=== PATIENT | female | born 1935 | race African-American/Black ===

== ENCOUNTER → 2016-08-24 | Outpatient (CLI) | payer MEDICARE, MEDICAID ==
[2016-08-24 18:29] LABS: HEMATOCRIT 36.1 % (36.0-47.0); HEMOGLOBIN 11.3 g/dL (12.0-15.5); HGB HCT DIFFERENCE -2.2; MEAN CORPUSCULAR HEMOGLOBIN 28.5 pg (27.0-33.4); MEAN CORPUSCULAR HGB CONC 31.2 g/dL (32.0-36.0); MEAN CORPUSCULAR VOLUME 92 fl (80-97); RED BLOOD COUNT 3.94 10^6/uL (3.72-5.28); RED CELL DISTRIBUTION WIDTH 15.7 % (11.5-14.0)
[2016-08-24 18:52] LABS: ANION GAP 18 (5-19); BLOOD UREA NITROGEN 50 mg/dL (7-20); CALCIUM 9.1 mg/dL (8.4-10.2); CARBON DIOXIDE 17 mmol/L (22-30); CHLORIDE 107 mmol/L (98-107); CREATININE RESULT 2.46 mg/dL (0.52-1.25); GLUCOSE 94 mg/dL (75-110); PHOSPHORUS 3.8 mg/dL (2.5-4.5); POTASSIUM 4.7 mmol/L (3.6-5.0)
[2016-08-24 19:11] LABS: MAGNESIUM 1.1 mg/dL (1.6-2.3)
== END ==
LOC: OD 16:30
PROVIDERS: ATTEND Internal Medicine Nephrology
DX: I12.9 Hypertensive chronic kidney disease with stage 1 through stage 4 chronic kidney disease, or unspecified chronic kidney disease (principal); N18.3 Chronic kidney disease, stage 3 (moderate); I50.9 Heart failure, unspecified
CPT/HCPCS: 36415; 80048; 83735; 83970; 84100; 85027

== ENCOUNTER → 2016-10-02 | Outpatient (CLI) | payer MEDICARE, MEDICAID ==
[2016-10-02 18:44] LABS: HEMATOCRIT 33.7 % (36.0-47.0); HEMOGLOBIN 10.9 g/dL (12.0-15.5); MEAN CORPUSCULAR HEMOGLOBIN 29.3 pg (27.0-33.4); MEAN CORPUSCULAR HGB CONC 32.2 g/dL (32.0-36.0); MEAN CORPUSCULAR VOLUME 91 fl (80-97); RED BLOOD COUNT 3.71 10^6/uL (3.72-5.28); RED CELL DISTRIBUTION WIDTH 15.3 % (11.5-14.0)
[2016-10-02 19:01] LABS: ANION GAP 15 (5-19); BLOOD UREA NITROGEN 49 mg/dL (7-20); CALCIUM 9.3 mg/dL (8.4-10.2); CARBON DIOXIDE 16 mmol/L (22-30); CHLORIDE 105 mmol/L (98-107); CREATININE RESULT 2.78 mg/dL (0.52-1.25); GLUCOSE 86 mg/dL (75-110); MAGNESIUM 1.5 mg/dL (1.6-2.3); PHOSPHORUS 3.6 mg/dL (2.5-4.5); POTASSIUM 5.1 mmol/L (3.6-5.0); SODIUM 135.7 mmol/L (137-145)
[2016-10-04 15:48] LABS: VITAMIN D 1,25 DIHYDROXY 44.8 pg/mL (19.9-79.3)
== END ==
LOC: OD 17:25
PROVIDERS: ATTEND Internal Medicine Nephrology
DX: I12.9 Hypertensive chronic kidney disease with stage 1 through stage 4 chronic kidney disease, or unspecified chronic kidney disease (principal); N18.4 Chronic kidney disease, stage 4 (severe); E83.41 Hypermagnesemia; R80.9 Proteinuria, unspecified
CPT/HCPCS: 36415; 80048; 82306; 82652; 83735; 83970; 84100; 85027

== ENCOUNTER → 2016-11-08 | Outpatient (CLI) | payer MEDICARE, MEDICAID ==
[2016-11-08 16:16] LABS: ANION GAP 12 (5-19); BLOOD UREA NITROGEN 44 mg/dL (7-20); CALCIUM 9.2 mg/dL (8.4-10.2); CARBON DIOXIDE 21 mmol/L (22-30); CHLORIDE 107 mmol/L (98-107); CREATININE RESULT 2.33 mg/dL (0.52-1.25); GLUCOSE 114 mg/dL (75-110); MAGNESIUM 1.3 mg/dL (1.6-2.3); PHOSPHORUS 3.4 mg/dL (2.5-4.5); POTASSIUM 4.5 mmol/L (3.6-5.0); SODIUM 139.5 mmol/L (137-145); URIC ACID 8.5 mg/dL (2.5-7.5)
[2016-11-10 13:03] LABS: VITAMIN D 25-HYDROXY 30.1 ng/mL (30.0-100.0)
== END ==
LOC: OD 15:03
PROVIDERS: ATTEND Internal Medicine Nephrology
DX: I12.9 Hypertensive chronic kidney disease with stage 1 through stage 4 chronic kidney disease, or unspecified chronic kidney disease (principal); N18.3 Chronic kidney disease, stage 3 (moderate); E87.5 Hyperkalemia; E83.42 Hypomagnesemia; M10.00 Idiopathic gout, unspecified site
CPT/HCPCS: 36415; 80048; 82306; 83735; 83970; 84100; 84550

== ENCOUNTER → 2016-12-14 | Outpatient (CLI) | payer MEDICARE, MEDICAID ==
[2016-12-14 09:46] LABS: HEMATOCRIT 33.5 % (36.0-47.0); HEMOGLOBIN 10.9 g/dL (12.0-15.5); HGB HCT DIFFERENCE -0.8; MEAN CORPUSCULAR HEMOGLOBIN 29.5 pg (27.0-33.4); MEAN CORPUSCULAR HGB CONC 32.6 g/dL (32.0-36.0); MEAN CORPUSCULAR VOLUME 91 fl (80-97); RED CELL DISTRIBUTION WIDTH 14.8 % (11.5-14.0); WHITE BLOOD COUNT 6.1 10^3/uL (4.0-10.5)
[2016-12-14 10:05] LABS: ANION GAP 12 (5-19); BLOOD UREA NITROGEN 42 mg/dL (7-20); CALCIUM 9.5 mg/dL (8.4-10.2); CARBON DIOXIDE 22 mmol/L (22-30); CHLORIDE 108 mmol/L (98-107); CREATININE RESULT 2.77 mg/dL (0.52-1.25); GLUCOSE 95 mg/dL (75-110); MAGNESIUM 1.6 mg/dL (1.6-2.3); PHOSPHORUS 3.6 mg/dL (2.5-4.5); POTASSIUM 4.5 mmol/L (3.6-5.0); SODIUM 142.1 mmol/L (137-145)
[2016-12-14 16:13] LABS: ALANINE AMINOTRANSFERASE 20 U/L (9-52); ALBUMIN 3.7 g/dL (3.5-5.0); ALKALINE PHOSPHATASE 91 U/L (38-126); ASPARTATE AMINO TRANSFERASE 16 U/L (14-36); BILIRUBIN,DIRECT 0.3 mg/dL (0.0-0.4); BILIRUBIN,TOTAL 0.5 mg/dL (0.2-1.3); CHOLESTEROL 140.86 mg/dL (0-200); Direct HDL 54 mg/dL (>40); TOTAL PROTEIN 7.4 g/dL (6.3-8.2); TRIGLYCERIDES 99 mg/dL (<150)
[2016-12-14 16:29] LABS: DIRECT LDL 39 mg/dL (<100)
== END ==
LOC: OD 08:31
PROVIDERS: ATTEND Specialist
DX: I12.9 Hypertensive chronic kidney disease with stage 1 through stage 4 chronic kidney disease, or unspecified chronic kidney disease (principal); E87.6 Hypokalemia; N18.4 Chronic kidney disease, stage 4 (severe); E78.5 Hyperlipidemia, unspecified; D64.89 Other specified anemias; G56.00 Carpal tunnel syndrome, unspecified upper limb; I34.0 Nonrheumatic mitral (valve) insufficiency; I42.9 Cardiomyopathy, unspecified; I66.8 Occlusion and stenosis of other cerebral arteries; R06.09 Other forms of dyspnea; Z98.61 Coronary angioplasty status; C15.9 Malignant neoplasm of esophagus, unspecified; I25.10 Atherosclerotic heart disease of native coronary artery without angina pectoris; Z79.899 Other long term (current) drug therapy
CPT/HCPCS: 36415; 80048; 80061; 80076; 83735; 83970; 84100; 85027

== ENCOUNTER → 2017-02-17 | Outpatient (CLI) | payer MEDICARE, MEDICAID ==
--- NOTE | 2017-02-18 09:07 | RADIOLOGY REPORT (SQ) ---
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 TECHNIQUE: Blood glucose level was verified. Above dose of FDG was injected intravenously. 2-D seg mented attenuation correction images were obtained from the base of the skull to the midthighs. Nonc ontrast CT images were obtained for attenuation correction and fusion with emission images. CT image s were performed without oral or intravenous contrast and are not sensitive for parenchymal lesions. A series of overlapping emission PET images were obtained. Images reviewed and manipulated at [facility] work station by the radiologist. Images stored on PACS. LIMITATIONS: None. FINDINGS: HEAD AND NECK: No areas of abnormal metabolic activity in the soft tissues of the head and neck. CHEST: No areas of abnormal metabolic activity in the chest. ABDOMEN AND PELVIS: No areas of abnormal metabolic activity in the abdomen or pelvis. Expected physi ologic activity is present in the genitourinary system and bowel. PROXIMAL LOWER EXTREMITIES: No areas of abnormal metabolic activity in the soft tissues of the lower extremities. BONES: No abnormal metabolic activity in the visualized skeleton. ADDITIONAL CT FINDINGS: Calcified gallstones, 1.5 cm staghorn calculus left lower pole kidney, bilate ral renal cortical cysts, colon diverticuli, fatty less than 1 cm right adrenal nodule, coronary manny ry calcifications OTHER: Liver background activity SUV 2.9, blood pool activity background SUV 2.2. IMPRESSION: No increased metabolic activity worrisome for metastatic disease given history of esopha geal malignancy TECHNICAL DOCUMENTATION: JOB ID: [id number] [employer]- All Rights Reserved
== END ==
LOC: RAD 15:30
PROVIDERS: ATTEND Specialist
DX: C15.9 Malignant neoplasm of esophagus, unspecified (principal)
CPT/HCPCS: 78815; A9552

== ENCOUNTER → 2017-04-05 | Outpatient (CLI) | payer MEDICARE, MEDICAID ==
[2017-04-05 11:12] LABS: HEMOGLOBIN 11.7 g/dL (12.0-15.5); HGB HCT DIFFERENCE -0.9; MEAN CORPUSCULAR HGB CONC 32.6 g/dL (32.0-36.0); MEAN CORPUSCULAR VOLUME 92 fl (80-97); RED CELL DISTRIBUTION WIDTH 16.8 % (11.5-14.0); WHITE BLOOD COUNT 4.5 10^3/uL (4.0-10.5)
[2017-04-05 11:44] LABS: ANION GAP 14 (5-19); BLOOD UREA NITROGEN 47 mg/dL (7-20); CALCIUM 9.5 mg/dL (8.4-10.2); CARBON DIOXIDE 19 mmol/L (22-30); CHLORIDE 106 mmol/L (98-107); GLUCOSE 89 mg/dL (75-110); MAGNESIUM 1.9 mg/dL (1.6-2.3); POTASSIUM 4.8 mmol/L (3.6-5.0); SODIUM 139.3 mmol/L (137-145)
== END ==
LOC: OD 09:54
PROVIDERS: ATTEND Internal Medicine Nephrology
DX: I13.10 Hypertensive heart and chronic kidney disease without heart failure, with stage 1 through stage 4 chronic kidney disease, or unspecified chronic kidney disease (principal); N18.3 Chronic kidney disease, stage 3 (moderate); E83.42 Hypomagnesemia
CPT/HCPCS: 36415; 80048; 83735; 85027

== ENCOUNTER → 2017-07-11 | Outpatient (CLI) | payer MEDICARE, MEDICAID ==
[2017-07-11 14:07] LABS: HEMATOCRIT 36.2 % (36.0-47.0); HEMOGLOBIN 11.9 g/dL (12.0-15.5); HGB HCT DIFFERENCE -0.5; MEAN CORPUSCULAR HGB CONC 32.8 g/dL (32.0-36.0); MEAN CORPUSCULAR VOLUME 91 fl (80-97); RED BLOOD COUNT 3.96 10^6/uL (3.72-5.28); RED CELL DISTRIBUTION WIDTH 16.7 % (11.5-14.0)
[2017-07-11 14:39] LABS: ANION GAP 13 (5-19); BLOOD UREA NITROGEN 40 mg/dL (7-20); CALCIUM 9.2 mg/dL (8.4-10.2); CARBON DIOXIDE 19 mmol/L (22-30); CHLORIDE 109 mmol/L (98-107); CREATININE RESULT 2.91 mg/dL (0.52-1.25); GLUCOSE 84 mg/dL (75-110); POTASSIUM 5.5 mmol/L (3.6-5.0); SODIUM 140.7 mmol/L (137-145)
[2017-07-11 19:17] LABS: APPEARANCE,URINE CLEAR; BILIRUBIN,URINE NEGATIVE (NEGATIVE); GLUCOSE, URINE NEGATIVE (NEGATIVE); KETONES,URINE NEGATIVE (NEGATIVE); LEUKOCYTE ESTERASE,URINE SMALL (NEGATIVE); NITRITE,URINE NEGATIVE (NEGATIVE); PROTEIN,URINE >=500 mg/dL (NEGATIVE); URINE SPECIFIC GRAVITY 1.009; UROBILINOGEN,URINE NEGATIVE mg/dL (<2.0)
== END ==
LOC: OD 12:52
PROVIDERS: ATTEND Physician Assistant Medical
DX: I12.9 Hypertensive chronic kidney disease with stage 1 through stage 4 chronic kidney disease, or unspecified chronic kidney disease (principal); N18.4 Chronic kidney disease, stage 4 (severe); E83.42 Hypomagnesemia
CPT/HCPCS: 36415; 80048; 81001; 85027

== ENCOUNTER → 2017-07-15 | Outpatient (CLI) | payer MEDICARE, MEDICAID | LOC: OD 12:02 | PROVIDERS: ATTEND Physician Assistant Medical | DX: E87.5 Hyperkalemia (principal) | CPT/HCPCS: 36415; 84132 ==

== ENCOUNTER 2017-09-03 08:27 | Outpatient (CLI) | payer MEDICARE, MEDICAID ==
[~2017-09-03 08:27] MED LIST: FERUMOXYTOL (NON-ESRD) 510 MG/NS 100 ML IV PRN; NORMAL SALINE 250 ML IV PRN
[2017-09-03 09:36] VITALS: BP 164/72
== END 2017-09-03 10:09 | disposition home or self-care (01) ==
LOC: II 08:27 → 5TH 08:47 → II 10:09
PROVIDERS: ATTEND Internal Medicine
PROC: 3E033GC Introduction of Other Therapeutic Substance into Peripheral Vein, Percutaneous Approach (ICD-10-PCS; principal; 2017-09-03)
DX: D50.0 Iron deficiency anemia secondary to blood loss (chronic) (principal); N18.3 Chronic kidney disease, stage 3 (moderate)
CPT/HCPCS: 96365; Q0138

== ENCOUNTER 2017-09-10 08:51 | Outpatient (CLI) | payer MEDICARE, MEDICAID ==
[~2017-09-10 08:51] MED LIST changes: -FERUMOXYTOL (NON-ESRD) 510 MG/NS 100 ML IV PRN; +FERUMOXYTOL 510 MG in NORMAL SALINE 100 ML IV PRN
[2017-09-10 10:03] VITALS: BP 149/54
== END 2017-09-10 10:11 | disposition home or self-care (01) ==
LOC: II 08:51
PROVIDERS: ATTEND Internal Medicine
PROC: 3E033GC Introduction of Other Therapeutic Substance into Peripheral Vein, Percutaneous Approach (ICD-10-PCS; principal; 2017-09-10)
DX: D50.0 Iron deficiency anemia secondary to blood loss (chronic) (principal); N18.3 Chronic kidney disease, stage 3 (moderate)
CPT/HCPCS: 96365; Q0138

== ENCOUNTER → 2017-09-19 | Outpatient (CLI) | payer MEDICARE, MEDICAID ==
[2017-09-19 10:00] LABS: HEMATOCRIT 34.5 % (36.0-47.0); HEMOGLOBIN 11.3 g/dL (12.0-15.5); MEAN CORPUSCULAR HEMOGLOBIN 29.9 pg (27.0-33.4); MEAN CORPUSCULAR HGB CONC 32.8 g/dL (32.0-36.0); MEAN CORPUSCULAR VOLUME 91 fl (80-97); PLATELET COUNT 125 10^3/uL (150-450); RED BLOOD COUNT 3.78 10^6/uL (3.72-5.28); RED CELL DISTRIBUTION WIDTH 16.1 % (11.5-14.0); WHITE BLOOD COUNT 4.9 10^3/uL (4.0-10.5)
[2017-09-19 10:30] LABS: ANION GAP 12 (5-19); BLOOD UREA NITROGEN 51 mg/dL (7-20); CALCIUM 9.5 mg/dL (8.4-10.2); CARBON DIOXIDE 20 mmol/L (22-30); CHLORIDE 106 mmol/L (98-107); GLUCOSE 91 mg/dL (75-110); PHOSPHORUS 4.1 mg/dL (2.5-4.5); POTASSIUM 4.8 mmol/L (3.6-5.0); SODIUM 138.2 mmol/L (137-145); URIC ACID 8.3 mg/dL (2.5-7.5)
[2017-09-21 17:12] LABS: APPEARANCE,URINE CLEAR; BILIRUBIN,URINE NEGATIVE (NEGATIVE); COLOR,URINE STRAW; GLUCOSE, URINE NEGATIVE (NEGATIVE); KETONES,URINE NEGATIVE (NEGATIVE); LEUKOCYTE ESTERASE,URINE TRACE (NEGATIVE); NITRITE,URINE NEGATIVE (NEGATIVE); PROTEIN,URINE 100 mg/dL (NEGATIVE); URINE SPECIFIC GRAVITY 1.005; UROBILINOGEN,URINE NEGATIVE mg/dL (<2.0)
== END ==
LOC: OD 09:18
PROVIDERS: ATTEND Physician Assistant Medical
DX: I12.9 Hypertensive chronic kidney disease with stage 1 through stage 4 chronic kidney disease, or unspecified chronic kidney disease (principal); N18.4 Chronic kidney disease, stage 4 (severe); E87.5 Hyperkalemia; M10.00 Idiopathic gout, unspecified site
CPT/HCPCS: 36415; 80048; 81001; 83970; 84100; 84550; 85027

== ENCOUNTER → 2017-12-25 | Outpatient (CLI) | payer MEDICARE, MEDICAID ==
--- NOTE | 2017-12-25 10:28 | WOMENS IMAGING REPORT ---
EXAM DESCRIPTION: BONE DENSITY HIP/SPINE COMPLETED DATE/TIME: 12/25/2017 8:53 am REASON FOR STUDY: AGE-RELATED OSTEOPROSIS; M81.0 Z12.31 ENCNTR SCREEN MAMMOGRAM FOR MALIGNANT NEOPL ASM OF GRACE M81.0 AGE-RELATED OSTEOPOROSIS W/O CURRENT PATHOLOGICAL FRAC COMPARISON: 09/07/2010 TECHNIQUE: Dual-Energy X-ray Absorptiometry (DEXA) of the AP Spine and Hip. LIMITATIONS: None. FINDINGS: LUMBAR SPINE: The bone mineral density (BMD) measured from L1-L4 in the AP projection correlates with a T-score of -4.0, previously -3.8, which is osteoporosis as defined by the World Health Organization. HIP: The bone mineral density (BMD) measured in the left hip correlates with a T-score of -3.1, previously -2.9, which is osteoporosis as defined by the World Health Organization. IMPRESSION: 1. LUMBAR SPINE: OSTEOPOROSIS. 2. HIP: OSTEOPOROSIS. COMMENT: The World Health Organization defines low BMD as follows: T-score: Normal: Greater than -1.0 Osteopenia: Between -1.0 and -2.5 Osteoporosis: Less than -2.5 without fractures Established osteoporosis: Less than -2.5 with fractures In general, you may wish to consider: Diagnosis Treatment Follow-up DEXA Normal BMD Prevention 2-3 years Osteopenia Prevention/Therapy 1-2 years Osteoporosis Therapy Yearly TECHNICAL DOCUMENTATION: JOB ID: [id number] [employer]- All Rights Reserved Reading location - IP/workstation name: [email or web address]
--- NOTE | 2017-12-26 16:49 | WOMENS IMAGING REPORT ---
EXAM DESCRIPTION: 3D SCREENING MAMMO BILAT COMPLETED DATE/TIME: 12/25/2017 8:53 am REASON FOR STUDY: ROUTINE SCREENING;Z12.31 Z12.31 ENCNTR SCREEN MAMMOGRAM FOR MALIGNANT NEOPLASM OF GRACE M81.0 AGE-RELATED OSTEOPOROSIS W/O CURRENT PATHOLOGICAL FRAC COMPARISON: 2010. TECHNIQUE: Standard craniocaudal and mediolateral oblique views of each breast recorded using digita l acquisition and breast tomosynthesis. LIMITATIONS: None. FINDINGS: No masses, calcifications or architectural distortion. No areas of suspicion. Read with the assistance of CAD. .[facility] - R2 Cenova Version 1.3 .[facility] - R2 Cenova Version 1.3 .[facility] - R2 Cenova Version 2.4 .[facility] - R2 Cenova Version 2.4 .[facility] - R2 Regulatory Assistant Version 9.2 IMPRESSION: NORMAL MAMMOGRAM. BIRADS 1. BREAST DENSITY: b. There are scattered areas of fibroglandular density. BIRAD: 1 NEGATIVE RECOMMENDATION: ROUTINE SCREENING COMMENT: The patient has been notified of the results by letter per MQSA requirements. Additional no tification policies are in place for contacting patient with suspicious or incomplete findings. Quality ID #[id number]: The [employer] [place] [employer] recommends an annual screening mammogram for women aged 40 years or over. This facility utilizes a reminder system to ensure that all patients receive reminder letters, and/or direct phone calls for appointments. This includes reminders for routine scr eening mammograms, diagnostic mammograms, or other Breast Imaging Interventions when appropriate. Th is patient will be placed in the appropriate reminder system. The [employer] [place] [employer] (ACR) has developed recommendations for screening MRI of the breast s in certain patient populations, to be used in conjunction with mammography. Breast MRI surveillanc e may be appropriate for women with more than 20% lifetime risk of developing breast cancer as deter mined by genetic testing, significant family history of the disease, or history of mantle radiation f or Hodgkins Disease. ACR Practice Guidelines 2008. DBT Technology DBT is a type of tomographic mammography. With conventional mammography, overlapping breast tissue ma y make lesions difficult to detect, even with good compression. DBT uses an x-ray tube that rotates a round the breast, taking images at different angles. These images are then combined to create thin sl ices of the breast that the radiologist can view as a 3D reconstruction. The GreenNote unit can perform full-field digital mammograms (2D imaging); or DBT (3D imaging); or both, in a combination mode that quickly performs both the mammogram and the tomosynthesis scan while the breast is still compressed. PQRS 6045F: Fluoroscopic imaging is not utilized for breast tomosynthesis. TECHNICAL DOCUMENTATION: FINDING NUMBER: (1) ASSESSMENT: (1) JOB ID: [id number] [employer]- All Rights Reserved Reading location - IP/workstation name: [email or web address]
== END ==
LOC: WI 08:05
PROVIDERS: ATTEND Physician Assistant
DX: Z12.31 Encounter for screening mammogram for malignant neoplasm of breast (principal); M81.0 Age-related osteoporosis without current pathological fracture
CPT/HCPCS: 77063; 77067; 77080

== ENCOUNTER → 2018-01-16 | Outpatient (CLI) | payer MEDICARE, MEDICAID ==
[2018-01-16 11:38] LABS: HEMATOCRIT 34.4 % (36.0-47.0); HEMOGLOBIN 11.4 g/dL (12.0-15.5); MEAN CORPUSCULAR HEMOGLOBIN 30.6 pg (27.0-33.4); MEAN CORPUSCULAR VOLUME 93 fl (80-97); PLATELET COUNT 136 10^3/uL (150-450); RED BLOOD COUNT 3.71 10^6/uL (3.72-5.28); RED CELL DISTRIBUTION WIDTH 14.1 % (11.5-14.0); WHITE BLOOD COUNT 5.1 10^3/uL (4.0-10.5)
[2018-01-16 11:43] LABS: ANION GAP 13 (5-19); BLOOD UREA NITROGEN 52 mg/dL (7-20); CALCIUM 9.6 mg/dL (8.4-10.2); CARBON DIOXIDE 21 mmol/L (22-30); CHLORIDE 109 mmol/L (98-107); GLUCOSE 88 mg/dL (75-110); IRON(TIBC) 67.1 ug/dL (37-170); PHOSPHORUS 4.2 mg/dL (2.5-4.5); POTASSIUM 5.1 mmol/L (3.6-5.0); SODIUM 142.9 mmol/L (137-145)
[2018-01-17 15:39] LABS: APPEARANCE,URINE SLIGHTLY-CLOUDY; BILIRUBIN,URINE NEGATIVE (NEGATIVE); COLOR,URINE YELLOW; GLUCOSE, URINE NEGATIVE (NEGATIVE); KETONES,URINE NEGATIVE (NEGATIVE); LEUKOCYTE ESTERASE,URINE SMALL (NEGATIVE); NITRITE,URINE NEGATIVE (NEGATIVE); PROTEIN,URINE >=500 mg/dL (NEGATIVE); URINE SPECIFIC GRAVITY 1.011; UROBILINOGEN,URINE NEGATIVE mg/dL (<2.0)
== END ==
LOC: OD 09:53
PROVIDERS: ATTEND Physician Assistant Medical
DX: I13.0 Hypertensive heart and chronic kidney disease with heart failure and stage 1 through stage 4 chronic kidney disease, or unspecified chronic kidney disease (principal); N18.4 Chronic kidney disease, stage 4 (severe); I50.9 Heart failure, unspecified; E87.5 Hyperkalemia
CPT/HCPCS: 36415; 80048; 81001; 82728; 83540; 83550; 83735; 83970; 84100; 85027

== ENCOUNTER → 2018-04-30 | Outpatient (CLI) | payer MEDICAID, MEDICARE ==
[2018-04-30 12:40] LABS: HEMATOCRIT 31.2 % (36.0-47.0); HEMOGLOBIN 10.3 g/dL (12.0-15.5); MEAN CORPUSCULAR HEMOGLOBIN 30.4 pg (27.0-33.4); MEAN CORPUSCULAR VOLUME 92 fl (80-97); PLATELET COUNT 129 10^3/uL (150-450); RED BLOOD COUNT 3.39 10^6/uL (3.72-5.28); RED CELL DISTRIBUTION WIDTH 14.7 % (11.5-14.0); WHITE BLOOD COUNT 5.8 10^3/uL (4.0-10.5)
[2018-04-30 13:00] LABS: IRON(TIBC) 44.4 ug/dL (37-170)
== END ==
LOC: OD 10:47
PROVIDERS: ATTEND Internal Medicine Nephrology
DX: N18.4 Chronic kidney disease, stage 4 (severe) (principal); D64.9 Anemia, unspecified
CPT/HCPCS: 36415; 82728; 83540; 83550; 85027

== ENCOUNTER → 2018-05-28 | Outpatient (CLI) | payer MEDICARE ==
[2018-05-28 12:12] LABS: HEMOGLOBIN 11.1 g/dL (12.0-15.5); MEAN CORPUSCULAR HEMOGLOBIN 29.9 pg (27.0-33.4); MEAN CORPUSCULAR HGB CONC 32.5 g/dL (32.0-36.0); MEAN CORPUSCULAR VOLUME 92 fl (80-97); PLATELET COUNT 149 10^3/uL (150-450); RED CELL DISTRIBUTION WIDTH 15.4 % (11.5-14.0); WHITE BLOOD COUNT 5.4 10^3/uL (4.0-10.5)
[2018-05-28 12:37] LABS: ANION GAP 16 (5-19); BLOOD UREA NITROGEN 39 mg/dL (7-20); CALCIUM 9.5 mg/dL (8.4-10.2); CARBON DIOXIDE 17 mmol/L (22-30); CHLORIDE 107 mmol/L (98-107); GLUCOSE 76 mg/dL (75-110); PHOSPHORUS 4.3 mg/dL (2.5-4.5); POTASSIUM 4.7 mmol/L (3.6-5.0); SODIUM 140.4 mmol/L (137-145)
[2018-05-29 17:29] LABS: APPEARANCE,URINE CLEAR; BILIRUBIN,URINE NEGATIVE (NEGATIVE); COLOR,URINE STRAW; GLUCOSE, URINE NEGATIVE (NEGATIVE); KETONES,URINE NEGATIVE (NEGATIVE); LEUKOCYTE ESTERASE,URINE TRACE (NEGATIVE); NITRITE,URINE NEGATIVE (NEGATIVE); PROTEIN,URINE 100 mg/dL (NEGATIVE); URINE SPECIFIC GRAVITY 1.011; UROBILINOGEN,URINE NEGATIVE mg/dL (<2.0)
[2018-05-29 18:07] LABS: URINE CREATININE 66.8 mg/dL (15-278)
[2018-05-29 18:09] LABS: UR PRO/CREAT RATIO RESULT 3.3 mg/mg (0.0-0.2); URINE PROTEIN 221.8 mg/dL (<12)
== END ==
LOC: OD 11:06
PROVIDERS: ATTEND Physician Assistant Medical
DX: I13.0 Hypertensive heart and chronic kidney disease with heart failure and stage 1 through stage 4 chronic kidney disease, or unspecified chronic kidney disease (principal); I50.9 Heart failure, unspecified; N18.4 Chronic kidney disease, stage 4 (severe); R60.9 Edema, unspecified
CPT/HCPCS: 36415; 80048; 81001; 82570; 83970; 84100; 84156; 85027

== ENCOUNTER → 2018-07-24 | Outpatient (CLI) | payer MEDICARE ==
[2018-07-24 15:57] LABS: ABSOLUTE EOSINOPHILS # (AUTO) 0.1 10^3/uL (0.0-0.6); ABSOLUTE LYMPHOCYTES (AUTO) 1.3 10^3/uL (0.5-4.7); ABSOLUTE MONOCYTES (AUTO) 0.4 10^3/uL (0.1-1.4); ABSOLUTE NEUT (AUTO) 3.5 10^3/uL (1.7-8.2); BASOPHILS % (AUTO) 0.4 % (0-2); HEMATOCRIT 31.2 % (36.0-47.0); LYMPHOCYTES % (AUTO) 24.1 % (13-45); MEAN CORPUSCULAR HGB CONC 32.1 g/dL (32.0-36.0); MEAN CORPUSCULAR VOLUME 91 fl (80-97); MONOCYTES % (AUTO) 6.8 % (3-13); PLATELET COUNT 149 10^3/uL (150-450); RED BLOOD COUNT 3.44 10^6/uL (3.72-5.28); RED CELL DISTRIBUTION WIDTH 15.2 % (11.5-14.0); SEGMENTED NEUTROPHILS % (AUTO) 66.7 % (42-78); TOTAL CELLS COUNTED % (AUTO) 100 %; WHITE BLOOD COUNT 5.3 10^3/uL (4.0-10.5)
--- NOTE | 2018-07-24 16:08 | RADIOLOGY REPORT (SQ) ---
EXAM DESCRIPTION: CHEST PA/LATERAL COMPLETED DATE/TIME: 07/24/2018 4:00 pm REASON FOR STUDY: COUGH R05 COUGH N18.9 CHRONIC KIDNEY DISEASE, UNSPECIFIED I50.32 CHRONIC DIASTO LIC (CONGESTIVE) HEART FAILURE COMPARISON: 11/14/2015. NUMBER OF VIEWS: Two views. TECHNIQUE: Frontal and lateral radiographic views of the chest acquired. LIMITATIONS: None. FINDINGS: LUNGS AND PLEURA: No opacities, masses or pneumothorax. No pleural effusion. MEDIASTINUM AND HILAR STRUCTURES: No masses or contour abnormality. HEART AND VASCULAR STRUCTURES: Marked cardiomegaly with vascular congestion. BONES: No acute findings. HARDWARE: None in the chest. OTHER: No other significant finding. IMPRESSION: MARKED CARDIOMEGALY WITH VASCULAR CONGESTION. TECHNICAL DOCUMENTATION: JOB ID: [id number] [employer]- All Rights Reserved Reading location - IP/workstation name: [email or web address]
[2018-07-24 16:16] LABS: ANION GAP 11 (5-19); BLOOD UREA NITROGEN 44 mg/dL (7-20); CALCIUM 9.9 mg/dL (8.4-10.2); CARBON DIOXIDE 26 mmol/L (22-30); CHLORIDE 105 mmol/L (98-107); GLUCOSE 99 mg/dL (75-110); POTASSIUM 4.3 mmol/L (3.6-5.0); SODIUM 141.5 mmol/L (137-145)
== END ==
LOC: OD 15:17
PROVIDERS: ATTEND Family Medicine
DX: R05 Cough (principal); N18.9 Chronic kidney disease, unspecified; I50.32 Chronic diastolic (congestive) heart failure
CPT/HCPCS: 36415; 71046; 80048; 83880; 85025

== ENCOUNTER → 2018-07-31 | Outpatient (CLI) | payer MEDICARE ==
[2018-07-31 12:25] LABS: IRON(TIBC) 34.6 ug/dL (37-170)
== END ==
LOC: OD 10:40
PROVIDERS: ATTEND Internal Medicine Nephrology
DX: N18.4 Chronic kidney disease, stage 4 (severe) (principal); D63.1 Anemia in chronic kidney disease
CPT/HCPCS: 36415; 82728; 83540; 83550

== ENCOUNTER → 2018-08-01 | Outpatient (CLI) | payer MEDICARE, MEDICAID ==
--- NOTE | 2018-08-01 10:43 | RADIOLOGY REPORT (SQ) ---
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 TECHNIQUE: CT scan of the abdomen and pelvis performed without intravenous or oral contrast. Images reviewed with lung, soft tissue, and bone windows. Reconstructed coronal and sagittal MPR images revi ewed. All images stored on PACS. All CT scanners at this facility use dose modulation, iterative reconstruction, and/or weight based d osing when appropriate to reduce radiation dose to as low as reasonably achievable (ALARA). [facility]: Dose Right [facility]: CareDose [facility]: Dose Right [facility]: Teradose 4D [facility]: Smart Ensequence RADIATION DOSE: CT Rad equipment meets quality standard of care and radiation dose reduction techniq ues were employed. CTDIvol: 11.9 mGy. DLP: 595 mGy-cm.mGy. LIMITATIONS: None. FINDINGS: LOWER CHEST: Cardiomegaly. Trace pleural effusions. NON-CONTRASTED LIVER, SPLEEN, ADRENALS: Evaluation limited by lack of IV contrast. No identified sign ificant masses. PANCREAS: No masses. No peripancreatic inflammatory changes. GALLBLADDER: Gallstones. No inflammatory changes to suggest cholecystitis. RIGHT KIDNEY AND URETER: No suspicious masses. Assessment limited by lack of IV contrast. No signif icant calcifications. No hydronephrosis or hydroureter. LEFT KIDNEY AND URETER: No suspicious masses. Assessment limited by lack of IV contrast. Unchanged renal calculi. No hydronephrosis or hydroureter. AORTA AND RETROPERITONEUM: No aneurysm. No retroperitoneal masses or adenopathy. BOWEL AND PERITONEAL CAVITY: Diffuse diverticulosis. No obvious diverticulitis. No ascites or free air. APPENDIX: Normal. PELVIS, BLADDER, AND ABDOMINAL WALL:No abnormal masses. No free fluid. Bladder normal. BONES: Nothing acute. OTHER: No other significant finding. IMPRESSION: 1. Diffuse diverticulosis without obvious diverticulitis. 2. Cholelithiasis. 3. Nonobstructing left renal calculi. COMMENT: Quality ID # [id number]: Final reports with documentation of one or more dose reduction techniques (e.g., Automated exposure control, adjustment of the mA and/or kV according to patient size, use of iterative reconstruction technique) TECHNICAL DOCUMENTATION: JOB ID: [id number] [employer]- All Rights Reserved Reading location - IP/workstation name: [email or web address]
== END ==
LOC: RAD 09:57
PROVIDERS: ATTEND Family Medicine
DX: R10.13 Epigastric pain (principal); C15.8 Malignant neoplasm of overlapping sites of esophagus; K57.90 Diverticulosis of intestine, part unspecified, without perforation or abscess without bleeding; K80.20 Calculus of gallbladder without cholecystitis without obstruction; N20.0 Calculus of kidney
CPT/HCPCS: 74176

== ENCOUNTER → 2018-08-07 | Outpatient (CLI) | payer MEDICARE, MEDICAID ==
--- NOTE | 2018-08-07 16:31 | RADIOLOGY REPORT (SQ) ---
EXAM DESCRIPTION: CHEST PA/LATERAL COMPLETED DATE/TIME: 08/07/2018 4:02 pm REASON FOR STUDY: CHRONIC DIASTOLIC CONGESTIVE HEART FAILURE COMPARISON: PET-CT 02/17/2017 Chest films 11/14/2015, 07/24/2018 CT abdomen pelvis 08/01/2018 EXAM PARAMETERS: NUMBER OF VIEWS: two views TECHNIQUE: Digital Frontal and Lateral radiographic views of the chest acquired. RADIATION DOSE: NA LIMITATIONS: none FINDINGS: LUNGS AND PLEURA: Trace left pleural fluid in the lateral costophrenic sulcus. No right p leural effusion No acute infiltrates. No pneumothorax. MEDIASTINUM AND HILAR STRUCTURES: Fullness of the right hilum unchanged from prior studies, likely du e to prominent central pulmonary vessels. This is similar compared to PET-CT 02/17/2017. HEART AND VASCULAR STRUCTURES: Stable moderate cardiomegaly BONES: No acute findings. HARDWARE: None in the chest. OTHER: No other significant finding. IMPRESSION: Trace left pleural effusion Stable moderate cardiomegaly TECHNICAL DOCUMENTATION: JOB ID: [id number] [employer]- All Rights Reserved Reading location - IP/workstation name: [email or web address]
== END ==
LOC: OD 15:48
PROVIDERS: ATTEND Family Medicine
DX: I50.32 Chronic diastolic (congestive) heart failure (principal); I51.7 Cardiomegaly
CPT/HCPCS: 71046

== ENCOUNTER → 2018-09-03 | Outpatient (CLI) | payer MEDICARE, MEDICAID ==
[2018-09-03 14:12] LABS: HEMATOCRIT 32.8 % (36.0-47.0); HEMOGLOBIN 10.7 g/dL (12.0-15.5); MEAN CORPUSCULAR HEMOGLOBIN 29.1 pg (27.0-33.4); MEAN CORPUSCULAR HGB CONC 32.7 g/dL (32.0-36.0); MEAN CORPUSCULAR VOLUME 89 fl (80-97); PLATELET COUNT 134 10^3/uL (150-450); RED BLOOD COUNT 3.69 10^6/uL (3.72-5.28); WHITE BLOOD COUNT 4.6 10^3/uL (4.0-10.5)
[2018-09-03 14:36] LABS: ANION GAP 13 (5-19); BLOOD UREA NITROGEN 45 mg/dL (7-20); CALCIUM 9.6 mg/dL (8.4-10.2); CARBON DIOXIDE 26 mmol/L (22-30); CHLORIDE 103 mmol/L (98-107); GLUCOSE 94 mg/dL (75-110); PHOSPHORUS 4.4 mg/dL (2.5-4.5); SODIUM 141.7 mmol/L (137-145)
[2018-09-04 16:59] LABS: APPEARANCE,URINE CLEAR; BILIRUBIN,URINE NEGATIVE (NEGATIVE); COLOR,URINE STRAW; GLUCOSE, URINE NEGATIVE (NEGATIVE); KETONES,URINE NEGATIVE (NEGATIVE); LEUKOCYTE ESTERASE,URINE NEGATIVE (NEGATIVE); NITRITE,URINE NEGATIVE (NEGATIVE); PROTEIN,URINE 100 mg/dL (NEGATIVE); URINE SPECIFIC GRAVITY 1.011; UROBILINOGEN,URINE NEGATIVE mg/dL (<2.0)
[2018-09-04 17:16] LABS: URINE CREATININE 68.3 mg/dL (15-278)
[2018-09-04 17:28] LABS: UR PRO/CREAT RATIO RESULT 3.4 mg/mg (0.0-0.2); URINE PROTEIN 235.1 mg/dL (<12)
== END ==
LOC: OD 13:26
PROVIDERS: ATTEND Physician Assistant Medical
DX: I13.0 Hypertensive heart and chronic kidney disease with heart failure and stage 1 through stage 4 chronic kidney disease, or unspecified chronic kidney disease (principal); N18.4 Chronic kidney disease, stage 4 (severe); I50.9 Heart failure, unspecified
CPT/HCPCS: 36415; 80048; 81001; 82570; 83970; 84100; 84156; 85027

== ENCOUNTER 2018-09-07 13:39 | Emergency (ER) | payer MEDICARE, MEDICAID ==
--- NOTE | 2018-09-07 14:14 | ER Document Report ---
ED Medical Screen (RME) - General Chief Complaint: Abdominal Pain Stated Complaint: STOMACH PAIN Time Seen by Provider: 09/07/18 14:13 Primary Care Provider: JD SAMSON PA-C [Primary Care Provider] - Follow up as needed TRAVEL OUTSIDE OF THE [place] IN LAST 30 DAYS: No - HPI Notes: 09/07/18 14:14 Abdominal pain 2 weeks - Related Data Allergies/Adverse Reactions: clopidogrel bisulfate [From Plavix] Allergy (Verified 09/07/18 13:42) Sulfa (Sulfonamide Antibiotics) Allergy (Verified 09/07/18 13:42) Past Medical History - Past Medical History Cardiac Medical History: Reports: Hx Congestive Heart Failure, Hx Coronary Artery Disease, Hx Hypertension Neurological Medical History: Denies: Hx Seizures GI Medical History: Reports: Hx Gastroesophageal Reflux Disease Musculoskeltal Medical History: Reports Hx Arthritis Psychiatric Medical History: Denies: Hx Depression Past Surgical History: Reports: Hx Cardiac Surgery - Stent x1. Denies: Hx Hysterectomy Review of Systems - Review of Systems Gastrointestinal: Abdominal pain Physical Exam - Vital signs Vitals: Temp Pulse Resp BP Pulse Ox 98.6 F 51 L 18 150/64 H 97 09/07/18 13:51 09/07/18 13:51 09/07/18 13:51 09/07/18 13:51 09/07/18 13:51 - Abdominal Notes: Soft no guarding or rebound Course - Vital Signs Vital signs: Temp Pulse Resp BP Pulse Ox 98.6 F 51 L 18 150/64 H 97 09/07/18 13:51 09/07/18 13:51 09/07/18 13:51 09/07/18 13:51 09/07/18 13:51 Doctor's Discharge - Discharge Referrals: JD SAMSON PA-C [Primary Care Provider] - Follow up as needed
[2018-09-07] MEDS ORDERED: METOCLOPRAMIDE HCL ORAL SOLN 10 MG/10 ML UDCUP PO ONE (14:42)
[2018-09-07] MEDS ORDERED: LIDOCAINE 2% VISCOUS SOLN 20 ML UDCUP PO ONE (14:42)
[2018-09-07] MEDS ORDERED: MAG HYDROX/AL HYDROX/SIMETH SUSP 30 ML UDCUP PO ONE (14:42)
--- NOTE | 2018-09-07 14:46 | ER Document Report ---
Addendum entered and electronically signed by PALOMA HERNANDEZ PA-C 09/07/18 17:14: Course - Re-evaluation Re-evalutation: 09/07/18 17:[address] Stevenson who is in agreement with dispo/plan. - Vital Signs Vital signs: Temp Pulse Resp BP Pulse Ox 98.6 F 51 L 18 150/64 H 97 09/07/18 13:51 09/07/18 13:51 09/07/18 13:51 09/07/18 13:51 09/07/18 13:51 - Laboratory Result Diagrams: 09/07/18 15:15 09/07/18 15:15 Laboratory results interpreted by me: 09/07/18 09/07/18 09/07/18 15:15 15:15 16:00 RBC 3.60 L Hgb 10.5 L Hct 32.1 L RDW 15.9 H Plt Count 130 L BUN 47 H Creatinine 4.20 H Est GFR ( Amer) 12 L Est GFR (Non-Af Amer) 10 L Calcium 10.3 H ALT < 6 L Total Protein 8.3 H Urine Protein 100 H Ur Leukocyte Esterase MODERATE H Original Note: ED General - General Chief Complaint: Abdominal Pain Stated Complaint: STOMACH PAIN Time Seen by Provider: 09/07/18 14:13 Primary Care Provider: KENNETH MONTERO MD [ACTIVE STAFF] - Follow up as needed EMILIE TEJEDA MD [Primary Care Provider] - 09/09/18 JD SAMSON PA-C [ALLIED HEALTH PROFESSIONAL] - Follow up as needed TRAVEL OUTSIDE OF THE [place] IN LAST 30 DAYS: No - HPI Notes: Patient is an 83-year-old female with a history of chronic kidney disease, congestive heart failure, hypertension who presents to the emergency department complaining of upper abdominal pain intermittently over the last several weeks. Patient states that food intake does worsen her pain at times. Daughter states that she has been eating a lot of spices and hot sauce even though she is not supposed to. The pain does not radiate. She is still able to eat and drink without any difficulties otherwise, but does have a decreased p.o. intake. She is urinating normally. Patient states that she is having normal bowel movements that are soft with the last one being this morning. Daughter states that she has been evaluated for this abdominal pain before and has been placed on Mylanta and believes that she had a CT scan performed at the end of July. No other concerns or complaints. No other surgical history to her abdomen. Pain is not worsened by ambulation and is w/o any cardiopulmonary symptoms associated. Denies any headache, fever, neck pain, URI, sore throat, chest pain, palpitations, syncope, cough, shortness of breath, wheeze, dyspnea, nausea/vomiting/diarrhea, urinary retention, dysuria, hematuria, or rash. - Related Data Allergies/Adverse Reactions: clopidogrel bisulfate [From Plavix] Allergy (Verified 09/07/18 13:42) Sulfa (Sulfonamide Antibiotics) Allergy (Verified 09/07/18 13:42) Past Medical History - Social History Smoking Status: Never Smoker Family History: Reviewed & Not Pertinent Patient has suicidal ideation: No Patient has homicidal ideation: No - Past Medical History Cardiac Medical History: Reports: Hx Congestive Heart Failure, Hx Coronary Artery Disease, Hx Hypertension Neurological Medical History: Denies: Hx Seizures Renal/ Medical History: Denies: Hx Peritoneal Dialysis GI Medical History: Reports: Hx Gastroesophageal Reflux Disease Musculoskeletal Medical History: Reports Hx Arthritis Psychiatric Medical History: Denies: Hx Depression Past Surgical History: Reports: Hx Cardiac Surgery - Stent x1. Denies: Hx Hysterectomy - Immunizations Hx Pneumococcal Vaccination: 08/05/11 Review of Systems - Review of Systems -: Yes All other systems reviewed and negative Physical Exam - Vital signs Vitals: Temp Pulse Resp BP Pulse Ox 98.6 F 51 L 18 150/64 H 97 09/07/18 13:51 09/07/18 13:51 09/07/18 13:51 09/07/18 13:51 09/07/18 13:51 - Notes Notes: PHYSICAL EXAMINATION: GENERAL: Well-appearing, well-nourished and in no acute distress. A&Ox4. answers questions appropriately. HEAD: Atraumatic, normocephalic. EYES: Pupils equal round and reactive to light, extraocular movements intact, sclera anicteric, conjunctiva are normal. ENT: Nares patent and without discharge. oropharynx clear without exudates. No tonsilar hypertrophy or erythema. Moist mucous membranes. NECK: Normal range of motion, supple without lymphadenopathy LUNGS: Breath sounds clear to auscultation bilaterally and equal. No wheezes rales or rhonchi. HEART: Regular rate and rhythm without murmurs, rubs, gallops. ABDOMEN: Soft, nondistended abdomen. No guarding, no rebound. No masses appreciated. Normal bowel sounds present. No CVA tenderness bilaterally. + tenderness epigastrum. Weller seems to be negative at this time. No lower abd pain. Rectal (accompanied by RN Anna): stool is dark colored, but not black or melenotic. Guiac at bedside neg. Musculoskeletal: FROM to passive/active. Strength 5+/5. Extremities: No cyanosis, clubbing, or edema b/l. Peripheral pulses 2+. Capillary refill less than 3 seconds. NEUROLOGICAL: Normal speech, normal gait. PSYCH: Normal mood, normal affect. SKIN: Warm, Dry, normal turgor, no rashes or lesions noted. Course - Re-evaluation Re-evalutation: 09/07/18 16:45 Patient is an afebrile, well-hydrated, 83-year-old female who presents the emergency department with epigastric abdominal pain which is suspect to be cristobal ritis versus biliary colic. Possible UTI. Vitals are acceptable without significant tachycardia, tachypnea, or hypoxia. PE is otherwise unremarkable. CBC, CMP, lipase, guaiac acceptable. See UA/UC pending. She is nontoxic- appearing and is tolerating p.o. without difficulty. Patient states that the GI cocktail immediately resolved her symptoms. She does have noted cholelithiasis on previous scan, but no other evidence of infection including fever/elevated LFTs/elevated lipase. Patient's tenderness is primarily to the mid epigastrium with a negative Weller. Patient is still producing urine despite a small increase in her creatinine to 4.20. Low suspicion/risk for acute appendicitis, bowel obstruction, acute cholecystitis, acute cholangitis, perforated diverticulitis, incarcerated hernia, pancreatitis, perforated ulcer, peritonitis, sepsis, or other systemic emergent condition at this time. Patient is aware that her condition can change from initial presentation and she needs t o monitor symptoms closely and seek medical attention if any acute changes. Rx for doxy. Pt is already on prilosec. Conservative measures otherwise for symptoms. Recheck with your PCM in 2-3 days. Consider consult with a greenhouse florist. Return to the ED with any worsening/concerning symptoms otherwise as reviewed in discharge. Patient/daughter in agreement. - Vital Signs Vital signs: Temp Pulse Resp BP Pulse Ox 98.6 F 51 L 18 150/64 H 97 09/07/18 13:51 09/07/18 13:51 09/07/18 13:51 09/07/18 13:51 09/07/18 13:51 - Laboratory Result Diagrams: 09/07/18 15:15 09/07/18 15:15 Laboratory results interpreted by me: 09/07/18 09/07/18 09/07/18 15:15 15:15 16:00 RBC 3.60 L Hgb 10.5 L Hct 32.1 L RDW 15.9 H Plt Count 130 L BUN 47 H Creatinine 4.20 H Est GFR ( Amer) 12 L Est GFR (Non-Af Amer) 10 L Calcium 10.3 H ALT < 6 L Total Protein 8.3 H Urine Protein 100 H Ur Leukocyte Esterase MODERATE H Discharge - Discharge Clinical Impression: Epigastric abdominal pain, Acute UTI (urinary tract infection) Condition: Stable Disposition: HOME, SELF-CARE Instructions: Abdominal Pain ([facility]), Urinary Tract Infection ([facility]), Cephalexin ([facility]) Additional Instructions: Maintain adequate fluid and food intake Avoid spices, caffeine, citrus tylenol if needed Monitor for any worsening symptoms Make sure you are staying hydrated enough to urinate and have normal BM's Recheck with your PCM in 2-3 days Consider consult with Gastroenterology for ongoing/worsening symptoms Return to the ED with any worsening symptoms and/or development of fever, headache, chest pain, palpitations, syncope, shortness of breath, trouble breathing, abdominal pain, n/v/d, blood in stool/urine, weakness, or other worsening symptoms that are concerning to you. Prescriptions: Doxycycline Hyclate 100 mg PO BID #14 capsule Forms: Elevated Blood Pressure Referrals: JD SAMSON PA-C [ALLIED HEALTH PROFESSIONAL] - Follow up as needed KENNETH MONETRO MD [ACTIVE STAFF] - Follow up as needed EMILIE TEJEDA MD [Primary Care Provider] - 09/09/18
[2018-09-07 15:28] LABS: ABSOLUTE BASOPHILS # (AUTO) 0.1 10^3/uL (0.0-0.2); ABSOLUTE EOSINOPHILS # (AUTO) 0.2 10^3/uL (0.0-0.6); ABSOLUTE LYMPHOCYTES (AUTO) 2.7 10^3/uL (0.5-4.7); ABSOLUTE MONOCYTES (AUTO) 0.5 10^3/uL (0.1-1.4); EOSINOPHILS % (AUTO) 3.1 % (0-6); HEMATOCRIT 32.1 % (36.0-47.0); HEMOGLOBIN 10.5 g/dL (12.0-15.5); LYMPHOCYTES % (AUTO) 42.6 % (13-45); MEAN CORPUSCULAR HEMOGLOBIN 29.2 pg (27.0-33.4); MEAN CORPUSCULAR HGB CONC 32.8 g/dL (32.0-36.0); MEAN CORPUSCULAR VOLUME 89 fl (80-97); MONOCYTES % (AUTO) 7.5 % (3-13); PLATELET COUNT 130 10^3/uL (150-450); RED CELL DISTRIBUTION WIDTH 15.9 % (11.5-14.0); SEGMENTED NEUTROPHILS % (AUTO) 45.8 % (42-78); TOTAL CELLS COUNTED % (AUTO) 100 %; WHITE BLOOD COUNT 6.5 10^3/uL (4.0-10.5)
[2018-09-07 15:40] LABS: ALANINE AMINOTRANSFERASE < 6 U/L (9-52); ALBUMIN 4.2 g/dL (3.5-5.0); ALKALINE PHOSPHATASE 53 U/L (38-126); ANION GAP 12 (5-19); ASPARTATE AMINO TRANSFERASE 16 U/L (14-36); BILIRUBIN,DIRECT 0.4 mg/dL (0.0-0.4); BILIRUBIN,TOTAL 0.8 mg/dL (0.2-1.3); BLOOD UREA NITROGEN 47 mg/dL (7-20); CALCIUM 10.3 mg/dL (8.4-10.2); CARBON DIOXIDE 27 mmol/L (22-30); CHLORIDE 104 mmol/L (98-107); GLUCOSE 101 mg/dL (75-110); LIPASE 139.4 U/L (23-300); POTASSIUM 4.8 mmol/L (3.6-5.0); SODIUM 142.8 mmol/L (137-145); TOTAL PROTEIN 8.3 g/dL (6.3-8.2)
[2018-09-07 16:33] LABS: APPEARANCE,URINE SLIGHTLY-CLOUDY; BILIRUBIN,URINE NEGATIVE (NEGATIVE); COLOR,URINE YELLOW; GLUCOSE, URINE NEGATIVE (NEGATIVE); KETONES,URINE NEGATIVE (NEGATIVE); LEUKOCYTE ESTERASE,URINE MODERATE (NEGATIVE); NITRITE,URINE NEGATIVE (NEGATIVE); PROTEIN,URINE 100 mg/dL (NEGATIVE); URINE SPECIFIC GRAVITY 1.009; UROBILINOGEN,URINE NEGATIVE mg/dL (<2.0)
[2018-09-07 17:41] VITALS: BP 137/60
== END 2018-09-07 17:47 | disposition home or self-care (01) ==
LOC: ER 13:39
DX: N39.0 Urinary tract infection, site not specified (principal); R10.13 Epigastric pain; I13.0 Hypertensive heart and chronic kidney disease with heart failure and stage 1 through stage 4 chronic kidney disease, or unspecified chronic kidney disease; N18.9 Chronic kidney disease, unspecified; I50.9 Heart failure, unspecified; I25.10 Atherosclerotic heart disease of native coronary artery without angina pectoris
CPT/HCPCS: 99284; 36415; 87086; 83690; 85025; 87088; 80053; 81001; 83605; J3490; A9270

== ENCOUNTER → 2018-10-02 | Outpatient (CLI) | payer MEDICARE, MEDICAID ==
--- NOTE | 2018-10-02 09:23 | WOMENS IMAGING REPORT ---
EXAM DESCRIPTION: U/S ABDOMEN LIMITED COMPLETED DATE/TIME: 10/02/2018 7:54 am REASON FOR STUDY: RUQ;R10.13/K80.20 R10.13 EPIGASTRIC PAIN K80.20 CALCULUS OF GALLBLADDER W/O CHOL ECYSTITIS W/O OBSTRUC COMPARISON: CT abdomen and pelvis 08/01/2018 TECHNIQUE: Dynamic and static grayscale images acquired of the abdomen and recorded on PACS. Additio nal selected color Doppler and spectral images recorded. LIMITATIONS: Midline bowel gas. FINDINGS: PANCREAS: Not well seen due to midline bowel gas LIVER: No masses. Echotexture normal. LIVER VASCULATURE: Normal directional flow of the main portal vein and hepatic veins. GALLBLADDER: Multiple gallstones. No gallbladder wall thickening or pericholecystic fluid. ULTRASOUND-DETECTED BEJARANO'S SIGN: Negative. INTRAHEPATIC DUCTS AND COMMON DUCT: CBD and intrahepatic ducts normal caliber. No filling defects. INFERIOR VENA CAVA: Not well seen AORTA: Not well seen due to midline bowel gas RIGHT KIDNEY: Right kidney 9 cm in length with multiple benign cortical cysts, 3 cm in the upper alexa e and 6 cm lower pole right kidney. PERITONEAL AND RIGHT PLEURAL SPACE: No ascites or effusions. OTHER: No other significant findings. IMPRESSION: Stones in the gallbladder without gallbladder wall thickening or pericholecystic fluid. TECHNICAL DOCUMENTATION: JOB ID: [id number] [employer]- All Rights Reserved Reading location - IP/workstation name: [email or web address]
== END ==
LOC: WI 07:08
PROVIDERS: ATTEND Internal Medicine Gastroenterology
DX: K80.20 Calculus of gallbladder without cholecystitis without obstruction (principal); R10.13 Epigastric pain
CPT/HCPCS: 76705

== ENCOUNTER → 2018-10-08 | Outpatient (CLI) | payer MEDICARE, MEDICAID ==
[2018-10-08 16:14] LABS: HEMATOCRIT 32.1 % (36.0-47.0); HEMOGLOBIN 10.6 g/dL (12.0-15.5); MEAN CORPUSCULAR HEMOGLOBIN 29.1 pg (27.0-33.4); MEAN CORPUSCULAR VOLUME 88 fl (80-97); PLATELET COUNT 148 10^3/uL (150-450); RED BLOOD COUNT 3.64 10^6/uL (3.72-5.28); RED CELL DISTRIBUTION WIDTH 16.6 % (11.5-14.0); WHITE BLOOD COUNT 4.6 10^3/uL (4.0-10.5)
[2018-10-08 16:35] LABS: ANION GAP 14 (5-19); BLOOD UREA NITROGEN 63 mg/dL (7-20); CALCIUM 10.9 mg/dL (8.4-10.2); CARBON DIOXIDE 25 mmol/L (22-30); CHLORIDE 99 mmol/L (98-107); GLUCOSE 96 mg/dL (75-110); POTASSIUM 4.6 mmol/L (3.6-5.0); SODIUM 138.3 mmol/L (137-145)
== END ==
LOC: OD 14:33
PROVIDERS: ATTEND Physician Assistant Medical
DX: I12.9 Hypertensive chronic kidney disease with stage 1 through stage 4 chronic kidney disease, or unspecified chronic kidney disease (principal); N18.4 Chronic kidney disease, stage 4 (severe); E11.22 Type 2 diabetes mellitus with diabetic chronic kidney disease
CPT/HCPCS: 36415; 80048; 83735; 85027

== ENCOUNTER → 2018-11-07 | Outpatient (CLI) | payer MEDICARE, MEDICAID ==
[2018-11-07 10:06] LABS: HEMATOCRIT 32.7 % (36.0-47.0); HEMOGLOBIN 10.9 g/dL (12.0-15.5); MEAN CORPUSCULAR HEMOGLOBIN 29.2 pg (27.0-33.4); MEAN CORPUSCULAR HGB CONC 33.4 g/dL (32.0-36.0); MEAN CORPUSCULAR VOLUME 87 fl (80-97); PLATELET COUNT 122 10^3/uL (150-450); RED BLOOD COUNT 3.74 10^6/uL (3.72-5.28); RED CELL DISTRIBUTION WIDTH 17.1 % (11.5-14.0); WHITE BLOOD COUNT 4.6 10^3/uL (4.0-10.5)
[2018-11-07 10:29] LABS: ANION GAP 11 (5-19); BLOOD UREA NITROGEN 72 mg/dL (7-20); CALCIUM 11.3 mg/dL (8.4-10.2); CARBON DIOXIDE 25 mmol/L (22-30); CHLORIDE 102 mmol/L (98-107); GLUCOSE 101 mg/dL (75-110); PHOSPHORUS 5.6 mg/dL (2.5-4.5); POTASSIUM 4.2 mmol/L (3.6-5.0); SODIUM 137.7 mmol/L (137-145)
[2018-11-08 12:50] LABS: AMORPHOUS SEDIMENT,URINE TRACE /HPF; APPEARANCE,URINE CLEAR; BILIRUBIN,URINE NEGATIVE (NEGATIVE); COLOR,URINE YELLOW; GLUCOSE, URINE NEGATIVE (NEGATIVE); KETONES,URINE NEGATIVE (NEGATIVE); LEUKOCYTE ESTERASE,URINE MODERATE (NEGATIVE); NITRITE,URINE NEGATIVE (NEGATIVE); PROTEIN,URINE 100 mg/dL (NEGATIVE); URINE SPECIFIC GRAVITY 1.008; UROBILINOGEN,URINE NEGATIVE mg/dL (<2.0)
== END ==
LOC: OD 09:28
PROVIDERS: ATTEND Physician Assistant Medical
DX: I50.9 Heart failure, unspecified (principal); E87.5 Hyperkalemia; R60.9 Edema, unspecified; I12.9 Hypertensive chronic kidney disease with stage 1 through stage 4 chronic kidney disease, or unspecified chronic kidney disease; N18.4 Chronic kidney disease, stage 4 (severe)
CPT/HCPCS: 36415; 80048; 81001; 83970; 84100; 85027

== ENCOUNTER → 2018-12-25 | Outpatient (CLI) | payer MEDICARE, MEDICAID ==
[2018-12-25 13:43] LABS: HEMATOCRIT 32.3 % (36.0-47.0); HEMOGLOBIN 10.6 g/dL (12.0-15.5); MEAN CORPUSCULAR HEMOGLOBIN 29.1 pg (27.0-33.4); MEAN CORPUSCULAR HGB CONC 32.7 g/dL (32.0-36.0); MEAN CORPUSCULAR VOLUME 89 fl (80-97); PLATELET COUNT 147 10^3/uL (150-450); RED BLOOD COUNT 3.63 10^6/uL (3.72-5.28); RED CELL DISTRIBUTION WIDTH 16.9 % (11.5-14.0); WHITE BLOOD COUNT 3.8 10^3/uL (4.0-10.5)
[2018-12-25 14:07] LABS: ANION GAP 11 (5-19); BLOOD UREA NITROGEN 45 mg/dL (7-20); CALCIUM 10.1 mg/dL (8.4-10.2); CARBON DIOXIDE 26 mmol/L (22-30); CHLORIDE 103 mmol/L (98-107); GLUCOSE 92 mg/dL (75-110); PHOSPHORUS 3.7 mg/dL (2.5-4.5); POTASSIUM 4.6 mmol/L (3.6-5.0); SODIUM 140.2 mmol/L (137-145)
[2018-12-26 11:12] LABS: APPEARANCE,URINE CLEAR; BILIRUBIN,URINE NEGATIVE (NEGATIVE); COLOR,URINE STRAW; GLUCOSE, URINE NEGATIVE (NEGATIVE); KETONES,URINE NEGATIVE (NEGATIVE); LEUKOCYTE ESTERASE,URINE TRACE (NEGATIVE); NITRITE,URINE NEGATIVE (NEGATIVE); PROTEIN,URINE 100 mg/dL (NEGATIVE); URINE SPECIFIC GRAVITY 1.009; UROBILINOGEN,URINE NEGATIVE mg/dL (<2.0)
== END ==
LOC: OD 13:15
PROVIDERS: ATTEND Physician Assistant Medical
DX: I12.9 Hypertensive chronic kidney disease with stage 1 through stage 4 chronic kidney disease, or unspecified chronic kidney disease (principal); N18.4 Chronic kidney disease, stage 4 (severe); D63.1 Anemia in chronic kidney disease; R60.9 Edema, unspecified; E87.2 Acidosis
CPT/HCPCS: 36415; 80048; 81001; 83970; 84100; 85027

== ENCOUNTER → 2019-03-05 | Outpatient (CLI) | payer MEDICARE, MEDICAID ==
[2019-03-05 12:08] LABS: IRON(TIBC) 48.3 ug/dL (37-170)
== END ==
LOC: OD 10:35
PROVIDERS: ATTEND Internal Medicine Nephrology
DX: N18.9 Chronic kidney disease, unspecified (principal); D63.1 Anemia in chronic kidney disease
CPT/HCPCS: 36415; 82728; 83540; 83550; 84466

== ENCOUNTER → 2019-04-30 | Outpatient (CLI) | payer MEDICARE, MEDICAID ==
[2019-04-30 15:45] LABS: IRON(TIBC) 25.4 ug/dL (37-170)
== END ==
LOC: OD 13:51
PROVIDERS: ATTEND Physician Assistant Medical
DX: N18.4 Chronic kidney disease, stage 4 (severe) (principal); D63.1 Anemia in chronic kidney disease
CPT/HCPCS: 36415; 82728; 83540; 83550

== ENCOUNTER → 2019-05-26 | Outpatient (CLI) | payer MEDICARE, MEDICAID ==
[2019-05-26 11:13] LABS: IRON(TIBC) 19.3 ug/dL (37-170)
== END ==
LOC: OD 09:59
PROVIDERS: ATTEND Internal Medicine Nephrology
DX: N18.5 Chronic kidney disease, stage 5 (principal); D63.1 Anemia in chronic kidney disease
CPT/HCPCS: 36415; 82728; 83540; 83550

== ENCOUNTER 2019-05-30 23:46 | Inpatient (IN) | payer MEDICARE, MEDICAID ==
[2019-05-31] MEDS ORDERED: NORMAL SALINE 250 ML IV ONE (00:30)
[2019-05-31] MEDS ORDERED: IPRATROPIUM/ALBUTEROL 0.5-2.5 MG/3 ML AMPUL NEB ONE (00:30)
--- NOTE | 2019-05-31 00:32 | ER Document Report ---
ED Respiratory Problem - General Chief Complaint: Doesn't Feel Right Stated Complaint: COUGHING Time Seen by Provider: 05/31/19 00:21 Notes: Patient is an 84-year-old female that comes emergency department for chief complaint of cough and shortness of breath for 1 week. She denies chest pain, fever/chills, nausea/vomiting. She denies smoking or COPD. Past medical history includes CAD with stents, chronic kidney disease, anemia, esophageal cancer (completed treatments for this along time ago). She comes with her daughter from home. TRAVEL OUTSIDE OF THE [place] IN LAST 30 DAYS: No - Related Data Allergies/Adverse Reactions: clopidogrel bisulfate [From Plavix] Allergy (Verified 09/07/18 13:42) Sulfa (Sulfonamide Antibiotics) Allergy (Verified 09/07/18 13:42) Past Medical History - General Information source: Patient, Relative - Social History Smoking Status: Never Smoker Frequency of alcohol use: None Drug Abuse: None Lives with: Family Family History: Reviewed & Not Pertinent Patient has suicidal ideation: No Patient has homicidal ideation: No - Past Medical History Cardiac Medical History: Reports: Hx Congestive Heart Failure, Hx Coronary Artery Disease, Hx Hypertension Neurological Medical History: Denies: Hx Seizures Renal/ Medical History: Denies: Hx Peritoneal Dialysis GI Medical History: Reports: Hx Gastroesophageal Reflux Disease Musculoskeletal Medical History: Reports Hx Arthritis Psychiatric Medical History: Denies: Hx Depression Past Surgical History: Reports: Hx Cardiac Surgery - Stent x1. Denies: Hx Hysterectomy - Immunizations Hx Pneumococcal Vaccination: 08/05/11 Review of Systems - Review of Systems Constitutional: See HPI EENT: No symptoms reported Cardiovascular: No symptoms reported Respiratory: See HPI Gastrointestinal: No symptoms reported Genitourinary: No symptoms reported Female Genitourinary: No symptoms reported Musculoskeletal: No symptoms reported Skin: No symptoms reported Hematologic/Lymphatic: No symptoms reported Neurological/Psychological: No symptoms reported Physical Exam - Vital signs Vitals: Temp Pulse Resp BP Pulse Ox 97.9 F 90 20 157/70 H 93 05/31/19 00:17 05/31/19 00:17 05/31/19 00:17 05/31/19 00:17 05/31/19 00:17 - Notes Notes: GENERAL: Alert, interacts well. HEAD: Normocephalic, atraumatic. EYES: Pupils equal, round, and reactive to light. Extraocular movements intact. ENT: Oral mucosa moist, tongue midline. Oropharynx unremarkable. Airway patent. Nares patent, no nasal septal hematoma, TM's intact. NECK: Full range of motion. Supple. Trachea midline. LUNGS: Persistent cough with a few scattered expiratory wheezes, no rales, no respiratory distress, speaks in full sentences HEART: Regular rate and rhythm. No murmur ABDOMEN: Soft, non-tender. Non-distended. EXTREMITIES: Moves all 4 extremities spontaneously. No edema, normal radial and dorsalis pedis pulses bilaterally. No cyanosis. BACK: no cervical, thoracic, lumbar midline tenderness. No saddle anesthesia, normal distal neurovascular exam. Moves all extremities in full range of motion. NEUROLOGICAL: Alert and oriented x3. Normal speech. Cranial nerves II through XII grossly intact. PSYCH: Normal affect, normal mood. SKIN: Warm, dry, normal turgor. No rashes or lesions noted. Course - Re-evaluation Re-evalutation: Patient with a persistent cough. She is mildly hypoxic on room air, she does intermittently wear oxygen at home however. She was placed on nasal cannula and her oxygen saturation is greatly improved. She is not in respiratory distress. She is not febrile, hypotensive, or tachycardic. No lower extremity swelling. CBC unremarkable, chemistry shows chronic renal failure, bicarbonate is low. Troponin is indeterminate. Urinalysis unremarkable. Chest x-ray shows notable right-sided pneumonia in the upper and lower lobes. This is consistent with patient's presentation of persistent cough, she does not have rails or lower extremity edema, I suspect this is pneumonia. Starting on antibiotics. I spoke with patient and daughter at bedside. We attempted to get patient up but she is extremely weak. She appears to be deconditioned from the pneumonia. Patient and daughter both expressed desire to be admitted. Because of the extensive pneumonia, notable weakness with inability to stand, and hypoxia I will discuss with hospitalist for admission. Dr. Fink is on-call for patient's provider Dr. Danielson, I did discuss with him, he accepts patient to telemetry full admission. - Vital Signs Vital signs: Temp Pulse Resp BP Pulse Ox 99.3 F 95 20 154/77 H 95 05/31/19 05:25 05/31/19 05:25 05/31/19 05:25 05/31/19 05:25 05/31/19 05:25 - Laboratory Result Diagrams: 05/31/19 01:47 05/31/19 01:47 Laboratory results interpreted by me: 05/31/19 05/31/19 05/31/19 01:47 01:47 01:47 RBC 3.37 L Hgb 10.0 L Hct 32.1 L MCHC 31.3 L RDW 16.9 H Chloride 111 H Carbon Dioxide 19 L BUN 45 H Creatinine 4.05 H Est GFR ( Amer) 13 L Est GFR (MDRD) Non-Af 10 L Glucose 121 H NT-Pro-B Natriuret Pep 59810 H Total Protein 8.8 H Discharge - Discharge Clinical Impression: Shortness of breath, Hypoxia, Weakness Pneumonia Qualifiers: Pneumonia type: due to unspecified organism Laterality: right Lung location: u nspecified part of lung Qualified Code(s): J18.9 - Pneumonia, unspecified o rganism Condition: Stable Disposition: ADMITTED INPATIENT Admitting Provider: Aleks Danielson Unit Admitted: Telemetry
[2019-05-31 01:57] LABS: ABSOLUTE EOSINOPHILS # (AUTO) 0.1 10^3/uL (0.0-0.6); ABSOLUTE LYMPHOCYTES (AUTO) 2.2 10^3/uL (0.5-4.7); ABSOLUTE MONOCYTES (AUTO) 0.3 10^3/uL (0.1-1.4); ABSOLUTE NEUT (AUTO) 3.6 10^3/uL (1.7-8.2); BASOPHILS % (AUTO) 0.4 % (0-2); EOSINOPHILS % (AUTO) 2.2 % (0-6); HEMATOCRIT 32.1 % (36.0-47.0); LYMPHOCYTES % (AUTO) 35.7 % (13-45); MEAN CORPUSCULAR HEMOGLOBIN 29.8 pg (27.0-33.4); MEAN CORPUSCULAR HGB CONC 31.3 g/dL (32.0-36.0); MEAN CORPUSCULAR VOLUME 95 fl (80-97); MONOCYTES % (AUTO) 4.6 % (3-13); PLATELET COUNT 173 10^3/uL (150-450); RED BLOOD COUNT 3.37 10^6/uL (3.72-5.28); RED CELL DISTRIBUTION WIDTH 16.9 % (11.5-14.0); SEGMENTED NEUTROPHILS % (AUTO) 57.1 % (42-78); TOTAL CELLS COUNTED % (AUTO) 100 %; WHITE BLOOD COUNT 6.2 10^3/uL (4.0-10.5)
--- NOTE | 2019-05-31 01:59 | RADIOLOGY REPORT (SQ) ---
EXAM DESCRIPTION: [facility]: XR CHEST 1 VIEW CLINICAL HISTORY: 84 years Female, shortness of breath COMPARISON: 08/07/2018 FINDINGS: There is a dense infiltrate in the right upper lobe as well as a focal alveolar interstitial infiltrate in the right lower lobe. No pneumothorax or significant pleural effusion. No left infiltrates. Mediastinum is similar to prior exam. There is mild aortic calcification. Superior mediastinum is slightly widened. Bony structures are unremarkable. IMPRESSION: 1. Infiltrates in the right upper lobe and right lower lobe, likely acute pneumonia.
[2019-05-31] MEDS ORDERED: CEFTRIAXONE 1 GM/D5W RTU 1 GM/50 ML RTUPB IV ONE (02:05)
[2019-05-31] MEDS ORDERED: DOXYCYCLINE HYCLATE 100 MG TABLET PO ONE (02:05)
[2019-05-31 02:19] LABS: ALBUMIN 4.2 g/dL (3.5-5.0); ALKALINE PHOSPHATASE 77 U/L (38-126); ANION GAP 13 (5-19); ASPARTATE AMINO TRANSFERASE 17 U/L (14-36); BILIRUBIN,DIRECT 0.2 mg/dL (0.0-0.4); BILIRUBIN,TOTAL 0.6 mg/dL (0.2-1.3); BLOOD UREA NITROGEN 45 mg/dL (7-20); CALCIUM 9.7 mg/dL (8.4-10.2); CARBON DIOXIDE 19 mmol/L (22-30); CHLORIDE 111 mmol/L (98-107); GLUCOSE 121 mg/dL (75-110); POTASSIUM 4.1 mmol/L (3.6-5.0); TOTAL PROTEIN 8.8 g/dL (6.3-8.2)
[2019-05-31] MEDS ORDERED: ALBUTEROL SULFATE 0.083% NEB 2.5 MG/3 ML AMPUL NEB PRN (05:08)
[2019-05-31 05:45] LABS: APPEARANCE,URINE CLEAR; BILIRUBIN,URINE NEGATIVE (NEGATIVE); COLOR,URINE YELLOW; GLUCOSE, URINE NEGATIVE (NEGATIVE); KETONES,URINE NEGATIVE (NEGATIVE); LEUKOCYTE ESTERASE,URINE TRACE (NEGATIVE); NITRITE,URINE NEGATIVE (NEGATIVE); PROTEIN,URINE 100 mg/dL (NEGATIVE); URINE SPECIFIC GRAVITY 1.012; UROBILINOGEN,URINE NEGATIVE mg/dL (<2.0)
[2019-05-31 05:48] LABS: CREATINE KINASE MB 1.5 ng/mL (<4.55)
[2019-05-31] MEDS ORDERED: LEVOFLOXACIN 750 MG/D5W RTU 750 MG/150 ML RTUPB IV ONE ×2 (06:00→12:00)
[2019-05-31 06:50] LABS: ARTERIAL BLOOD BASE EXCESS -4.1 mmol/L; ARTERIAL BLOOD H2CO3 0.92 mmol/L (1.05-1.35); ARTERIAL BLOOD HCO3 19.5 mmol/L (20-24); ARTERIAL BLOOD O2 SATURATION 92.6 % (94-98); ARTERIAL BLOOD PCO2 30.6 mmHg (35-45); ARTERIAL BLOOD PH 7.42 (7.35-7.45); ARTERIAL BLOOD TOTAL CO2 20.5 mmol/L (21-25)
[2019-05-31 06:55] LABS: ARTERIAL BLOOD FIO2 36%
[2019-05-31] MEDS: HEPARIN SOD (PORCINE) 5,000 UNIT/ML 1 ML VIAL SUBCUT SCH ×3 (06:56→22:44)
[2019-05-31] MEDS: RINGERS SOLUTION,LACTATED 1,000 ML IV PRN ×2 (06:56→22:46)
--- NOTE | 2019-05-31 11:37 | PDOC H&P ---
History of Present Illness Admission Date/PCP: 05/31/19 03:21 EMILIE TEJEDA MD History of Present Illness: BROWN RIVAS is a 84 year old female she has a history of coronary artery disease, chronic kidney disease stage IV, history of esophageal cancer, she came to the emergency room last night for evaluation of respiratory symptoms, cough, shortness of breath, the cough was productive of sputum. A chest x-ray was done, it showed dense infiltrate in the right upper lobe as well as focal alveolar interstitial infiltrate in the right lower lobe. The ABG on FiO2 36%, PO2 62, bicarbonate 19.5, PCO2 30.6 Past Medical History Cardiac Medical History: Reports: Coronary Artery Disease, Hypertension Renal/ Medical History: Reports: Other - Chronic kidney disease stage IV Malignancy Medical History: Reports: Other - Esophageal cancer GI Medical History: Reports: Gastroesophageal Reflux Disease Musculoskeltal Medical History: Reports: Arthritis Hematology: Reports: Anemia Social History Lives with: Family Smoking Status: Never Smoker Electronic Cigarette use?: No Frequency of Alcohol Use: None Hx Recreational Drug Use: No Drugs: None Hx Prescription Drug Abuse: No - Advance Directive Resuscitation Status: Full Code Family History Family History: Reviewed & Not Pertinent Parental Family History Reviewed: Yes Children Family History Reviewed: Yes Sibling(s) Family History Reviewed.: Yes Medication/Allergy Home Medications: Atorvastatin Calcium [Lipitor 40 mg Tablet] 40 mg PO QHS 06/07/14 Metoprolol Succinate 50 mg PO Q2DAYS 06/07/14 Amlodipine Besylate [Norvasc 5 mg Tablet] 5 mg PO Q12 05/31/19 Cyanocobalamin (Vitamin B-12) [Vitamin B-12 500 mcg Tablet] 1,500 mcg PO DAILY 05/31/19 Diclofenac Sodium [Voltaren] 4 gm TP QIDP PRN 05/31/19 Ferrous Sulfate [Feosol 325 mg Tablet] 325 mg PO BID 05/31/19 Magnesium Oxide 800 mg PO BID 05/31/19 Nitroglycerin [Nitrostat 0.4 mg (1/150 Gr) Tabs 25/Bottle] 1 tab SL Q5MP PRN 05/31/19 Omeprazole 20 mg PO DAILY 05/31/19 Sacubitril/Valsartan [Entresto 24 mg/26 mg Tablet] 1 tab PO Q12 05/31/19 Sodium Bicarbonate [Sodium Bicarbonate 650 mg Tablet] 650 mg PO TID 10/27/19 Allergies/Adverse Reactions: clopidogrel bisulfate [From Plavix] Allergy (Verified 09/07/18 13:42) Sulfa (Sulfonamide Antibiotics) Allergy (Verified 09/07/18 13:42) Review of Systems Constitutional: ABSENT: chills, fever(s), headache(s), weight gain, weight loss Eyes: ABSENT: visual disturbances Ears: ABSENT: hearing changes Cardiovascular: PRESENT: dyspnea on exertion Respiratory: PRESENT: cough, dyspnea, sputum Gastrointestinal: ABSENT: abdominal pain, constipation, diarrhea, hematemesis, hematochezia, nausea, vomiting Genitourinary: ABSENT: dysuria, hematuria Musculoskeletal: ABSENT: joint swelling Integumentary: ABSENT: rash, wounds Neurological: ABSENT: abnormal gait, abnormal speech, confusion, dizziness, focal weakness, syncope Psychiatric: ABSENT: anxiety, depression, homidical ideation, suicidal ideation Endocrine: ABSENT: cold intolerance, heat intolerance, menstrual abnormalities, polydipsia, polyuria Hematologic/Lymphatic: ABSENT: easy bleeding, easy bruising, lymphadenopathy Physical Exam Vital Signs: Temp Pulse Resp BP Pulse Ox 98.3 F 103 H 18 160/78 H 90 L 05/31/19 07:14 05/31/19 08:22 05/31/19 08:22 05/31/19 07:14 05/31/19 08:22 Intake & Output 05/30/19 05/31/19 06/01/19 06:59 06:59 06:59 Intake Total 300 150 Balance 300 150 Weight 79.379 kg General appearance: PRESENT: mild distress Head exam: PRESENT: atraumatic, normocephalic Eye exam: PRESENT: conjunctiva pink, EOMI, PERRLA Ear exam: PRESENT: normal external ear exam Mouth exam: PRESENT: moist, tongue midline Neck exam: PRESENT: full ROM Respiratory exam: PRESENT: rhonchi Cardiovascular exam: PRESENT: RRR, +S1, +S2 Pulses: PRESENT: normal dorsalis pedis pul, +2 pedal pulses bilateral Vascular exam: PRESENT: normal capillary refill GI/Abdominal exam: PRESENT: normal bowel sounds, soft Rectal exam: PRESENT: deferred Extremities exam: PRESENT: pedal edema Neurological exam: PRESENT: alert, awake, oriented to person, oriented to place, oriented to time, oriented to situation, CN II-XII grossly intact. ABSENT: motor sensory deficit Psychiatric exam: PRESENT: appropriate affect, normal mood Skin exam: PRESENT: dry, intact, warm Results Laboratory Results: 05/31/19 01:47 05/31/19 01:47 05/31/19 05/31/19 05/31/19 01:47 01:47 05:02 WBC 6.2 RBC 3.37 L Hgb 10.0 L Hct 32.1 L MCV 95 MCH 29.8 MCHC 31.3 L RDW 16.9 H Plt Count 173 Seg Neutrophils % 57.1 Carbonic Acid HCO3/H2CO3 Ratio ABG pH ABG pCO2 ABG pO2 ABG HCO3 ABG O2 Saturation ABG Base Excess FiO2 Sodium 142.5 Potassium 4.1 Chloride 111 H Carbon Dioxide 19 L Anion Gap 13 BUN 45 H Creatinine 4.05 H Est GFR ( Amer) 13 L Glucose 121 H Calcium 9.7 Total Bilirubin 0.6 AST 17 Alkaline Phosphatase 77 Total Protein 8.8 H Albumin 4.2 Urine Color YELLOW Urine Appearance CLEAR Urine pH 6.0 Ur Specific [place] 1.012 Urine Protein 100 H Urine Glucose (UA) NEGATIVE Urine Ketones NEGATIVE Urine Blood NEGATIVE Urine Nitrite NEGATIVE Ur Leukocyte Esterase TRACE H Urine WBC (Auto) 4 Urine RBC (Auto) 1 05/31/19 06:32 WBC RBC Hgb Hct MCV MCH MCHC RDW Plt Count Seg Neutrophils % Carbonic Acid 0.92 L HCO3/H2CO3 Ratio 21:1 ABG pH 7.42 ABG pCO2 30.6 L ABG pO2 62.0 L ABG HCO3 19.5 L ABG O2 Saturation 92.6 L ABG Base Excess -4.1 FiO2 36% Sodium Potassium Chloride Carbon Dioxide Anion Gap BUN Creatinine Est GFR ( Amer) Glucose Calcium Total Bilirubin AST Alkaline Phosphatase Total Protein Albumin Urine Color Urine Appearance Urine pH Ur Specific [place] Urine Protein Urine Glucose (UA) Urine Ketones Urine Blood Urine Nitrite Ur Leukocyte Esterase Urine WBC (Auto) Urine RBC (Auto) 05/31/19 05/31/19 05/31/19 01:47 01:47 01:47 Creatine Kinase 99 CK-MB (CK-2) 1.50 Troponin I 0.058 Cancelled NT-Pro-B Natriuret Pep [id number] H Impressions: Chest X-Ray 05/31/19 00:29 IMPRESSION: 1. Infiltrates in the right upper lobe and right lower lobe, likely acute pneumonia. Assessment & Plan - Diagnosis (1) Acute hypoxemic respiratory failure Is this a current diagnosis for this admission?: Yes Plan: She has acute hypoxemic respiratory failure, not presently requiring mechanical ventilation, not requiring noninvasive positive pressure ventilation, presently on oxygen via nasal cannula (2) Pneumonia involving right lung Qualifiers: Pneumonia type: due to unspecified organism Lung location: unspecified part of lung Qualified Code(s): J18.9 - Pneumonia, unspecified organism Is this a current diagnosis for this admission?: Yes Plan: She has pneumonia involving the right lung, community acquired pneumonia, she will be treated with antibiotic to cover potential pathogens, IV Levaquin, ceftriaxone (3) Chronic kidney disease, stage 4 (severe) Is this a current diagnosis for this admission?: Yes Plan: Patient daughter stated she has chronic kidney disease and she follows with nephrology outpatient, there is proteinuria, cannot completely rule out acute on chronic kidney disease, will hydrate with fluid, Ringer's lactate at low dose (4) Hyperproteinemia Is this a current diagnosis for this admission?: Yes Plan: Request serum protein electrophoresis and urine protein electrophoresis to rule out paraproteinemia's
[2019-05-31 11:55] LABS: URINE CREATININE 75.3 mg/dL (15-278)
[2019-05-31 12:01] LABS: UR PRO/CREAT RATIO RESULT 3.7 mg/mg (0.0-0.2)
[2019-05-31] MEDS: ACETAMINOPHEN 325 MG TABLET PO PRN (13:53)
--- NOTE | 2019-05-31 14:22 | RADIOLOGY REPORT (SQ) ---
EXAM DESCRIPTION: U/S RETROPERITON (RENAL/AORTA) COMPLETED DATE/TIME: 05/31/2019 1:53 pm REASON FOR STUDY: CKD COMPARISON: None. TECHNIQUE: Dynamic and static grayscale images acquired of the kidneys and bladder and recorded on P ACS. Additional selected color Doppler and spectral images recorded. LIMITATIONS: None. FINDINGS: RIGHT KIDNEY: Atrophic and echogenic. No solid or suspicious masses. Multiple simple cys ts. No hydronephrosis. No calcifications. LEFT KIDNEY: Atrophic and echogenic. No solid or suspicious masses. Multiple simple cysts. No hyd ronephrosis. No calcifications. BLADDER: No masses. Bladder jets are nonvisualized. OTHER FINDINGS: No other significant finding. IMPRESSION: Atrophic and echogenic kidneys in keeping with chronic renal disease. Multiple cysts. No hydronephrosis. Unremarkable appearance of urinary bladder. TECHNICAL DOCUMENTATION: JOB ID: [id number] [employer]- All Rights Reserved Reading location - IP/workstation name: [email or web address]
--- NOTE | 2019-05-31 14:43 | EKG REPORT ---
SEVERITY:- ABNORMAL ECG - SINUS RHYTHM VENTRICULAR BIGEMINY LEFT BUNDLE BRANCH BLOCK : Confirmed by: Cathy Frost MD 31-May-2019 14:42:35
[2019-05-31] MEDS: CEFTRIAXONE 1 GM/D5W RTU 1 GM/50 ML RTUPB IV SCH (22:46)
--- NOTE | 2019-05-31 22:55 | EKG REPORT ---
SEVERITY:- ABNORMAL ECG - SINUS TACHYCARDIA RUN OF VENTRICULAR PREMATURE COMPLEXES LVH WITH IVCD AND SECONDARY REPOL ABNRM : Confirmed by: Cathy Frost MD 31-May-2019 22:54:35
[2019-06-01] MEDS: HEPARIN SOD (PORCINE) 5,000 UNIT/ML 1 ML VIAL SUBCUT SCH ×3 (05:13→21:21)
[2019-06-01 06:31] LABS: ABSOLUTE EOSINOPHILS # (AUTO) 0.1 10^3/uL (0.0-0.6); ABSOLUTE LYMPHOCYTES (AUTO) 0.6 10^3/uL (0.5-4.7); ABSOLUTE MONOCYTES (AUTO) 0.3 10^3/uL (0.1-1.4); ABSOLUTE NEUT (AUTO) 3.7 10^3/uL (1.7-8.2); BASOPHILS % (AUTO) 0.7 % (0-2); EOSINOPHILS % (AUTO) 1.1 % (0-6); HEMATOCRIT 27.1 % (36.0-47.0); LYMPHOCYTES % (AUTO) 12.9 % (13-45); MEAN CORPUSCULAR HEMOGLOBIN 30.4 pg (27.0-33.4); MEAN CORPUSCULAR VOLUME 92 fl (80-97); MONOCYTES % (AUTO) 6.7 % (3-13); PLATELET COUNT 146 10^3/uL (150-450); RED BLOOD COUNT 2.95 10^6/uL (3.72-5.28); RED CELL DISTRIBUTION WIDTH 16.1 % (11.5-14.0); SEGMENTED NEUTROPHILS % (AUTO) 78.6 % (42-78); TOTAL CELLS COUNTED % (AUTO) 100 %; WHITE BLOOD COUNT 4.7 10^3/uL (4.0-10.5)
[2019-06-01 06:37] LABS: ALBUMIN 3.5 g/dL (3.5-5.0); ALKALINE PHOSPHATASE 60 U/L (38-126); ANION GAP 12 (5-19); ASPARTATE AMINO TRANSFERASE 17 U/L (14-36); BILIRUBIN,DIRECT 0.3 mg/dL (0.0-0.4); BILIRUBIN,TOTAL 0.6 mg/dL (0.2-1.3); BLOOD UREA NITROGEN 44 mg/dL (7-20); CALCIUM 9.6 mg/dL (8.4-10.2); CARBON DIOXIDE 19 mmol/L (22-30); CHLORIDE 112 mmol/L (98-107); GLUCOSE 91 mg/dL (75-110); POTASSIUM 4.7 mmol/L (3.6-5.0); TOTAL PROTEIN 7.8 g/dL (6.3-8.2)
[2019-06-01] MEDS ORDERED: ALBUTEROL SULFATE 0.083% NEB 2.5 MG/3 ML AMPUL NEB PRN (07:30)
--- NOTE | 2019-06-01 09:38 | RADIOLOGY REPORT (SQ) ---
EXAM DESCRIPTION: CHEST 2 VIEWS COMPLETED DATE/TIME: 06/01/2019 9:23 am REASON FOR STUDY: follow up COMPARISON: AP view of the chest from 05/31/2019. EXAM PARAMETERS: NUMBER OF VIEWS: two views TECHNIQUE: Digital Frontal and Lateral radiographic views of the chest acquired. RADIATION DOSE: NA LIMITATIONS: none FINDINGS: LUNGS AND PLEURA: The dense opacity in the left base that obscures the contour of the left hemidiaphragm and blunts the left costophrenic sulcus is unchanged. The contralateral costophrenic sulcus is also blunted. There are diffuse bilateral ground-glass opacities. There is no pneumothora x. MEDIASTINUM AND HILAR STRUCTURES: Unchanged right perihilar fullness. HEART AND VASCULAR STRUCTURES: Cardiac silhouette is enlarged but stable. The pulmonary vasculature is indistinct. BONES: No acute findings. HARDWARE: None. OTHER: No other finding. IMPRESSION: Unchanged radiographic appearance of the chest as detailed above. TECHNICAL DOCUMENTATION: JOB ID: [id number] [employer]- All Rights Reserved Reading location - IP/workstation name: [email or web address]
[2019-06-01] MEDS ORDERED: MAGNESIUM OXIDE 800 MG PO SCH (10:00)
[2019-06-01] MEDS ORDERED: [UNRECOGNIZED DRUG - OTHER] PO SCH (10:00)
[2019-06-01] MEDS ORDERED: CYANOCOBALAMIN PO SCH (10:00)
[2019-06-01] MEDS: SODIUM BICARBONATE 650 MG TABLET PO SCH ×3 (10:04→17:55)
[2019-06-01] MEDS: MAGNESIUM OXIDE 400 MG TABLET PO SCH ×2 (10:04→17:54)
[2019-06-01] MEDS: FUROSEMIDE 20 MG TABLET PO SCH ×2 (10:04→17:55)
[2019-06-01] MEDS: AMLODIPINE BESYLATE 5 MG TABLET PO SCH ×2 (10:04→21:37)
[2019-06-01] MEDS: FERROUS SULFATE 325 MG TABLET PO SCH ×2 (10:04→17:55)
[2019-06-01] MEDS: CYANOCOBALAMIN (VITAMIN B-12) 1,000 MCG TABLET PO SCH (10:05)
[2019-06-01] MEDS: METOPROLOL SUCCINATE 50 MG TAB.SR.24H PO SCH (10:05)
[2019-06-01] MEDS: PANTOPRAZOLE SODIUM 20 MG TABLET.DR PO SCH (10:05)
--- NOTE | 2019-06-01 10:13 | PDOC PROGRESS REPORT ---
Subjective Progress Note for:: 06/01/19 Subjective:: Patient is feeling much better as compared to the admissions Patient is came because of the increasing the shortness of the breath and diagnosed with a pneumonia History of the renal failure and history of the congestive heart failure currently see her Dr. Lazaro and Dr. Garcia as outpatients According to the daughters Dr. Garcia and Dr. Lazaro adjusting the patient's Lasix and and enrestro And according to the daughter since last 1 week patient's swelling is increased Patient is currently doing fair denied any fever no chills Reason For Visit: RIGHT PNUEMONIA,ACUTE KIDNEY INJURY Physical Exam Vital Signs: Temp Pulse Resp BP Pulse Ox 98.9 F 104 H 17 149/68 H 94 06/01/19 07:08 06/01/19 07:08 06/01/19 07:08 06/01/19 07:08 06/01/19 07:08 Intake & Output 05/31/19 06/01/19 06/02/19 06:59 06:59 06:59 Intake Total 300 1710 Output Total 200 Balance 300 1510 Weight 79.379 kg 79.7 kg General appearance: PRESENT: no acute distress, well-developed, well-nourished Head exam: PRESENT: atraumatic, normocephalic Eye exam: PRESENT: conjunctiva pink, EOMI, PERRLA. ABSENT: scleral icterus Ear exam: PRESENT: normal external ear exam Mouth exam: PRESENT: moist, tongue midline Neck exam: PRESENT: full ROM. ABSENT: carotid bruit, JVD, lymphadenopathy, thyromegaly Respiratory exam: PRESENT: decreased breath sounds Cardiovascular exam: PRESENT: RRR. ABSENT: diastolic murmur, rubs, systolic murmur Pulses: PRESENT: normal dorsalis pedis pul, +2 pedal pulses bilateral Vascular exam: PRESENT: normal capillary refill GI/Abdominal exam: PRESENT: normal bowel sounds, soft. ABSENT: distended, guarding, mass, organolmegaly, rebound, tenderness Rectal exam: PRESENT: deferred Neurological exam: PRESENT: alert, awake, oriented to person, oriented to place, oriented to time, oriented to situation, CN II-XII grossly intact. ABSENT: motor sensory deficit Psychiatric exam: PRESENT: appropriate affect, normal mood. ABSENT: homicidal ideation, suicidal ideation Skin exam: PRESENT: dry, intact, warm. ABSENT: cyanosis, rash Results Laboratory Results: 06/01/19 05:54 06/01/19 05:54 06/01/19 06/01/19 05:54 05:54 WBC 4.7 RBC 2.95 L Hgb 9.0 L Hct 27.1 L MCV 92 MCH 30.4 MCHC 33.0 RDW 16.1 H Plt Count 146 L Seg Neutrophils % 78.6 H Sodium 142.8 Potassium 4.7 Chloride 112 H Carbon Dioxide 19 L Anion Gap 12 BUN 44 H Creatinine 3.82 H Est GFR ( Amer) 14 L Glucose 91 Calcium 9.6 Total Bilirubin 0.6 AST 17 Alkaline Phosphatase 60 Total Protein 7.8 Albumin 3.5 05/31/19 05/31/19 05/31/19 01:47 01:47 01:47 Creatine Kinase 99 CK-MB (CK-2) 1.50 Troponin I 0.058 Cancelled NT-Pro-B Natriuret Pep [id number] H Impressions: Renal Ultrasound 05/31/19 00:00 IMPRESSION: Atrophic and echogenic kidneys in keeping with chronic renal di sease. Multiple cysts. No hydronephrosis. Unremarkable appearance of urinary bladder. Chest X-Ray 06/01/19 00:00 IMPRESSION: Unchanged radiographic appearance of the chest as detailed above. Assessment & Plan - Diagnosis (1) Pneumonia Qualifiers: Pneumonia type: due to unspecified organism Laterality: right Lung location: unspecified part of lung Qualified Code(s): J18.9 - Pneumonia, unspecified organism Is this a current diagnosis for this admission?: Yes Plan: Repeat the chest x-ray continues to antibiotic (2) Congestive heart failure Qualifiers: Heart failure type: combined systolic and diastolic Heart failure chronicity: chronic Qualified Code(s): I50.42 - Chronic combined systolic (congestive) and diastolic (congestive) heart failure Is this a current diagnosis for this admission?: Yes Plan: Will restart the Lasix 20 mg twice a day (3) Anemia Is this a current diagnosis for this admission?: Yes (4) Acute hypoxemic respiratory failure Is this a current diagnosis for this admission?: Yes Plan: We will repeat the chest x-ray get the ABG continues to current medications (5) Chronic kidney disease, stage 4 (severe) Is this a current diagnosis for this admission?: Yes Plan: Consult the Dr. Lazaro for further evaluations (6) Shortness of breath Is this a current diagnosis for this admission?: Yes Plan: The multifactorial including the congestive heart failure kidney failuresAnd underlying pneumonia - Time Time Spent with patient: 25-34 minutes Level of Care: IMCU Medications reviewed and adjusted accordingly: Yes Anticipated discharge: Home with Homehealth Within: Other - Plan Summary Plan Summary: Discussed with the daughter regarding the patient's current conditions
[2019-06-01] MEDS ORDERED: INFLUENZA QUAD (6MOS+) 2019-20 VAC 0.5 ML SYR IM ONE (10:59)
--- NOTE | 2019-06-01 13:12 | PDOC CONSULTATION ---
Consultation Consult Date: 06/01/19 Provider Consulted: Stacy SAGE Consult reason:: CKD stage IV/V. 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 She also has had been having some intermittent coughing spells especially when she lays down without any expectoration. No complaints of any chest pain, fever or chills. Evaluations in the ER revealed that the patient had evidences of possible right-sided consolidation along with signs of fluid overload. Patient has been put on antibiotics and presently feels better. Patient denies any worsening of her shortness of breath. She is able to talk freely without disrupting. Labs and medications were reviewed. Extensive discussions were done with the family especially her daughter at the bedside.She admits to eating the wrong kind of diet. Past Medical History Cardiac Medical History: Reports: CHF-Systolic, Coronary Artery Disease, Hypertension-primary Neurological Medical History: Denies: Seizures Renal/ Medical History: Reports: Chronic Kidney Disease Stage IV, Other - Chronic kidney disease stage IV Malignancy Medical History: Reports: Other - Esophageal cancer GI Medical History: Reports: Gastroesophageal Reflux Disease Musculoskeltal Medical History: Reports: Arthritis Psychiatric Medical History: Denies: Depression Past Surgical History Past Surgical History: Denies: Hysterectomy Social History Lives with: Family Smoking Status: Never Smoker Electronic Cigarette use?: No Frequency of Alcohol Use: None Hx Recreational Drug Use: No Drugs: None Hx Prescription Drug Abuse: No - Advance Directive Resuscitation Status: Full Code Family History Parental Family History Reviewed: Yes - Negative for ESRD Children Family History Reviewed: No Sibling(s) Family History Reviewed.: No Medication/Allergy Home Medications: Atorvastatin Calcium [Lipitor 40 mg Tablet] 40 mg PO QHS 06/07/14 Metoprolol Succinate 50 mg PO Q2DAYS 06/07/14 Amlodipine Besylate [Norvasc 5 mg Tablet] 5 mg PO Q12 05/31/19 Cyanocobalamin (Vitamin B-12) [Vitamin B-12 500 mcg Tablet] 1,500 mcg PO DAILY 05/31/19 Diclofenac Sodium [Voltaren] 4 gm TP QIDP PRN 05/31/19 Ferrous Sulfate [Feosol 325 mg Tablet] 325 mg PO BID 05/31/19 Magnesium Oxide 800 mg PO BID 05/31/19 Nitroglycerin [Nitrostat 0.4 mg (1/150 Gr) Tabs 25/Bottle] 1 tab SL Q5MP PRN 05/31/19 Omeprazole 20 mg PO DAILY 05/31/19 Sacubitril/Valsartan [Entresto 24 mg/26 mg Tablet] 1 tab PO Q12 05/31/19 Sodium Bicarbonate [Sodium Bicarbonate 650 mg Tablet] 650 mg PO TID 05/31/19 Allergies/Adverse Reactions: clopidogrel bisulfate [From Plavix] Allergy (Verified 09/07/18 13:42) Sulfa (Sulfonamide Antibiotics) Allergy (Verified 09/07/18 13:42) Review of Systems Constitutional: PRESENT: fatigue, weakness. ABSENT: anorexia, fever(s), headache(s), night sweats Nose, Mouth, and Throat: ABSENT: mouth pain, sore throat Cardiovascular: PRESENT: dyspnea on exertion. ABSENT: chest pain, edema, orthropnea Gastrointestinal: ABSENT: abdominal pain, bloating, diarrhea, dysphagia, heartburn, hematemesis, hematochezia, nausea Genitourinary: ABSENT: difficulty urinating, dysuria, hematuria Musculoskeletal: ABSENT: deformity, joint swelling Integumentary: ABSENT: lesions, pruritus, rash Neurological: ABSENT: abnormal gait, abnormal movements, abnormal speech, confusion, focal weakness, frequent falls Hematologic/Lymphatic: ABSENT: easy bleeding, easy bruising, lymphadenopathy Physical Exam Vital Signs: Temp Pulse Resp BP Pulse Ox 98.9 F 103 H 18 149/68 H 94 06/01/19 07:08 06/01/19 10:24 06/01/19 10:24 06/01/19 07:08 06/01/19 10:24 Intake & Output 05/31/19 06/01/19 06/02/19 06:59 06:59 06:59 Intake Total 300 1710 Output Total 200 Balance 300 1510 Weight 79.379 kg 79.7 kg General appearance: PRESENT: no acute distress Eye exam: PRESENT: EOMI, PERRLA Ear exam: PRESENT: normal external ear exam Mouth exam: PRESENT: moist Neck exam: ABSENT: lymphadenopathy, meningismus, tenderness, thyromegaly, tracheal deviation Respiratory exam: PRESENT: clear to auscultation emerlad, decreased breath sounds. ABSENT: crackles Cardiovascular exam: PRESENT: +S1, +S2 GI/Abdominal exam: PRESENT: normal bowel sounds, soft. ABSENT: organomegaly, tenderness Extremities exam: PRESENT: pedal edema Neurological exam: PRESENT: alert, awake, oriented to person Psychiatric exam: PRESENT: appropriate affect Skin exam: ABSENT: abrasion, dry, mottled, pallor, rash Results Laboratory Results: 06/01/19 05:54 06/01/19 05:54 06/01/19 06/01/19 05:54 05:54 WBC 4.7 RBC 2.95 L Hgb 9.0 L Hct 27.1 L MCV 92 MCH 30.4 MCHC 33.0 RDW 16.1 H Plt Count 146 L Seg Neutrophils % 78.6 H Sodium 142.8 Potassium 4.7 Chloride 112 H Carbon Dioxide 19 L Anion Gap 12 BUN 44 H Creatinine 3.82 H Est GFR ( Amer) 14 L Glucose 91 Calcium 9.6 Total Bilirubin 0.6 AST 17 Alkaline Phosphatase 60 Total Protein 7.8 Albumin 3.5 05/31/19 05/31/19 05/31/19 01:47 01:47 01:47 Creatine Kinase 99 CK-MB (CK-2) 1.50 Troponin I 0.058 Cancelled NT-Pro-B Natriuret Pep 86181 H Impressions: Renal Ultrasound 05/31/19 00:00 IMPRESSION: Atrophic and echogenic kidneys in keeping with chronic renal disease. Multiple cysts. No hydronephrosis. Unremarkable appearance of urinary bladder. Chest X-Ray 06/01/19 00:00 IMPRESSION: Unchanged radiographic appearance of the chest as detailed above. Assessment & Plan - Diagnosis (1) Chronic kidney disease, stage 4 (severe) Is this a current diagnosis for this admission?: Yes Plan: Patient is got stage IV/V CKD with base creatinine 3.5 and 4.5. She is currently nonoliguric. No acute indications for renal replacements. However again patient has very clearly expressed the fact that she does not want to go on any kind of renal replacements in the past and she reiterates the same in front of her daughter today as well. She understands the consequences including losing her life in that case.Continue on conservative management including introduction of diuretics.Discussed with patient's daughter as well as the patient about concerning DNR status and consulting with hospice. They are willing to think about it. I will also discuss with Dr. Tejeda who is her primary care. (2) Congestive heart failure Qualifiers: Heart failure type: combined systolic and diastolic Heart failure chronicity: chronic Qualified Code(s): I50.42 - Chronic combined systolic (congestive) and diastolic (congestive) heart failure Is this a current diagnosis for this admission?: Yes Plan: Agree with diuretics. Presently relatively compensated. (3) Pneumonia involving right lung Qualifiers: Pneumonia type: due to unspecified organism Lung location: unspecified part of lung Qualified Code(s): J18.9 - Pneumonia, unspecified organism Is this a current diagnosis for this admission?: Yes Plan: On antibiotics per (4) Anemia Is this a current diagnosis for this admission?: Yes Plan: We will check iron studies. She is already on erythropoietin at our office. Her next dose is due as her last one was on 05/13/2019.
[2019-06-01] MEDS ORDERED: [UNRECOGNIZED DRUG - REMARK] SUBCUT ONE ×3 (13:45)
[2019-06-01] MEDS ORDERED: EPOETIN ALFA-EPBX 10,000 UNIT/ML VIAL (NON-ESRD) SUBCUT ONE (14:00)
--- NOTE | 2019-06-01 15:30 | RADIOLOGY REPORT (SQ) ---
EXAM DESCRIPTION: NM LUNG VENT/PERF SCAN COMPLETED DATE/TIME: 06/01/2019 2:50 pm REASON FOR STUDY: shortness of breath COMPARISON: Earlier radiograph RADIONUCLIDE AND DOSE: 5.2 millicuries TC-99m MAA Intravenous 33 millicuries TC-99m DTPA Inhaled aerosol TECHNIQUE: Attempted unsuccessful views of the lungs acquired post ventilation of DTPA aerosol. Eig ht matching views of the lungs acquired following injection of MAA. LIMITATIONS: Patient could not cooperate with ventilation protocol. Patient unable to raise arms. FINDINGS: VENTILATION: Not able to be obtained due to patient noncooperation with ventilation protoc ol. PERFUSION: Perfusion images show no significant segmental defects given artifact from patient positio dayanara. OTHER: No other significant finding. IMPRESSION: Perfusion images show no significant segmental defects given artifact from patient posit ioning. COMMENT: Patient could not cooperate with ventilation protocol. TECHNICAL DOCUMENTATION: JOB ID: [id number] [place]-72 2010 [employer]- All Rights Reserved Reading location - IP/workstation name: [email or web address]
[2019-06-01] MEDS: ATORVASTATIN CALCIUM 40 MG TABLET PO SCH (21:37)
[2019-06-01] MEDS: CEFTRIAXONE 1 GM/D5W RTU 1 GM/50 ML RTUPB IV SCH (21:38)
[2019-06-02] MEDS: HEPARIN SOD (PORCINE) 5,000 UNIT/ML 1 ML VIAL SUBCUT SCH ×3 (05:45→21:37)
[2019-06-02 06:07] LABS: ABSOLUTE LYMPHOCYTES (AUTO) 0.8 10^3/uL (0.5-4.7); ABSOLUTE MONOCYTES (AUTO) 0.4 10^3/uL (0.1-1.4); ABSOLUTE NEUT (AUTO) 4.1 10^3/uL (1.7-8.2); ABSOLUTE RETICS # 0.074 10^6/uL (0.028-0.122); BASOPHILS % (AUTO) 0.2 % (0-2); HEMATOCRIT 28.9 % (36.0-47.0); HEMOGLOBIN 9.2 g/dL (12.0-15.5); MEAN CORPUSCULAR HEMOGLOBIN 29.6 pg (27.0-33.4); MEAN CORPUSCULAR VOLUME 93 fl (80-97); MONOCYTES % (AUTO) 7.6 % (3-13); PLATELET COUNT 141 10^3/uL (150-450); RED BLOOD COUNT 3.12 10^6/uL (3.72-5.28); RED CELL DISTRIBUTION WIDTH 16.2 % (11.5-14.0); RETICULOCYTE COUNT (AUTO) 2.37 % (0.66-2.85); SEGMENTED NEUTROPHILS % (AUTO) 77.2 % (42-78); TOTAL CELLS COUNTED % (AUTO) 100 %; WHITE BLOOD COUNT 5.3 10^3/uL (4.0-10.5)
[2019-06-02 06:38] LABS: ALBUMIN 3.9 g/dL (3.5-5.0); ALKALINE PHOSPHATASE 57 U/L (38-126); ANION GAP 13 (5-19); ASPARTATE AMINO TRANSFERASE 24 U/L (14-36); BILIRUBIN,DIRECT 0.3 mg/dL (0.0-0.4); BILIRUBIN,TOTAL 0.7 mg/dL (0.2-1.3); BLOOD UREA NITROGEN 49 mg/dL (7-20); CALCIUM 9.9 mg/dL (8.4-10.2); CARBON DIOXIDE 20 mmol/L (22-30); CHLORIDE 108 mmol/L (98-107); GLUCOSE 115 mg/dL (75-110); IRON(TIBC) 13.8 ug/dL (37-170); POTASSIUM 4.8 mmol/L (3.6-5.0); TOTAL PROTEIN 8.3 g/dL (6.3-8.2)
[2019-06-02 07:45] LABS: FOLATE 8.72 ng/mL (>2.76)
--- NOTE | 2019-06-02 08:58 | PDOC PROGRESS REPORT ---
Subjective Progress Note for:: 06/02/19 Subjective:: Patient is currently doing fair She is denied any chest pain to than any shortness of the breath Repeat chest x-ray stable Since seen by the nephrology patients do not want to go for any dialysis patient of multiple comorbidity and nephrology suggest the patient should be in the hospice care if is not getting better and discussed with the patient's and the daughter Discussed with the daughter to continues to current medical management will set up with the home health on discharge and if the patient's continues to be decline convert to the hospice at that point Overall patient's of multiple comorbidity with the heart failure's renal failure with advanced age Reason For Visit: RIGHT PNUEMONIA,ACUTE KIDNEY INJURY Physical Exam Vital Signs: Temp Pulse Resp BP Pulse Ox 98.5 F 90 17 145/66 H 96 06/02/19 03:59 06/02/19 08:40 06/02/19 08:40 06/02/19 03:59 06/02/19 08:40 Intake & Output 06/01/19 06/02/19 06/03/19 06:59 06:59 06:59 Intake Total 1710 1410 300 Output Total 200 300 200 Balance 1510 1110 100 Weight 79.7 kg 80.9 kg General appearance: PRESENT: no acute distress, well-developed, well-nourished Head exam: PRESENT: atraumatic, normocephalic Eye exam: PRESENT: conjunctiva pink, EOMI, PERRLA. ABSENT: scleral icterus Ear exam: PRESENT: normal external ear exam Mouth exam: PRESENT: moist, tongue midline Neck exam: PRESENT: full ROM. ABSENT: carotid bruit, JVD, lymphadenopathy, thyromegaly Respiratory exam: PRESENT: decreased breath sounds Cardiovascular exam: PRESENT: RRR. ABSENT: diastolic murmur, rubs, systolic murmur Pulses: PRESENT: normal dorsalis pedis pul, +2 pedal pulses bilateral Vascular exam: PRESENT: normal capillary refill GI/Abdominal exam: PRESENT: normal bowel sounds, soft. ABSENT: distended, guarding, mass, organolmegaly, rebound, tenderness Rectal exam: PRESENT: deferred Musculoskeletal exam: PRESENT: ambulatory Neurological exam: PRESENT: alert, awake, oriented to person, oriented to place, oriented to time, oriented to situation, CN II-XII grossly intact. ABSENT: motor sensory deficit Psychiatric exam: PRESENT: appropriate affect, normal mood. ABSENT: homicidal ideation, suicidal ideation Skin exam: PRESENT: dry, intact, warm. ABSENT: cyanosis, rash Results Laboratory Results: 06/02/19 05:38 06/02/19 05:38 06/02/19 06/02/19 05:38 05:38 WBC 5.3 RBC 3.12 L Hgb 9.2 L Hct 28.9 L MCV 93 MCH 29.6 MCHC 32.0 RDW 16.2 H Plt Count 141 L Seg Neutrophils % 77.2 Retic Count (auto) 2.37 Sodium 141.3 Potassium 4.8 Chloride 108 H Carbon Dioxide 20 L Anion Gap 13 BUN 49 H Creatinine 4.06 H Est GFR ( Amer) 13 L Glucose 115 H Calcium 9.9 Iron 13.8 L TIBC 178 L % Saturation 8 Ferritin 221.00 Total Bilirubin 0.7 AST 24 Alkaline Phosphatase 57 Total Protein 8.3 H Albumin 3.9 Vitamin B12 > 1000.0 H Folate 8.72 05/31/19 05:02 Clean Catch Midstream Urine Culture - Final Mixed Urogenital Whit 05/31/19 05/31/19 05/31/19 01:47 01:47 01:47 Creatine Kinase 99 CK-MB (CK-2) 1.50 Troponin I 0.058 Cancelled NT-Pro-B Natriuret Pep 20375 H Impressions: Renal Ultrasound 05/31/19 00:00 IMPRESSION: Atrophic and echogenic kidneys in keeping with chronic renal disease. Multiple cysts. No hydronephrosis. Unremarkable appearance of urinary bladder. Chest X-Ray 06/01/19 00:00 IMPRESSION: Unchanged radiographic appearance of the chest as detailed above. Lung Scan-VQ NM 06/01/19 00:00 IMPRESSION: Perfusion images show no significant segmental defects given artifact from patient positioning. Assessment & Plan - Diagnosis (1) Pneumonia Qualifiers: Pneumonia type: due to unspecified organism Laterality: right Lung location: unspecified part of lung Qualified Code(s): J18.9 - Pneumonia, unspecified organism Is this a current diagnosis for this admission?: Yes Plan: Continues to IV antibiotic (2) Congestive heart failure Qualifiers: Heart failure type: combined systolic and diastolic Heart failure chronicity: chronic Qualified Code(s): I50.42 - Chronic combined systolic (congestive) and diastolic (congestive) heart failure Is this a current diagnosis for this admission?: Yes Plan: Continues to Lasix 20 mg p.o. daily (3) Anemia Is this a current diagnosis for this admission?: Yes Plan: Currently stable (4) Acute hypoxemic respiratory failure Is this a current diagnosis for this admission?: Yes Plan: We will repeat the chest x-ray get the ABG continues to current medications (5) Chronic kidney disease, stage 4 (severe) Is this a current diagnosis for this admission?: Yes Plan: Patient is currently follow with the nephrology do not want to go for any dialysis if he needed (6) Shortness of breath Is this a current diagnosis for this admission?: Yes Plan: Since VQ scan is negative so far most likely due to the end-stage kidney disease with the heart failure's and pneumonia - Time Time Spent with patient: 25-34 minutes Level of Care: IMCU Medications reviewed and adjusted accordingly: Yes Anticipated discharge: Home with Homehealth Within: Other - Plan Summary Plan Summary: Very extensive discussed with the daughter who is only one child regarding the patient's current conditions with overall not a good prognosis And the daughter expressed DNR but wants to continues to treatment instead of going for the hospice at this point
[2019-06-02] MEDS ORDERED: FERRIC CARBOXYMALTOSE INJ 750 MG/15 ML VIAL IV ONE (09:00)
[2019-06-02] MEDS: SODIUM BICARBONATE 650 MG TABLET PO SCH ×3 (09:57→17:15)
[2019-06-02] MEDS: CYANOCOBALAMIN (VITAMIN B-12) 1,000 MCG TABLET PO SCH (09:57)
[2019-06-02] MEDS: AMLODIPINE BESYLATE 5 MG TABLET PO SCH ×2 (09:58→21:40)
[2019-06-02] MEDS: MAGNESIUM OXIDE 400 MG TABLET PO SCH ×2 (09:58→17:16)
[2019-06-02] MEDS: FERROUS SULFATE 325 MG TABLET PO SCH ×2 (09:58→17:16)
[2019-06-02] MEDS: FUROSEMIDE 20 MG TABLET PO SCH (09:58)
[2019-06-02] MEDS: PANTOPRAZOLE SODIUM 20 MG TABLET.DR PO SCH (09:58)
[2019-06-02] MEDS ORDERED: FERRIC CARBOXYMALTOSE 750 MG in NORMAL SALINE 100 ML IV ONE ×2 (10:30→12:00)
[2019-06-02] MEDS: LEVOFLOXACIN 500 MG/D5W RTU 500 MG/100 ML RTUPB IV SCH (11:11)
[2019-06-02] MEDS: ATORVASTATIN CALCIUM 40 MG TABLET PO SCH (21:40)
[2019-06-02] MEDS: CEFTRIAXONE 1 GM/D5W RTU 1 GM/50 ML RTUPB IV SCH (21:40)
[2019-06-02] MEDS: ACETAMINOPHEN 325 MG TABLET PO PRN (21:41)
[2019-06-03] MEDS: HEPARIN SOD (PORCINE) 5,000 UNIT/ML 1 ML VIAL SUBCUT SCH ×3 (06:09→21:50)
[2019-06-03 06:20] LABS: ABSOLUTE EOSINOPHILS # (AUTO) 0.1 10^3/uL (0.0-0.6); ABSOLUTE LYMPHOCYTES (AUTO) 0.7 10^3/uL (0.5-4.7); ABSOLUTE MONOCYTES (AUTO) 0.5 10^3/uL (0.1-1.4); ABSOLUTE NEUT (AUTO) 2.8 10^3/uL (1.7-8.2); BASOPHILS % (AUTO) 0.5 % (0-2); HEMATOCRIT 27.2 % (36.0-47.0); HEMOGLOBIN 8.7 g/dL (12.0-15.5); LYMPHOCYTES % (AUTO) 17.1 % (13-45); MEAN CORPUSCULAR HEMOGLOBIN 29.8 pg (27.0-33.4); MEAN CORPUSCULAR HGB CONC 32.2 g/dL (32.0-36.0); MEAN CORPUSCULAR VOLUME 93 fl (80-97); MONOCYTES % (AUTO) 11.8 % (3-13); PLATELET COUNT 130 10^3/uL (150-450); RED BLOOD COUNT 2.94 10^6/uL (3.72-5.28); RED CELL DISTRIBUTION WIDTH 16.5 % (11.5-14.0); SEGMENTED NEUTROPHILS % (AUTO) 67.6 % (42-78); TOTAL CELLS COUNTED % (AUTO) 100 %; WHITE BLOOD COUNT 4.1 10^3/uL (4.0-10.5)
[2019-06-03 06:46] LABS: ALBUMIN 3.6 g/dL (3.5-5.0); ALKALINE PHOSPHATASE 56 U/L (38-126); ANION GAP 13 (5-19); ASPARTATE AMINO TRANSFERASE 27 U/L (14-36); BILIRUBIN,DIRECT 0.2 mg/dL (0.0-0.4); BILIRUBIN,TOTAL 0.6 mg/dL (0.2-1.3); BLOOD UREA NITROGEN 56 mg/dL (7-20); CALCIUM 9.6 mg/dL (8.4-10.2); CARBON DIOXIDE 20 mmol/L (22-30); CHLORIDE 108 mmol/L (98-107); GLUCOSE 97 mg/dL (75-110); POTASSIUM 4.8 mmol/L (3.6-5.0); TOTAL PROTEIN 7.7 g/dL (6.3-8.2)
--- NOTE | 2019-06-03 09:50 | PDOC PROGRESS REPORT ---
Subjective Progress Note for:: 06/03/19 Subjective:: Patient was seen sitting up her chair. At the time her daughter was at bedside. The patient is currently on oxygen but claims that SOB has been slowly improving. She denies chest pain, n/v/d/c, or decreased appetite. Reason For Visit: RIGHT PNUEMONIA,ACUTE KIDNEY INJURY Physical Exam Vital Signs: Temp Pulse Resp BP Pulse Ox 97.9 F 86 18 139/63 H 96 06/03/19 04:17 06/03/19 07:00 06/03/19 04:17 06/03/19 04:17 06/03/19 04:17 Intake & Output 06/02/19 06/03/19 06/04/19 06:59 06:59 06:59 Intake Total 1410 1600 Output Total 300 575 Balance 1110 1025 Weight 80.9 kg General appearance: PRESENT: no acute distress, well-developed, well-nourished Mouth exam: PRESENT: moist, neck supple Neck exam: ABSENT: JVD, tracheal deviation Respiratory exam: PRESENT: rhonchi. ABSENT: accessory muscle use, clear to auscultation emerald, crackles, rales, wheezes Cardiovascular exam: PRESENT: +S1, +S2 GI/Abdominal exam: PRESENT: normal bowel sounds, soft. ABSENT: organomegaly, tenderness Extremities exam: PRESENT: pedal edema, +1 edema. ABSENT: tenderness, +2 edema Musculoskeletal exam: PRESENT: normal inspection. ABSENT: deformity, tenderness Neurological exam: PRESENT: alert, awake, oriented to person, oriented to place, oriented to time, oriented to situation Psychiatric exam: PRESENT: appropriate affect, normal mood Skin exam: PRESENT: dry, intact, warm Results Laboratory Results: 06/03/19 05:43 06/03/19 05:43 06/03/19 06/03/19 06/03/19 05:43 05:43 05:43 WBC 4.1 RBC 2.94 L Hgb 8.7 L Hct 27.2 L MCV 93 MCH 29.8 MCHC 32.2 RDW 16.5 H Plt Count 130 L Seg Neutrophils % 67.6 Sodium 140.6 Potassium 4.8 Chloride 108 H Carbon Dioxide 20 L Anion Gap 13 BUN 56 H Creatinine 4.26 H Est GFR ( Amer) 12 L Glucose 97 Calcium 9.6 Magnesium 1.9 Total Bilirubin 0.6 AST 27 Alkaline Phosphatase 56 Total Protein 7.7 Albumin 3.6 05/31/19 12:00 Sputum Gram Stain - Final 05/31/19 12:00 Sputum Sputum Culture - Final Group B Beta Streptococcus Normal Whit 05/31/19 05/31/19 05/31/19 01:47 01:47 01:47 Creatine Kinase 99 CK-MB (CK-2) 1.50 Troponin I 0.058 Cancelled NT-Pro-B Natriuret Pep 55117 H Impressions: Renal Ultrasound 05/31/19 00:00 IMPRESSION: Atrophic and echogenic kidneys in keeping with chronic renal disease. Multiple cysts. No hydronephrosis. Unremarkable appearance of urinary bladder. Chest X-Ray 06/01/19 00:00 IMPRESSION: Unchanged radiographic appearance of the chest as detailed above. Lung Scan-VQ NM 06/01/19 00:00 IMPRESSION: Perfusion images show no significant segmental defects given artifact from patient positioning. Assessment & Plan - Diagnosis (1) Chronic kidney disease, stage 4 (severe) Is this a current diagnosis for this admission?: Yes Plan: creatinine is stable and with in normal limits. At this time patient does not want to ever start dialysis. This was confirmed again today. (2) Anemia Is this a current diagnosis for this admission?: Yes Plan: recently received a shot of procrit and some IV injectofer yesterday. Will monitor the hemoglobin to see if there is an improvement after that. Currently receiving procrit as outpatient and was previously stable. (3) Congestive heart failure Qualifiers: Heart failure type: combined systolic and diastolic Heart failure chronicity: chronic Qualified Code(s): I50.42 - Chronic combined systolic (con gestive) and diastolic (congestive) heart failure Is this a current diagnosis for this admission?: Yes Plan: improving (4) Pneumonia involving right lung Qualifiers: Pneumonia type: due to unspecified organism Lung location: unspecified part of lung Qualified Code(s): J18.9 - Pneumonia, unspecified organism Is this a current diagnosis for this admission?: Yes Plan: on antibiotics per primary
[2019-06-03] MEDS: AMLODIPINE BESYLATE 5 MG TABLET PO SCH ×2 (09:59→22:08)
[2019-06-03] MEDS: SODIUM BICARBONATE 650 MG TABLET PO SCH ×3 (09:59→17:50)
[2019-06-03] MEDS: MAGNESIUM OXIDE 400 MG TABLET PO SCH ×2 (09:59→17:50)
[2019-06-03] MEDS: CYANOCOBALAMIN (VITAMIN B-12) 1,000 MCG TABLET PO SCH (09:59)
[2019-06-03] MEDS: FERROUS SULFATE 325 MG TABLET PO SCH ×2 (09:59→17:50)
[2019-06-03] MEDS: PANTOPRAZOLE SODIUM 20 MG TABLET.DR PO SCH (10:00)
[2019-06-03] MEDS: METOPROLOL SUCCINATE 50 MG TAB.SR.24H PO SCH (10:00)
[2019-06-03] MEDS: FUROSEMIDE 20 MG TABLET PO SCH (10:00)
--- NOTE | 2019-06-03 10:17 | PDOC PROGRESS REPORT ---
Subjective Progress Note for:: 06/03/19 Subjective:: Patient is currently doing fair She is denied any chest pain to than any shortness of the breath Repeat chest x-ray stable Since seen by the nephrology patients do not want to go for any dialysis patient of multiple comorbidity and nephrology suggest the patient should be in the hospice care if is not getting better and discussed with the patient's and the daughter Discussed with the daughter to continues to current medical management will set up with the home health on discharge and if the patient's continues to be decline convert to the hospice at that point Overall patient's of multiple comorbidity with the heart failure's renal failure with advanced age Reason For Visit: RIGHT PNUEMONIA,ACUTE KIDNEY INJURY Physical Exam Vital Signs: Temp Pulse Resp BP Pulse Ox 98.2 F 89 20 141/64 H 100 06/03/19 07:02 06/03/19 07:02 06/03/19 07:02 06/03/19 07:02 06/03/19 07:02 Intake & Output 06/02/19 06/03/19 06/04/19 06:59 06:59 06:59 Intake Total 1410 1600 Output Total 300 575 Balance 1110 1025 Weight 80.9 kg General appearance: PRESENT: no acute distress, well-developed, well-nourished Head exam: PRESENT: atraumatic, normocephalic Eye exam: PRESENT: conjunctiva pink, EOMI, PERRLA. ABSENT: scleral icterus Ear exam: PRESENT: normal external ear exam Mouth exam: PRESENT: moist, tongue midline Neck exam: PRESENT: full ROM. ABSENT: carotid bruit, JVD, lymphadenopathy, thyromegaly Respiratory exam: PRESENT: clear to auscultation emerald Cardiovascular exam: PRESENT: RRR. ABSENT: diastolic murmur, rubs, systolic murmur Pulses: PRESENT: normal dorsalis pedis pul, +2 pedal pulses bilateral Vascular exam: PRESENT: normal capillary refill GI/Abdominal exam: PRESENT: normal bowel sounds, soft. ABSENT: distended, guarding, mass, organolmegaly, rebound, tenderness Rectal exam: PRESENT: deferred Neurological exam: PRESENT: alert, awake, oriented to person, oriented to place, oriented to time, oriented to situation, CN II-XII grossly intact. ABSENT: motor sensory deficit Psychiatric exam: PRESENT: appropriate affect, normal mood. ABSENT: homicidal ideation, suicidal ideation Skin exam: PRESENT: dry, intact, warm. ABSENT: cyanosis, rash Results Laboratory Results: 06/03/19 05:43 06/03/19 05:43 06/03/19 06/03/19 06/03/19 05:43 05:43 05:43 WBC 4.1 RBC 2.94 L Hgb 8.7 L Hct 27.2 L MCV 93 MCH 29.8 MCHC 32.2 RDW 16.5 H Plt Count 130 L Seg Neutrophils % 67.6 Sodium 140.6 Potassium 4.8 Chloride 108 H Carbon Dioxide 20 L Anion Gap 13 BUN 56 H Creatinine 4.26 H Est GFR ( Amer) 12 L Glucose 97 Calcium 9.6 Magnesium 1.9 Total Bilirubin 0.6 AST 27 Alkaline Phosphatase 56 Total Protein 7.7 Albumin 3.6 05/31/19 12:00 Sputum Gram Stain - Final 05/31/19 12:00 Sputum Sputum Culture - Final Group B Beta Streptococcus Normal Whit 05/31/19 05/31/19 05/31/19 01:47 01:47 01:47 Creatine Kinase 99 CK-MB (CK-2) 1.50 Troponin I 0.058 Cancelled NT-Pro-B Natriuret Pep [id number] H Impressions: Renal Ultrasound 05/31/19 00:00 IMPRESSION: Atrophic and echogenic kidneys in keeping with chronic renal disease. Multiple cysts. No hydronephrosis. Unremarkable appearance of urinary bladder. Chest X-Ray 06/01/19 00:00 IMPRESSION: Unchanged radiographic appearance of the chest as detailed above. Lung Scan-VQ NM 06/01/19 00:00 IMPRESSION: Perfusion images show no significant segmental defects given artifact from patient positioning. Assessment & Plan - Diagnosis (1) Pneumonia Qualifiers: Pneumonia type: due to unspecified organism Laterality: right Lung location: unspecified part of lung Qualified Code(s): J18.9 - Pneumonia, unspecified organism Is this a current diagnosis for this admission?: Yes Plan: Continues to IV antibiotic (2) Congestive heart failure Qualifiers: Heart failure type: combined systolic and diastolic Heart failure chronicity: chronic Qualified Code(s): I50.42 - Chronic combined systolic (congestive) and diastolic (congestive) heart failure Is this a current diagnosis for this admission?: Yes Plan: Continues to Lasix 20 mg p.o. daily (3) Anemia Is this a current diagnosis for this admission?: Yes Plan: Currently stable (4) Acute hypoxemic respiratory failure Is this a current diagnosis for this admission?: Yes Plan: We will repeat the chest x-ray get the ABG continues to current medications (5) Chronic kidney disease, stage 4 (severe) Is this a current diagnosis for this admission?: Yes Plan: Patient is currently follow with the nephrology do not want to go for any dialysis if he needed (6) Shortness of breath Is this a current diagnosis for this admission?: Yes Plan: Since VQ scan is negative so far most likely due to the end-stage kidney disease with the heart failure's and pneumonia (7) Ventricular tachycardia Is this a current diagnosis for this admission?: Yes Plan: Patient's magnesium's electrolytes are all stableConsult the Dr. Garcia with the patient's cardiology for further evaluations - Time Time Spent with patient: 25-34 minutes Level of Care: IMCU Medications reviewed and adjusted accordingly: Yes Anticipated discharge: Other Within: Other - Plan Summary Plan Summary: Discussed with the patient and the daughter regarding the patient's current conditions with worsening the kidney functions heart issues multiple other etiologies not overall good prognosis for the long terms patient is currently a DNR
[2019-06-03 16:37] LABS: ALBUMIN UR 56.3 % (.); ALPHA-1-GLOBULIN URINE 6.1 % (.); ALPHA-2-GLOBULIN URINE 5.1 % (.); GAMMA GLOBULIN URINE 22.8 % (.); M-SPIKE % UR Not Observed % (Not Observ); PROTEIN TOTAL URINE 191.6 mg/dL (Not Estab.)
[2019-06-03] MEDS: CEFTRIAXONE 1 GM/D5W RTU 1 GM/50 ML RTUPB IV SCH (22:07)
[2019-06-03] MEDS: ACETAMINOPHEN 325 MG TABLET PO PRN (22:07)
[2019-06-03] MEDS: ATORVASTATIN CALCIUM 40 MG TABLET PO SCH (22:08)
[2019-06-04] MEDS: HEPARIN SOD (PORCINE) 5,000 UNIT/ML 1 ML VIAL SUBCUT SCH ×3 (05:39→21:07)
--- NOTE | 2019-06-04 09:06 | PDOC PROGRESS REPORT ---
Subjective Progress Note for:: 06/04/19 Subjective:: Patient is currently doing well Since denied any chest pain no short of breath Patients have echocardiogram ordered by director [facility] today Discussed with the daughter and the bedside regarding the patient's current conditions Reason For Visit: RIGHT PNUEMONIA,ACUTE KIDNEY INJURY Physical Exam Vital Signs: Temp Pulse Resp BP Pulse Ox 97.8 F 77 16 123/69 100 06/04/19 00:44 06/04/19 07:00 06/04/19 00:44 06/04/19 00:44 06/04/19 00:44 Intake & Output 06/03/19 06/04/19 06/05/19 06:59 06:59 06:59 Intake Total 1600 850 0 Output Total 575 200 Balance 1025 650 0 Weight 80.9 kg 80 kg General appearance: PRESENT: no acute distress, well-developed, well-nourished Head exam: PRESENT: atraumatic, normocephalic Eye exam: PRESENT: conjunctiva pink, EOMI, PERRLA. ABSENT: scleral icterus Ear exam: PRESENT: normal external ear exam Mouth exam: PRESENT: moist, tongue midline Neck exam: PRESENT: full ROM. ABSENT: carotid bruit, JVD, lymphadenopathy, thyromegaly Respiratory exam: PRESENT: clear to auscultation emerald Cardiovascular exam: PRESENT: RRR. ABSENT: diastolic murmur, rubs, systolic murmur Pulses: PRESENT: normal dorsalis pedis pul, +2 pedal pulses bilateral Vascular exam: PRESENT: normal capillary refill GI/Abdominal exam: PRESENT: normal bowel sounds, soft. ABSENT: distended, guarding, mass, organolmegaly, rebound, tenderness Rectal exam: PRESENT: deferred Musculoskeletal exam: PRESENT: ambulatory Neurological exam: PRESENT: alert, awake, oriented to person, oriented to place, oriented to time, oriented to situation, CN II-XII grossly intact. ABSENT: motor sensory deficit Psychiatric exam: PRESENT: appropriate affect, normal mood. ABSENT: homicidal ideation, suicidal ideation Skin exam: PRESENT: dry, intact, warm. ABSENT: cyanosis, rash Results Laboratory Results: 06/03/19 05:43 06/03/19 05:43 05/31/19 05/31/19 05/31/19 01:47 01:47 01:47 Creatine Kinase 99 CK-MB (CK-2) 1.50 Troponin I 0.058 Cancelled NT-Pro-B Natriuret Pep [id number] H Impressions: Renal Ultrasound 05/31/19 00:00 IMPRESSION: Atrophic and echogenic kidneys in keeping with chronic renal disease. Multiple cysts. No hydronephrosis. Unremarkable appearance of urinary bladder. Chest X-Ray 06/01/19 00:00 IMPRESSION: Unchanged radiographic appearance of the chest as detailed above. Lung Scan-VQ NM 06/01/19 00:00 IMPRESSION: Perfusion images show no significant segmental defects given artifact from patient positioning. Assessment & Plan - Diagnosis (1) Pneumonia Qualifiers: Pneumonia type: due to unspecified organism Laterality: right Lung location: unspecified part of lung Qualified Code(s): J18.9 - Pneumonia, unspecified organism Is this a current diagnosis for this admission?: Yes Plan: Continues to IV antibiotic (2) Congestive heart failure Qualifiers: Heart failure type: combined systolic and diastolic Heart failure chronicity: chronic Qualified Code(s): I50.42 - Chronic combined systolic (congestive) and diastolic (congestive) heart failure Is this a current diagnosis for this admission?: Yes Plan: Continues to Lasix 20 mg p.o. daily (3) Anemia Is this a current diagnosis for this admission?: Yes Plan: Currently stable (4) Acute hypoxemic respiratory failure Is this a current diagnosis for this admission?: Yes Plan: We will repeat the chest x-ray get the ABG continues to current medications (5) Chronic kidney disease, stage 4 (severe) Is this a current diagnosis for this admission?: Yes Plan: Patient is currently follow with the nephrology do not want to go for any d ialysis if he needed (6) Shortness of breath Is this a current diagnosis for this admission?: Yes Plan: Since VQ scan is negative so far most likely due to the end-stage kidney disease with the heart failure's and pneumonia (7) Ventricular tachycardia Is this a current diagnosis for this admission?: Yes Plan: Will follow with the director e[facility] - Time Time Spent with patient: 15-24 minutes Level of Care: IMCU Medications reviewed and adjusted accordingly: Yes Anticipated discharge: Home with Homehealth Within: Other - Plan Summary Plan Summary: Discussed with the daughter regarding the patient's current condition and the bedside The chest x-ray today
[2019-06-04] MEDS: FUROSEMIDE 20 MG TABLET PO SCH (09:10)
[2019-06-04] MEDS: MAGNESIUM OXIDE 400 MG TABLET PO SCH ×2 (09:10→18:04)
[2019-06-04] MEDS: SODIUM BICARBONATE 650 MG TABLET PO SCH ×3 (09:10→18:04)
[2019-06-04] MEDS: FERROUS SULFATE 325 MG TABLET PO SCH ×2 (09:10→18:04)
[2019-06-04] MEDS: CYANOCOBALAMIN (VITAMIN B-12) 1,000 MCG TABLET PO SCH (09:10)
[2019-06-04] MEDS: PANTOPRAZOLE SODIUM 20 MG TABLET.DR PO SCH (09:11)
[2019-06-04] MEDS: AMLODIPINE BESYLATE 5 MG TABLET PO SCH ×2 (09:11→21:10)
[2019-06-04 10:10] LABS: ANION GAP 12 (5-19); BLOOD UREA NITROGEN 61 mg/dL (7-20); CALCIUM 9.6 mg/dL (8.4-10.2); CARBON DIOXIDE 21 mmol/L (22-30); CHLORIDE 107 mmol/L (98-107); GLUCOSE 103 mg/dL (75-110); POTASSIUM 4.6 mmol/L (3.6-5.0)
--- NOTE | 2019-06-04 11:24 | RADIOLOGY REPORT (SQ) ---
EXAM DESCRIPTION: CHEST 2 VIEWS COMPLETED DATE/TIME: 06/04/2019 10:41 am REASON FOR STUDY: pnemonia COMPARISON: 06/01/2019 NUMBER OF VIEWS: Two view TECHNIQUE: Frontal and lateral radiographic images of the chest acquired. LIMITATIONS: None. FINDINGS: LUNGS AND PLEURA: Essentially resolved airspace disease in the left lower lobe. Right hil ar and upper lobe airspace disease not significantly changed. MEDIASTINUM AND HILAR STRUCTURES: Stable heart size and mediastinal structures. HEART AND VASCULAR STRUCTURES: Stable appearance. BONES: No acute findings. HARDWARE: None in the chest. OTHER: No other significant finding. IMPRESSION: Improving pneumonia. TECHNICAL DOCUMENTATION: JOB ID: [id number] [employer]- All Rights Reserved Reading location - IP/workstation name: [email or web address]
--- NOTE | 2019-06-04 13:50 | XCELERA REPORT ---
[address] [address] Transthoracic Echocardiogram Report Name: BROWN RIVAS Age: 84 yrs Gender: Female : 1935 Patient Status: Inpatient Patient Location: [address] [place] [address] Study Date: 06/04/2019 11:19 AM Height: 63 in Weight: 178 lb BSA: 1.8 m2 Procedure: A complete two-dimensional transthoracic echocardiogram was performed (2D, M-mode, spectral and color flow Doppler). The study was technically adequate with some images being suboptimal in quality. Reason For Study: Cardiac arrhythmia Ordering Physician: FLORIDA HAMMOND Performed By: Cassidy Cuevas Interpretation Summary LV EF is 40% Left ventricular systolic function is moderately reduced. There is mild concentric left ventricular hypertrophy. The left ventricle is mildly dilated. Doppler measurements suggest pseudonormalized left ventricular relaxation, which is associated with grade II/IV or mild to moderate diastolic dysfunction Wall motion cannot be accurately commented on, but no definite regional wall motion abnormalities noted. The right ventricle is grossly normal size. The right atrium is normal in size The left atrium is moderately dilated. There is no mitral valve stenosis. There is a moderate amount of mitral regurgitation There is no aortic valve stenosis There is a moderate amount of aortic regurgitation There is a mild amount of tricuspid regurgitation Best estimated right ventricular systolic pressure is elevated at 30-40mmHg. There is mild pulmonary hypertension by echo The aortic root is not well visualized but is probably normal size. The inferior vena cava appeared normal and decreased < 50% with respiration (RAP 10-15 mmHg) Minimal pericardial effusion. MMode/2D Measurements & Calculations RVDd: 3.7 cm LVIDd: 6.0 cm FS: 19.0 % Ao root diam: 3.6 cm IVSd: 0.95 cm LVIDs: 4.9 cm EDV(Teich): 182.4 ml Ao root area: 10.2 cm2 LVPWd: 0.98 cm ESV(Teich): 112.3 ml EF(Teich): 38.5 % Doppler Measurements & Calculations MV E max marie: MV dec slope: Ao V2 max: AI max marie: 145.7 cm/sec 822.0 cm/sec2 205.2 cm/sec 404.6 cm/sec MV A max marie: MV dec time: Ao max PG: AI max P.5 mmHg 40.1 cm/sec 0.18 sec 16.8 mmHg AI dec slope: MV E/A: 3.6 307.5 cm/sec2 AI P1/2t: 385.4 msec LV V1 max PG: PA V2 max: TR max marie: 3.7 mmHg 79.0 cm/sec 276.8 cm/sec LV V1 max: PA max P.5 mmHg TR max P.4 cm/sec 30.7 mmHg Left Ventricle The left ventricle is mildly dilated. There is mild concentric left ventricular hypertrophy. Left ventricular systolic function is moderately reduced. LV EF is 40%. Doppler measurements suggest pseudonormalized left ventricular relaxation, which is associated with grade II/IV or mild to moderate diastolic dysfunction. Wall motion cannot be accurately commented on, but no definite regional wall motion abnormalities noted. Right Ventricle The right ventricle is grossly normal size. Atria The right atrium is normal in size. The left atrium is moderately dilated. Mitral Valve The mitral valve leaflets are sclerotic and show some degree of functional abnormality. There is no mitral valve stenosis. There is a moderate amount of mitral regurgitation. Aortic Valve The aortic valve is sclerotic and shows some degree of functional abnormality. There is no aortic valve stenosis. There is a moderate amount of aortic regurgitation. Tricuspid Valve The tricuspid valve is not well visualized, but is grossly normal. There is no tricuspid stenosis. There is a mild amount of tricuspid regurgitation. Best estimated right ventricular systolic pressure is elevated at 30-40mmHg. There is mild pulmonary hypertension by echo. Pulmonic Valve The pulmonic valve is not well visualized. Great Vessels The aortic root is not well visualized but is probably normal size. The inferior vena cava appeared normal and decreased < 50% with respiration (RAP 10-15 mmHg). Effusions Minimal pericardial effusion. : FLORIDA HAMMOND Shyamal
--- NOTE | 2019-06-04 13:58 | PDOC PROGRESS REPORT ---
Subjective Progress Note for:: 06/04/19 Subjective:: BROWN RIVAS is a 84 year old female she has a history of coronary artery disease, chronic kidney disease stage IV, history of esophageal cancer, she was admitted through emergency room for evaluation of respiratory symptoms, cough, shortness of breath, the cough was productive of sputum. A chest x-ray was done, it showed dense infiltrate in the right upper lobe as well as focal alveolar interstitial infiltrate in the right lower lobe. The ABG on FiO2 36%, PO2 62, bicarbonate 19.5, PCO2 30.6. Telemetry monitoring, patient was noted to have increased ventricular ectopy. A cardiology consult was therefore requested. 2D echocardiogram performed today shows moderately depressed LVEF with moderate mitral regurgitation and moderate aortic incompetence. Patient though clinically feels better since she was admitted. No sustained tachyarrhythmia or bradycardia arrhythmias were noted. Reason For Visit: RIGHT PNUEMONIA,ACUTE KIDNEY INJURY Physical Exam Vital Signs: Temp Pulse Resp BP Pulse Ox 98.5 F 81 18 136/61 H 97 06/04/19 11:41 06/04/19 11:41 06/04/19 11:41 06/04/19 11:41 06/04/19 11:41 Intake & Output 06/03/19 06/04/19 06/05/19 06:59 06:59 06:59 Intake Total 1600 850 0 Output Total 575 200 Balance 1025 650 0 Weight 80.9 kg 80 kg Exam: GENERAL: well-nourished and in no acute distress. Alert and oriented x3 HEAD: Atraumatic, normocephalic. EYES: ARRON, sclera anicteric, conjunctiva are normal. ENT: Moist mucous membranes. No oral ulcerations or bleeding gums noted. No obvious ear, nose or throat abnormalities noted. NECK: supple without lymphadenopathy. Trachea is central. No cervical or axillary lymphadenopathy noted. Carotids are 2+, JVD WNL LUNGS: Breath sounds basilar fine crackles are noted. No wheezes rales or rhonchi noted. No significant dullness noted on percussion. CHEST: Palpation of the chest wall shows no significant chest wall tenderness. HEART: [place] [address] LIGHT, No PSH, 1/6 CHRISTIANO aortic area, 1/6 rodriguez systolic murmur mitral area, no rubs, no gallops. ABDOMEN: Soft, no significant tenderness appreciated, normoactive bowel sounds. No guarding, no rebound. No rigidity noted . No masses appreciated. EXTREMITIES: Pedal pulses are 1-2+, no calf tenderness noted. No clubbing or cyanosis. 1 Plus pedal edema noted NEUROLOGICAL: Focused neurological exam showed no significant neurologic deficit. Normal speech, no focal weakness appreciated. PSYCH: Normal mood, normal affect. Judgment and insight within normal limits. SKIN: No significant ecchymosis, skin is noted to be warm. MUSCULOSKELETAL EXAM: No significant acute joint swelling noted. Results Laboratory Results: 06/03/19 05:43 06/04/19 09:19 06/04/19 09:19 Sodium 140.4 Potassium 4.6 Chloride 107 Carbon Dioxide 21 L Anion Gap 12 BUN 61 H Creatinine 4.37 H Est GFR ( Amer) 12 L Glucose 103 Calcium 9.6 05/31/19 05/31/19 05/31/19 01:47 01:47 01:47 Creatine Kinase 99 CK-MB (CK-2) 1.50 Troponin I 0.058 Cancelled NT-Pro-B Natriuret Pep 17090 H EKG Comments: Shows sinus rhythm with frequent ventricular ectopies Impressions: Renal Ultrasound 05/31/19 00:00 IMPRESSION: Atrophic and echogenic kidneys in keeping with chronic renal disease. Multiple cysts. No hydronephrosis. Unremarkable appearance of urinary bladder. Lung Scan-VQ NM 06/01/19 00:00 IMPRESSION: Perfusion images show no significant segmental defects given artifact from patient positioning. Chest X-Ray 06/04/19 00:00 IMPRESSION: Improving pneumonia. Assessment & Plan - Diagnosis (1) Acute hypoxemic respiratory failure Is this a current diagnosis for this admission?: Yes (2) Chronic kidney disease, stage 4 (severe) Is this a current diagnosis for this admission?: Yes (3) Congestive heart failure Qualifiers: Heart failure type: combined systolic and diastolic Heart failure chronicity: chronic Qualified Code(s): I50.42 - Chronic combined systolic (congestive) and diastolic (congestive) heart failure Is this a current diagnosis for this admission?: Yes (4) Shortness of breath Is this a current diagnosis for this admission?: Yes (5) Weakness Is this a current diagnosis for this admission?: Yes - Notes Notes: Patient has frequent ventricular ectopy. Possibly related to cardiomyopathy, intermittent hypoxemia. Would recommend optimization of management of cardiomyopathy with beta-blockers, DYANA inhibitors/ARB/ARNI. agent. Today she has use of diuretics especially spironolactone is also recommended but patient seems to have significant chronic kidney disease therefore there may be some contraindications. As regards congestive heart failure, she seems well compensated. Will continue current therapy. 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 Will continue to follow patient. 2D echocardiogram performed earlier today was reviewed. It showed LVEF of 40% with moderate MR and moderate AI. - Time Time with patient: Greater than 35 minutes - More than 50% of the time spent coordinating care, discussing management plans with involved caregivers. Ma nagement plans discussed with involved personnels. Medical decision making was of moderate to high complexity, patient's has multiple comorbidities. Medications reviewed and adjusted accordingly: Yes
[2019-06-04] MEDS: LEVOFLOXACIN 500 MG/D5W RTU 500 MG/100 ML RTUPB IV SCH (14:19)
[2019-06-04 14:37] LABS: A/G RATIO. 0.9 (0.7-1.7); ALBUMIN 3 3.3 g/dL (2.9-4.4); ALPHA-1-GLOBULIN 0.2 g/dL (0.0-0.4); BETA GLOBULIN 0.7 g/dL (0.7-1.3); GAMMA GLOBULINS 2.1 g/dL (0.4-1.8); IMMUNOGLOBULIN A 350 mg/dL (64-422); IMMUNOGLOBULIN G 2443 mg/dL (700-1600); IMMUNOGLOBULIN M 31 mg/dL (26-217); MONOCLONAL-SPIKE Not Observed g/dL (Not Observ)
[2019-06-04] MEDS: ATORVASTATIN CALCIUM 40 MG TABLET PO SCH (21:10)
[2019-06-04] MEDS: CEFTRIAXONE 1 GM/D5W RTU 1 GM/50 ML RTUPB IV SCH (21:10)
[2019-06-05] MEDS: HEPARIN SOD (PORCINE) 5,000 UNIT/ML 1 ML VIAL SUBCUT SCH ×3 (05:00→21:57)
[2019-06-05 06:52] LABS: ABSOLUTE EOSINOPHILS # (AUTO) 0.2 10^3/uL (0.0-0.6); ABSOLUTE LYMPHOCYTES (AUTO) 0.7 10^3/uL (0.5-4.7); ABSOLUTE MONOCYTES (AUTO) 0.5 10^3/uL (0.1-1.4); ABSOLUTE NEUT (AUTO) 2.8 10^3/uL (1.7-8.2); BASOPHILS % (AUTO) 0.4 % (0-2); EOSINOPHILS % (AUTO) 4.3 % (0-6); HEMATOCRIT 26.4 % (36.0-47.0); HEMOGLOBIN 8.7 g/dL (12.0-15.5); LYMPHOCYTES % (AUTO) 17.5 % (13-45); MEAN CORPUSCULAR HEMOGLOBIN 30.2 pg (27.0-33.4); MEAN CORPUSCULAR HGB CONC 32.9 g/dL (32.0-36.0); MEAN CORPUSCULAR VOLUME 92 fl (80-97); MONOCYTES % (AUTO) 12.3 % (3-13); PLATELET COUNT 135 10^3/uL (150-450); RED BLOOD COUNT 2.87 10^6/uL (3.72-5.28); RED CELL DISTRIBUTION WIDTH 16.3 % (11.5-14.0); SEGMENTED NEUTROPHILS % (AUTO) 65.5 % (42-78); TOTAL CELLS COUNTED % (AUTO) 100 %; WHITE BLOOD COUNT 4.2 10^3/uL (4.0-10.5)
[2019-06-05 07:57] LABS: ANION GAP 12 (5-19); BLOOD UREA NITROGEN 62 mg/dL (7-20); CALCIUM 9.4 mg/dL (8.4-10.2); CARBON DIOXIDE 20 mmol/L (22-30); CHLORIDE 107 mmol/L (98-107); GLUCOSE 92 mg/dL (75-110); POTASSIUM 4.4 mmol/L (3.6-5.0)
--- NOTE | 2019-06-05 08:26 | PDOC PROGRESS REPORT ---
Subjective Progress Note for:: 06/05/19 Subjective:: Patient is currently doing much better's She is denied any chest pain to than any shortness of the breath Since I had a echocardiogram done with the EF is 40%'s seen by Dr. Garcia Patient's currently not in the Lasix or not an DYANA inhibitor due to the worsening the kidney functions Reason For Visit: RIGHT PNUEMONIA,ACUTE KIDNEY INJURY Physical Exam Vital Signs: Temp Pulse Resp BP Pulse Ox 98.6 F 91 20 146/75 H 97 06/05/19 03:16 06/05/19 07:00 06/05/19 03:16 06/05/19 03:16 06/05/19 03:16 Intake & Output 06/04/19 06/05/19 06/06/19 06:59 06:59 06:59 Intake Total 850 1110 Output Total 200 Balance 650 1110 Weight 79.9 kg General appearance: PRESENT: no acute distress, well-developed, well-nourished Head exam: PRESENT: atraumatic, normocephalic Eye exam: PRESENT: conjunctiva pink, EOMI, PERRLA. ABSENT: scleral icterus Ear exam: PRESENT: normal external ear exam Mouth exam: PRESENT: moist, tongue midline Neck exam: PRESENT: full ROM. ABSENT: carotid bruit, JVD, lymphadenopathy, thyromegaly Respiratory exam: PRESENT: clear to auscultation emerald Cardiovascular exam: PRESENT: RRR. ABSENT: diastolic murmur, rubs, systolic murmur Pulses: PRESENT: normal dorsalis pedis pul, +2 pedal pulses bilateral Vascular exam: PRESENT: normal capillary refill GI/Abdominal exam: PRESENT: normal bowel sounds, soft. ABSENT: distended, guarding, mass, organolmegaly, rebound, tenderness Rectal exam: PRESENT: deferred Musculoskeletal exam: PRESENT: ambulatory Neurological exam: PRESENT: alert, awake, oriented to person, oriented to place, oriented to time, oriented to situation, CN II-XII grossly intact. ABSENT: motor sensory deficit Psychiatric exam: PRESENT: appropriate affect, normal mood. ABSENT: homicidal ideation, suicidal ideation Skin exam: PRESENT: dry, intact, warm. ABSENT: cyanosis, rash Results Laboratory Results: 06/05/19 06:10 06/05/19 06:10 06/01/19 06/04/19 06/05/19 05:54 09:19 06:10 WBC 4.2 RBC 2.87 L Hgb 8.7 L Hct 26.4 L MCV 92 MCH 30.2 MCHC 32.9 RDW 16.3 H Plt Count 135 L Seg Neutrophils % 65.5 Sodium 140.4 Potassium 4.6 Chloride 107 Carbon Dioxide 21 L Anion Gap 12 BUN 61 H Creatinine 4.37 H Est GFR ( Amer) 12 L Glucose 103 Calcium 9.6 Total Protein 7.0 06/05/19 06:10 WBC RBC Hgb Hct MCV MCH MCHC RDW Plt Count Seg Neutrophils % Sodium 138.9 Potassium 4.4 Chloride 107 Carbon Dioxide 20 L Anion Gap 12 BUN 62 H Creatinine 4.22 H Est GFR ( Amer) 12 L Glucose 92 Calcium 9.4 Total Protein 05/31/19 07:55 Blood Blood Culture - Final NO GROWTH IN 5 DAYS 05/31/19 06:35 Blood Blood Culture - Final NO GROWTH IN 5 DAYS 05/31/19 05/31/19 05/31/19 01:47 01:47 01:47 Creatine Kinase 99 CK-MB (CK-2) 1.50 Troponin I 0.058 Cancelled NT-Pro-B Natriuret Pep [id number] H Impressions: Renal Ultrasound 05/31/19 00:00 IMPRESSION: Atrophic and echogenic kidneys in keeping with chronic renal disease. Multiple cysts. No hydronephrosis. Unremarkable appearance of urinary bladder. Lung Scan-VQ NM 06/01/19 00:00 IMPRESSION: Perfusion images show no significant segmental defects given artif act from patient positioning. Chest X-Ray 06/04/19 00:00 IMPRESSION: Improving pneumonia. Assessment & Plan - Diagnosis (1) Pneumonia Qualifiers: Pneumonia type: due to unspecified organism Laterality: right Lung location: unspecified part of lung Qualified Code(s): J18.9 - Pneumonia, unspecified organism Is this a current diagnosis for this admission?: Yes Plan: Currently all improving the chest x-ray is improving the clinically continues to antibiotic for the next couple of days and then switch to the p.o. (2) Congestive heart failure Qualifiers: Heart failure type: combined systolic and diastolic Heart failure chronicity: chronic Qualified Code(s): I50.42 - Chronic combined systolic (congestive) and diastolic (congestive) heart failure Is this a current diagnosis for this admission?: Yes Plan: consider start the DYANA inhibitors low-dose (3) Anemia Is this a current diagnosis for this admission?: Yes Plan: She is currently getting Procrit injections (4) Acute hypoxemic respiratory failure Is this a current diagnosis for this admission?: Yes Plan: We will repeat the chest x-ray get the ABG continues to current medications (5) Chronic kidney disease, stage 4 (severe) Is this a current diagnosis for this admission?: Yes Plan: Patient is currently follow with the nephrology do not want to go for any dialysis if he needed (6) Shortness of breath Is this a current diagnosis for this admission?: Yes (7) Ventricular tachycardia Is this a current diagnosis for this admission?: Yes Plan: Currently all stable - Time Time Spent with patient: 15-24 minutes Level of Care: IMCU Medications reviewed and adjusted accordingly: Yes Anticipated discharge: Home with Homehealth Within: Other - Plan Summary Plan Summary: Continues to current medications
[2019-06-05] MEDS: PANTOPRAZOLE SODIUM 20 MG TABLET.DR PO SCH (10:49)
[2019-06-05] MEDS: AMLODIPINE BESYLATE 5 MG TABLET PO SCH ×2 (10:49→22:08)
[2019-06-05] MEDS: CYANOCOBALAMIN (VITAMIN B-12) 1,000 MCG TABLET PO SCH (10:49)
[2019-06-05] MEDS: CARVEDILOL 3.125 MG TABLET PO SCH ×2 (10:49→22:08)
[2019-06-05] MEDS: FERROUS SULFATE 325 MG TABLET PO SCH ×2 (10:49→17:38)
[2019-06-05] MEDS: FUROSEMIDE 20 MG TABLET PO SCH (10:49)
[2019-06-05] MEDS: SODIUM BICARBONATE 650 MG TABLET PO SCH ×3 (10:49→17:38)
[2019-06-05] MEDS: METOPROLOL SUCCINATE 50 MG TAB.SR.24H PO SCH (10:49)
[2019-06-05] MEDS: MAGNESIUM OXIDE 400 MG TABLET PO SCH ×2 (10:49→17:38)
[2019-06-05] MEDS: ACETAMINOPHEN 325 MG TABLET PO PRN (22:07)
[2019-06-05] MEDS: ATORVASTATIN CALCIUM 40 MG TABLET PO SCH (22:08)
[2019-06-05] MEDS: CEFTRIAXONE 1 GM/D5W RTU 1 GM/50 ML RTUPB IV SCH (22:08)
[2019-06-06] MEDS: HEPARIN SOD (PORCINE) 5,000 UNIT/ML 1 ML VIAL SUBCUT SCH ×3 (05:15→21:46)
[2019-06-06 05:25] LABS: ANION GAP 11 (5-19); BLOOD UREA NITROGEN 65 mg/dL (7-20); CALCIUM 9.3 mg/dL (8.4-10.2); CARBON DIOXIDE 22 mmol/L (22-30); CHLORIDE 107 mmol/L (98-107); GLUCOSE 97 mg/dL (75-110); POTASSIUM 4.7 mmol/L (3.6-5.0)
[2019-06-06] MEDS: MAGNESIUM OXIDE 400 MG TABLET PO SCH ×2 (09:37→17:48)
[2019-06-06] MEDS: FUROSEMIDE 20 MG TABLET PO SCH (09:38)
[2019-06-06] MEDS: CARVEDILOL 3.125 MG TABLET PO SCH ×2 (09:38→21:46)
[2019-06-06] MEDS: SODIUM BICARBONATE 650 MG TABLET PO SCH ×3 (09:38→17:48)
[2019-06-06] MEDS: FERROUS SULFATE 325 MG TABLET PO SCH ×2 (09:38→17:48)
[2019-06-06] MEDS: AMLODIPINE BESYLATE 5 MG TABLET PO SCH ×2 (09:38→21:46)
[2019-06-06] MEDS: PANTOPRAZOLE SODIUM 20 MG TABLET.DR PO SCH (09:38)
[2019-06-06] MEDS: CYANOCOBALAMIN (VITAMIN B-12) 1,000 MCG TABLET PO SCH (09:38)
[2019-06-06] MEDS: ACETAMINOPHEN 325 MG TABLET PO PRN ×2 (13:36→22:42)
--- NOTE | 2019-06-06 18:26 | PDOC PROGRESS REPORT ---
Subjective Progress Note for:: 06/06/19 Subjective:: Patient reported left foot pain. She claimed history of gouty arthritis and felt that her pain is due to gout. She reported some improvement with Tylenol administration.No chest pain or difficulty with breathing. No nausea, vomiting or abdominal pain. No constipation. Reason For Visit: RIGHT PNUEMONIA,ACUTE KIDNEY INJURY Physical Exam Vital Signs: Temp Pulse Resp BP Pulse Ox 98.1 F 87 16 145/64 H 96 06/06/19 12:38 06/06/19 14:00 06/06/19 12:38 06/06/19 12:38 06/06/19 12:38 Intake & Output 06/05/19 06/06/19 06/07/19 06:59 06:59 05:59 Intake Total 1110 980 240 Output Total 7 Balance 1110 973 240 Weight 79.9 kg 77.5 kg 77.5 kg General appearance: PRESENT: mild distress - due to her left foot pain Head exam: PRESENT: atraumatic, normocephalic Eye exam: PRESENT: conjunctiva pink. ABSENT: scleral icterus Ear exam: PRESENT: normal external ear exam, other - demonstrable healing impairment Mouth exam: PRESENT: moist Respiratory exam: PRESENT: clear to auscultation emreald, decreased breath sounds - at lung bases Cardiovascular exam: PRESENT: RRR. ABSENT: diastolic murmur, rubs, systolic murmur Vascular exam: ABSENT: pallor GI/Abdominal exam: PRESENT: normal bowel sounds, soft. ABSENT: distended, guarding, mass, organolmegaly, rebound, tenderness Extremities exam: PRESENT: pedal edema - limited to left foot and lower section f left leg Musculoskeletal exam: PRESENT: deformity - related to multiple joints involvement with arthritis Neurological exam: PRESENT: alert, awake Psychiatric exam: PRESENT: appropriate affect, normal mood Skin exam: PRESENT: dry, warm Results Laboratory Results: 06/05/19 06:10 06/06/19 04:49 06/06/19 04:49 Sodium 139.5 Potassium 4.7 Chloride 107 Carbon Dioxide 22 Anion Gap 11 BUN 65 H Creatinine 3.97 H Est GFR ( Amer) 13 L Glucose 97 Calcium 9.3 05/31/19 05/31/19 05/31/19 01:47 01:47 01:47 Creatine Kinase 99 CK-MB (CK-2) 1.50 Troponin I 0.058 Cancelled NT-Pro-B Natriuret Pep 53631 H Impressions: Renal Ultrasound 05/31/19 00:00 IMPRESSION: Atrophic and echogenic kidneys in keeping with chronic renal disease. Multiple cysts. No hydronephrosis. Unremarkable appearance of urinary bladder. Lung Scan-VQ NM 06/01/19 00:00 IMPRESSION: Perfusion images show no significant segmental defects given artifact from patient positioning. Chest X-Ray 06/04/19 00:00 IMPRESSION: Improving pneumonia. Assessment & Plan - Diagnosis (1) Pneumonia Qualifiers: Pneumonia type: due to unspecified organism Laterality: right Lung location: unspecified part of lung Qualified Code(s): J18.9 - Pneumonia, unspecified organism Is this a current diagnosis for this admission?: Yes Plan: Continue IV Rocephin and oral Levofloxacin coverage. (2) Congestive heart failure Qualifiers: Heart failure type: combined systolic and diastolic Heart failure chronicity: chronic Qualified Code(s): I50.42 - Chronic combined systolic (congestive) and diastolic (congestive) heart failure Is this a current diagnosis for this admission?: Yes Plan: Continue current medication management. (3) Chronic kidney disease, stage 4 (severe) Is this a current diagnosis for this admission?: Yes Plan: Continue current medication management. (4) Anemia Qualifiers: Anemia type: unspecified type Qualified Code(s): D64.9 - Anemia, unspecified Is this a current diagnosis for this admission?: Yes Plan: Probable due to her CKD. Continue current medication management. Obtain CBC with diff. in am. (5) Left foot pain Is this a current diagnosis for this admission?: Yes Plan: Continue current medication management. Follow up on serum uric acid level. Her diuretic increase change of gout flare if she truly have history of gout since she reported last attack was several years ago. - Time Time Spent with patient: 25-34 minutes Level of Care: IMCU Medications reviewed and adjusted accordingly: Yes Anticipated discharge: Home with Homehealth Within: Other - Inpatient Certification Based on my medical assessment, after consideration of the patient's comorbidities, presenting symptoms, or acuity I expect that the services needed warrant INPATIENT care.: Yes I certify that my determination is in accordance with my understanding of Medicare's requirements for reasonable and necessary INPATIENT services [42 CFR 412.3e].: Yes Medical Necessity: Significant Comorbidiites Make Outpatient Treatment Too Risky, Need Close Monitoring Due to Risk of Patient Decompensation, Need For Continuous Telemetry Monitoring, Need for IV Antibiotics, Risk of Complication if Not Cared For in Hospital, Risk of Diagnosis Which Will Require Inpatient Eval/Care/Monitoring 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
[2019-06-06] MEDS ORDERED: COLCHICINE 0.6 MG TABLET PO ONE (19:30)
[2019-06-06] MEDS: CEFTRIAXONE 1 GM/D5W RTU 1 GM/50 ML RTUPB IV SCH (21:45)
[2019-06-06] MEDS: ATORVASTATIN CALCIUM 40 MG TABLET PO SCH (21:46)
[2019-06-06] MEDS ORDERED: LEVOFLOXACIN 500 MG TABLET PO SCH (22:00)
--- NOTE | 2019-06-06 23:00 | PDOC PROGRESS REPORT ---
Subjective Progress Note for:: 06/05/19 Subjective:: BROWN RIVAS is a 84 year old female she has a history of coronary artery disease, chronic kidney disease stage IV, history of esophageal cancer, she was admitted through emergency room for evaluation of respiratory symptoms, cough, shortness of breath, the cough was productive of sputum. A chest x-ray was done, it showed dense infiltrate in the right upper lobe as well as focal alveolar interstitial infiltrate in the right lower lobe. The ABG on FiO2 36%, PO2 62, bicarbonate 19.5, PCO2 30.6. Telemetry monitoring, patient was noted to have increased ventricular ectopy. A cardiology consult was therefore requested. 2D echocardiogram performed today shows moderately depressed LVEF with moderate mitral regurgitation and moderate aortic incompetence. Patient though clinically feels better since she was admitted. No sustained tachyarrhythmia or bradycardia arrhythmias were noted. 06/05/2019 Pts Telemetry strips were reviewed. There has been no sustained V runs but increased ventricle ectopy still noted but less so than before. Patient is denying any chest, neck discomfort. Patient looks quite comfortable. Had discussion with Dr Danielson regarding management plans earlier in the day. Reason For Visit: RIGHT PNUEMONIA,ACUTE KIDNEY INJURY Physical Exam Vital Signs: Temp Pulse Resp BP Pulse Ox 98.2 F 82 20 149/68 H 98 06/05/19 11:31 06/05/19 19:00 06/05/19 11:31 06/05/19 11:31 06/05/19 11:31 Intake & Output 06/04/19 06/05/19 06/06/19 06:59 06:59 06:59 Intake Total 850 1110 780 Output Total 200 Balance 650 1110 780 Weight 79.9 kg Exam: GEN: NAD, patient alert oriented x3. Appearance and grooming WNL HEENT : Eyes: ARRON, Ears: No significant abnormalities, Nose: No significant abnormalities. normocephalic atraumatic. Flat midface (-), Receding chin (-) ORAL : Mallampati class IV, narrow arched palate (-) Tonsils: Not enlarged. NECK: no thyromegaly, no masses, trachea is central, JVD is not elevated, carotids 2+ with bruit (-) RESP: lungs few bibasal rales, wheezes or rhonchi, nonlabored, accessory muscles of respiration use (-). CV: NL S1 and S2. No significant murmurs noted, no gallop, no extra sounds, no clicks, no rub noted. GI: abd NT to palpation, no masses, bowel sounds present, no guarding or rigidity noted. EXT: no clubbing, (-) cyanosis, edema (-), perpheral pulses diminished (no) MUSC/SKEL: no acute joint swelling noted. Muscle strength is generally intact. NEURO: no significant focal neurological deficits are note, sensation grossly intact, AO x 3 PSYCH: NL mood and affect. judgment and insight noted to be intact. SKIN: (-) rash, (-)Signs of pruritus, (-) other significant abnormality Results Laboratory Results: 06/05/19 06:10 06/05/19 06:10 06/01/19 06/05/19 06/05/19 05:54 06:10 06:10 WBC 4.2 RBC 2.87 L Hgb 8.7 L Hct 26.4 L MCV 92 MCH 30.2 MCHC 32.9 RDW 16.3 H Plt Count 135 L Seg Neutrophils % 65.5 Sodium 138.9 Potassium 4.4 Chloride 107 Carbon Dioxide 20 L Anion Gap 12 BUN 62 H Creatinine 4.22 H Est GFR ( Amer) 12 L Glucose 92 Calcium 9.4 Total Protein 7.0 05/31/19 07:55 Blood Blood Culture - Final NO GROWTH IN 5 DAYS 05/31/19 06:35 Blood Blood Culture - Final NO GROWTH IN 5 DAYS 05/31/19 05/31/19 05/31/19 01:47 01:47 01:47 Creatine Kinase 99 CK-MB (CK-2) 1.50 Troponin I 0.058 Cancelled NT-Pro-B Natriuret Pep 51360 H EKG Comments: Telementary strips reviewed shows sinus rhythm with increased ventricular ectopy but no sustained tachy arrhythmia already arrhythmia. Impressions: Renal Ultrasound 05/31/19 00:00 IMPRESSION: Atrophic and echogenic kidneys in keeping with chronic renal disease. Multiple cysts. No hydronephrosis. Unremarkable appearance of urinary bladder. Lung Scan-VQ NM 06/01/19 00:00 IMPRESSION: Perfusion images show no significant segmental defects given artifact from patient positioning. Chest X-Ray 06/04/19 00:00 IMPRESSION: Improving pneumonia. Assessment & Plan - Diagnosis (1) Acute hypoxemic respiratory failure Is this a current diagnosis for this admission?: Yes (2) Chronic kidney disease, stage 4 (severe) Is this a current diagnosis for this admission?: Yes (3) Congestive heart failure Qualifiers: Heart failure type: combined systolic and diastolic Heart failure c hronicity: chronic Qualified Code(s): I50.42 - Chronic combined systolic (congestive) and diastolic (congestive) heart failure Is this a current diagnosis for this admission?: Yes (4) Shortness of breath Is this a current diagnosis for this admission?: Yes (5) Weakness Is this a current diagnosis for this admission?: Yes - Notes Notes: Patient has frequent ventricular ectopy. Possibly related to cardiomyopathy, intermittent hypoxemia. Would recommend optimization of management of cardiomyopathy with beta-blockers, DYANA inhibitors/ARB/ARNI. agent. Today she has use of diuretics especially spironolactone is also recommended but patient seems to have significant chronic kidney disease therefore there may be some contraindications. As regards congestive heart failure, she seems well compensated. Will continue current therapy. Patient has multiple other comorbidities which are being well managed by [employer] and other subspecialty involved. Will continue to follow patient. 2D echocardiogram performed earlier today was reviewed. It showed LVEF of 40% with moderate MR and moderate AI. 06/05/2019 Case was discussed with Dr Danielson in the morning. Patient has declined to pursue dialysis therapy. This limits our option to some extent. Discussed use of spironolactone but probably not going to be very effective. Recommend hydrallazine nitrate combination as tolerated by blood-pressure. May also consider optimising a inhibitor/ARB/ANRI dosing but would need very close monitoring and nephrology clearance. Continue to follow patient. - Time Time with patient: Greater than 35 minutes Medications reviewed and adjusted accordingly: Yes
[2019-06-06] MEDS ORDERED: CARVEDILOL 6.25 MG TABLET PO SCH (23:15)
--- NOTE | 2019-06-06 23:16 | PDOC PROGRESS REPORT ---
Subjective Progress Note for:: 06/06/19 Subjective:: BROWN RIVAS is a 84 year old female she has a history of coronary artery disease, chronic kidney disease stage IV, history of esophageal cancer, she was admitted through emergency room for evaluation of respiratory symptoms, cough, shortness of breath, the cough was productive of sputum. A chest x-ray was done, it showed dense infiltrate in the right upper lobe as well as focal alveolar interstitial infiltrate in the right lower lobe. The ABG on FiO2 36%, PO2 62, bicarbonate 19.5, PCO2 30.6. Telemetry monitoring, patient was noted to have increased ventricular ectopy. A cardiology consult was therefore requested. 2D echocardiogram performed today shows moderately depressed LVEF with moderate mitral regurgitation and moderate aortic incompetence. Patient though clinically feels better since she was admitted. No sustained tachyarrhythmia or bradycardia arrhythmias were noted. 06/05/2019 Pts Telemetry strips were reviewed. There has been no sustained V runs but increased ventricle ectopy still noted but less so than before. Patient is denying any chest, neck discomfort. Patient looks quite comfortable. Had discussion with Dr Danielson regarding management plans earlier in the day. 06/06/2019 No recurrence of ventricular tachycardia since it happened on the day of admission. However there has been very few short run, three beat at most but j luis te frequent ventricle of ectopies. Patient has been asymptomatic. Today patient's main complaint is left heel pain from gout attack. Patient is denying any chest harmonic discomfort. Reason For Visit: RIGHT PNUEMONIA,ACUTE KIDNEY INJURY Physical Exam Vital Signs: Temp Pulse Resp BP Pulse Ox 98.2 F 99 24 H 144/66 H 98 06/06/19 19:50 06/06/19 19:50 06/06/19 19:50 06/06/19 19:50 06/06/19 19:50 Intake & Output 06/05/19 06/06/19 06/07/19 06:59 06:59 05:59 Intake Total 1110 980 480 Output Total 7 Balance 1110 973 480 Weight 79.9 kg 77.5 kg 77.5 kg Exam: GEN: NAD, patient alert oriented x3. Appearance and grooming WNL HEENT : Eyes: ARRON, Ears: No significant abnormalities, Nose: No significant abnormalities. normocephalic atraumatic. Flat midface (-), Receding chin (-) ORAL : Mallampati class IV, narrow arched palate (-) Tonsils: Not enlarged. NECK: no thyromegaly, no masses, trachea is central, JVD is not elevated, carotids 2+ with bruit (-) RESP: lungs bibasl rales, wheezes or rhonchi, nonlabored, accessory muscles of respiration use (-). CV: NL S1 and S2. No significant murmurs noted, no gallop, no extra sounds, no clicks, no rub noted. GI: abd NT to palpation, no masses, bowel sounds present, no guarding or rigidity noted. EXT: no clubbing, (-) cyanosis, edema (-), perpheral pulses diminished (no) MUSC/SKEL: no acute joint swelling noted. Muscle strength is generally intact. NEURO: no significant focal neurological deficits are note, sensation grossly intact, AO x 3 PSYCH: NL mood and affect. judgment and insight noted to be intact. SKIN: (-) rash, (-)Signs of pruritus, (-) other significant abnormality Results Laboratory Results: 06/05/19 06:10 06/06/19 04:49 06/06/19 06/06/19 04:49 04:49 Sodium 139.5 Potassium 4.7 Chloride 107 Carbon Dioxide 22 Anion Gap 11 BUN 65 H Creatinine 3.97 H Est GFR ( Amer) 13 L Glucose 97 Uric Acid 9.0 H Calcium 9.3 05/31/19 05/31/19 05/31/19 01:47 01:47 01:47 Creatine Kinase 99 CK-MB (CK-2) 1.50 Troponin I 0.058 Cancelled NT-Pro-B Natriuret Pep [id number] H EKG Comments: Telemetric strip shows frequent ventricle of ectopy with ventricular couplet is and may be few short three beats runs. Impressions: Renal Ultrasound 05/31/19 00:00 IMPRESSION: Atrophic and echogenic kidneys in keeping with chronic renal disease. Multiple cysts. No hydronephrosis. Unremarkable appearance of urinary bladder. Lung Scan-VQ NM 06/01/19 00:00 IMPRESSION: Perfusion images show no significant segmental defects given artifact from patient positioning. Chest X-Ray 06/04/19 00:00 IMPRESSION: Improving pneumonia. Assessment & Plan - Diagnosis (1) Acute hypoxemic respiratory failure Is this a current diagnosis for this admission?: Yes (2) Chronic kidney disease, stage 4 (severe) Is this a current diagnosis for this admission?: Yes (3) Congestive heart failure Qualifiers: Heart failure type: combined systolic and diastolic Heart failure chronicity: chronic Qualified Code(s): I50.42 - Chronic combined systolic (congestive) and diastolic (congestive) heart failure Is this a current diagnosis for this admission?: Yes (4) Shortness of breath Is this a current diagnosis for this admission?: Yes (5) Weakness Is this a current diagnosis for this admission?: Yes - Notes Notes: Patient has frequent ventricular ectopy. Possibly related to cardiomyopathy, intermittent hypoxemia. Would recommend optimization of management of cardiomyopathy with beta-blockers, DYANA inhibitors/ARB/ARNI. agent. Today she has use of diuretics especially spironolactone is also recommended but patient seems to have significant chronic kidney disease therefore there may be some contraindications. As regards congestive heart failure, she seems well compensated. Will continue current therapy. Patient has multiple other comorbidities which are being well managed by family day care provider and other subspecialty involved. Will continue to follow patient. 2D echocardiogram performed earlier today was reviewed. It showed LVEF of 40% with moderate MR and moderate AI. 06/05/2019 Case was discussed with Dr Danielson in the morning. Patient has declined to pursue dialysis therapy. This limits our option to some extent. Discussed use of spironolactone but probably not going to be very effective. Recommend hydrallazine nitrate combination as tolerated by blood-pressure. May also consider optimising a inhibitor/ARB/ANRI dosing but would need very close monitoring and nephrology clearance. Continue to follow patient. 06/06/2019 Patient medical regimen was reviewed. Patient already on metoprolol succinate. Carvedilol higher dose was started but I stopped it. Better option would be a starting Hydrallazine and nitrate combination. Will consider starting tomorrow at low dose.
[2019-06-07] MEDS: HEPARIN SOD (PORCINE) 5,000 UNIT/ML 1 ML VIAL SUBCUT SCH ×3 (05:01→23:18)
[2019-06-07 05:03] LABS: ANION GAP 11 (5-19); BLOOD UREA NITROGEN 65 mg/dL (7-20); CALCIUM 9.4 mg/dL (8.4-10.2); CARBON DIOXIDE 22 mmol/L (22-30); CHLORIDE 110 mmol/L (98-107); GLUCOSE 92 mg/dL (75-110); POTASSIUM 4.9 mmol/L (3.6-5.0)
[2019-06-07] MEDS: SODIUM BICARBONATE 650 MG TABLET PO SCH ×3 (10:23→17:57)
[2019-06-07] MEDS: ISOSORB DINIT/HYDRALAZINE HCL 20-37.5 MG TABLET PO SCH ×3 (10:23→17:57)
[2019-06-07] MEDS: FERROUS SULFATE 325 MG TABLET PO SCH ×2 (10:23→17:57)
[2019-06-07] MEDS: CYANOCOBALAMIN (VITAMIN B-12) 1,000 MCG TABLET PO SCH (10:23)
[2019-06-07] MEDS: MAGNESIUM OXIDE 400 MG TABLET PO SCH ×2 (10:23→17:57)
[2019-06-07] MEDS: CARVEDILOL 3.125 MG TABLET PO SCH ×2 (10:24→21:20)
[2019-06-07] MEDS: FUROSEMIDE 20 MG TABLET PO SCH (10:24)
[2019-06-07] MEDS: AMLODIPINE BESYLATE 5 MG TABLET PO SCH ×2 (10:24→21:20)
[2019-06-07] MEDS: METOPROLOL SUCCINATE 50 MG TAB.SR.24H PO SCH (10:25)
[2019-06-07] MEDS: PANTOPRAZOLE SODIUM 20 MG TABLET.DR PO SCH (10:25)
[2019-06-07] MEDS ORDERED: COLCHICINE 0.6 MG TABLET PO ONE (15:25)
--- NOTE | 2019-06-07 15:25 | PDOC PROGRESS REPORT ---
Subjective Progress Note for:: 06/07/19 Subjective:: Patient reported significant improvement in her left foot pain since administration of Colchicine. She was able to ambulate in her room but continue to experience some amount of pain. No chest pain or difficulty with breathing. No nausea, vomiting or abdominal pain. Reason For Visit: RIGHT PNUEMONIA,ACUTE KIDNEY INJURY Physical Exam Vital Signs: Temp Pulse Resp BP Pulse Ox 98.3 F 79 18 125/58 L 97 06/07/19 12:00 06/07/19 12:00 06/07/19 12:00 06/07/19 12:00 06/07/19 12:00 Intake & Output 06/06/19 06/07/19 06/08/19 07:59 06:59 06:59 Intake Total 280 Output Total Balance 280 Weight Physical Exam: General appearance: PRESENT: mild distress - due to her left foot pain Head exam: PRESENT: atraumatic, normocephalic Eye exam: PRESENT: conjunctiva pink. ABSENT: pallor, scleral icterus Ear exam: PRESENT: normal external ear exam, other - demonstrable healing impairment Mouth exam: PRESENT: moist Respiratory exam: PRESENT: clear to auscultation emerald, decreased breath sounds - at lung bases Cardiovascular exam: PRESENT: RRR. ABSENT: diastolic murmur, rubs, systolic murmur GI/Abdominal exam: PRESENT: normal bowel sounds, soft. ABSENT: distended, guarding, mass, organomegaly, rebound, tenderness Extremities exam: PRESENT: pedal edema - limited to left foot and lower section f left leg Musculoskeletal exam: PRESENT: deformity - related to multiple joints involvement with arthritis Neurological exam: PRESENT: alert, awake Psychiatric exam: PRESENT: appropriate affect, normal mood Skin exam: PRESENT: dry, warm Results Laboratory Results: 06/05/19 06:10 06/07/19 04:11 06/06/19 06/07/19 04:49 04:11 Sodium 142.6 Potassium 4.9 Chloride 110 H Carbon Dioxide 22 Anion Gap 11 BUN 65 H Creatinine 4.02 H Est GFR ( Amer) 13 L Glucose 92 Uric Acid 9.0 H Calcium 9.4 05/31/19 05/31/19 05/31/19 01:47 01:47 01:47 Creatine Kinase 99 CK-MB (CK-2) 1.50 Troponin I 0.058 Cancelled NT-Pro-B Natriuret Pep [id number] H Impressions: Renal Ultrasound 05/31/19 00:00 IMPRESSION: Atrophic and echogenic kidneys in keeping with chronic renal disease. Multiple cysts. No hydronephrosis. Unremarkable appearance of urinary bladder. Lung Scan-VQ NM 06/01/19 00:00 IMPRESSION: Perfusion images show no significant segmental defects given artifact from patient positioning. Chest X-Ray 06/04/19 00:00 IMPRESSION: Improving pneumonia. Assessment & Plan - Diagnosis (1) Pneumonia Qualifiers: Pneumonia type: due to unspecified organism Laterality: right Lung location: unspecified part of lung Qualified Code(s): J18.9 - Pneumonia, unspecified organism Is this a current diagnosis for this admission?: Yes (2) Congestive heart failure Qualifiers: Heart failure type: combined systolic and diastolic Heart failure chronicity: chronic Qualified Code(s): I50.42 - Chronic combined systolic (congestive) and diastolic (congestive) heart failure Is this a current diagnosis for this admission?: Yes (3) Chronic kidney disease, stage 4 (severe) Is this a current diagnosis for this admission?: Yes (4) Anemia Qualifiers: Anemia type: unspecified type Qualified Code(s): D64.9 - Anemia, unspecified Is this a current diagnosis for this admission?: Yes (5) Left foot pain Is this a current diagnosis for this admission?: Yes - Time Time Spent with patient: 25-34 minutes Level of Care: IMCU Medications reviewed and adjusted accordingly: Yes Anticipated discharge: Home with Homehealth Within: Other - Inpatient Certification Based on my medical assessment, after consideration of the patient's co morbidities, presenting symptoms, or acuity I expect that the services needed warrant INPATIENT care.: Yes I certify that my determination is in accordance with my understanding of Medicare's requirements for reasonable and necessary INPATIENT services [42 CFR 412.3e].: Yes Medical Necessity: Significant Comorbidiites Make Outpatient Treatment Too Risky, Need Close Monitoring Due to Risk of Patient Decompensation, Need For Continuous Telemetry Monitoring, Need for Nebulizer Therapy and Monitoring of Response, Need for IV Antibiotics, Risk of Complication if Not Cared For in Hospital, Risk of Diagnosis Which Will Require Inpatient Eval/Care/Monitoring Post Hospital Care: 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 She will receive Colchicine 0.6mg po x 1 dose today. Consider low dose Allopurinol considering her renal disease in about 2 weeks time to avoid worsening of acute gout flare.
--- NOTE | 2019-06-07 19:14 | PDOC PROGRESS REPORT ---
Subjective Progress Note for:: 06/07/19 Subjective:: BROWN RIVAS is a 84 year old female she has a history of coronary artery disease, chronic kidney disease stage IV, history of esophageal cancer, she was admitted through emergency room for evaluation of respiratory symptoms, cough, shortness of breath, the cough was productive of sputum. A chest x-ray was done, it showed dense infiltrate in the right upper lobe as well as focal alveolar interstitial infiltrate in the right lower lobe. The ABG on FiO2 36%, PO2 62, bicarbonate 19.5, PCO2 30.6. Telemetry monitoring, patient was noted to have increased ventricular ectopy. A cardiology consult was therefore requested. 2D echocardiogram performed today shows moderately depressed LVEF with moderate mitral regurgitation and moderate aortic incompetence. Patient though clinically feels better since she was admitted. No sustained tachyarrhythmia or bradycardia arrhythmias were noted. 06/05/2019 Pts Telemetry strips were reviewed. There has been no sustained V runs but increased ventricle ectopy still noted but less so than before. Patient is denying any chest, neck discomfort. Patient looks quite comfortable. Had discussion with Dr Danielson regarding management plans earlier in the day. 06/06/2019 No recurrence of ventricular tachycardia since it happened on the day of admission. However there has been very few short run, three beat at most but j luis te frequent ventricle of ectopies. Patient has been asymptomatic. Today patient's main complaint is left heel pain from gout attack. Patient is denying any chest harmonic discomfort. 06/07/2019. Patient seems to be tolerating Bidil at low dose. Gout seems to have improved. Patient otherwise stable without any significant complaints. Reason For Visit: RIGHT PNUEMONIA,ACUTE KIDNEY INJURY Physical Exam Vital Signs: Temp Pulse Resp BP Pulse Ox 98.3 F 78 18 128/61 H 100 06/07/19 14:59 06/07/19 14:59 06/07/19 14:59 06/07/19 14:59 06/07/19 14:59 Intake & Output 06/06/19 06/07/19 06/08/19 07:59 06:59 06:59 Intake Total 480 Output Total Balance 480 Weight Exam: GEN: NAD, patient alert oriented x3. Appearance and grooming WNL HEENT : Eyes: ARRON, Ears: No significant abnormalities, Nose: No significant ab normalities. normocephalic atraumatic. Flat midface (-), Receding chin (-) ORAL : Mallampati class IV, narrow arched palate (-) Tonsils: Not enlarged. NECK: no thyromegaly, no masses, trachea is central, JVD is not elevated, carotids 2+ with bruit (-) RESP: lungs clear, no rales, wheezes or rhonchi, nonlabored, accessory muscles of respiration use (-). CV: NL S1 and S2. No significant murmurs noted, no gallop, no extra sounds, no clicks, no rub noted. GI: abd NT to palpation, no masses, bowel sounds present, no guarding or rigidity noted. EXT: no clubbing, (-) cyanosis, edema (-), perpheral pulses diminished (no) MUSC/SKEL: no acute joint swelling noted. Muscle strength is generally intact. NEURO: no significant focal neurological deficits are note, sensation grossly intact, AO x 3 PSYCH: NL mood and affect. judgment and insight noted to be intact. SKIN: (-) rash, (-)Signs of pruritus, (-) other significant abnormality Results Laboratory Results: 06/05/19 06:10 06/07/19 04:11 06/07/19 04:11 Sodium 142.6 Potassium 4.9 Chloride 110 H Carbon Dioxide 22 Anion Gap 11 BUN 65 H Creatinine 4.02 H Est GFR ( Amer) 13 L Glucose 92 Calcium 9.4 05/31/19 05/31/19 05/31/19 01:47 01:47 01:47 Creatine Kinase 99 CK-MB (CK-2) 1.50 Troponin I 0.058 Cancelled NT-Pro-B Natriuret Pep 31846 H Impressions: Renal Ultrasound 05/31/19 00:00 IMPRESSION: Atrophic and echogenic kidneys in keeping with chronic renal dise ase. Multiple cysts. No hydronephrosis. Unremarkable appearance of urinary bladder. Lung Scan-VQ NM 06/01/19 00:00 IMPRESSION: Perfusion images show no significant segmental defects given artifact from patient positioning. Chest X-Ray 06/04/19 00:00 IMPRESSION: Improving pneumonia. Assessment & Plan - Diagnosis (1) Acute hypoxemic respiratory failure Is this a current diagnosis for this admission?: Yes (2) Chronic kidney disease, stage 4 (severe) Is this a current diagnosis for this admission?: Yes (3) Congestive heart failure Qualifiers: Heart failure type: combined systolic and diastolic Heart failure chronicity: chronic Qualified Code(s): I50.42 - Chronic combined systolic (congestive) and diastolic (congestive) heart failure Is this a current diagnosis for this admission?: Yes (4) Shortness of breath Is this a current diagnosis for this admission?: Yes (5) Weakness Is this a current diagnosis for this admission?: Yes - Notes Notes: Patient has frequent ventricular ectopy. Possibly related to cardiomyopathy, intermittent hypoxemia. Would recommend optimization of management of cardiomyopathy with beta-blockers, DYANA inhibitors/ARB/ARNI. agent. Today she has use of diuretics especially spironolactone is also recommended but patient seems to have significant chronic kidney disease therefore there may be some contraindications. As regards congestive heart failure, she seems well compensated. Will continue current therapy. 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 Will continue to follow patient. 2D echocardiogram performed earlier today was reviewed. It showed LVEF of 40% with moderate MR and moderate AI. 06/05/2019 Case was discussed with Dr Danielson in the morning. Patient has declined to pursue dialysis therapy. This limits our option to some extent. Discussed use of spironolactone but probably not going to be very effective. Recommend h ydrallazine nitrate combination as tolerated by blood-pressure. May also consider optimising a inhibitor/ARB/ANRI dosing but would need very close monitoring and nephrology clearance. Continue to follow patient. 06/06/2019 Patient medical regimen was reviewed. Patient already on metoprolol succinate. Carvedilol higher dose was started but I stopped it. Better option would be a starting Hydrallazine and nitrate combination. Will consider starting tomorrow at low dose. 06/07/2019 Patient is generally improving. No new problems noted. Patient tolerated vasodilator therapy with hydrallazine nitrate combination at low-dose. Recommend increasing it gradually over time. Renal functions are stable. As noted above patient does not want dialysis. Patient does have some infiltrate on chest x-ray but currently a febrile. Patient had gout attack yesterday but today seems to have improved. - Time Time with patient: Greater than 35 minutes Medications reviewed and adjusted accordingly: Yes
[2019-06-07] MEDS: ATORVASTATIN CALCIUM 40 MG TABLET PO SCH (21:20)
[2019-06-07] MEDS: ACETAMINOPHEN 325 MG TABLET PO PRN (23:34)
[2019-06-08] MEDS: HEPARIN SOD (PORCINE) 5,000 UNIT/ML 1 ML VIAL SUBCUT SCH (05:35)
--- NOTE | 2019-06-08 09:53 | PDOC DISCHARGE SUMMARY ---
Impression - Admit/DC Date/PCP Admission Date/Primary Care Provider: 05/31/19 03:21 EMILIE TEJEDA MD Discharge Date: 06/08/19 - Discharge Diagnosis (1) Pneumonia Is this a current diagnosis for this admission?: Yes (2) Congestive heart failure Is this a current diagnosis for this admission?: Yes (3) Anemia Is this a current diagnosis for this admission?: Yes (4) Acute hypoxemic respiratory failure Is this a current diagnosis for this admission?: Yes (5) Chronic kidney disease, stage 4 (severe) Is this a current diagnosis for this admission?: Yes (6) Shortness of breath Is this a current diagnosis for this admission?: Yes (7) Ventricular tachycardia Is this a current diagnosis for this admission?: Yes - Additional Information Resuscitation Status: Do Not Resuscitate Discharge Diet: Cardiac Discharge Activity: Activity As Tolerated Referrals: Stacy LAZARO MD [ACTIVE STAFF] - Follow up as needed Prescriptions: Isosorb Dinit/Hydralazine HCl [Bidil 20-37.5 mg Tablet] 0.5 tab PO TID #90 tablet Furosemide [Lasix 20 mg Tablet] 20 mg PO DAILY #30 tablet Levofloxacin [Levaquin 500 mg Tablet] 250 mg PO DAILY #5 tablet Home Medications: Atorvastatin Calcium [Lipitor 40 mg Tablet] 40 mg PO QHS 06/07/14 Metoprolol Succinate 50 mg PO DAILY 06/07/14 Amlodipine Besylate [Norvasc 5 mg Tablet] 5 mg PO Q12 05/31/19 Cyanocobalamin (Vitamin B-12) [Vitamin B-12 500 mcg Tablet] 1,500 mcg PO DAILY 05/31/19 Diclofenac Sodium [Voltaren] 4 gm TP QIDP PRN 05/31/19 Ferrous Sulfate [Feosol 325 mg Tablet] 325 mg PO BID 05/31/19 Magnesium Oxide 800 mg PO BID 05/31/19 Omeprazole 20 mg PO DAILY 05/31/19 Sodium Bicarbonate [Sodium Bicarbonate 650 mg Tablet] 650 mg PO TID 05/31/19 Furosemide [Lasix 20 mg Tablet] 20 mg PO DAILY #30 tablet 06/08/19 Isosorb Dinit/Hydralazine HCl [Bidil 20-37.5 mg Tablet] 0.5 tab PO TID #90 tablet 06/08/19 Levofloxacin [Levaquin 500 mg Tablet] 250 mg PO DAILY #5 tablet 06/08/19 History of Present Illiness History of Present Illness: BROWN RIVAS is a 84 year old female This is a 84-year-old female admitting in the hospital for the shortness of the breath and found to be pneumonia and patient was put on IV antibiotic and also found to the renal failure Hospital Course Hospital Course: This is a 84-year-old female's with a significant history of the chronic kidney disease stage IV history of the congestive heart failure history of the anemia from chronic kidney disease hypertension's hyperlipidemia and multiple other comorbidity presented to the emergency department with a complaint of shortness of the breath and patient was found to be pneumonia and patient's was put on IV antibiotics Patient also seen by the nephrology Dr. 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 Lazaro and Dr. Garcia not a very good prognosis due to the end-stage renal disease heart failure advanced age and multiple other comorbidity Patient is discharged home with the stable conditions with the readjustment of the medications Physical Exam Vital Signs: Temp Pulse Resp BP Pulse Ox 98.0 F 81 17 138/55 H 97 06/08/19 07:10 06/08/19 07:10 06/08/19 07:10 06/08/19 07:10 06/08/19 07:10 Intake & Output 06/07/19 06/08/19 06/09/19 06:59 06:59 06:59 Intake Total 880 Balance 880 Weight 76.9 kg General appearance: PRESENT: no acute distress, well-developed, well-nourished Head exam: PRESENT: atraumatic, normocephalic Eye exam: PRESENT: conjunctiva pink, EOMI, PERRLA. ABSENT: scleral icterus Ear exam: PRESENT: normal external ear exam Mouth exam: PRESENT: moist, tongue midline Neck exam: ABSENT: carotid bruit, JVD, lymphadenopathy, thyromegaly Respiratory exam: PRESENT: clear to auscultation emerald. ABSENT: rales, rhonchi, wheezes Cardiovascular exam: PRESENT: RRR. ABSENT: diastolic murmur, rubs, systolic murmur Pulses: PRESENT: normal dorsalis pedis pul Vascular exam: PRESENT: normal capillary refill GI/Abdominal exam: PRESENT: normal bowel sounds, soft. ABSENT: distended, guarding, mass, organolmegaly, rebound, tenderness Rectal exam: PRESENT: deferred Extremities exam: PRESENT: full ROM. ABSENT: calf tenderness, clubbing, pedal edema Neurological exam: PRESENT: alert, awake, oriented to person, oriented to place, oriented to time, oriented to situation, CN II-XII grossly intact. ABSENT: motor sensory deficit Psychiatric exam: PRESENT: appropriate affect, normal mood. ABSENT: homicidal ideation, suicidal ideation Skin exam: PRESENT: dry, intact, warm. ABSENT: cyanosis, rash Results Laboratory Results: WBC 4.2 10^3/uL (4.0-10.5) 06/05/19 06:10 RBC 2.87 10^6/uL (3.72-5.28) L 06/05/19 06:10 Hgb 8.7 g/dL (12.0-15.5) L 06/05/19 06:10 Hct 26.4 % (36.0-47.0) L 06/05/19 06:10 MCV 92 fl (80-97) 06/05/19 06:10 MCH 30.2 pg (27.0-33.4) 06/05/19 06:10 MCHC 32.9 g/dL (32.0-36.0) 06/05/19 06:10 RDW 16.3 % (11.5-14.0) H 06/05/19 06:10 Plt Count 135 10^3/uL (150-450) L 06/05/19 06:10 Lymph % (Auto) 17.5 % (13-45) 06/05/19 06:10 [place] % (Auto) 12.3 % (3-13) 06/05/19 06:10 Eos % (Auto) 4.3 % (0-6) 06/05/19 06:10 Baso % (Auto) 0.4 % (0-2) 06/05/19 06:10 Reticulocyte # 0.074 10^6/uL (0.028-0.122) 06/02/19 05:38 Absolute Neuts (auto) 2.8 10^3/uL (1.7-8.2) 06/05/19 06:10 Absolute Lymphs (auto) 0.7 10^3/uL (0.5-4.7) 06/05/19 06:10 Absolute Monos (auto) 0.5 10^3/uL (0.1-1.4) 06/05/19 06:10 Absolute Eos (auto) 0.2 10^3/uL (0.0-0.6) 06/05/19 06:10 Absolute Basos (auto) 0.0 10^3/uL (0.0-0.2) 06/05/19 06:10 Seg Neutrophils % 65.5 % (42-78) 06/05/19 06:10 Retic Count (auto) 2.37 % (0.66-2.85) 06/02/19 05:38 Carbonic Acid 0.92 mmol/L (1.05-1.35) L 05/31/19 06:32 HCO3/H2CO3 Ratio 21:1 05/31/19 06:32 ABG pH 7.42 (7.35-7.45) 05/31/19 06:32 ABG pCO2 30.6 mmHg (35-45) L 05/31/19 06:32 ABG pO2 62.0 mmHg (80-100) L 05/31/19 06:32 ABG HCO3 19.5 mmol/L (20-24) L 05/31/19 06:32 ABG Total CO2 20.5 mmol/L (21-25) L 05/31/19 06:32 ABG O2 Saturation 92.6 % (94-98) L 05/31/19 06:32 ABG Base Excess -4.1 mmol/L 05/31/19 06:32 FiO2 36% 05/31/19 06:32 Sodium 142.6 mmol/L (137-145) 06/07/19 04:11 Potassium 4.9 mmol/L (3.6-5.0) 06/07/19 04:11 Chloride 110 mmol/L (98-107) H 06/07/19 04:11 Carbon Dioxide 22 mmol/L (22-30) 06/07/19 04:11 Anion Gap 11 (5-19) 11/03/19 04:11 BUN 65 mg/dL (7-20) H 06/07/19 04:11 Creatinine 4.02 mg/dL (0.52-1.25) H 06/07/19 04:11 Est GFR ( Amer) 13 (>60) L 06/07/19 04:11 Est GFR (MDRD) Non-Af 11 (>60) L 06/07/19 04:11 Glucose 92 mg/dL (75-110) 06/07/19 04:11 Hemoglobin A1c % 5.3 % (4.7-6.0) 06/01/19 05:54 Uric Acid 9.0 mg/dL (2.5-7.5) H 06/06/19 04:49 Calcium 9.4 mg/dL (8.4-10.2) 06/07/19 04:11 Magnesium 1.9 mg/dL (1.6-2.3) 06/03/19 05:43 Iron 13.8 ug/dL (37-170) L 06/02/19 05:38 TIBC 178 ug/dL (250-450) L 06/02/19 05:38 % Saturation 8 % 06/02/19 05:38 Ferritin 221.00 ng/mL (11.1-264.0) 06/02/19 05:38 Total Bilirubin 0.6 mg/dL (0.2-1.3) 06/03/19 05:43 Direct Bilirubin 0.2 mg/dL (0.0-0.4) 06/03/19 05:43 Neonat Total Bilirubin Not Reportable 06/03/19 05:43 Neonat Direct Bilirubin Not Reportable 06/03/19 05:43 Neonat Indirect Bili Not Reportable 06/03/19 05:43 AST 27 U/L (14-36) 06/03/19 05:43 ALT 12 U/L (<35) 06/03/19 05:43 Alkaline Phosphatase 56 U/L (38-126) 06/03/19 05:43 Creatine Kinase 99 U/L (30-135) 05/31/19 01:47 CK-MB (CK-2) 1.50 ng/mL (<4.55) 05/31/19 01:47 Troponin I 0.058 ng/mL 05/31/19 01:47 Troponin I Cancelled 05/31/19 01:47 NT-Pro-B Natriuret Pep 08932 pg/mL (<450) H 05/31/19 01:47 Total Protein 7.7 g/dL (6.3-8.2) 06/03/19 05:43 Albumin 3.6 g/dL (3.5-5.0) 06/03/19 05:43 Globulin 3.7 g/dL (2.2-3.9) 06/01/19 05:54 Alb/Glob Ratio Alt Meth 0.9 (0.7-1.7) 06/01/19 05:54 Fmexq-2-Vzrrdvpel 0.2 g/dL (0.0-0.4) 06/01/19 05:54 Pfciw-1-Vhtqewgac 0.7 g/dL (0.4-1.0) 06/01/19 05:54 Beta Globulins 0.7 g/dL (0.7-1.3) 06/01/19 05:54 Gamma Globulins 2.1 g/dL (0.4-1.8) H 06/01/19 05:54 M-Nicola Not Observed g/dL (Not Observ) 06/01/19 05:54 Vitamin B12 > 1000.0 pg/mL (239-931) H 06/02/19 05:38 Folate 8.72 ng/mL (>2.76) 06/02/19 05:38 Immunoglobulin A 350 mg/dL (64-422) 06/01/19 05:54 Immunoglobulin G 2443 mg/dL (700-1600) H 06/01/19 05:54 Immunoglobulin M 31 mg/dL (26-217) 06/01/19 05:54 Serum Immunofixation Comment (.) 06/01/19 05:54 Immunofixation Note Comment (.) 06/01/19 05:54 Urine Color YELLOW 05/31/19 05:02 Urine Appearance CLEAR 05/31/19 05:02 Urine pH 6.0 (5.0-9.0) 05/31/19 05:02 Ur Specific [place] 1.012 05/31/19 05:02 Urine Protein 100 mg/dL (NEGATIVE) H 05/31/19 05:02 Urine Glucose (UA) NEGATIVE mg/dL (NEGATIVE) 05/31/19 05:02 Urine Ketones NEGATIVE mg/dL (NEGATIVE) 05/31/19 05:02 Urine Blood NEGATIVE (NEGATIVE) 05/31/19 05:02 Urine Nitrite NEGATIVE (NEGATIVE) 05/31/19 05:02 Urine Bilirubin NEGATIVE (NEGATIVE) 05/31/19 05:02 Urine Urobilinogen NEGATIVE mg/dL (<2.0) 05/31/19 05:02 Ur Leukocyte Esterase TRACE (NEGATIVE) H 05/31/19 05:02 Urine WBC (Auto) 4 /HPF 05/31/19 05:02 Urine RBC (Auto) 1 /HPF 05/31/19 05:02 Urine Bacteria (Auto) TRACE /HPF 05/31/19 05:02 Squamous Epi Cells Auto 1 /HPF 05/31/19 05:02 Urine Creatinine 75.3 mg/dL (15-278) 05/31/19 05:02 Protein/Creatinin Ratio 3.7 mg/mg (0.0-0.2) H 05/31/19 05:02 Urine Total Protein 191.6 mg/dL (Not Estab.) 05/31/19 05:02 Urine Total Protein 278.0 mg/dL (<12) H 05/31/19 05:02 Urine Albumin 56.3 % (.) 05/31/19 05:02 U Kivwr-2-Zxkyolth 6.1 % (.) 05/31/19 05:02 U Vvygz-0-Mzrpajoa 5.1 % (.) 05/31/19 05:02 U Beta Globulin 9.7 % (.) 05/31/19 05:02 U Gamma Globulin 22.8 % (.) 05/31/19 05:02 U Random M-Nicola (%) Not Observed % (Not Observ) 05/31/19 05:02 Urine PEP Note Comment (.) 05/31/19 05:02 Urine Ascorbic Acid NEGATIVE (NEGATIVE) 05/31/19 05:02 Albumin (SAMANTHA) 3.3 g/dL (2.9-4.4) 06/01/19 05:54 05/31/19 05/31/19 01:47 01:47 CK-MB (CK-2) 1.50 Troponin I 0.058 Cancelled NT-Pro-B Natriuret Pep [id number] H Impressions: Renal Ultrasound 05/31/19 00:00 IMPRESSION: Atrophic and echogenic kidneys in keeping with chronic renal disease. Multiple cysts. No hydronephrosis. Unremarkable appearance of urinary bladder. Chest X-Ray 05/31/19 00:29 IMPRESSION: 1. Infiltrates in the right upper lobe and right lower lobe, likely acute pneumonia. Chest X-Ray 06/01/19 00:00 IMPRESSION: Unchanged radiographic appearance of the chest as detailed above. Lung Scan-VQ NM 06/01/19 00:00 IMPRESSION: Perfusion images show no significant segmental defects given artifact from patient positioning. Chest X-Ray 06/04/19 00:00 IMPRESSION: Improving pneumonia. Plan Time Spent: Greater than 30 Minutes - Follow outpatients Dr. Lazaro recheck the Chem-[address] Garcia and follow in office in 1 week recheck the CBC and Chem-7 Stroke Is this a Stroke Patient?: No Acute Heart Failure - Is this a Heart Failure Patient?: Yes Documentation of LVEF assessment?: Yes LVEF < 40%?: Yes-if yes answer questions a through e a) Discharged on ACEI?: No, document contraindications Reason(s) not discharge on ACEI: Hyperkalemia b) Discharges on ARB?: No-document contraindications Reason(s) not discharged on ARB: Hyperkalemia c) Discharged on ARNI?: No-Document Contraindications Reason(s) not discharged on ARNI: Hyperkalemia d) Discharged on evidence-based Beta eleni(carvedilol, sustained release metoprolol succinate, or bisoprolol)?: Yes e) For LVEF <35%, discharged on Aldosterone antagonist?: No-document contr aincations Reason(s) not discharged on Aldosterone antagonist for LVEF < 35%: Renal dysfunction (creatinine >2.5 mg/dL in men or 2.0 mg/dL in women) 3. Anticoagulant therapy for permanect/persistent/paraoxysmal Afib or Aflutter: N/A Follow-up Appointment scheduled within 7 days?: Yes
[2019-06-08] MEDS: ISOSORB DINIT/HYDRALAZINE HCL 20-37.5 MG TABLET PO SCH (10:52)
[2019-06-08] MEDS: SODIUM BICARBONATE 650 MG TABLET PO SCH (10:53)
[2019-06-08] MEDS: CYANOCOBALAMIN (VITAMIN B-12) 1,000 MCG TABLET PO SCH (10:53)
[2019-06-08] MEDS: FERROUS SULFATE 325 MG TABLET PO SCH (10:53)
[2019-06-08] MEDS: PANTOPRAZOLE SODIUM 20 MG TABLET.DR PO SCH (10:53)
[2019-06-08] MEDS: MAGNESIUM OXIDE 400 MG TABLET PO SCH (10:53)
[2019-06-08] MEDS: AMLODIPINE BESYLATE 5 MG TABLET PO SCH (10:54)
[2019-06-08] MEDS: CARVEDILOL 3.125 MG TABLET PO SCH (10:54)
[2019-06-08] MEDS: FUROSEMIDE 20 MG TABLET PO SCH (10:54)
[2019-06-08 13:15] VITALS: BP 126/62
--- NOTE | 2019-06-09 11:45 | PDOC PROGRESS REPORT ---
Subjective Progress Note for:: 06/08/19 Subjective:: BROWN RIVAS is a 84 year old female she has a history of coronary artery disease, chronic kidney disease stage IV, history of esophageal cancer, she was admitted through emergency room for evaluation of respiratory symptoms, cough, shortness of breath, the cough was productive of sputum. A chest x-ray was done, it showed dense infiltrate in the right upper lobe as well as focal alveolar interstitial infiltrate in the right lower lobe. The ABG on FiO2 36%, PO2 62, bicarbonate 19.5, PCO2 30.6. Telemetry monitoring, patient was noted to have increased ventricular ectopy. A cardiology consult was therefore requested. 2D echocardiogram performed today shows moderately depressed LVEF with moderate mitral regurgitation and moderate aortic incompetence. Patient though clinically feels better since she was admitted. No sustained tachyarrhythmia or bradycardia arrhythmias were noted. 06/05/2019 Pts Telemetry strips were reviewed. There has been no sustained V runs but increased ventricle ectopy still noted but less so than before. Patient is denying any chest, neck discomfort. Patient looks quite comfortable. Had discussion with Dr Danielson regarding management plans earlier in the day. 06/06/2019 No recurrence of ventricular tachycardia since it happened on the day of admission. However there has been very few short run, three beat at most but j luis te frequent ventricle of ectopies. Patient has been asymptomatic. Today patient's main complaint is left heel pain from gout attack. Patient is denying any chest harmonic discomfort. 06/07/2019. Patient seems to be tolerating Bidil at low dose. Gout seems to have improved. Patient otherwise stable without any significant complaints. 06/08/2019 Patient was seen prior to discharge. Patient was seen on morning rounds. A late entry being made. Discharge medications was reviewed with Dr. Danielson. We discussed discontinuing carvedilol and increasing metoprolol succinate to 50 mg p.o. twice daily. Telemetry strip shows mild increased ventricular ectopy and very short V runs. Patient asymptomatic. Reason For Visit: RIGHT PNUEMONIA,ACUTE KIDNEY INJURY Physical Exam Vital Signs: Temp Pulse Resp BP Pulse Ox 97.9 F 83 17 126/62 H 96 06/08/19 13:35 06/08/19 13:35 06/08/19 13:35 06/08/19 12:09 06/08/19 13:35 Intake & Output 06/08/19 06/09/19 06/10/19 06:59 06:59 06:59 Intake Total 880 580 Balance 880 580 Weight 76.9 kg Exam: GENERAL: well-nourished and in no acute distress. Alert and oriented x3 HEAD: Atraumatic, normocephalic. EYES: ARRON, sclera anicteric, conjunctiva are normal. ENT: Moist mucous membranes. No oral ulcerations or bleeding gums noted. No obvious ear, nose or throat abnormalities noted. NECK: supple without lymphadenopathy. Trachea is central. No cervical or axillary lymphadenopathy noted. Carotids are 2+, JVD WNL LUNGS: Breath sounds clear bilaterally. No wheezes rales or rhonchi noted. No significant dullness noted on percussion. CHEST: Palpation of the chest wall shows no significant chest wall tenderness. HEART: [place] [employer], No PSH, 1/6 CHRISTIANO aortic area, 1/6 rodriguez systolic murmur mitral are a, no rubs, no gallops. ABDOMEN: Soft, no significant tenderness appreciated, normoactive bowel sounds. No guarding, no rebound. No rigidity noted . No masses appreciated. EXTREMITIES: Pedal pulses are 1-2+, no calf tenderness noted. No clubbing or cyanosis. negative pedal edema noted NEUROLOGICAL: Focused neurological exam showed no significant neurologic deficit. Normal speech, no focal weakness appreciated. PSYCH: Normal mood, normal affect. Judgment and insight within normal limits. SKIN: No significant ecchymosis, skin is noted to be warm. MUSCULOSKELETAL EXAM: No significant acute joint swelling noted. Results Laboratory Results: 06/05/19 06:10 06/07/19 04:11 05/31/19 05/31/19 05/31/19 01:47 01:47 01:47 Creatine Kinase 99 CK-MB (CK-2) 1.50 Troponin I 0.058 Cancelled NT-Pro-B Natriuret Pep [id number] H EKG Comments: Leonardo strips were reviewed. Impressions: Renal Ultrasound 05/31/19 00:00 IMPRESSION: Atrophic and echogenic kidneys in keeping with chronic renal disease. Multiple cysts. No hydronephrosis. Unremarkable appearance of urinary bladder. Lung Scan-VQ NM 06/01/19 00:00 IMPRESSION: Perfusion images show no significant segmental defects given artifact from patient positioning. Chest X-Ray 06/04/19 00:00 IMPRESSION: Improving pneumonia. Assessment & Plan - Diagnosis (1) Acute hypoxemic respiratory failure Is this a current diagnosis for this admission?: Yes (2) Chronic kidney disease, stage 4 (severe) Is this a current diagnosis for this admission?: Yes (3) Congestive heart failure Qualifiers: Heart failure type: combined systolic and diastolic Heart failure chronicity: chronic Qualified Code(s): I50.42 - Chronic combined systolic (congestive) and diastolic (congestive) heart failure Is this a current diagnosis for this admission?: Yes (4) Shortness of breath Is this a current diagnosis for this admission?: Yes (5) Weakness Is this a current diagnosis for this admission?: Yes - Notes Notes: Discharged by Dr. Danielson. Medications reviewed prior to discharge. Discussed with Dr. Danielson. Patient can follow-up with me. Patient has been advised to report sustained palpitations, syncope, near syncope. Will sign off.
== END 2019-06-08 15:10 | disposition home health service (06) | DRG 193 ==
LOC: ER 23:46 → EH 05-31 03:21 → 5 05-31 05:15 → 3S 05-31 07:31
PROVIDERS: ADMIT Internal Medicine; ATTEND Family Medicine
DX: J18.9 Pneumonia, unspecified organism (principal); J96.01 Acute respiratory failure with hypoxia; I47.2 Ventricular tachycardia; I13.0 Hypertensive heart and chronic kidney disease with heart failure and stage 1 through stage 4 chronic kidney disease, or unspecified chronic kidney disease; N18.4 Chronic kidney disease, stage 4 (severe); I50.42 Chronic combined systolic (congestive) and diastolic (congestive) heart failure; D63.1 Anemia in chronic kidney disease; Z23 Encounter for immunization; Z66 Do not resuscitate; E78.5 Hyperlipidemia, unspecified; K21.9 Gastro-esophageal reflux disease without esophagitis; M19.90 Unspecified osteoarthritis, unspecified site; I34.0 Nonrheumatic mitral (valve) insufficiency; I35.1 Nonrheumatic aortic (valve) insufficiency; R53.1 Weakness; M79.672 Pain in left foot; Z87.11 Personal history of peptic ulcer disease; Z85.01 Personal history of malignant neoplasm of esophagus; Z88.1 Allergy status to other antibiotic agents; Z88.2 Allergy status to sulfonamides; Z95.5 Presence of coronary angioplasty implant and graft
CPT/HCPCS: 36415; 36600; 71045; 71046; 76770; 78582; 80048; 80053; 81001; 82550; 82553; 82570; 82607; 82728; 82746; 82803; 83036; 83540; 83550; 83735; 83880; 84156; 84166; 84484; 84550; 85025; 85045; 86320; 87040; 87070; 87077; 87086; 87205; 90686; 93005; 93010; 93306; 94640; 96360; 99285; A9540; A9567; J0696; J1439; J1644; J1956; J3490; J7050; J7120; J7620; Q5106; Q9969

== ENCOUNTER → 2019-07-11 | Outpatient (CLI) | payer MEDICARE, MEDICAID ==
[2019-07-11 11:29] LABS: ABSOLUTE EOSINOPHILS # (AUTO) 0.2 10^3/uL (0.0-0.6); ABSOLUTE LYMPHOCYTES (AUTO) 0.8 10^3/uL (0.5-4.7); ABSOLUTE MONOCYTES (AUTO) 0.2 10^3/uL (0.1-1.4); EOSINOPHILS % (AUTO) 5.1 % (0-6); PLATELET COUNT 128 10^3/uL (150-450); RED BLOOD COUNT 3.88 10^6/uL (3.72-5.28); RED CELL DISTRIBUTION WIDTH 17.2 % (11.5-14.0); TOTAL CELLS COUNTED % (AUTO) 100 %
[2019-07-11 11:39] LABS: ABSOLUTE NEUT (AUTO) 1.8 10^3/uL (1.7-8.2); BASOPHILS % (AUTO) 0.7 % (0-2); HEMATOCRIT 35.6 % (36.0-47.0); HEMOGLOBIN 11.5 g/dL (12.0-15.5); LYMPHOCYTES % (AUTO) 27.9 % (13-45); MEAN CORPUSCULAR HEMOGLOBIN 29.6 pg (27.0-33.4); MEAN CORPUSCULAR HGB CONC 32.2 g/dL (32.0-36.0); MEAN CORPUSCULAR VOLUME 92 fl (80-97); SEGMENTED NEUTROPHILS % (AUTO) 59.3 % (42-78)
[2019-07-11 11:57] LABS: ANION GAP 13 (5-19); BLOOD UREA NITROGEN 32 mg/dL (7-20); CALCIUM 9.9 mg/dL (8.4-10.2); CARBON DIOXIDE 22 mmol/L (22-30); CHLORIDE 106 mmol/L (98-107); GLUCOSE 94 mg/dL (75-110); PHOSPHORUS 3.6 mg/dL (2.5-4.5); POTASSIUM 3.8 mmol/L (3.6-5.0)
[2019-07-11 15:03] LABS: APPEARANCE,URINE SLIGHTLY-CLOUDY; BILIRUBIN,URINE NEGATIVE (NEGATIVE); COLOR,URINE YELLOW; GLUCOSE, URINE NEGATIVE (NEGATIVE); KETONES,URINE NEGATIVE (NEGATIVE); PROTEIN,URINE 100 mg/dL (NEGATIVE); URINE SPECIFIC GRAVITY 1.011; UROBILINOGEN,URINE NEGATIVE mg/dL (<2.0)
== END ==
LOC: OD 11:03
PROVIDERS: ATTEND Physician Assistant Medical
DX: I13.2 Hypertensive heart and chronic kidney disease with heart failure and with stage 5 chronic kidney disease, or end stage renal disease (principal); I50.9 Heart failure, unspecified; N18.5 Chronic kidney disease, stage 5; D63.1 Anemia in chronic kidney disease; E87.5 Hyperkalemia; E87.2 Acidosis
CPT/HCPCS: 36415; 80048; 81001; 82306; 83970; 84100; 85025

== ENCOUNTER → 2019-08-03 | Outpatient (CLI) | payer MEDICARE, MEDICAID ==
--- NOTE | 2019-08-03 15:29 | RADIOLOGY REPORT (SQ) ---
EXAM DESCRIPTION: CHEST PA/LATERAL COMPLETED DATE/TIME: 08/03/2019 12:23 pm REASON FOR STUDY: COUGH COMPARISON: 06/04/2019 EXAM PARAMETERS: NUMBER OF VIEWS: two views TECHNIQUE: Digital Frontal and Lateral radiographic views of the chest acquired. RADIATION DOSE: NA LIMITATIONS: none FINDINGS: LUNGS AND PLEURA: Cannot exclude mild pulmonary edema. MEDIASTINUM AND HILAR STRUCTURES: Widening of the upper mediastinum. Right hilar prominence. HEART AND VASCULAR STRUCTURES: Cardiomegaly. BONES: No acute findings. HARDWARE: None in the chest. OTHER: No other significant finding. IMPRESSION: Cardiomegaly with mild pulmonary edema. Possible mediastinal/ hilar mass on the right. Recommend contrast CT. TECHNICAL DOCUMENTATION: JOB ID: [id number] [email or web address]- All Rights Reserved Reading location - IP/workstation name: [email or web address]
== END ==
LOC: OD 12:01
PROVIDERS: ATTEND Physician Assistant
DX: J81.1 Chronic pulmonary edema (principal); R05 Cough; I51.7 Cardiomegaly
CPT/HCPCS: 71046

== ENCOUNTER 2019-09-04 14:56 | Emergency (ER) | payer MEDICARE, MEDICAID ==
[2019-09-04] MEDS ORDERED: IPRATROPIUM/ALBUTEROL 0.5-2.5 MG/3 ML AMPUL NEB ONE (16:14)
--- NOTE | 2019-09-04 16:14 | ER Document Report ---
ED Medical Screen (RME) - General Chief Complaint: General Weakness Stated Complaint: WEAKNESS/COUGH Time Seen by Provider: 09/04/19 16:04 Primary Care Provider: MARGARET VILLALPANDO PA [Primary Care Provider] - Follow up as needed Notes: Patient is a 84-year-old female with a history of hypertension, end-stage renal disease, congestive heart failure who presents the emergency department with a chief complaint of cough and weakness. Patient reports she has had a productive cough for about 1 week. Patient reports a runny nose. Patient reports a lot of congestion. Patient reports she does have 3 episodes of diarrhea that is nonbloody or black every day. Patient denies fever. TRAVEL OUTSIDE OF THE [place] IN LAST 30 DAYS: No - Related Data Allergies/Adverse Reactions: clopidogrel bisulfate [From Plavix] Allergy (Verified 09/07/18 13:42) Sulfa (Sulfonamide Antibiotics) Allergy (Verified 09/07/18 13:42) Past Medical History - Past Medical History Cardiac Medical History: Reports: Hx Congestive Heart Failure, Hx Coronary Artery Disease, Hx Hypertension Neurological Medical History: Denies: Hx Seizures Renal/ Medical History: Denies: Hx Peritoneal Dialysis GI Medical History: Reports: Hx Gastroesophageal Reflux Disease Musculoskeltal Medical History: Reports Hx Arthritis Psychiatric Medical History: Denies: Hx Depression Past Surgical History: Reports: Hx Cardiac Surgery - Stent x1. Denies: Hx Hysterectomy Physical Exam - Vital signs Vitals: Temp Pulse Resp BP Pulse Ox 98.9 F 80 16 146/66 H 99 09/04/19 15:30 09/04/19 15:30 09/04/19 15:30 09/04/19 15:30 09/04/19 15:30 - Respiratory Breath sounds: Productive cough, Rhonchi, Wheezing Course - Re-evaluation Re-evalutation: 09/04/19 16:13 Scattered rhonchi and wheeze expiratory wheezing noted on examination. Will give a DuoNeb and initiate blood work as well as a chest x-ray. Will check for influenza. Oxygen saturation 99% on room air. I have greeted and performed a rapid initial assessment of this patient. A comprehensive ED assessment and evaluation of the patient, analysis of test results and completion of the medical decision making process will be conducted by additional ED providers. 09/04/19 16:14 - Vital Signs Vital signs: Temp Pulse Resp BP Pulse Ox 98.9 F 80 16 146/66 H 99 09/04/19 15:30 09/04/19 15:30 09/04/19 15:30 09/04/19 15:30 09/04/19 15:30 Doctor's Discharge - Discharge Referrals: MARGARET VILLALPANDO PA [Primary Care Provider] - Follow up as needed
--- NOTE | 2019-09-04 16:54 | RADIOLOGY REPORT (SQ) ---
EXAM DESCRIPTION: CHEST 2 VIEWS COMPLETED DATE/TIME: 09/04/2019 4:45 pm REASON FOR STUDY: productive cough COMPARISON: 08/03/2019 EXAM PARAMETERS: NUMBER OF VIEWS: two views TECHNIQUE: Digital Frontal and Lateral radiographic views of the chest acquired. RADIATION DOSE: NA LIMITATIONS: none FINDINGS: LUNGS AND PLEURA: No opacities, masses or pneumothorax. No pleural effusion. MEDIASTINUM AND HILAR STRUCTURES: Right hilar mass. HEART AND VASCULAR STRUCTURES: Heart enlarged with vascular congestion. BONES: No acute findings. HARDWARE: None in the chest. OTHER: No other significant finding. IMPRESSION: Vascular congestion. Right hilar mass. TECHNICAL DOCUMENTATION: JOB ID: [id number] [employer]- All Rights Reserved Reading location - IP/workstation name: [email or web address]
[2019-09-04 19:46] LABS: ABSOLUTE EOSINOPHILS # (AUTO) 0.1 10^3/uL (0.0-0.6); ABSOLUTE LYMPHOCYTES (AUTO) 1.2 10^3/uL (0.5-4.7); ABSOLUTE MONOCYTES (AUTO) 0.4 10^3/uL (0.1-1.4); ABSOLUTE NEUT (AUTO) 1.5 10^3/uL (1.7-8.2); BASOPHILS % (AUTO) 0.3 % (0-2); EOSINOPHILS % (AUTO) 3.3 % (0-6); HEMATOCRIT 32.4 % (36.0-47.0); HEMOGLOBIN 10.4 g/dL (12.0-15.5); LYMPHOCYTES % (AUTO) 37.5 % (13-45); MEAN CORPUSCULAR HEMOGLOBIN 28.3 pg (27.0-33.4); MEAN CORPUSCULAR HGB CONC 32.1 g/dL (32.0-36.0); MEAN CORPUSCULAR VOLUME 88 fl (80-97); MONOCYTES % (AUTO) 11.8 % (3-13); RED BLOOD COUNT 3.68 10^6/uL (3.72-5.28); RED CELL DISTRIBUTION WIDTH 18.5 % (11.5-14.0); SEGMENTED NEUTROPHILS % (AUTO) 47.1 % (42-78); TOTAL CELLS COUNTED % (AUTO) 100 %; WHITE BLOOD COUNT 3.2 10^3/uL (4.0-10.5)
[2019-09-04 19:50] LABS: APPEARANCE,URINE SLIGHTLY-CLOUDY; BILIRUBIN,URINE NEGATIVE (NEGATIVE); COLOR,URINE YELLOW; GLUCOSE, URINE NEGATIVE (NEGATIVE); KETONES,URINE NEGATIVE (NEGATIVE); LEUKOCYTE ESTERASE,URINE MODERATE (NEGATIVE); NITRITE,URINE NEGATIVE (NEGATIVE); PROTEIN,URINE >=500 mg/dL (NEGATIVE); URINE SPECIFIC GRAVITY 1.013; UROBILINOGEN,URINE NEGATIVE mg/dL (<2.0)
[2019-09-04 19:52] LABS: ALKALINE PHOSPHATASE 75 U/L (38-126); ANION GAP 12 (5-19); ASPARTATE AMINO TRANSFERASE 21 U/L (14-36); BILIRUBIN,DIRECT 0.4 mg/dL (0.0-0.4); BILIRUBIN,TOTAL 0.9 mg/dL (0.2-1.3); BLOOD UREA NITROGEN 53 mg/dL (7-20); CALCIUM 9.7 mg/dL (8.4-10.2); CARBON DIOXIDE 28 mmol/L (22-30); CHLORIDE 101 mmol/L (98-107); GLUCOSE 102 mg/dL (75-110); POTASSIUM 4.2 mmol/L (3.6-5.0); TOTAL PROTEIN 8.9 g/dL (6.3-8.2)
[2019-09-04 20:12] LABS: PLATELET COUNT 78 10^3/uL (150-450)
[2019-09-05] MEDS ORDERED: IPRATROPIUM/ALBUTEROL 0.5-2.5 MG/3 ML AMPUL NEB ONE (00:55)
[2019-09-05] MEDS ORDERED: METHYLPREDNISOLONE INJ 125 MG/2 ML SDV IV ONE (00:55)
[2019-09-05] MEDS ORDERED: CEFTRIAXONE INJ 1000 MG VIAL IV ONE (00:56)
[2019-09-05] MEDS ORDERED: FUROSEMIDE INJ/PF 20 MG/2 ML SDV IV ONE (00:57)
--- NOTE | 2019-09-05 01:04 | ER Document Report ---
ED General - General Chief Complaint: Cough Stated Complaint: WEAKNESS/COUGH Time Seen by Provider: 09/04/19 16:04 Primary Care Provider: MARGARET VILLALPANDO PA [PHYSICIAN NEWS COMMENTATOR] - Follow up as needed TRAVEL OUTSIDE OF THE [place] IN LAST 30 DAYS: No - HPI Notes: Raven Kimball is an 84-year-old female followed by Dr. Danielson with a chief complaint of cough productive of yellow sputum, wheezing and some exertional dyspnea. No chest pain. No fever, chills or vomiting. No hemoptysis. Patient has previously been treated for pneumonia. She is not currently on antibiotic medication. She does not use nebulizers and is not on steroids currently. Patient has been noted on chest x-ray over some period of time to have a persistent and enlarging right perihilar mass. She is scheduled to go in tomorrow for outpatient noncontrast CT of the chest. Patient has progressively worsening renal failure but has not yet started to dialyze. Patient has never been a cigarette smoker - Related Data Allergies/Adverse Reactions: clopidogrel bisulfate [From Plavix] Allergy (Verified 09/07/18 13:42) Sulfa (Sulfonamide Antibiotics) Allergy (Verified 09/07/18 13:42) Home Medications: mag. tramadol. entresto. atorvastatin. calcitriol. metolazone. sodium bicarb. carvedilol. omeprazole. furosemide Past Medical History - General Information source: Patient, Relative - Social History Smoking Status: Never Smoker Frequency of alcohol use: None Drug Abuse: None Lives with: Family Family History: Reviewed & Not Pertinent Patient has suicidal ideation: No Patient has homicidal ideation: No - Past Medical History Cardiac Medical History: Reports: Hx Congestive Heart Failure, Hx Coronary Artery Disease, Hx Hypertension Neurological Medical History: Denies: Hx Seizures Renal/ Medical History: Denies: Hx Peritoneal Dialysis GI Medical History: Reports: Hx Gastroesophageal Reflux Disease Musculoskeletal Medical History: Reports Hx Arthritis Psychiatric Medical History: Denies: Hx Depression Past Surgical History: Reports: Hx Cardiac Surgery - Stent x1. Denies: Hx Hysterectomy - Immunizations Hx Pneumococcal Vaccination: 08/05/11 Review of Systems - Review of Systems Notes: Constitutional: Negative for fever. HENT: Negative for sore throat. Eyes: Negative for visual changes. Cardiovascular: Negative for chest pain. Respiratory: As per HPI. Gastrointestinal: Negative for abdominal pain, vomiting or diarrhea. Genitourinary: Negative for dysuria. Musculoskeletal: Negative for back pain. Skin: Negative for rash. Neurological: Negative for headaches, weakness or numbness. 10 point ROS negative except as marked above and in HPI. Physical Exam - Vital signs Vitals: Temp Pulse Resp BP Pulse Ox 98.9 F 80 16 146/66 H 99 09/04/19 15:30 09/04/19 15:30 09/04/19 15:30 09/04/19 15:30 09/04/19 15:30 - Notes Notes: GENERAL: Elderly female who has some cough but is in no acute distress. SKIN: Good turgor no rashes. HEAD: Normocephalic atraumatic. EYES: PERRLA. EOMI. Conjunctivae and sclerae clear. EARS: CANALS AND TMS CLEAR. NOSE: CLEAR. MOUTH: Moist mucosa. Good dentition. No stridor or edema. No drooling. NECK: Supple. No masses or thyromegaly. No adenopathy. Carotids 2+ without bruits. No JVD. BACK: Symmetrical without tenderness. CHEST: Respirations unlabored. Scattered rhonchi and faint wheezes bilaterally. HEART: Regular rhythm. No murmur gallop or rub. ABDOMEN: Soft nontender without masses, organomegaly or rebound. Bowel sounds normally active. No bruits. GENITALIA: Deferred. EXTREMITIES: Trace bilateral pretibial edema. No calf tenderness. Cap refill less than 1.5 seconds. Dorsalis pedis and posterior tibial pulses 3+ and symmetrical. NEUROLOGICAL: GCS 15. Alert and oriented x3. Fluent speech. Cranial nerves II through XII intact. Sensorimotor and cerebellar normal. Normal tone. PSYCHIATRIC: Appropriate affect. Course - Re-evaluation Re-evalutation: 09/05/19 03:24 Ms. Kimball received a dose of IV Rocephin and Solu-Medrol here and also a nebulizer treatment with DuoNeb. She is essentially clear at this point and feels much better. She is scheduled for an outpatient noncontrast CT of the chest tomorrow to evaluate the previously identified right hilar mass. She also has outpatient follow-up already set up with Dr. Danielson. I talked with patient and her daughter and they are both comfortable with this plan. They understand to return her here immediately for any new or worsening symptoms. We have also demonstrated the use of albuterol metered-dose inhaler and dispensed a unit from the ED for her tonight. I will write her home prescriptions for doxycycline and prednisone. - Vital Signs Vital signs: Temp Pulse Resp BP Pulse Ox 98.9 F 80 16 146/66 H 99 09/04/19 15:30 09/04/19 15:30 09/04/19 15:30 09/04/19 15:30 09/04/19 15:30 - Laboratory Result Diagrams: 09/04/19 18:56 09/04/19 18:56 Laboratory results interpreted by me: 09/04/19 09/04/19 09/04/19 18:11 18:56 18:56 WBC 3.2 L RBC 3.68 L Hgb 10.4 L Hct 32.4 L RDW 18.5 H Plt Count 78 L Absolute Neuts (auto) 1.5 L BUN 53 H Creatinine 3.91 H Est GFR ( Amer) 13 L Est GFR (MDRD) Non-Af 11 L NT-Pro-B Natriuret Pep Total Protein 8.9 H Urine Protein >=500 H Ur Leukocyte Esterase MODERATE H 09/04/19 18:56 WBC RBC Hgb Hct RDW Plt Count Absolute Neuts (auto) BUN Creatinine Est GFR ( Amer) Est GFR (MDRD) Non-Af NT-Pro-B Natriuret Pep 93647 H Total Protein Urine Protein Ur Leukocyte Esterase Discharge - Discharge Clinical Impression: Acute bronchitis Qualifiers: Bronchitis organism: unspecified organism Qualified Code(s): J20.9 - Acute bronchitis, unspecified Condition: Stable Disposition: HOME, SELF-CARE Additional Instructions: Use metered-dose inhaler 2 puffs 4 times a day. Keep your appointment for outpatient chest CT tomorrow. Follow-up with Dr. Danielson as previously scheduled. Return here as needed for new or worsening symptoms: Increased difficulty breathing Pain that is worsening or unimproved Uncontrolled vomiting High fever or shaking chills Overall worsening Prescriptions: Prednisone [Deltasone 20 mg Tablet] 2 tab PO DAILY 5 Days #10 tablet Doxycycline Monohydrate 100 mg PO BID 10 Days #20 capsule Referrals: MARGARET VILLALPANDO PA [PHYSICIAN NEWS COMMENTATOR] - Follow up as needed
[2019-09-05] MEDS ORDERED: ALBUTEROL SULFATE HFA (90 MCG/PUFF) 8 GM MDI (1 MDI/ER DISP) IH SCH (03:30)
[2019-09-05 03:33] VITALS: BP 149/75
== END 2019-09-05 03:40 | disposition home or self-care (01) ==
LOC: ER 14:56
DX: J20.9 Acute bronchitis, unspecified (principal); R22.2 Localized swelling, mass and lump, trunk; I13.0 Hypertensive heart and chronic kidney disease with heart failure and stage 1 through stage 4 chronic kidney disease, or unspecified chronic kidney disease; N18.9 Chronic kidney disease, unspecified; I50.9 Heart failure, unspecified; R05 Cough; R06.2 Wheezing; K21.9 Gastro-esophageal reflux disease without esophagitis; Z79.899 Other long term (current) drug therapy; Z95.5 Presence of coronary angioplasty implant and graft; Z87.01 Personal history of pneumonia (recurrent); Z88.8 Allergy status to other drugs, medicaments and biological substances; Z88.2 Allergy status to sulfonamides
CPT/HCPCS: 94640 ×2; 99283; 96375; 96365; 36415; 85025; 80053; 81001; 83880; 71046; J1940; J2930; J0696; A9270 ×3; J3490; J7620

== ENCOUNTER → 2019-09-05 | Outpatient (CLI) | payer MEDICARE, MEDICAID ==
--- NOTE | 2019-09-06 14:37 | RADIOLOGY REPORT (SQ) ---
EXAM DESCRIPTION: CT CHEST WITHOUT COMPLETED DATE/TIME: 09/05/2019 11:58 am REASON FOR STUDY: ABNORMAL FINDINGS ON DIAGNOSTIC IMAGING OF OTHER SPECIFIED BODY STRUCTURES R93.89 ABNORMAL FINDINGS ON DX IMAGING OF OTH BODY STRUCTURE COMPARISON: Chest radiograph TECHNIQUE: CT scan performed of the chest without intravenous contrast. Images reviewed with lung, soft tissue and bone windows. Reconstructed coronal and sagittal MPR images reviewed. All images st ored on PACS. All CT scanners at this facility use dose modulation, iterative reconstruction, and/or weight based d osing when appropriate to reduce radiation dose to as low as reasonably achievable (ALARA). [facility]: Dose Right [facility]: CareDose [facility]: Dose Right [facility]: Teradose 4D [facility]: Smart [employer] RADIATION DOSE: CT Rad equipment meets quality standard of care and radiation dose reduction techniq ues were employed. CTDIvol: 6.7 mGy. DLP: 244 mGy-cm. mGy. LIMITATIONS: No technical limitations. FINDINGS: LUNGS AND PLEURA: Patchy parenchymal opacities at the lung bases. Moderate bilateral effu sions right greater than left. No pneumothorax. No pulmonary nodules. HILAR AND MEDIASTINAL STRUCTURES: No definitive hilar masses suggestive on chest radiograph. HEART AND VASCULAR STRUCTURES: No aneurysm. No pericardial effusion. UPPER ABDOMEN: Gallstones. Left nephrolithiasis nonobstructive. THYROID AND OTHER SOFT TISSUES: No masses. No adenopathy. BONES: No significant finding. HARDWARE: None in the chest. OTHER: No other significant findings. IMPRESSION: No definitive hilar masses as suggested on plain radiograph. Patchy opacities at the lung bases with bilateral effusions. Gallstones. Nonobstructive left nephrolithiasis. TECHNICAL DOCUMENTATION: JOB ID: [id number] Quality ID # [id number]: Final reports with documentation of one or more dose reduction techniques (e.g., Au tomated exposure control, adjustment of the mA and/or kV according to patient size, use of iterative reconstruction technique) 2010 [employer]- All Rights Reserved Reading location - IP/workstation name: [email or web address]
== END ==
LOC: RAD 11:20
PROVIDERS: ATTEND Physician Assistant
DX: R93.89 Abnormal findings on diagnostic imaging of other specified body structures (principal)
CPT/HCPCS: 71250

== ENCOUNTER → 2019-09-24 | Outpatient (CLI) | payer MEDICARE, MEDICAID ==
[2019-09-24 14:48] LABS: APPEARANCE,URINE CLEAR; BILIRUBIN,URINE NEGATIVE (NEGATIVE); COLOR,URINE YELLOW; GLUCOSE, URINE NEGATIVE (NEGATIVE); KETONES,URINE NEGATIVE (NEGATIVE); LEUKOCYTE ESTERASE,URINE SMALL (NEGATIVE); NITRITE,URINE NEGATIVE (NEGATIVE); PROTEIN,URINE >=500 mg/dL (NEGATIVE); URINE SPECIFIC GRAVITY 1.014; UROBILINOGEN,URINE NEGATIVE mg/dL (<2.0)
[2019-09-24 16:00] LABS: ALBUMIN 3.5 g/dL (3.5-5.0); ANION GAP 11 (5-19); BLOOD UREA NITROGEN 56 mg/dL (7-20); CALCIUM 9.2 mg/dL (8.4-10.2); CARBON DIOXIDE 26 mmol/L (22-30); CHLORIDE 101 mmol/L (98-107); GLUCOSE 96 mg/dL (75-110); PHOSPHORUS 3.7 mg/dL (2.5-4.5); POTASSIUM 3.7 mmol/L (3.6-5.0)
[2019-09-24 17:03] LABS: FOLATE 5.68 ng/mL (>2.76)
[2019-09-26 16:28] LABS: C DIFFICILE GDH NEGATIVE (NEGATIVE)
== END ==
LOC: OD 13:52
PROVIDERS: ATTEND Physician Assistant Medical
DX: I12.0 Hypertensive chronic kidney disease with stage 5 chronic kidney disease or end stage renal disease (principal); N18.5 Chronic kidney disease, stage 5; R30.9 Painful micturition, unspecified; R19.7 Diarrhea, unspecified; R60.9 Edema, unspecified; N25.0 Renal osteodystrophy; R80.9 Proteinuria, unspecified; E87.5 Hyperkalemia
CPT/HCPCS: 36415; 80069; 81001; 82272; 82607; 82746; 83735; 87086; 87088; 87186; 87324; 87449

== ENCOUNTER → 2019-10-16 | Outpatient (CLI) | payer MEDICARE, MEDICAID ==
[2019-10-16 12:01] LABS: URINE CREATININE 95.4 mg/dL (15-278)
[2019-10-16 12:13] LABS: CREATININE 3.45 mg/dL (0.52-1.25)
[2019-10-16 12:42] LABS: FOLATE 5.13 ng/mL (>2.76)
== END ==
LOC: OD 09:42
PROVIDERS: ATTEND Physician Assistant Medical
DX: I12.0 Hypertensive chronic kidney disease with stage 5 chronic kidney disease or end stage renal disease (principal); N18.5 Chronic kidney disease, stage 5; E87.5 Hyperkalemia; N25.0 Renal osteodystrophy; R60.9 Edema, unspecified; R80.9 Proteinuria, unspecified; G90.09 Other idiopathic peripheral autonomic neuropathy
CPT/HCPCS: 36415; 82575; 82607; 82746; 83735

== ENCOUNTER 2020-01-27 17:46 | Inpatient (IN) | payer MEDICARE, MEDICAID ==
--- NOTE | 2020-01-27 18:43 | ER Document Report ---
ED Medical Screen (RME) - General Chief Complaint: Nausea/Vomiting/Diarrhea Stated Complaint: ABNORMAL LABS/AMS Time Seen by Provider: 01/27/20 18:39 Primary Care Provider: JD SAMSON PA-C [Primary Care Provider] - Follow up as needed Information source: Patient TRAVEL OUTSIDE OF THE [place] IN LAST 30 DAYS: No - HPI Onset: Just prior to arrival Onset/Duration: Sudden Context: This is a 84-year-old female who was sent over from nephrology for abnormal lab results for evaluation here in the department. - Related Data Allergies/Adverse Reactions: clopidogrel bisulfate [From Plavix] Allergy (Verified 09/07/18 13:42) Sulfa (Sulfonamide Antibiotics) Allergy (Verified 09/07/18 13:42) Past Medical History - Social History Frequency of alcohol use: None Drug Abuse: None - Past Medical History Cardiac Medical History: Reports: Hx Congestive Heart Failure, Hx Coronary Artery Disease, Hx Hypertension Neurological Medical History: Denies: Hx Seizures Renal/ Medical History: Denies: Hx Peritoneal Dialysis GI Medical History: Reports: Hx Gastroesophageal Reflux Disease Musculoskeltal Medical History: Reports Hx Arthritis Psychiatric Medical History: Denies: Hx Depression Past Surgical History: Reports: Hx Cardiac Surgery - Stent x1. Denies: Hx Hysterectomy Physical Exam - Vital signs Vitals: Temp Pulse Resp BP Pulse Ox 98.5 F 77 14 137/61 H 97 01/27/20 17:51 01/27/20 17:51 01/27/20 17:51 01/27/20 17:51 01/27/20 17:51 Course - Vital Signs Vital signs: Temp Pulse Resp BP Pulse Ox 98.5 F 77 14 137/61 H 97 01/27/20 18:31 01/27/20 17:51 01/27/20 17:51 01/27/20 17:51 01/27/20 17:51 Doctor's Discharge - Discharge Referrals: JD SAMSON PA-C [Primary Care Provider] - Follow up as needed
--- NOTE | 2020-01-27 19:35 | RADIOLOGY REPORT (SQ) ---
EXAM DESCRIPTION: CT HEAD WITHOUT IMAGES COMPLETED DATE/TIME: 01/27/2020 6:12 pm REASON FOR STUDY: aloc COMPARISON: None. TECHNIQUE: Axial images acquired through the brain without intravenous contrast. Images reviewed wi th bone, brain and subdural windows. Additional sagittal and coronal reconstructions were generated. Images stored on PACS. All CT scanners at this facility use dose modulation, iterative reconstruction, and/or weight based d osing when appropriate to reduce radiation dose to as low as reasonably achievable (ALARA). [facility]: Dose Right [facility]: CareDose [facility]: Dose Right [facility]: Teradose 4D [facility]: Smart [employer] RADIATION DOSE: CT Rad equipment meets quality standard of care and radiation dose reduction techniq ues were employed. CTDIvol: 53.2 mGy. DLP: 964 mGy-cm. mGy. LIMITATIONS: None. FINDINGS: VENTRICLES: Normal size and contour. CEREBRUM: No masses. No hemorrhage. No midline shift. No evidence for acute infarction. Normal gra y-white matter differentiation. Moderate diffuse periventricular, deep, and subcortical white matter hypodense attenuation consistent with moderate chronic small vessel ischemic change. There is intra cranial atherosclerosis. CEREBELLUM: No masses. No hemorrhage. No alteration of density. No evidence for acute infarction. EXTRAAXIAL SPACES: No fluid collections. No masses. ORBITS AND GLOBE: No intra- or extraconal masses. Normal contour of globe without masses. CALVARIUM: No fracture. PARANASAL SINUSES: No fluid or mucosal thickening. SOFT TISSUES: No mass or hematoma. OTHER: No other significant finding. IMPRESSION: No acute intracranial hemorrhage, mass, or evidence of acute territorial infarct. Moder ate chronic small vessel ischemic change and intracranial atherosclerosis. EVIDENCE OF ACUTE STROKE: NO. COMMENT: Quality ID # [id number]: Final reports with documentation of one or more dose reduction techniques (e.g., Automated exposure control, adjustment of the mA and/or kV according to patient size, use of iterative reconstruction technique) TECHNICAL DOCUMENTATION: JOB ID: [id number] [employer] All Rights Reserved Reading location - IP/workstation name: [email or web address]
[2020-01-27 19:46] LABS: HEMATOCRIT 36.4 % (36.0-47.0); HEMOGLOBIN 12.2 g/dL (12.0-15.5); MEAN CORPUSCULAR HEMOGLOBIN 28.4 pg (27.0-33.4); MEAN CORPUSCULAR HGB CONC 33.4 g/dL (32.0-36.0); MEAN CORPUSCULAR VOLUME 85 fl (80-97); PLATELET COUNT 154 10^3/uL (150-450); RED BLOOD COUNT 4.29 10^6/uL (3.72-5.28); RED CELL DISTRIBUTION WIDTH 17.2 % (11.5-14.0); WHITE BLOOD COUNT 2.7 10^3/uL (4.0-10.5)
[2020-01-27 19:58] LABS: ALBUMIN 3.6 g/dL (3.5-5.0); ALKALINE PHOSPHATASE 70 U/L (38-126); ANION GAP 10 (5-19); ASPARTATE AMINO TRANSFERASE 20 U/L (14-36); BILIRUBIN,DIRECT 0.2 mg/dL (0.0-0.4); BLOOD UREA NITROGEN 102 mg/dL (7-20); CALCIUM 9.5 mg/dL (8.4-10.2); CARBON DIOXIDE 36 mmol/L (22-30); CHLORIDE 74 mmol/L (98-107); GLUCOSE 106 mg/dL (75-110); POTASSIUM 4.1 mmol/L (3.6-5.0); TOTAL PROTEIN 8.1 g/dL (6.3-8.2)
[2020-01-27 20:06] LABS: ABSOLUTE LYMPHOCYTES# (MANUAL) 0.8 10^3/uL (0.5-4.7); ABSOLUTE MONOCYTES # (MANUAL) 0.2 10^3/uL (0.1-1.4); ANISOCYTOSIS 1+; BASOPHILS % (MANUAL) 0 % (0-2); EOSINOPHILS % (MANUAL) 0 % (0-6); LYMPHOCYTES % (MANUAL) 29 % (13-45); MONOCYTES % (MANUAL) 7 % (3-13); SEGMENTED NEUTROPHILS % (MAN) 64 % (42-78); TOTAL CELLS COUNTED 100
[2020-01-27 20:07] LABS: PLATELET COMMENT ADEQUATE
--- NOTE | 2020-01-27 20:44 | ER Document Report ---
ED General - General Chief Complaint: Nausea/Vomiting/Diarrhea Stated Complaint: ABNORMAL LABS/AMS Time Seen by Provider: 01/27/20 18:39 Mode of Arrival: Ambulatory Information source: Patient, Relative TRAVEL OUTSIDE OF THE [place] IN LAST 30 DAYS: No - HPI Onset: Other - over the last several days Onset/Duration: Gradual Quality of pain: No pain Severity: Moderate Associated symptoms: Diarrhea, Nausea, Vomiting Exacerbated by: Denies Relieved by: Denies Similar symptoms previously: No Recently seen / treated by doctor: No Notes: 84 year old female with a history of HTN, CHF, CAD, CKD, GERD, Arthritis sent to the ER for evaluation of low sodium and weakness. The patient has been having nausea, vomiting, and diarrhea for about a week now. The patient's Slurry Man ordered outpatient labs and once they resulted the patient was told to come to the ER for a low sodium. The patient and her daughter who is with her deny rec ent fevers, chills, sweats, sick contacts. - Related Data Allergies/Adverse Reactions: clopidogrel bisulfate [From Plavix] Allergy (Verified 01/27/20 19:38) Sulfa (Sulfonamide Antibiotics) Allergy (Verified 01/27/20 19:38) Past Medical History - General Information source: Patient - Social History Smoking Status: Never Smoker Frequency of alcohol use: None Drug Abuse: None Family History: Reviewed & Not Pertinent Patient has homicidal ideation: No - Past Medical History Cardiac Medical History: Reports: Hx Congestive Heart Failure, Hx Coronary Artery Disease, Hx Hypertension Neurological Medical History: Denies: Hx Seizures Renal/ Medical History: Reports: Hx End Stage Renal Disease. Denies: Hx Peritoneal Dialysis GI Medical History: Reports: Hx Gastroesophageal Reflux Disease Musculoskeletal Medical History: Reports Hx Arthritis Psychiatric Medical History: Denies: Hx Depression Past Surgical History: Reports: Hx Cardiac Surgery - Stent x1. Denies: Hx Hysterectomy - Immunizations Hx Pneumococcal Vaccination: 08/05/11 Review of Systems - Review of Systems Constitutional: Weakness EENT: No symptoms reported Cardiovascular: No symptoms reported Respiratory: No symptoms reported Gastrointestinal: Diarrhea, Nausea, Vomiting Genitourinary: No symptoms reported Female Genitourinary: No symptoms reported Musculoskeletal: No symptoms reported Skin: No symptoms reported Hematologic/Lymphatic: No symptoms reported Neurological/Psychological: No symptoms reported -: Yes All other systems reviewed and negative Physical Exam - Vital signs Vitals: Temp Pulse Resp BP Pulse Ox 98.5 F 77 14 137/61 H 97 01/27/20 17:51 01/27/20 17:51 01/27/20 17:51 01/27/20 17:51 01/27/20 17:51 - Notes Notes: GENERAL: Well-appearing, well-nourished and in no acute distress. HEAD: Atraumatic, normocephalic. EYES: Pupils equal round and reactive to light, extraocular movements intact, sclera anicteric, conjunctiva are normal. ENT: External ears normal, nares patent, oropharynx clear without exudates. Moist mucous membranes. NECK: Normal range of motion, supple without lymphadenopathy or JVD. LUNGS: Breath sounds clear to auscultation bilaterally and equal. No wheezes rales or rhonchi. HEART: Regular rate and rhythm without murmurs, rubs or gallops. ABDOMEN: Soft, nontender, normoactive bowel sounds. No guarding, no rebound. No masses appreciated. EXTREMITIES: Normal range of motion, no pitting or edema. No clubbing or cyanosis. NEUROLOGICAL: Cranial nerves II through XII grossly intact. Normal speech, normal gait. PSYCH: Normal mood, normal affect. SKIN: Warm, Dry, normal turgor, no rashes or lesions noted. Course - Re-evaluation Re-evalutation: 01/28/20 05:37 The patient has acute on chronic renal failure and she also has hyponatremia. She is uremic and likely weak and somewhat confused from the uremia. Patient given 1L of NS in the ER and she was admitted for further treatment and care. - Vital Signs Vital signs: Temp Pulse Resp BP Pulse Ox 97.4 F 81 18 142/58 H 99 01/27/20 22:53 01/27/20 22:53 01/27/20 22:53 01/27/20 22:53 01/27/20 22:53 - Laboratory Result Diagrams: 01/28/20 05:12 01/27/20 19:24 Laboratory results interpreted by me: 01/27/20 01/27/20 01/27/20 15:24 19:24 19:24 WBC 2.7 L RDW 17.2 H Sodium 119.6 L* Chloride 74 L Carbon Dioxide 36 H BUN 102 H Creatinine 4.53 H Est GFR ( Amer) 11 L Est GFR (MDRD) Non-Af 9 L Magnesium 3.0 H Urine Protein 01/27/20 21:00 WBC RDW Sodium Chloride Carbon Dioxide BUN Creatinine Est GFR ( Amer) Est GFR (MDRD) Non-Af Magnesium Urine Protein 100 H - Diagnostic Test Radiology reviewed: Image reviewed, Reports reviewed Discharge - Discharge Clinical Impression: Acute on chronic renal failure, Nausea & vomiting, Diarrhea, Metabolic encephalopathy Condition: Stable Disposition: ADMITTED INPATIENT Admitting Provider: Yanet (Hospitalist) Unit Admitted: Medical Floor
[2020-01-27] MEDS ORDERED: NORMAL SALINE 1000 ML 1,000 ML IV ONE (21:00)
[2020-01-27 21:36] LABS: APPEARANCE,URINE CLEAR; BILIRUBIN,URINE NEGATIVE (NEGATIVE); COLOR,URINE YELLOW; GLUCOSE, URINE NEGATIVE (NEGATIVE); KETONES,URINE NEGATIVE (NEGATIVE); LEUKOCYTE ESTERASE,URINE NEGATIVE (NEGATIVE); NITRITE,URINE NEGATIVE (NEGATIVE); PROTEIN,URINE 100 mg/dL (NEGATIVE); URINE SPECIFIC GRAVITY 1.006; UROBILINOGEN,URINE NEGATIVE mg/dL (<2.0)
[2020-01-27] MEDS ORDERED: HYDRALAZINE HCL INJ/PF 20 MG/1 ML SDV IV PRN (22:03)
[2020-01-27] MEDS ORDERED: GUAIFENESIN SYRP 200 MG/10 ML UDC PO PRN (22:03)
[2020-01-27] MEDS ORDERED: MAG HYDROX/AL HYDROX/SIMETH SUSP 30 ML UDCUP PO PRN (22:03)
[2020-01-27] MEDS ORDERED: ACETAMINOPHEN 325 MG TABLET PO PRN (22:03)
[2020-01-27] MEDS ORDERED: LORAZEPAM INJ 2 MG/1 ML VIAL IV PRN (22:03)
[2020-01-27] MEDS ORDERED: MAGNESIUM HYDROXIDE SUSP 30 ML UDCUP PO PRN (22:03)
[2020-01-27] MEDS ORDERED: METOPROLOL TARTRATE PF/INJ 5 MG/5 ML SDV IV PRN (22:03)
[2020-01-27] MEDS ORDERED: MELATONIN 5 MG TABLET PO PRN (22:03)
[2020-01-27] MEDS: NORMAL SALINE 1000 ML 1,000 ML IV PRN (23:29)
--- NOTE | 2020-01-27 23:29 | PDOC H&P ---
History of Present Illness Admission Date/PCP: 01/27/2020 21:39 JD SAMSON PA-C Patient complains of: Altered mental status History of Present Illness: BROWN RIVAS is a 84 year old female who presented to the emergency room from home with a 1 week history of altered mental status. The patient is altered (confused) and unable to contribute to her medical history. She was sent to the emergency room by her booster pump oiler, Dr. Dawit Lazaro, due to hyponatremia and worsened renal function studies. Family provided a history of nausea, vomiting and diarrhea over the course of the last week with progressive worsening of her confusion. In the emergency room the patient was found to have a BUN of 102, a creatinine of 4.53 and a sodium of 119. She was subsequently admitted to the hospitalist service, per the request of Dr. Lazaro, for further evaluation and treatment. Past Medical History Past Medical History: The patient is unable to provide historical data due to her altered mental status therefore past medical history, past surgical history, social history and family medical history are obtained from the best available reliable sources. Cardiac Medical History: Reports: Congestive Heart Failure, Coronary Artery Disease, Hypertension Denies: Atrial Fibrillation, Myocardial Infarction, Hyperlipidema Pulmonary Medical History: Reports: Pneumonia, Respiratory Failure Denies: Asthma, Chronic Obstructive Pulmonary Disease (COPD) EENT Medical History: Denies: Cataracts, Ears - Hearing aids Neurological Medical History: Denies: Hemorrhagic CVA, Ischemic CVA, Seizures Endocrine Medical History: Denies: Diabetes Mellitus Type 1, Diabetes Mellitus Type 2, Hyperthyroidism, Hypothyroidism, Obesity Renal/ Medical History: Reports: Chronic Kidney Disease Denies: Nephrolithiasis Malignancy Medical History: Reports: Other - Esophageal cancer GI Medical History: Reports: Gastroesophageal Reflux Disease Denies: Cirrhosis, Crohn's Disease, Hepatitis, Peptic Ulcer Disease, Ulcerative Colitis Musculoskeltal Medical History: Reports: Arthritis Denies: Gout Skin Medical History: Denies: Eczema, Psoriasis Psychiatric Medical History: Denies: Alcohol Dependency, Depression, Substance Abuse, Tobacco Dependency Traumatic Medical History: Reports: None Hematology: Reports: Anemia - Chronic secondary to CKD Infectious Medical History: Reports: None Past Surgical History Past Surgical History: The patient is unable to provide historical data due to her altered mental status therefore past medical history, past surgical history, social history and family medical history are obtained from the best available reliable sources. Past Surgical History: Reports: None Social History Information Source: Emergency Med Personnel, [facility] Records Lives with: Family Smoking Status: Never Smoker Electronic Cigarette use?: No Frequency of Alcohol Use: None Hx Recreational Drug Use: No Drugs: None Hx Prescription Drug Abuse: No Past Social History Note: The patient is unable to provide historical data due to her altered mental status therefore past medical history, past surgical history, social history and family medical history are obtained from the best available reliable sources. - Advance Directive Resuscitation Status: Full Code Surrogate healthcare decision maker:: Peggy Corona Family History Family History: Other - Renal disease Family History: The patient is unable to provide historical data due to her altered mental status therefore past medical history, past surgical history, social history and family medical history are obtained from the best available reliable sources. Parental Family History Reviewed: Yes Children Family History Reviewed: No Sibling(s) Family History Reviewed.: Yes Medication/Allergy Home Medications: Atorvastatin Calcium [Lipitor 40 mg Tablet] 40 mg PO QHS 06/07/14 Metoprolol Succinate 50 mg PO DAILY 06/07/14 Amlodipine Besylate [Norvasc 5 mg Tablet] 5 mg PO Q12 05/31/19 Cyanocobalamin (Vitamin B-12) [Vitamin B-12 500 mcg Tablet] 1,500 mcg PO DAILY 05/31/19 Diclofenac Sodium [Voltaren] 4 gm TP QIDP PRN 05/31/19 Ferrous Sulfate [Feosol 325 mg Tablet] 325 mg PO BID 05/31/19 Magnesium Oxide 800 mg PO BID 05/31/19 Omeprazole 20 mg PO DAILY 05/31/19 Sodium Bicarbonate [Sodium Bicarbonate 650 mg Tablet] 650 mg PO TID 05/31/19 Furosemide [Lasix 20 mg Tablet] 20 mg PO DAILY #30 tablet 06/08/19 Isosorb Dinit/Hydralazine HCl [Bidil 20-37.5 mg Tablet] 0.5 tab PO TID #90 tablet 06/08/19 Levofloxacin [Levaquin 500 mg Tablet] 250 mg PO DAILY #5 tablet 06/08/19 Doxycycline Monohydrate 100 mg PO BID 10 Days #20 capsule 09/05/19 Prednisone [Deltasone 20 mg Tablet] 2 tab PO DAILY 5 Days #10 tablet 09/05/19 Allergies/Adverse Reactions: clopidogrel bisulfate [From Plavix] Allergy (Verified 01/27/20 19:38) Sulfa (Sulfonamide Antibiotics) Allergy (Verified 01/27/20 19:38) Review of Systems ROS unobtainable: Due to mental status - Acute metabolic encephalopathy Physical Exam Vital Signs: Temp Pulse Resp BP Pulse Ox 98 F 74 14 163/64 H 100 01/27/20 18:37 01/27/20 18:37 01/27/20 21:01 01/27/20 21:01 01/27/20 21:01 Intake & Output 01/25/20 01/26/20 01/27/20 23:59 23:59 23:59 Weight 56.699 kg General appearance: PRESENT: no acute distress, cooperative Head exam: PRESENT: atraumatic, normocephalic Eye exam: PRESENT: conjunctiva pink. ABSENT: conjunctival injection, scleral icterus Ear exam: PRESENT: normal external ear exam. ABSENT: bleeding, drainage Mouth exam: PRESENT: dry mucosa, neck supple Neck exam: ABSENT: thyromegaly, tracheal deviation Respiratory exam: PRESENT: clear to auscultation emerald, symmetrical, unlabored Cardiovascular exam: PRESENT: RRR. ABSENT: clicks, gallop, rubs Pulses: PRESENT: normal radial pulses, normal dorsalis pedis pul Vascular exam: PRESENT: normal capillary refill. ABSENT: pallor GI/Abdominal exam: PRESENT: normal bowel sounds, soft Rectal exam: PRESENT: deferred Extremities exam: ABSENT: joint swelling, pedal edema Musculoskeletal exam: ABSENT: deformity, dislocation Neurological exam: PRESENT: altered - Confused and poorly oriented, awake, CN II-XII grossly intact Psychiatric exam: PRESENT: appropriate affect, normal mood, other - Confused and poorly oriented Skin exam: PRESENT: dry, intact, warm. ABSENT: jaundice, rash, urticaria Results Laboratory Results: 01/27/20 19:24 01/27/20 19:24 01/27/20 01/27/20 01/27/20 15:24 19:24 19:24 WBC 2.7 L RBC 4.29 Hgb 12.2 Hct 36.4 MCV 85 MCH 28.4 MCHC 33.4 RDW 17.2 H Plt Count 154 Seg Neutrophils % Not Reportable Sodium 119.6 L* Potassium 4.1 Chloride 74 L Carbon Dioxide 36 H Anion Gap 10 BUN 102 H Creatinine 4.53 H Est GFR ( Amer) 11 L Glucose 106 Calcium 9.5 Magnesium 3.0 H Total Bilirubin 1.0 AST 20 Alkaline Phosphatase 70 Total Protein 8.1 Albumin 3.6 Impressions: Head CT 01/27/20 18:47 IMPRESSION: No acute intracranial hemorrhage, mass, or evidence of acute territorial infarct. Moderate chronic small vessel ischemic change and intracranial atherosclerosis. EVIDENCE OF ACUTE STROKE: NO. Assessment and Plan - Diagnosis (1) Acute metabolic encephalopathy Is this a current diagnosis for this admission?: Yes (2) Acute kidney injury superimposed on chronic kidney disease Is this a current diagnosis for this admission?: Yes (3) Hyponatremia Is this a current diagnosis for this admission?: Yes (4) Nausea & vomiting Qualifiers: Vomiting type: unspecified Vomiting Intractability: non-intractable Qualified Code(s): R11.2 - Nausea with vomiting, unspecified Is this a current diagnosis for this admission?: Yes (5) Diarrhea Qualifiers: Diarrhea type: unspecified type Qualified Code(s): R19.7 - Diarrhea, unspecified Is this a current diagnosis for this admission?: Yes (6) Hypertension Qualifiers: Hypertension type: essential hypertension Qualified Code(s): I10 - Essential (primary) hypertension Is this a current diagnosis for this admission?: Yes (7) Coronary artery disease Qualifiers: Coronary Disease-Associated Artery/Lesion type: koi artery [place] vs. transplanted heart: koi heart Associated angina: without angina Qualified Code(s): I25.10 - Atherosclerotic heart disease of koi coronary artery without angina pectoris Is this a current diagnosis for this admission?: Yes (8) Congestive heart failure Qualifiers: Heart failure type: combined systolic and diastolic Heart failure chronicity: chronic Qualified Code(s): I50.42 - Chronic combined systolic (congestive) and diastolic (congestive) heart failure Is this a current diagnosis for this admission?: Yes - Plan Summary Summary: Patient will be admitted to the medical floor where she received routine supp ortive and symptomatic cares. Consultation with Dr. Dawit Lazaro will be obtained for nephrologic evaluation and treatment. Patient will be initially treated with normal saline at 167 mL/h after having received a 1 L bolus of normal saline in the ER. She will receive Ativan 1 mg IV every 4 hours as needed for anxiety or restlessness. She will receive hydralazine 20 mg IV and/or metoprolol 5 mg IV every 4 hours as needed for hypertension. Serial metabolic profiles will be obtained. CBCs, magnesium levels and other laboratory and/or radiographic evaluations will be obtained as appropriate. Patient will be initially treated with a cardiac diet. - Time Time Spent with patient: Less than 15 minutes Medications reviewed and adjusted accordingly: Yes Anticipated discharge: Home with Homehealth, SNF - Inpatient Certification Based on my medical assessment, after consideration of the patient's comorbidities, presenting symptoms, or acuity I expect that the services needed warrant INPATIENT care.: Yes I certify that my determination is in accordance with my understanding of Medicare's requirements for reasonable and necessary INPATIENT services [42 CFR 412.3e].: Yes Medical Necessity: Need Close Monitoring Due to Risk of Patient Decompensation, Need For IV Fluids, Risk of Complication if Not Cared For in Hospital
[2020-01-28] MEDS: NITROGLYCERIN 2% OINTMENT 1 GM PACKET TP SCH ×4 (01:03→18:31)
[2020-01-28 05:25] LABS: VENOUS BLOOD BASE EXCESS 8.5 mmol/L; VENOUS BLOOD PCO2 45.4 mmHg (35-63); VENOUS BLOOD PH 7.48 (7.30-7.42)
[2020-01-28 05:26] LABS: HEMATOCRIT 30.1 % (36.0-47.0); MEAN CORPUSCULAR HEMOGLOBIN 28.5 pg (27.0-33.4); MEAN CORPUSCULAR HGB CONC 33.5 g/dL (32.0-36.0); MEAN CORPUSCULAR VOLUME 85 fl (80-97); PLATELET COUNT 132 10^3/uL (150-450); RED BLOOD COUNT 3.55 10^6/uL (3.72-5.28); RED CELL DISTRIBUTION WIDTH 16.9 % (11.5-14.0); WHITE BLOOD COUNT 2.5 10^3/uL (4.0-10.5)
[2020-01-28 05:34] LABS: HEMOGLOBIN 10.1 g/dL (12.0-15.5)
[2020-01-28] MEDS: NORMAL SALINE 1000 ML 1,000 ML IV PRN ×3 (05:38→21:14)
[2020-01-28] MEDS: HEPARIN SOD (PORCINE) 5,000 UNIT/ML 1 ML VIAL SUBCUT SCH ×3 (05:40→21:11)
[2020-01-28] MEDS: PANTOPRAZOLE SODIUM 40 MG TABLET.DR PO SCH (05:41)
[2020-01-28 05:51] LABS: ANION GAP 10 (5-19); BLOOD UREA NITROGEN 96 mg/dL (7-20); CALCIUM 8.9 mg/dL (8.4-10.2); CARBON DIOXIDE 31 mmol/L (22-30); CHLORIDE 83 mmol/L (98-107); GLUCOSE 91 mg/dL (75-110); POTASSIUM 3.7 mmol/L (3.6-5.0)
[2020-01-28] MEDS: DOCUSATE SODIUM 100 MG CAPSULE PO SCH ×2 (10:10→18:27)
[2020-01-28] MEDS ORDERED: FUROSEMIDE INJ/PF 20 MG/2 ML SDV IV SCH (15:00)
[2020-01-28 15:48] LABS: URINE SODIUM 51 mmol/L (30-90)
[2020-01-28 15:56] LABS: OSMOLALITY,URINE 213 mOsm/kg (300-900)
--- NOTE | 2020-01-28 15:57 | PDOC PROGRESS REPORT ---
Subjective Progress Note for:: 01/28/20 Subjective:: No adverse events overnight. No new complaints. Vital signs been stable. Appetite is starting to continuous pickling line pickler. Urine output has improved. Reason For Visit: ALTERED MENTAL STATUS,HYPONATREMIA Physical Exam Vital Signs: Temp Pulse Resp BP Pulse Ox 98.0 F 69 16 128/61 H 100 01/28/20 15:00 01/28/20 15:00 01/28/20 15:00 01/28/20 15:00 01/28/20 15:00 Intake & Output 01/27/20 01/28/20 01/29/20 06:59 06:59 06:59 Intake Total 1000 1360 Output Total 200 Balance 800 1360 Weight 64.6 kg General appearance: PRESENT: no acute distress, cooperative, disheveled Respiratory exam: PRESENT: clear to auscultation emerald, symmetrical, unlabored. ABSENT: accessory muscle use, chest wall tenderness, crackles, prolonged expiratory phas, rhonchi, tachypnea, wheezes Cardiovascular exam: PRESENT: RRR, +S1, +S2 Pulses: PRESENT: normal carotid pulses Vascular exam: PRESENT: normal capillary refill GI/Abdominal exam: PRESENT: normal bowel sounds, soft. ABSENT: distended, guarding, rebound, tenderness Extremities exam: ABSENT: clubbing, pedal edema Musculoskeletal exam: PRESENT: normal inspection. ABSENT: deformity Neurological exam: PRESENT: alert, awake, oriented to person, oriented to place, oriented to situation Psychiatric exam: PRESENT: appropriate affect, normal mood Skin exam: PRESENT: dry, warm Results Laboratory Results: 01/28/20 05:12 01/27/20 01/27/20 01/27/20 15:24 19:24 19:24 WBC 2.7 L RBC 4.29 Hgb 12.2 Hct 36.4 MCV 85 MCH 28.4 MCHC 33.4 RDW 17.2 H Plt Count 154 Seg Neutrophils % Not Reportable VBG pH VBG pCO2 VBG HCO3 VBG Base Excess Sodium 119.6 L* Potassium 4.1 Chloride 74 L Carbon Dioxide 36 H Anion Gap 10 BUN 102 H Creatinine 4.53 H Est GFR ( Amer) 11 L Glucose 106 Calcium 9.5 Magnesium 3.0 H Total Bilirubin 1.0 AST 20 Alkaline Phosphatase 70 Total Protein 8.1 Albumin 3.6 TSH Urine Color Urine Appearance Urine pH Ur Specific Railroad Urine Protein Urine Glucose (UA) Urine Ketones Urine Blood Urine Nitrite Ur Leukocyte Esterase Urine WBC (Auto) Urine RBC (Auto) 01/27/20 01/28/20 01/28/20 21:00 05:12 05:12 WBC 2.5 L RBC 3.55 L Hgb 10.1 L D Hct 30.1 L MCV 85 MCH 28.5 MCHC 33.5 RDW 16.9 H Plt Count 132 L Seg Neutrophils % VBG pH VBG pCO2 VBG HCO3 VBG Base Excess Sodium 123.6 L Potassium 3.7 Chloride 83 L Carbon Dioxide 31 H Anion Gap 10 BUN 96 H Creatinine 4.16 H Est GFR ( Amer) 12 L Glucose 91 Calcium 8.9 Magnesium 2.7 H Total Bilirubin AST Alkaline Phosphatase Total Protein Albumin TSH Urine Color YELLOW Urine Appearance CLEAR Urine pH 9.0 Ur Specific [address] 1.006 Urine Protein 100 H Urine Glucose (UA) NEGATIVE Urine Ketones NEGATIVE Urine Blood NEGATIVE Urine Nitrite NEGATIVE Ur Leukocyte Esterase NEGATIVE Urine WBC (Auto) 1 Urine RBC (Auto) 0 01/28/20 01/28/20 05:12 05:12 WBC RBC Hgb Hct MCV MCH MCHC RDW Plt Count Seg Neutrophils % VBG pH 7.48 H VBG pCO2 45.4 VBG HCO3 33.0 H VBG Base Excess 8.5 Sodium Potassium Chloride Carbon Dioxide Anion Gap BUN Creatinine Est GFR ( Amer) Glucose Calcium Magnesium Total Bilirubin AST Alkaline Phosphatase Total Protein Albumin TSH 1.19 Urine Color Urine Appearance Urine pH Ur Specific Railroad Urine Protein Urine Glucose (UA) Urine Ketones Urine Blood Urine Nitrite Ur Leukocyte Esterase Urine WBC (Auto) Urine RBC (Auto) Impressions: Head CT 01/27/20 18:47 IMPRESSION: No acute intracranial hemorrhage, mass, or evidence of acute territorial infarct. Moderate chronic small vessel ischemic change and intracranial atherosclerosis. EVIDENCE OF ACUTE STROKE: NO. Assessment and Plan - Diagnosis (1) Acute kidney injury superimposed on chronic kidney disease Is this a current diagnosis for this admission?: Yes Plan: Resolved. Her creatinine is actually back in her baseline range. (2) Acute metabolic encephalopathy Is this a current diagnosis for this admission?: Yes Plan: Resolved. His mental status back to baseline. (3) Hyponatremia Is this a current diagnosis for this admission?: Yes Plan: Slowly improving with IV fluids. Serial sodium checks. (4) Congestive heart failure Qualifiers: Heart failure type: combined systolic and diastolic Heart failure chronicity: chronic Qualified Code(s): I50.42 - Chronic combined systolic (congestive) and diastolic (congestive) heart failure Is this a current diagnosis for this admission?: Yes Plan: Not acutely exacerbated. Lasix on hold for now. Monitoring for fluid overload. - Plan Summary Summary: Patient will be admitted to the medical floor where she received routine supportive and symptomatic cares. Consultation with Dr. Dawit Lazaro will be obtained for nephrologic evaluation and treatment. Patient will be initially treated with normal saline at 167 mL/h after having received a 1 L bolus of normal saline in the ER. She will receive Ativan 1 mg IV every 4 hours as needed for anxiety or restlessness. She will receive hydralazine 20 mg IV and/ or metoprolol 5 mg IV every 4 hours as needed for hypertension. Serial metabolic profiles will be obtained. CBCs, magnesium levels and other laboratory and/or radiographic evaluations will be obtained as appropriate. Patient will be initially treated with a cardiac diet. - Time Time Spent with patient: 15-24 minutes
--- NOTE | 2020-01-28 16:23 | PDOC CONSULTATION ---
Consultation Consult Date: 01/28/20 Provider Consulted: Stacy SAGE Consult reason:: ILYA on CKD History of Present Illness Admission Date/PCP: 01/27/20 21:41 JD SAMSON PA-C History of Present Illness: BROWN RIVAS is a 84 year old female with a past medical history of CKD5, hypertension, persistent diarrhea was sent to the ER by my office for severe symptomatic hyponatremia. A couple of days ago the Daughter had called my office stating that her mother was altered, having n/v, decreased appetite and persistent diarrhea. We advised her to go to the ER at that time. She did not want to take her because she was not a loud to go with her due to the COVID19 restrictions. Due to her not wanting to do take her to the ER, I had her come to my office. Yesterday in the office the patient was altered, appeared confused, she was not able to carry on a conversation as usual. At one point she was to start dialysis in October due to uremia but she held off because of COVID19. Due to her current state and the several issues she was having I ordered a bmp and UA. The UA did not show any signs of UTI. The bmp showed sodium of 122, creatinine of 4.9 and bun of 98. At that time the daughter was directed to take her mom to the ER [facility]. In the ER the sodium had dropped to 119, bun was 103, and creatinine was 4.5. She was given normal saline and admitted to the hospital. She was seen this afternoon and was actually talking. She claims to be feeling much better and no longer has the n/v. She still has some slightly loose bowel movements. Past Medical History Cardiac Medical History: Reports: CHF-Systolic, Coronary Artery Disease, Hypertension-primary Denies: Atrial Fibrillation, Hyperlipidemia, Myocardial Infarction Pulmonary Medical History: Reports: Pneumonia, Respiratory Failure Denies: Asthma, Chronic Obstructive Pulmonary Disease (COPD) EENT Medical History: Denies: Cataracts, Ears - Hearing aids Neurological Medical History: Denies: Hemorrhagic CVA, Ischemic CVA, Seizures Endocrine Medical History: Denies: Diabetes Mellitus Type 1, Diabetes Mellitus Type 2, Hyperthyroidism, Hypothyroidism, Obesity Complications of Diabetes: Reports: None Renal/ Medical History: Reports: Chronic Kidney Disease Stage IV, End Stage Renal Disease Denies: Nephrolithiasis Malignancy Medical History: Reports: Other - Esophageal cancer GI Medical History: Reports: Gastroesophageal Reflux Disease Denies: Cirrhosis, Crohn's Disease, Hepatitis, Peptic Ulcer Disease, Ulcerative Colitis Musculoskeltal Medical History: Reports: Arthritis Denies: Gout Skin Medical History: Denies: Eczema, Psoriasis Psychiatric Medical History: Denies: Alcohol Dependency, Depression, Substance Abuse, Tobacco Dependency Traumatic Medical History: Reports: None Infectious Medical History: Reports: None Past Surgical History Past Surgical History: Reports: None Denies: Hysterectomy Social History Lives with: Family Smoking Status: Never Smoker Electronic Cigarette use?: No Frequency of Alcohol Use: None Hx Recreational Drug Use: No Drugs: None Hx Prescription Drug Abuse: No - Advance Directive Resuscitation Status: Full Code Family History Family History: None Parental Family History Reviewed: Yes Children Family History Reviewed: Yes Sibling(s) Family History Reviewed.: Yes Medication/Allergy Home Medications: Atorvastatin Calcium [Lipitor 40 mg Tablet] 40 mg PO QHS 06/07/14 Ferrous Sulfate [Feosol 325 mg Tablet] 325 mg PO BID 05/31/19 Omeprazole 20 mg PO DAILY 05/31/19 Calcitriol [Rocaltrol 0.25 Mcg Capsule] 0.25 mcg PO MOWEFR@1000 01/28/20 Carvedilol [Coreg 6.25 mg Tablet] 6.25 mg PO Q12 01/28/20 Furosemide [Lasix 20 mg Tablet] 20 mg PO QHS 01/28/20 Furosemide [Lasix 40 mg Tablet] 40 mg PO QAM 01/28/20 Magnesium Oxide 840 mg PO BID 01/28/20 Ondansetron HCl 4 mg PO Q8HP PRN 01/28/20 Tramadol HCl [Ultram 50 mg Tablet] 50 mg PO DAILYP PRN 01/28/20 Allergies/Adverse Reactions: clopidogrel bisulfate [From Plavix] Allergy (Verified 01/27/20 19:38) Sulfa (Sulfonamide Antibiotics) Allergy (Verified 01/27/20 19:38) Review of Systems Constitutional: PRESENT: fatigue, weakness. ABSENT: chills, fever(s) Eyes: ABSENT: visual disturbances Cardiovascular: PRESENT: edema. ABSENT: chest pain, dyspnea on exertion, orthropnea Respiratory: ABSENT: cough, dyspnea, sputum Gastrointestinal: PRESENT: diarrhea, nausea - prior to admission, vomiting - prior to admission. ABSENT: abdominal pain, constipation Genitourinary: ABSENT: difficulty urinating, dysuria, nocturia Neurological: PRESENT: weakness. ABSENT: confusion, convulsions, dizziness Physical Exam Vital Signs: Temp Pulse Resp BP Pulse Ox 98.0 F 69 16 128/61 H 100 01/28/20 15:00 01/28/20 15:00 01/28/20 15:00 01/28/20 15:00 01/28/20 15:00 Intake & Output 01/27/20 01/28/20 01/29/20 06:59 06:59 06:59 Intake Total 1000 1360 Output Total 200 Balance 800 1360 Weight 64.6 kg General appearance: PRESENT: no acute distress, well-developed, well-nourished Mouth exam: PRESENT: moist, neck supple Neck exam: ABSENT: JVD, tracheal deviation Respiratory exam: PRESENT: clear to auscultation emerald. ABSENT: crackles, rales, rhonchi, wheezes Cardiovascular exam: PRESENT: +S1, +S2 GI/Abdominal exam: PRESENT: soft. ABSENT: tenderness Extremities exam: PRESENT: pedal edema, +1 edema. ABSENT: tenderness, +2 edema Neurological exam: PRESENT: alert, awake, oriented to person, oriented to place, oriented to time, oriented to situation Skin exam: PRESENT: dry, intact, warm. ABSENT: cyanosis Results Laboratory Results: 01/28/20 05:12 01/27/20 01/27/20 01/27/20 15:24 19:24 19:24 WBC 2.7 L RBC 4.29 Hgb 12.2 Hct 36.4 MCV 85 MCH 28.4 MCHC 33.4 RDW 17.2 H Plt Count 154 Seg Neutrophils % Not Reportable VBG pH VBG pCO2 VBG HCO3 VBG Base Excess Sodium 119.6 L* Potassium 4.1 Chloride 74 L Carbon Dioxide 36 H Anion Gap 10 BUN 102 H Creatinine 4.53 H Est GFR ( Amer) 11 L Glucose 106 Calcium 9.5 Magnesium 3.0 H Total Bilirubin 1.0 AST 20 Alkaline Phosphatase 70 Total Protein 8.1 Albumin 3.6 TSH Urine Color Urine Appearance Urine pH Ur Specific [place] Urine Protein Urine Glucose (UA) Urine Ketones Urine Blood Urine Nitrite Ur Leukocyte Esterase Urine WBC (Auto) Urine RBC (Auto) 01/27/20 01/28/20 01/28/20 21:00 05:12 05:12 WBC 2.5 L RBC 3.55 L Hgb 10.1 L D Hct 30.1 L MCV 85 MCH 28.5 MCHC 33.5 RDW 16.9 H Plt Count 132 L Seg Neutrophils % VBG pH VBG pCO2 VBG HCO3 VBG Base Excess Sodium 123.6 L Potassium 3.7 Chloride 83 L Carbon Dioxide 31 H Anion Gap 10 BUN 96 H Creatinine 4.16 H Est GFR ( Amer) 12 L Glucose 91 Calcium 8.9 Magnesium 2.7 H Total Bilirubin AST Alkaline Phosphatase Total Protein Albumin TSH Urine Color YELLOW Urine Appearance CLEAR Urine pH 9.0 Ur Specific [place] 1.006 Urine Protein 100 H Urine Glucose (UA) NEGATIVE Urine Ketones NEGATIVE Urine Blood NEGATIVE Urine Nitrite NEGATIVE Ur Leukocyte Esterase NEGATIVE Urine WBC (Auto) 1 Urine RBC (Auto) 0 01/28/20 01/28/20 05:12 05:12 WBC RBC Hgb Hct MCV MCH MCHC RDW Plt Count Seg Neutrophils % VBG pH 7.48 H VBG pCO2 45.4 VBG HCO3 33.0 H VBG Base Excess 8.5 Sodium Potassium Chloride Carbon Dioxide Anion Gap BUN Creatinine Est GFR ( Amer) Glucose Calcium Magnesium Total Bilirubin AST Alkaline Phosphatase Total Protein Albumin TSH 1.19 Urine Color Urine Appearance Urine pH Ur Specific [place] Urine Protein Urine Glucose (UA) Urine Ketones Urine Blood Urine Nitrite Ur Leukocyte Esterase Urine WBC (Auto) Urine RBC (Auto) Impressions: Head CT 01/27/20 18:47 IMPRESSION: No acute intracranial hemorrhage, mass, or evidence of acute territorial infarct. Moderate chronic small vessel ischemic change and intracranial atherosclerosis. EVIDENCE OF ACUTE STROKE: NO. Assessment & Plan - Diagnosis (1) Hyponatremia Is this a current diagnosis for this admission?: Yes Plan: Patient looks to be doing much better today than she was yesterday. Hyponatremia was likely due to her persistent diarrhea. Waiting on labs. While waiting will start normal saline at 100mL an hour, furosemide at 20mg qd, follow up with serial sodiums to monitor for prevention of over correction. (2) Acute kidney injury superimposed on chronic kidney disease Is this a current diagnosis for this admission?: Yes Plan: nonoliguric, most likely from dehydration from N/V/D and her not consuming fluids. Will look to continue with normal saline at 100mL an hour. Will also look to give furosemide at 20mg qd to help with keeping her urination up. Baseline is normally around 3.5 to 3.8. BUN is usually in the 40s to 50s. Will follow up with labs tomorrow. (3) Anemia Qualifiers: Anemia type: unspecified type Qualified Code(s): D64.9 - Anemia, unspecified Plan: received retacrit yesterday in the office (4) Hypertension Qualifiers: Hypertension type: essential hypertension Qualified Code(s): I10 - Essential (primary) hypertension Is this a current diagnosis for this admission?: Yes Plan: controlled (5) Congestive heart failure Qualifiers: Heart failure type: combined systolic and diastolic Heart failure chronicity: chronic Qualified Code(s): I50.42 - Chronic combined systolic (congestive) and diastolic (congestive) heart failure Is this a current diagnosis for this admission?: Yes Plan: stable, adding on gentle diuresis with the fluids to prevent from fluid overload but still flushing the kidneys.
[2020-01-28] MEDS: ONDANSETRON HCL INJ/PF 4 MG/2 ML SDV IV PRN (18:31)
[2020-01-29] MEDS: NITROGLYCERIN 2% OINTMENT 1 GM PACKET TP SCH ×5 (00:36→23:45)
[2020-01-29] MEDS: HEPARIN SOD (PORCINE) 5,000 UNIT/ML 1 ML VIAL SUBCUT SCH ×3 (05:09→21:31)
[2020-01-29 05:26] LABS: HEMATOCRIT 27.3 % (36.0-47.0); MEAN CORPUSCULAR HEMOGLOBIN 28.2 pg (27.0-33.4); MEAN CORPUSCULAR HGB CONC 33.1 g/dL (32.0-36.0); MEAN CORPUSCULAR VOLUME 85 fl (80-97); PLATELET COUNT 120 10^3/uL (150-450); RED CELL DISTRIBUTION WIDTH 16.8 % (11.5-14.0)
[2020-01-29] MEDS: PANTOPRAZOLE SODIUM 40 MG TABLET.DR PO SCH (05:27)
[2020-01-29] MEDS: NORMAL SALINE 1000 ML 1,000 ML IV PRN (05:31)
[2020-01-29 05:34] LABS: ANION GAP 8 (5-19); BLOOD UREA NITROGEN 82 mg/dL (7-20); CALCIUM 8.7 mg/dL (8.4-10.2); CARBON DIOXIDE 28 mmol/L (22-30); CHLORIDE 91 mmol/L (98-107); GLUCOSE 84 mg/dL (75-110); POTASSIUM 3.7 mmol/L (3.6-5.0)
[2020-01-29] MEDS: DOCUSATE SODIUM 100 MG CAPSULE PO SCH ×2 (10:19→17:28)
[2020-01-29] MEDS: ONDANSETRON HCL INJ/PF 4 MG/2 ML SDV IV PRN (11:43)
[2020-01-29] MEDS ORDERED: NORMAL SALINE 1000 ML 1,000 ML IV PRN (12:31)
--- NOTE | 2020-01-29 12:37 | PDOC PROGRESS REPORT ---
Subjective Progress Note for:: 01/29/20 Reason For Visit: Patient seen today. She is awake alert and appropriately oriented and responding to questions appropriately. Discussions were carried out with the nurse at her side. She is eating and drinking fluids better. She denies any history of chest pain or shortness of breath. Labs and medications were reviewed that shows improving BUN/creatinine/sodium has come up to 126. She is on normal saline 100 cc an hour. Physical Exam Vital Signs: Temp Pulse Resp BP Pulse Ox 98.0 F 80 16 139/62 H 99 01/29/20 12:17 01/29/20 12:17 01/29/20 12:17 01/29/20 12:17 01/29/20 12:17 Intake & Output 01/28/20 01/29/20 01/30/20 06:59 06:59 06:59 Intake Total 1000 3288 Output Total 200 Balance 800 3288 Weight 64.6 kg 62.8 kg General appearance: PRESENT: no acute distress Respiratory exam: PRESENT: clear to auscultation emerald, decreased breath sounds. ABSENT: crackles Cardiovascular exam: PRESENT: +S1, +S2 GI/Abdominal exam: PRESENT: soft. ABSENT: tenderness Extremities exam: PRESENT: pedal edema Neurological exam: PRESENT: alert, awake, oriented to person Psychiatric exam: PRESENT: appropriate affect Results Laboratory Results: 01/29/20 04:32 01/29/20 04:23 01/27/20 01/28/20 01/28/20 21:00 15:17 15:17 WBC RBC Hgb Hct MCV MCH MCHC RDW Plt Count Sodium 124.2 L Potassium Chloride Carbon Dioxide Anion Gap BUN Creatinine Est GFR ( Amer) Glucose Serum Osmolality 289 Calcium Magnesium Urine Osmolality 213 L 01/28/20 01/29/20 01/29/20 22:00 04:23 04:32 WBC 3.0 L RBC 3.20 L Hgb 9.0 L Hct 27.3 L MCV 85 MCH 28.2 MCHC 33.1 RDW 16.8 H Plt Count 120 L Sodium 123.8 L 126.5 L Potassium 3.7 Chloride 91 L Carbon Dioxide 28 Anion Gap 8 BUN 82 H Creatinine 3.63 H Est GFR ( Amer) 14 L Glucose 84 Serum Osmolality Calcium 8.7 Magnesium 2.5 H Urine Osmolality Impressions: Head CT 01/27/20 18:47 IMPRESSION: No acute intracranial hemorrhage, mass, or evidence of acute territorial infarct. Moderate chronic small vessel ischemic change and intracranial atherosclerosis. EVIDENCE OF ACUTE STROKE: NO. Assessment & Plan - Diagnosis (1) Acute kidney injury superimposed on chronic kidney disease Is this a current diagnosis for this admission?: Yes Plan: She is improving her renal numbers currently on current measures which I will continue. I will cut her IV fluids to 50 cc an hour for a litre and then stop. We will start her on a low-dose of Lasix at 20 daily. She does not look like she is requiring renal replacements currently. (2) Acute metabolic encephalopathy Is this a current diagnosis for this admission?: Yes Plan: Markedly improved. (3) Chronic kidney disease, stage 4 (severe) Plan: She is now getting back to her baseline renal functions. She is nonoliguric. No acute indications for renal replacements. (4) Hypertension Qualifiers: Hypertension type: essential hypertension Qualified Code(s): I10 - Essential (primary) hypertension Is this a current diagnosis for this admission?: Yes Plan: Controlled. (5) Hyponatremia Is this a current diagnosis for this admission?: Yes Plan: Improving and currently at 126. Currently on current guidelines. Monitor.
[2020-01-29] MEDS: FUROSEMIDE 20 MG TABLET PO SCH (14:39)
--- NOTE | 2020-01-29 17:47 | PDOC PROGRESS REPORT ---
Subjective Progress Note for:: 01/29/20 Subjective:: No adverse events overnight. No new complaints. Vital signs been stable. Eating and drinking without difficulty. Feeling better now. Reason For Visit: ALTERED MENTAL STATUS,HYPONATREMIA Physical Exam Vital Signs: Temp Pulse Resp BP Pulse Ox 98.4 F 105 H 16 131/69 H 99 01/29/20 15:14 01/29/20 15:14 01/29/20 15:14 01/29/20 15:14 01/29/20 15:14 Intake & Output 01/28/20 01/29/20 01/30/20 06:59 06:59 06:59 Intake Total 1000 3288 Output Total 200 Balance 800 3288 Weight 64.6 kg 62.8 kg General appearance: PRESENT: no acute distress, cooperative, disheveled Respiratory exam: PRESENT: clear to auscultation emerald, symmetrical, unlabored. ABSENT: accessory muscle use, chest wall tenderness, crackles, prolonged expiratory phas, rhonchi, tachypnea, wheezes Cardiovascular exam: PRESENT: RRR, +S1, +S2 Pulses: PRESENT: normal carotid pulses Vascular exam: PRESENT: normal capillary refill GI/Abdominal exam: PRESENT: normal bowel sounds, soft. ABSENT: distended, guarding, rebound, tenderness Extremities exam: ABSENT: clubbing, pedal edema Musculoskeletal exam: PRESENT: normal inspection. ABSENT: deformity Neurological exam: PRESENT: alert, awake, oriented to person, oriented to place, oriented to situation Psychiatric exam: PRESENT: appropriate affect, normal mood Skin exam: PRESENT: dry, warm Results Laboratory Results: 01/29/20 04:32 01/29/20 04:23 01/28/20 01/29/20 01/29/20 22:00 04:23 04:32 WBC 3.0 L RBC 3.20 L Hgb 9.0 L Hct 27.3 L MCV 85 MCH 28.2 MCHC 33.1 RDW 16.8 H Plt Count 120 L Sodium 123.8 L 126.5 L Potassium 3.7 Chloride 91 L Carbon Dioxide 28 Anion Gap 8 BUN 82 H Creatinine 3.63 H Est GFR ( Amer) 14 L Glucose 84 Calcium 8.7 Magnesium 2.5 H Impressions: Head CT 01/27/20 18:47 IMPRESSION: No acute intracranial hemorrhage, mass, or evidence of acute territorial infarct. Moderate chronic small vessel ischemic change and intracranial atherosclerosis. EVIDENCE OF ACUTE STROKE: NO. Assessment and Plan - Diagnosis (1) Acute kidney injury superimposed on chronic kidney disease Is this a current diagnosis for this admission?: Yes Plan: Her creatinine seems to be or just a little bit below her baseline, so this is resolved (2) Acute metabolic encephalopathy Is this a current diagnosis for this admission?: Yes Plan: Resolved. His mental status back to baseline. (3) Hyponatremia Is this a current diagnosis for this admission?: Yes Plan: Sodium continues to steadily improve on gentle hydration (4) Congestive heart failure Qualifiers: Heart failure type: combined systolic and diastolic Heart failure chr onicity: chronic Qualified Code(s): I50.42 - Chronic combined systolic (congestive) and diastolic (congestive) heart failure Is this a current diagnosis for this admission?: Yes Plan: Not acutely exacerbated. Lasix on hold for now. Monitoring for fluid overload. - Plan Summary Summary: Patient will be admitted to the medical floor where she received routine s upportive and symptomatic cares. Consultation with Dr. Dawit Lazaro will be obtained for nephrologic evaluation and treatment. Patient will be initially treated with normal saline at 167 mL/h after having received a 1 L bolus of normal saline in the ER. She will receive Ativan 1 mg IV every 4 hours as needed for anxiety or restlessness. She will receive hydralazine 20 mg IV and/or metoprolol 5 mg IV every 4 hours as needed for hypertension. Serial metabolic profiles will be obtained. CBCs, magnesium levels and other laboratory and/or radiographic evaluations will be obtained as appropriate. Patient will be initially treated with a cardiac diet. - Time Time Spent with patient: 15-24 minutes
[2020-01-30 05:03] LABS: HEMATOCRIT 26.1 % (36.0-47.0); HEMOGLOBIN 8.7 g/dL (12.0-15.5); MEAN CORPUSCULAR HEMOGLOBIN 28.4 pg (27.0-33.4); MEAN CORPUSCULAR HGB CONC 33.1 g/dL (32.0-36.0); MEAN CORPUSCULAR VOLUME 86 fl (80-97); PLATELET COUNT 126 10^3/uL (150-450); RED BLOOD COUNT 3.04 10^6/uL (3.72-5.28); WHITE BLOOD COUNT 3.9 10^3/uL (4.0-10.5)
[2020-01-30 05:31] LABS: ANION GAP 6 (5-19); BLOOD UREA NITROGEN 71 mg/dL (7-20); CALCIUM 8.9 mg/dL (8.4-10.2); CARBON DIOXIDE 28 mmol/L (22-30); CHLORIDE 95 mmol/L (98-107); GLUCOSE 90 mg/dL (75-110); POTASSIUM 3.9 mmol/L (3.6-5.0)
[2020-01-30] MEDS: NITROGLYCERIN 2% OINTMENT 1 GM PACKET TP SCH ×3 (05:44→17:34)
[2020-01-30] MEDS: PANTOPRAZOLE SODIUM 40 MG TABLET.DR PO SCH (05:44)
[2020-01-30] MEDS: HEPARIN SOD (PORCINE) 5,000 UNIT/ML 1 ML VIAL SUBCUT SCH ×3 (05:48→21:17)
[2020-01-30] MEDS: DOCUSATE SODIUM 100 MG CAPSULE PO SCH ×2 (09:22→17:30)
[2020-01-30] MEDS: FUROSEMIDE 20 MG TABLET PO SCH (09:23)
--- NOTE | 2020-01-30 14:52 | PDOC PROGRESS REPORT ---
Subjective Progress Note for:: 01/30/20 Subjective:: No adverse events overnight. No new complaints. She really did not want a talk very much today, she wanted to take a nap. Appetite is been fair. Urine output is been good. Reason For Visit: ALTERED MENTAL STATUS,HYPONATREMIA Physical Exam Vital Signs: Temp Pulse Resp BP Pulse Ox 98.6 F 83 16 150/73 H 100 01/30/20 10:46 01/30/20 10:46 01/30/20 10:46 01/30/20 10:46 01/30/20 10:46 Intake & Output 01/29/20 01/30/20 01/31/20 06:59 06:59 06:59 Intake Total 3288 Balance 3288 Weight 62.8 kg 62.7 kg 62.7 kg General appearance: PRESENT: no acute distress, cooperative, disheveled Respiratory exam: PRESENT: clear to auscultation emerald, symmetrical, unlabored. ABSENT: accessory muscle use, chest wall tenderness, crackles, prolonged expiratory phas, rhonchi, tachypnea, wheezes Cardiovascular exam: PRESENT: RRR, +S1, +S2 Pulses: PRESENT: normal carotid pulses Vascular exam: PRESENT: normal capillary refill GI/Abdominal exam: PRESENT: normal bowel sounds, soft. ABSENT: distended, guarding, rebound, tenderness Extremities exam: ABSENT: clubbing, pedal edema Musculoskeletal exam: PRESENT: normal inspection. ABSENT: deformity Neurological exam: PRESENT: alert, awake, oriented to person, oriented to place, oriented to situation Psychiatric exam: PRESENT: appropriate affect, normal mood Skin exam: PRESENT: dry, warm Results Laboratory Results: 01/30/20 04:41 01/30/20 04:41 01/30/20 01/30/20 04:41 04:41 WBC 3.9 L RBC 3.04 L Hgb 8.7 L Hct 26.1 L MCV 86 MCH 28.4 MCHC 33.1 RDW 17.0 H Plt Count 126 L Sodium 129.4 L Potassium 3.9 Chloride 95 L Carbon Dioxide 28 Anion Gap 6 BUN 71 H Creatinine 3.64 H Est GFR ( Amer) 14 L Glucose 90 Calcium 8.9 Magnesium 2.3 Impressions: Head CT 01/27/20 18:47 IMPRESSION: No acute intracranial hemorrhage, mass, or evidence of acute territorial infarct. Moderate chronic small vessel ischemic change and intracranial atherosclerosis. EVIDENCE OF ACUTE STROKE: NO. Assessment and Plan - Diagnosis (1) Acute kidney injury superimposed on chronic kidney disease Is this a current diagnosis for this admission?: Yes Plan: Her creatinine seems to be or just a little bit below her baseline, so this is resolved (2) Acute metabolic encephalopathy Is this a current diagnosis for this admission?: Yes Plan: Resolved. His mental status back to baseline. (3) Hyponatremia Is this a current diagnosis for this admission?: Yes Plan: Sodium continues to steadily improve on gentle hydration (4) Congestive heart failure Qualifiers: Heart failure type: combined systolic and diastolic Heart failure chronicity: chronic Qualified Code(s): I50.42 - Chronic combined systolic (congestive) and diastolic (congestive) heart failure Is this a current diagnosis for this admission?: Yes Plan: Not acutely exacerbated. Lasix on hold for now. Monitoring for fluid overload. - Plan Summary Summary: Patient will be admitted to the medical floor where she received routine supportive and symptomatic cares. Consultation with Dr. Dawit Lazaro will be obtained for nephrologic evaluation and treatment. Patient will be initially treated with normal saline at 167 mL/h after having received a 1 L bolus of normal saline in the ER. She will receive Ativan 1 mg IV every 4 hours as needed for anxiety or restlessness. She will receive hydralazine 20 mg IV and/or metoprolol 5 mg IV every 4 hours as needed for hypertension. Serial metabolic profiles will be obtained. CBCs, magnesium levels and other laboratory and/or radiographic evaluations will be obtained as appropriate. Patient will be initially treated with a cardiac diet. - Time Time Spent with patient: 15-24 minutes
[2020-01-31] MEDS: NITROGLYCERIN 2% OINTMENT 1 GM PACKET TP SCH ×5 (00:03→23:35)
[2020-01-31] MEDS: HEPARIN SOD (PORCINE) 5,000 UNIT/ML 1 ML VIAL SUBCUT SCH ×3 (05:55→21:56)
[2020-01-31] MEDS: PANTOPRAZOLE SODIUM 40 MG TABLET.DR PO SCH (06:00)
[2020-01-31] MEDS: FUROSEMIDE 20 MG TABLET PO SCH (09:36)
[2020-01-31] MEDS: DOCUSATE SODIUM 100 MG CAPSULE PO SCH ×2 (09:36→17:09)
[2020-01-31 09:43] LABS: ANION GAP 6 (5-19); BLOOD UREA NITROGEN 63 mg/dL (7-20); CALCIUM 9.1 mg/dL (8.4-10.2); CARBON DIOXIDE 26 mmol/L (22-30); CHLORIDE 98 mmol/L (98-107); GLUCOSE 101 mg/dL (75-110); POTASSIUM 4.2 mmol/L (3.6-5.0)
--- NOTE | 2020-01-31 17:31 | PDOC PROGRESS REPORT ---
Subjective Progress Note for:: 01/31/20 Subjective:: No adverse events overnight. No new complaints. She really did not want a talk very much today, she wanted to take a nap, but she did engage with me more so than yesterday. Appetite is been fair. Urine output is been good. Reason For Visit: ALTERED MENTAL STATUS,HYPONATREMIA Physical Exam Vital Signs: Temp Pulse Resp BP Pulse Ox 98.2 F 91 16 118/62 100 01/31/20 16:00 01/31/20 16:00 01/31/20 16:00 01/31/20 16:00 01/31/20 16:00 Intake & Output 01/30/20 01/31/20 02/01/20 06:59 06:59 06:59 Intake Total 1000 720 Output Total 50 Balance 1000 670 Weight 62.7 kg 63.2 kg General appearance: PRESENT: no acute distress, cooperative, disheveled Respiratory exam: PRESENT: clear to auscultation emerald, symmetrical, unlabored. ABSENT: accessory muscle use, chest wall tenderness, crackles, prolonged expiratory phas, rhonchi, tachypnea, wheezes Cardiovascular exam: PRESENT: RRR, +S1, +S2 Pulses: PRESENT: normal carotid pulses Vascular exam: PRESENT: normal capillary refill GI/Abdominal exam: PRESENT: normal bowel sounds, soft. ABSENT: distended, guarding, rebound, tenderness Extremities exam: ABSENT: clubbing, pedal edema Musculoskeletal exam: PRESENT: normal inspection. ABSENT: deformity Neurological exam: PRESENT: alert, awake, oriented to person, oriented to place, oriented to situation Psychiatric exam: PRESENT: appropriate affect, normal mood Skin exam: PRESENT: dry, warm Results Laboratory Results: 01/30/20 04:41 01/31/20 09:20 01/31/20 09:20 Sodium 129.7 L Potassium 4.2 Chloride 98 Carbon Dioxide 26 Anion Gap 6 BUN 63 H Creatinine 3.63 H Est GFR ( Amer) 14 L Glucose 101 Calcium 9.1 Impressions: Head CT 01/27/20 18:47 IMPRESSION: No acute intracranial hemorrhage, mass, or evidence of acute te rritorial infarct. Moderate chronic small vessel ischemic change and intracranial atherosclerosis. EVIDENCE OF ACUTE STROKE: NO. Assessment and Plan - Diagnosis (1) Acute kidney injury superimposed on chronic kidney disease Is this a current diagnosis for this admission?: Yes Plan: Her creatinine seems to be or just a little bit below her baseline, so this is resolved (2) Acute metabolic encephalopathy Is this a current diagnosis for this admission?: Yes Plan: Resolved. Her mental status back to baseline. We are going to ambulate her today. (3) Hyponatremia Is this a current diagnosis for this admission?: Yes Plan: Fluids have been stopped. Sodium is holding steady at around 130. (4) Congestive heart failure Qualifiers: Heart failure type: combined systolic and diastolic Heart failure chronicity: chronic Qualified Code(s): I50.42 - Chronic combined systolic (congestive) and diastolic (congestive) heart failure Is this a current diagnosis for this admission?: Yes Plan: Not acutely exacerbated. Lasix on hold for now. Monitoring for fluid overload. - Plan Summary Summary: Patient will be admitted to the medical floor where she received routine supportive and symptomatic cares. Consultation with Dr. Dawit Lazaro will be obtained for nephrologic evaluation and treatment. Patient will be initially treated with normal saline at 167 mL/h after having received a 1 L bolus of normal saline in the ER. She will receive Ativan 1 mg IV every 4 hours as needed for anxiety or restlessness. She will receive hydralazine 20 mg IV and/o r metoprolol 5 mg IV every 4 hours as needed for hypertension. Serial metabolic profiles will be obtained. CBCs, magnesium levels and other laboratory and/or radiographic evaluations will be obtained as appropriate. Patient will be initially treated with a cardiac diet. - Time Time Spent with patient: 15-24 minutes
[2020-02-01] MEDS: HEPARIN SOD (PORCINE) 5,000 UNIT/ML 1 ML VIAL SUBCUT SCH ×3 (05:21→21:51)
[2020-02-01] MEDS: NITROGLYCERIN 2% OINTMENT 1 GM PACKET TP SCH ×4 (05:25→23:43)
[2020-02-01] MEDS: PANTOPRAZOLE SODIUM 40 MG TABLET.DR PO SCH (05:25)
[2020-02-01 06:17] LABS: ANION GAP 5 (5-19); BLOOD UREA NITROGEN 58 mg/dL (7-20); CALCIUM 9.1 mg/dL (8.4-10.2); CARBON DIOXIDE 27 mmol/L (22-30); CHLORIDE 98 mmol/L (98-107); GLUCOSE 85 mg/dL (75-110); POTASSIUM 4.3 mmol/L (3.6-5.0)
[2020-02-01] MEDS: DOCUSATE SODIUM 100 MG CAPSULE PO SCH ×2 (09:16→18:51)
[2020-02-01] MEDS: FUROSEMIDE 20 MG TABLET PO SCH (09:16)
--- NOTE | 2020-02-01 14:14 | PDOC PROGRESS REPORT ---
Subjective Progress Note for:: 02/01/20 Subjective:: Patient was seen today laying in her bed. At the time she claimed to be doing better. She no longer has the n/v. The diarrhea that she had prior to admission is also gone. Appetite is still decreased. She feels that she is a little better mentally. Reason For Visit: ALTERED MENTAL STATUS,HYPONATREMIA Physical Exam Vital Signs: Temp Pulse Resp BP Pulse Ox 98.0 F 85 18 145/70 H 98 02/01/20 08:05 02/01/20 09:16 02/01/20 08:05 02/01/20 09:16 02/01/20 08:05 Intake & Output 01/31/20 02/01/20 02/02/20 06:59 06:59 06:59 Intake Total 1000 960 240 Output Total 50 250 Balance 1000 910 -10 Weight 63.2 kg 65.6 kg General appearance: PRESENT: no acute distress, well-developed, well-nourished Mouth exam: PRESENT: moist, neck supple Neck exam: ABSENT: JVD, tracheal deviation Respiratory exam: PRESENT: clear to auscultation emerald. ABSENT: crackles, rales, rhonchi, wheezes Cardiovascular exam: PRESENT: +S1, +S2 GI/Abdominal exam: PRESENT: soft. ABSENT: tenderness Extremities exam: PRESENT: pedal edema - trace+. ABSENT: +1 edema, +2 edema Neurological exam: PRESENT: alert, awake, oriented to person, oriented to place, oriented to time, oriented to situation Psychiatric exam: PRESENT: appropriate affect, normal mood Skin exam: PRESENT: dry, intact, warm. ABSENT: cyanosis Results Laboratory Results: 01/30/20 04:41 02/01/20 04:34 02/01/20 04:34 Sodium 129.7 L Potassium 4.3 Chloride 98 Carbon Dioxide 27 Anion Gap 5 BUN 58 H Creatinine 3.66 H Est GFR ( Amer) 14 L Glucose 85 Calcium 9.1 Impressions: Head CT 01/27/20 18:47 IMPRESSION: No acute intracranial hemorrhage, mass, or evidence of acute territorial infarct. Moderate chronic small vessel ischemic change and intracranial atherosclerosis. EVIDENCE OF ACUTE STROKE: NO. Assessment & Plan - Diagnosis (1) Hyponatremia Is this a current diagnosis for this admission?: Yes Plan: improved since admission. Will restart normal saline at 50mL an hour, continue on fluid restriction and furosemide. Will follow up tomorrow. Once she is around 133 she is stable for discharge as long as she is not having diarrhea. (2) Acute kidney injury superimposed on chronic kidney disease Is this a current diagnosis for this admission?: Yes Plan: resolve, at baseline (3) Anemia Qualifiers: Anemia type: unspecified type Qualified Code(s): D64.9 - Anemia, unspecified Plan: she received procrit on Saturday of last week. Will also check and iron panel (4) Hypertension Qualifiers: Hypertension type: essential hypertension Qualified Code(s): I10 - Essential (primary) hypertension Is this a current diagnosis for this admission?: Yes Plan: controlled (5) Congestive heart failure Qualifiers: Heart failure type: combined systolic and diastolic Heart failure chronicity: chronic Qualified Code(s): I50.42 - Chronic combined systolic (congestive) and diastolic (congestive) heart failure Is this a current diagnosis for this admission?: Yes Plan: stable
[2020-02-01] MEDS: NORMAL SALINE 1000 ML 1,000 ML IV PRN (14:22)
--- NOTE | 2020-02-01 16:50 | PDOC PROGRESS REPORT ---
Subjective Progress Note for:: 02/01/20 Subjective:: No adverse events overnight. No new complaints. She wants to go home tomorrow. Appetite is been fair. Urine output is been good. Reason For Visit: ALTERED MENTAL STATUS,HYPONATREMIA Physical Exam Vital Signs: Temp Pulse Resp BP Pulse Ox 98.2 F 83 18 144/67 H 100 02/01/20 15:35 02/01/20 15:35 02/01/20 15:35 02/01/20 15:35 02/01/20 15:35 Intake & Output 01/31/20 02/01/20 02/02/20 06:59 06:59 06:59 Intake Total 1000 960 240 Output Total 50 400 Balance 1000 910 -160 Weight 63.2 kg 65.6 kg General appearance: PRESENT: no acute distress, cooperative, disheveled Respiratory exam: PRESENT: clear to auscultation emerald, symmetrical, unlabored. ABSENT: accessory muscle use, chest wall tenderness, crackles, prolonged expiratory phas, rhonchi, tachypnea, wheezes Cardiovascular exam: PRESENT: RRR, +S1, +S2 Pulses: PRESENT: normal carotid pulses Vascular exam: PRESENT: normal capillary refill GI/Abdominal exam: PRESENT: normal bowel sounds, soft. ABSENT: distended, guarding, rebound, tenderness Extremities exam: ABSENT: clubbing, pedal edema Musculoskeletal exam: PRESENT: normal inspection. ABSENT: deformity Neurological exam: PRESENT: alert, awake, oriented to person, oriented to place, oriented to situation Psychiatric exam: PRESENT: appropriate affect, normal mood Skin exam: PRESENT: dry, warm Results Laboratory Results: 01/30/20 04:41 02/01/20 04:34 02/01/20 04:34 Sodium 129.7 L Potassium 4.3 Chloride 98 Carbon Dioxide 27 Anion Gap 5 BUN 58 H Creatinine 3.66 H Est GFR ( Amer) 14 L Glucose 85 Calcium 9.1 Impressions: Head CT 01/27/20 18:47 IMPRESSION: No acute intracranial hemorrhage, mass, or evidence of acute territorial infarct. Moderate chronic small vessel ischemic change and intracranial atherosclerosis. EVIDENCE OF ACUTE STROKE: NO. Assessment and Plan - Diagnosis (1) Acute kidney injury superimposed on chronic kidney disease Is this a current diagnosis for this admission?: Yes Plan: Her creatinine seems to be or just a little bit below her baseline, so this is resolved (2) Acute metabolic encephalopathy Is this a current diagnosis for this admission?: Yes Plan: Resolved. Her mental status back to baseline. She was able to ambulate with assistance to the bathroom. (3) Hyponatremia Is this a current diagnosis for this admission?: Yes Plan: Sodium has been stable at around 129. Nephrology wanted her back on fluids today to try to get her sodium up just a little bit more. When she had previously been on fluids she plateaued at 129. (4) Congestive heart failure Qualifiers: Heart failure type: combined systolic and diastolic Heart failure chronicity: chronic Qualified Code(s): I50.42 - Chronic combined systolic (congestive) and diastolic (congestive) heart failure Is this a current diagnosis for this admission?: Yes Plan: Not acutely exacerbated. Lasix on hold for now. Monitoring for fluid overload. - Plan Summary Summary: Patient will be admitted to the medical floor where she received routine supportive and symptomatic cares. Consultation with Dr. Dawit Lazaro will be obtained for nephrologic evaluation and treatment. Patient will be initially treated with normal saline at 167 mL/h after having received a 1 L bolus of normal saline in the ER. She will receive Ativan 1 mg IV every 4 hours as needed for anxiety or restlessness. She will receive hydralazine 20 mg IV and/or metoprolol 5 mg IV every 4 hours as needed for hypertension. Serial metabolic profiles will be obtained. CBCs, magnesium levels and other laboratory and/or radiographic evaluations will be obtained as appropriate. Patient will be initially treated with a cardiac diet. - Time Time Spent with patient: 15-24 minutes
[2020-02-02] MEDS: HEPARIN SOD (PORCINE) 5,000 UNIT/ML 1 ML VIAL SUBCUT SCH ×3 (05:40→21:23)
[2020-02-02] MEDS: NITROGLYCERIN 2% OINTMENT 1 GM PACKET TP SCH ×3 (05:46→18:56)
[2020-02-02] MEDS: PANTOPRAZOLE SODIUM 40 MG TABLET.DR PO SCH (05:46)
[2020-02-02 06:07] LABS: ANION GAP 6 (5-19); BLOOD UREA NITROGEN 54 mg/dL (7-20); CALCIUM 9.1 mg/dL (8.4-10.2); CARBON DIOXIDE 26 mmol/L (22-30); CHLORIDE 99 mmol/L (98-107); GLUCOSE 85 mg/dL (75-110); IRON(TIBC) 32.1 ug/dL (37-170); POTASSIUM 4.3 mmol/L (3.6-5.0)
[2020-02-02] MEDS: DOCUSATE SODIUM 100 MG CAPSULE PO SCH ×2 (10:05→18:45)
[2020-02-02] MEDS: FUROSEMIDE 20 MG TABLET PO SCH (10:06)
[2020-02-02] MEDS: NORMAL SALINE 1000 ML 1,000 ML IV PRN (10:08)
--- NOTE | 2020-02-02 16:01 | PDOC PROGRESS REPORT ---
Subjective Progress Note for:: 02/02/20 Subjective:: Patient was seen laying in her bed at the time of examination. At this time she claims to be doing better. Appetite slowly has been increasing. She denies any chest pain, SOB, increased swelling in her legs. Unfortunately her Is&Os were not accurate so urine output is unable to be determined Reason For Visit: ALTERED MENTAL STATUS,HYPONATREMIA Physical Exam Vital Signs: Temp Pulse Resp BP Pulse Ox 98.9 F 91 16 138/64 H 97 02/02/20 14:55 02/02/20 14:55 02/02/20 14:55 02/02/20 14:55 02/02/20 14:55 Intake & Output 02/01/20 02/02/20 02/03/20 06:59 06:59 06:59 Intake Total 960 240 988 Output Total 50 450 Balance 910 -210 988 Weight 65.6 kg 67.8 kg General appearance: PRESENT: no acute distress, well-developed, well-nourished Mouth exam: PRESENT: moist, neck supple Neck exam: ABSENT: JVD, tracheal deviation Respiratory exam: PRESENT: clear to auscultation emerald. ABSENT: crackles, rales, rhonchi, wheezes Cardiovascular exam: PRESENT: +S1, +S2 GI/Abdominal exam: PRESENT: soft. ABSENT: tenderness Extremities exam: PRESENT: pedal edema - -trace+. ABSENT: +1 edema, +2 edema Neurological exam: PRESENT: alert, awake, oriented to person, oriented to place, oriented to time, oriented to situation Skin exam: PRESENT: dry, intact, warm. ABSENT: cyanosis Results Laboratory Results: 01/30/20 04:41 02/02/20 04:44 02/02/20 02/02/20 04:44 04:44 Sodium 131.0 L Potassium 4.3 Chloride 99 Carbon Dioxide 26 Anion Gap 6 BUN 54 H Creatinine 3.69 H Est GFR ( Amer) 14 L Glucose 85 Calcium 9.1 Iron 32.1 L TIBC 149 L % Saturation 22 Transferrin < 80.00 L Ferritin 448.00 H Impressions: Head CT 01/27/20 18:47 IMPRESSION: No acute intracranial hemorrhage, mass, or evidence of acute territorial infarct. Moderate chronic small vessel ischemic change and intracranial atherosclerosis. EVIDENCE OF ACUTE STROKE: NO. Assessment & Plan - Diagnosis (1) Hyponatremia Is this a current diagnosis for this admission?: Yes Plan: will continue on normal saline at 50mL an hour. If sodium continues to go up tomorrow than she looks to be stable from a discharge standpoint. (2) Acute kidney injury superimposed on chronic kidney disease Is this a current diagnosis for this admission?: Yes Plan: resolved, at baseline (3) Anemia Qualifiers: Anemia type: unspecified type Qualified Code(s): D64.9 - Anemia, unspecified Plan: she received procrit on Saturday of last week. Iron panel was WNL. Will look to give another retacrit shot tomorrow. (4) Hypertension Qualifiers: Hypertension type: essential hypertension Qualified Code(s): I10 - Essential (primary) hypertension Is this a current diagnosis for this admission?: Yes Plan: controlled (5) Congestive heart failure Qualifiers: Heart failure type: combined systolic and diastolic Heart failure chronicity: chronic Qualified Code(s): I50.42 - Chronic combined systolic (congestive) and diastolic (congestive) heart failure Is this a current diagnosis for this admission?: Yes Plan: stable
--- NOTE | 2020-02-02 17:52 | PDOC DISCHARGE SUMMARY ---
Impression - Admit/DC Date/PCP Admission Date/Primary Care Provider: 01/27/20 21:41 JD SAMSON PA-C Discharge Date: 02/02/20 - Discharge Diagnosis (1) Acute kidney injury superimposed on chronic kidney disease Is this a current diagnosis for this admission?: Yes (2) Acute metabolic encephalopathy Is this a current diagnosis for this admission?: Yes (3) Hyponatremia Is this a current diagnosis for this admission?: Yes (4) Congestive heart failure Is this a current diagnosis for this admission?: Yes - Assessment Summary: Patient will be admitted to the medical floor where she received routine supportive and symptomatic cares. Consultation with Dr. Dawit Lazaro will be obtained for nephrologic evaluation and treatment. Patient will be initially treated with normal saline at 167 mL/h after having received a 1 L bolus of normal saline in the ER. She will receive Ativan 1 mg IV every 4 hours as needed for anxiety or restlessness. She will receive hydralazine 20 mg IV and/or metoprolol 5 mg IV every 4 hours as needed for hypertension. Serial metabolic profiles will be obtained. CBCs, magnesium levels and other laboratory and/or radiographic evaluations will be obtained as appropriate. Patient will be initially treated with a cardiac diet. - Additional Information Resuscitation Status: Full Code Discharge Diet: Cardiac Discharge Activity: Activity As Tolerated, Balance Activity w/Rest, Supervised Activity Referrals: EMILIE DANIELSON MD [ACTIVE STAFF] - 03/14/20 9:30 am Home Medications: Atorvastatin Calcium [Lipitor 40 mg Tablet] 40 mg PO QHS 06/07/14 Ferrous Sulfate [Feosol 325 mg Tablet] 325 mg PO BID 05/31/19 Omeprazole 20 mg PO DAILY 05/31/19 Calcitriol [Rocaltrol 0.25 mcg Capsule] 0.25 mcg PO MOWEFR@1000 01/28/20 Carvedilol [Coreg 6.25 mg Tablet] 6.25 mg PO Q12 01/28/20 Magnesium Oxide 840 mg PO BID 01/28/20 Ondansetron HCl 4 mg PO Q8HP PRN 01/28/20 Tramadol HCl [Ultram 50 mg Tablet] 50 mg PO DAILYP PRN 01/28/20 Furosemide [Lasix 20 mg Tablet] 20 mg PO DAILY #0 02/02/20 History of Present Illiness History of Present Illness: BROWN RIVAS is a 84 year old female who presented to the emergency room from home with a 1 week history of altered mental status. The patient is altered (confused) and unable to contribute to her medical history. She was sent to the emergency room by her bpm solution architect, Dr. Dawit Lazaro, due to hyponatremia and worsened renal function studies. Family provided a history of nausea, vomiting and diarrhea over the course of the last week with progressive worsening of her confusion. In the emergency room the patient was found to have a BUN of 102, a creatinine of 4.53 and a sodium of 119. She was subsequently admitted to the hospitalist service, per the request of Dr. Lazaro, for further evaluation and treatment. Hospital Course Hospital Course: This is a patient and belongs to Dr. Danielson who somehow wound up on our service. She was put on IV fluids and her sodium has slowly trended up. She also had an acute on chronic kidney injury and her creatinine is trended down to her baseline. She has been clinically stable for a few days as we have monitored her sodium and creatinine. She follows up with nephrology as an outpatient. We will make sure that she has follow-up within a week. She wanted to return home for any further care. Her labs and examination were reassuring and she was discharged in stable condition. Physical Exam Vital Signs: Temp Pulse Resp BP Pulse Ox 98.9 F 91 16 138/64 H 97 02/02/20 14:55 02/02/20 14:55 02/02/20 14:55 02/02/20 14:55 02/02/20 14:55 Intake & Output 02/01/20 02/02/20 02/03/20 06:59 06:59 06:59 Intake Total 960 240 988 Output Total 50 450 Balance 910 -210 988 Weight 65.6 kg 67.8 kg 67.8 kg General appearance: PRESENT: no acute distress, cooperative, disheveled Respiratory exam: PRESENT: clear to auscultation emerald, symmetrical, unlabored. ABSENT: accessory muscle use, chest wall tenderness, crackles, prolonged expiratory phas, rhonchi, tachypnea, wheezes Cardiovascular exam: PRESENT: RRR, +S1, +S2 Pulses: PRESENT: normal carotid pulses Vascular exam: PRESENT: normal capillary refill GI/Abdominal exam: PRESENT: normal bowel sounds, soft. ABSENT: distended, guarding, rebound, tenderness Extremities exam: ABSENT: clubbing, pedal edema Musculoskeletal exam: PRESENT: normal inspection. ABSENT: deformity Neurological exam: PRESENT: alert, awake, oriented to person, oriented to place, oriented to situation Psychiatric exam: PRESENT: appropriate affect, normal mood Skin exam: PRESENT: dry, warm Results Laboratory Results: WBC 3.9 10^3/uL (4.0-10.5) L 01/30/20 04:41 RBC 3.04 10^6/uL (3.72-5.28) L 01/30/20 04:41 Hgb 8.7 g/dL (12.0-15.5) L 01/30/20 04:41 Hct 26.1 % (36.0-47.0) L 01/30/20 04:41 MCV 86 fl (80-97) 01/30/20 04:41 MCH 28.4 pg (27.0-33.4) 01/30/20 04:41 MCHC 33.1 g/dL (32.0-36.0) 01/30/20 04:41 RDW 17.0 % (11.5-14.0) H 01/30/20 04:41 Plt Count 126 10^3/uL (150-450) L 01/30/20 04:41 Lymph % (Auto) Not Reportable 01/27/20 19:24 [place] % (Auto) Not Reportable 01/27/20 19:24 Eos % (Auto) Not Reportable 01/27/20 19:24 Baso % (Auto) Not Reportable 01/27/20 19:24 Absolute Neuts (auto) Not Reportable 01/27/20 19:24 Absolute Lymphs (auto) Not Reportable 01/27/20 19:24 Absolute Monos (auto) Not Reportable 01/27/20 19:24 Absolute Eos (auto) Not Reportable 01/27/20 19:24 Absolute Basos (auto) Not Reportable 01/27/20 19:24 Total Counted 100 01/27/20 19:24 Seg Neutrophils % Not Reportable 01/27/20 19:24 Seg Neuts % (Manual) 64 % (42-78) 01/27/20 19:24 Lymphocytes % (Manual) 29 % (13-45) 01/27/20 19:24 Monocytes % (Manual) 7 % (3-13) 01/27/20 19:24 Eosinophils % (Manual) 0 % (0-6) 01/27/20 19:24 Basophils % (Manual) 0 % (0-2) 01/27/20 19:24 Abs Neuts (Manual) 1.7 10^3/uL (1.7-8.2) 01/27/20 19:24 Abs Lymphs (Manual) 0.8 10^3/uL (0.5-4.7) 01/27/20 19:24 Abs Monocytes (Manual) 0.2 10^3/uL (0.1-1.4) 01/27/20 19:24 Absolute Eos (Manual) 0.0 10^3/uL (0.0-0.6) 01/27/20 19:24 Abs Basophils (Manual) 0.0 10^3/uL (0.0-0.2) 01/27/20 19:24 Platelet Comment ADEQUATE 01/27/20 19:24 Anisocytosis 1+ 01/27/20 19:24 VBG pH 7.48 (7.30-7.42) H 01/28/20 05:12 VBG pCO2 45.4 mmHg (35-63) 01/28/20 05:12 VBG HCO3 33.0 mmol/L (20-32) H 01/28/20 05:12 VBG Base Excess 8.5 mmol/L 01/28/20 05:12 Sodium 131.0 mmol/L (137-145) L 02/02/20 04:44 Potassium 4.3 mmol/L (3.6-5.0) 02/02/20 04:44 Chloride 99 mmol/L (98-107) 02/02/20 04:44 Carbon Dioxide 26 mmol/L (22-30) 02/02/20 04:44 Anion Gap 6 (5-19) 02/02/20 04:44 BUN 54 mg/dL (7-20) H 02/02/20 04:44 Creatinine 3.69 mg/dL (0.52-1.25) H 02/02/20 04:44 Est GFR ( Amer) 14 (>60) L 02/02/20 04:44 Est GFR (MDRD) Non-Af 12 (>60) L 02/02/20 04:44 Glucose 85 mg/dL (75-110) 02/02/20 04:44 Serum Osmolality 289 mOsm/kg (275-301) 01/28/20 15:17 Calcium 9.1 mg/dL (8.4-10.2) 02/02/20 04:44 Magnesium 2.3 mg/dL (1.6-2.3) 01/30/20 04:41 Iron 32.1 ug/dL (37-170) L 02/02/20 04:44 TIBC 149 ug/dL (250-450) L 02/02/20 04:44 % Saturation 22 % 02/02/20 04:44 Transferrin < 80.00 mg/dL (206.00-381.00) L 02/02/20 04:44 Ferritin 448.00 ng/mL (11.1-264.0) H 02/02/20 04:44 Total Bilirubin 1.0 mg/dL (0.2-1.3) 01/27/20 19:24 Direct Bilirubin 0.2 mg/dL (0.0-0.4) 01/27/20 19:24 Neonat Total Bilirubin Not Reportable 01/27/20 19:24 Neonat Direct Bilirubin Not Reportable 01/27/20 19:24 Neonat Indirect Bili Not Reportable 01/27/20 19:24 AST 20 U/L (14-36) 01/27/20 19:24 ALT 6 U/L (<35) 01/27/20 19:24 Alkaline Phosphatase 70 U/L (38-126) 01/27/20 19:24 Total Protein 8.1 g/dL (6.3-8.2) 01/27/20 19:24 Albumin 3.6 g/dL (3.5-5.0) 01/27/20 19:24 TSH 1.19 uIU/mL (0.47-4.68) 01/28/20 05:12 Urine Color YELLOW 01/27/20 21:00 Urine Appearance CLEAR 01/27/20 21:00 Urine pH 9.0 (5.0-9.0) 01/27/20 21:00 Ur Specific [place] 1.006 01/27/20 21:00 Urine Protein 100 mg/dL (NEGATIVE) H 01/27/20 21:00 Urine Glucose (UA) NEGATIVE mg/dL (NEGATIVE) 01/27/20 21:00 Urine Ketones NEGATIVE mg/dL (NEGATIVE) 01/27/20 21:00 Urine Blood NEGATIVE (NEGATIVE) 01/27/20 21:00 Urine Nitrite NEGATIVE (NEGATIVE) 01/27/20 21:00 Urine Bilirubin NEGATIVE (NEGATIVE) 01/27/20 21:00 Urine Urobilinogen NEGATIVE mg/dL (<2.0) 01/27/20 21:00 Ur Leukocyte Esterase NEGATIVE (NEGATIVE) 01/27/20 21:00 Urine WBC (Auto) 1 /HPF 01/27/20 21:00 Urine RBC (Auto) 0 /HPF 01/27/20 21:00 Squamous Epi Cells Auto 1 /HPF 01/27/20 21:00 Urine Mucus (Auto) RARE /LPF 01/27/20 21:00 Urine Osmolality 213 mOsm/kg (300-900) L 01/27/20 21:00 Urine Sodium 51 mmol/L (30-90) 01/27/20 21:00 Urine Ascorbic Acid NEGATIVE (NEGATIVE) 01/27/20 21:00 Impressions: Head CT 01/27/20 18:47 IMPRESSION: No acute intracranial hemorrhage, mass, or evidence of acute territorial infarct. Moderate chronic small vessel ischemic change and intracranial atherosclerosis. EVIDENCE OF ACUTE STROKE: NO. Plan Time Spent: Greater than 30 Minutes Stroke Is this a Stroke Patient?: No Acute Heart Failure - Is this a Heart Failure Patient?: No
[2020-02-02] MEDS: ONDANSETRON HCL INJ/PF 4 MG/2 ML SDV IV PRN (19:12)
[2020-02-03] MEDS: NITROGLYCERIN 2% OINTMENT 1 GM PACKET TP SCH ×2 (00:39→05:00)
[2020-02-03] MEDS: PANTOPRAZOLE SODIUM 40 MG TABLET.DR PO SCH (05:00)
[2020-02-03] MEDS: HEPARIN SOD (PORCINE) 5,000 UNIT/ML 1 ML VIAL SUBCUT SCH (05:00)
[2020-02-03 05:24] LABS: ANION GAP 7 (5-19); BLOOD UREA NITROGEN 49 mg/dL (7-20); CARBON DIOXIDE 24 mmol/L (22-30); CHLORIDE 102 mmol/L (98-107); GLUCOSE 84 mg/dL (75-110); POTASSIUM 4.3 mmol/L (3.6-5.0)
[2020-02-03] MEDS: NORMAL SALINE 1000 ML 1,000 ML IV PRN (06:50)
[2020-02-03] MEDS: DOCUSATE SODIUM 100 MG CAPSULE PO SCH (11:00)
[2020-02-03] MEDS: FUROSEMIDE 20 MG TABLET PO SCH (11:00)
--- NOTE | 2020-02-03 11:00 | PDOC PROGRESS REPORT ---
Subjective Progress Note for:: 02/03/20 Subjective:: No complaints this morning. Unsure why she was not discharged yesterday. No new issues overnight. Reason For Visit: ALTERED MENTAL STATUS,HYPONATREMIA Physical Exam Vital Signs: Temp Pulse Resp BP Pulse Ox 98.1 F 177 H 12 143/67 H 100 02/03/20 00:39 02/03/20 00:39 02/03/20 00:39 02/03/20 00:39 02/03/20 00:39 Intake & Output 02/02/20 02/03/20 02/04/20 06:59 06:59 06:59 Intake Total 240 2308 Output Total 450 Balance -210 2308 Weight 67.8 kg 67.8 kg General appearance: PRESENT: no acute distress Respiratory exam: PRESENT: clear to auscultation emerald, symmetrical, unlabored. ABSENT: rales, rhonchi, tachypnea, wheezes Cardiovascular exam: PRESENT: RRR, +S1, +S2. ABSENT: diastolic murmur, irregular rhythm, systolic murmur GI/Abdominal exam: PRESENT: rebound, soft. ABSENT: distended, guarding, normal bowel sounds, rigid, tenderness Rectal exam: PRESENT: deferred Neurological exam: PRESENT: alert, awake, oriented to person, oriented to place, oriented to situation Psychiatric exam: PRESENT: flat affect. ABSENT: agitated, anxious Results Laboratory Results: 01/30/20 04:41 02/03/20 04:00 02/03/20 04:00 Sodium 132.6 L Potassium 4.3 Chloride 102 Carbon Dioxide 24 Anion Gap 7 BUN 49 H Creatinine 3.64 H Est GFR ( Amer) 14 L Glucose 84 Calcium 9.0 Impressions: Head CT 01/27/20 18:47 IMPRESSION: No acute intracranial hemorrhage, mass, or evidence of acute territorial infarct. Moderate chronic small vessel ischemic change and intracranial atherosclerosis. EVIDENCE OF ACUTE STROKE: NO. Assessment and Plan - Diagnosis (1) Acute kidney injury superimposed on chronic kidney disease Is this a current diagnosis for this admission?: Yes (2) Acute metabolic encephalopathy Is this a current diagnosis for this admission?: Yes (3) Hyponatremia Is this a current diagnosis for this admission?: Yes (4) Acute on chronic combined systolic and diastolic congestive heart failure Is this a current diagnosis for this admission?: Yes - Plan Summary Summary: Patient will be admitted to the medical floor where she received routine supportive and symptomatic cares. Consultation with Dr. Dawit Lazaro will be obtained for nephrologic evaluation and treatment. Patient will be initially treated with normal saline at 167 mL/h after having received a 1 L bolus of normal saline in the ER. She will receive Ativan 1 mg IV every 4 hours as needed for anxiety or restlessness. She will receive hydralazine 20 mg IV and/or metoprolol 5 mg IV every 4 hours as needed for hypertension. Serial metabolic profiles will be obtained. CBCs, magnesium levels and other l aboratory and/or radiographic evaluations will be obtained as appropriate. Patient will be initially treated with a cardiac diet. 02/03/2020 There have been no acute events overnight. The patient is again stable for discharge. I discussed the delay with case management. She was unsure of the reason. She will be in touch with the family regarding selection of a home health agency. The discharge date was edited to reflect today as the discharge date. Please also see Dr. Whitley's dictated discharge summary. - Time Time Spent with patient: Discharge greater than 30 minutes Anticipated discharge: Home with Homehealth
--- NOTE | 2020-02-03 11:09 | PDOC PROGRESS REPORT ---
Subjective Progress Note for:: 02/03/20 Subjective:: Patient was seen sitting up in her bed at the time of examination. Besides a decreased appetite, which is chronic. She claims to be doing well. No chest pain, SOB, n/v/d. Reason For Visit: ALTERED MENTAL STATUS,HYPONATREMIA Physical Exam Vital Signs: Temp Pulse Resp BP Pulse Ox 98.1 F 177 H 12 143/67 H 100 02/03/20 00:39 02/03/20 00:39 02/03/20 00:39 02/03/20 00:39 02/03/20 00:39 Intake & Output 02/02/20 02/03/20 02/04/20 06:59 06:59 06:59 Intake Total 240 2308 Output Total 450 Balance -210 2308 Weight 67.8 kg 67.8 kg General appearance: PRESENT: no acute distress, well-developed, well-nourished Mouth exam: PRESENT: moist, neck supple Neck exam: ABSENT: JVD, tracheal deviation Respiratory exam: PRESENT: clear to auscultation emerald. ABSENT: crackles, rales, rhonchi, wheezes Cardiovascular exam: PRESENT: +S1, +S2 GI/Abdominal exam: PRESENT: soft. ABSENT: tenderness Extremities exam: PRESENT: pedal edema - -trace+. ABSENT: +1 edema, +2 edema Musculoskeletal exam: PRESENT: normal inspection. ABSENT: deformity Neurological exam: PRESENT: alert, awake, oriented to person, oriented to place, oriented to time, oriented to situation Skin exam: PRESENT: dry, intact, warm. ABSENT: cyanosis Results Laboratory Results: 01/30/20 04:41 02/03/20 04:00 02/03/20 04:00 Sodium 132.6 L Potassium 4.3 Chloride 102 Carbon Dioxide 24 Anion Gap 7 BUN 49 H Creatinine 3.64 H Est GFR ( Amer) 14 L Glucose 84 Calcium 9.0 Impressions: Head CT 01/27/20 18:47 IMPRESSION: No acute intracranial hemorrhage, mass, or evidence of acute territorial infarct. Moderate chronic small vessel ischemic change and intracranial atherosclerosis. EVIDENCE OF ACUTE STROKE: NO. Assessment & Plan - Diagnosis (1) Hyponatremia Is this a current diagnosis for this admission?: Yes Plan: Patient is improved significantly since being admitted. At this time her sodium is stable and continues to improve. She is asymptomatic. She is stable for discharge at this time. Recommend patient follow up in my office in 10 days to see if the sodium is back to her normal baseline. (2) Acute kidney injury superimposed on chronic kidney disease Is this a current diagnosis for this admission?: Yes Plan: resolved, at baseline (3) Anemia Qualifiers: Anemia type: unspecified type Qualified Code(s): D64.9 - Anemia, unspe cified Plan: she received procrit on Saturday of last week. Iron panel was WNL. She is currently receiving retacrit. (4) Hypertension Qualifiers: Hypertension type: essential hypertension Qualified Code(s): I10 - Essential (primary) hypertension Is this a current diagnosis for this admission?: Yes Plan: controlled (5) Congestive heart failure Qualifiers: Heart failure type: combined systolic and diastolic Heart failure chronicity: chronic Qualified Code(s): I50.42 - Chronic combined systolic (congestive) and diastolic (congestive) heart failure Is this a current diagnosis for this admission?: Yes Plan: stable
[2020-02-03 14:28] VITALS: BP 140/65
== END 2020-02-03 14:50 | disposition home health service (06) | DRG 682 ==
LOC: ER 17:46 → EH 21:41 → 4N 22:45
PROVIDERS: ADMIT Emergency Medicine; ATTEND Hospitalist
DX: N17.9 Acute kidney failure, unspecified (principal); G93.41 Metabolic encephalopathy; E87.1 Hypo-osmolality and hyponatremia; I13.0 Hypertensive heart and chronic kidney disease with heart failure and stage 1 through stage 4 chronic kidney disease, or unspecified chronic kidney disease; I50.42 Chronic combined systolic (congestive) and diastolic (congestive) heart failure; I25.10 Atherosclerotic heart disease of native coronary artery without angina pectoris; K21.9 Gastro-esophageal reflux disease without esophagitis; N18.9 Chronic kidney disease, unspecified; M19.90 Unspecified osteoarthritis, unspecified site; Z85.01 Personal history of malignant neoplasm of esophagus; Z88.2 Allergy status to sulfonamides; Z88.8 Allergy status to other drugs, medicaments and biological substances
CPT/HCPCS: 36415; 70450; 80048; 80053; 81001; 82728; 82803; 83540; 83550; 83735; 83930; 83935; 84295; 84300; 84443; 84466; 85025; 85027; 87086; 99285; J1644; J1940; J2405; J3490; J7030

== ENCOUNTER 2020-03-11 18:25 | Emergency (ER) | payer MEDICARE, MEDICAID ==
[2020-03-11] MEDS ORDERED: METHYLPREDNISOLONE INJ 125 MG/2 ML SDV IV ONE (18:57)
[2020-03-11] MEDS ORDERED: DIPHENHYDRAMINE HCL 50 MG/ML VIAL IV ONE (18:58)
[2020-03-11] MEDS ORDERED: FAMOTIDINE INJ/PF 20 MG/2 ML SDV IV ONE (18:58)
--- NOTE | 2020-03-11 19:19 | ER Document Report ---
ED Medical Screen (RME) - General Chief Complaint: Allergic Reaction Stated Complaint: MOUTH,TONGUE SWELLING Time Seen by Provider: 03/11/20 18:30 Primary Care Provider: JD SAMSON PA-C [Primary Care Provider] - Follow up as needed Mode of Arrival: Ambulatory Information source: Patient, Relative TRAVEL OUTSIDE OF THE [place] IN LAST 30 DAYS: No - HPI Notes: 03/11/20 19:06 84-year-old female with a history of CHF hypertension PNA CAD presents to the emergency room with daughter for concerns of upper lip swelling that she noticed this morning. Patient was given 50 mg of Benadryl by the daughter but she noticed the swelling had went down. Patient [place] when she woke up around 4 PM today she noticed that the swelling was there. Denies any new foods medications. Patient is speaking in complete sentences, has not noted any respiratory distress. Daughter lives with patient. Daughter is also concerned that she may have a UTI since she can be incontinent and does have a history of UTIs would like us to check while she is here. No drooling, respiratory distress. Patient eating and drinking without any difficulty I have greeted and performed a rapid initial assessment of this patient. A comprehensive ED assessment and evaluation of the patient, analysis of test results and completion of the medical decision making process will be conducted by additional ED providers. PHYSICAL EXAMINATION: GENERAL: Well-appearing, well-nourished and in no acute distress. HEAD: Atraumatic, normocephalic. EYES: Pupils equal round extraocular movements intact, conjunctiva are normal. Upper lip swelling. Uvula is midline. NECK: Normal range of motion CV: s1, s2 regular LUNGS: No respiratory distress - Related Data Allergies/Adverse Reactions: clopidogrel bisulfate [From Plavix] Allergy (Verified 01/27/20 19:38) Sulfa (Sulfonamide Antibiotics) Allergy (Verified 01/27/20 19:38) Past Medical History - Past Medical History Cardiac Medical History: Reports: Hx Congestive Heart Failure, Hx Coronary Artery Disease, Hx Hypertension Denies: Hx Atrial Fibrillation, Hx Heart Attack, Hx Hypercholesterolemia Pulmonary Medical History: Reports: Hx Pneumonia, Hx Respiratory Failure Denies: Hx Asthma, Hx COPD Neurological Medical History: Denies: Hx Seizures Endocrine Medical History: Denies: Hx Diabetes Mellitus Type 1, Hx Diabetes Mellitus Type 2, Hx Hyperthyroidism, Hx Hypothyroidism Renal/ Medical History: Reports: Hx End Stage Renal Disease. Denies: Hx Peritoneal Dialysis GI Medical History: Reports: Hx Gastroesophageal Reflux Disease. Denies: Hx Cirrhosis, Hx Crohn's Disease, Hx Hepatitis, Hx Ulcerative Colitis Musculoskeltal Medical History: Reports Hx Arthritis, Denies Hx Gout Skin Medical History: Denies Hx Eczema, Denies Hx Psoriasis Psychiatric Medical History: Denies: Hx Depression Infectious Medical History: Denies: Hx Hepatitis Past Surgical History: Reports: Hx Cardiac Surgery - Stent x1. Denies: Hx Hysterectomy Physical Exam - Vital signs Vitals: Temp Pulse Resp BP Pulse Ox 99.8 F 84 18 150/62 H 97 03/11/20 18:32 03/11/20 18:32 03/11/20 18:32 03/11/20 18:32 03/11/20 18:32 Course - Vital Signs Vital signs: Temp Pulse Resp BP Pulse Ox 99.8 F 84 18 150/62 H 97 03/11/20 18:32 03/11/20 18:32 03/11/20 18:32 03/11/20 18:32 03/11/20 18:32 Doctor's Discharge - Discharge Referrals: JD SAMSON PA-C [Primary Care Provider] - Follow up as needed
--- NOTE | 2020-03-11 22:15 | ER Document Report ---
ED Allergic Reaction - General Chief Complaint: Allergic Reaction Stated Complaint: MOUTH,TONGUE SWELLING Time Seen by Provider: 03/11/20 18:30 Primary Care Provider: JD SAMSON PA-C [Primary Care Provider] - Follow up as needed Mode of Arrival: Ambulatory Information source: Relative - Daughter Notes: BROWN RIVAS Female : 1935 MedRec# [id number] 03/11/20 18:49 - ED Nursing Note by JONATHAN AUGUSTIN [facility] Num: [id number] : 1935 Patient Age: 84 Pt presents to the ED for c/o mouth swelling. Per daughter, pt started with upper lip swelling this morning upon waking. Daughter reports giving 2 Benadryl. States pt woke from a nap this evening with recurrent swelling to her upper lip and mouth region. Daughter denies any new foods or medications. Pt denies any pain, fevers, chills, nausea, vomiting, chest pain or SOB. Reports swelling to upper lip region of her mouth. Denies any tongue swelling. Pt is awake and alert, PALA, breaths e/u, NAD. Initialized on 03/11/20 18:49 - END OF NOTE My notes 84-year-old black female arrives with a daughter with chief complaint of awakening this morning with edema of upper lip also taking a nap around 12 and awakening with a pool of blood and a tooth on the pillow. Otherwise patient is doing well. She does not like to go to dentist and therefore her dental caries have been continuous. Patient is on Carvediol Lasix Entresto but is not on any DYANA inhibitor at this time. TRAVEL OUTSIDE OF THE [place] IN LAST 30 DAYS: No - HPI Onset: This morning Onset/Duration: Sudden, Persistent, Better Quality of pain: No pain Severity: Mild Pain Level: 1 - Related Data Allergies/Adverse Reactions: clopidogrel bisulfate [From Plavix] Allergy (Verified 01/27/20 19:38) Sulfa (Sulfonamide Antibiotics) Allergy (Verified 01/27/20 19:38) Past Medical History - General Information source: Patient, Relative - Social History Smoking Status: Unknown if Ever Smoked Cigarette use (# per day): No Chew tobacco use (# tins/day): No Smoking Education Provided: No Frequency of alcohol use: None Drug Abuse: None Lives with: Family Family History: Reviewed & Not Pertinent Patient has suicidal ideation: No Patient has homicidal ideation: No - Past Medical History Cardiac Medical History: Reports: Hx Congestive Heart Failure, Hx Coronary Ar shannon Disease, Hx Hypertension Denies: Hx Atrial Fibrillation, Hx Heart Attack, Hx Hypercholesterolemia Pulmonary Medical History: Reports: Hx Pneumonia, Hx Respiratory Failure Denies: Hx Asthma, Hx COPD Neurological Medical History: Denies: Hx Seizures Endocrine Medical History: Denies: Hx Diabetes Mellitus Type 1, Hx Diabetes Mellitus Type 2, Hx Hyperthyroidism, Hx Hypothyroidism Renal/ Medical History: Reports: Hx End Stage Renal Disease. Denies: Hx Peritoneal Dialysis GI Medical History: Reports: Hx Gastroesophageal Reflux Disease. Denies: Hx Cirrhosis, Hx Crohn's Disease, Hx Hepatitis, Hx Ulcerative Colitis Musculoskeletal Medical History: Reports Hx Arthritis, Denies Hx Gout Skin Medical History: Denies Hx Eczema, Denies Hx Psoriasis Psychiatric Medical History: Denies: Hx Depression Infectious Medical History: Denies: Hx Hepatitis Past Surgical History: Reports: Hx Cardiac Surgery - Stent x1. Denies: Hx Hysterectomy - Immunizations Hx Pneumococcal Vaccination: 08/05/11 Review of Systems - Review of Systems Constitutional: No symptoms reported, Weakness EENT: See HPI, Other - Edema of upper lip with gingival edema and area of dental self extraction. Upper incisor premolar R Cardiovascular: No symptoms reported Respiratory: No symptoms reported Gastrointestinal: No symptoms reported Genitourinary: No symptoms reported Female Genitourinary: No symptoms reported Musculoskeletal: No symptoms reported Skin: No symptoms reported Hematologic/Lymphatic: No symptoms reported Neurological/Psychological: No symptoms reported Physical Exam - Vital signs Vitals: Temp Pulse Resp BP Pulse Ox 99.8 F 84 18 150/62 H 97 03/11/20 18:32 03/11/20 18:32 03/11/20 18:32 03/11/20 18:32 03/11/20 18:32 Interpretation: Normal - HEENT Head: Normocephalic, Atraumatic, Other - Edema of upper lip angioedema type Eyes: Normal Pupils: PERRL Pharynx: Normal Neck: Normal - Respiratory Respiratory status: No respiratory distress Chest status: Nontender Breath sounds: Normal Chest palpation: Normal - Cardiovascular Rhythm: Regular Heart sounds: Normal auscultation Murmur: No - Abdominal Organomegaly: Other - deferred - Rectal Hemorrhoids: Other - deferred - Genitourinary Bimanuel exam: Other - deferred - Back Back: Normal - Extremities General upper extremity: Normal inspection General lower extremity: Normal inspection - Neurological Neuro grossly intact: Yes Cognition: Normal Speech: Normal, Other - very PALA Cerebellar coordination: Normal - Psychological Associated symptoms: Normal affect - Skin Skin Temperature: Warm Skin Moisture: Dry Course - Vital Signs Vital signs: Temp Pulse Resp BP Pulse Ox 99.8 F 84 18 150/62 H 97 03/11/20 18:32 03/11/20 18:32 03/11/20 18:32 03/11/20 18:32 03/11/20 18:32 Discharge - Discharge Clinical Impression: S/P tooth extraction Angioedema of lips Qualifiers: Encounter type: initial encounter Qualified Code(s): T78.3XXA - Angioneurotic edema, initial encounter Condition: Good Disposition: HOME, SELF-CARE Additional Instructions: Follow-up with dentist this week return to ER as needed take medicines as directed use cool compresses all over lip edema. Take Atarax and Decadron and Augmentin as directed. Prescriptions: Hydroxyzine HCl [Atarax 10 mg Tablet] 10 mg PO BID #15 tablet Amoxicillin/Potassium Clav [Augmentin 875-125 Tablet] 1 tab PO BID #14 tab Dexamethasone [Decadron 4 Mg Tablet] 4 mg PO DAILY #5 tablet Referrals: JD SAMSON PA-C [Primary Care Provider] - Follow up as needed
[2020-03-11] MEDS ORDERED: AMOXICILLIN TR/POT CLAVULANATE 875-125 MG TAB PO ONE (22:27)
[2020-03-11] MEDS ORDERED: DEXAMETHASONE 4 MG TABLET PO ONE (22:28)
[2020-03-11] MEDS ORDERED: HYDROXYZINE HCL 2 MG/ML SYRUP 60 ML PO ONE (22:28)
[2020-03-11 22:52] VITALS: BP 170/78
== END 2020-03-11 22:50 | disposition home or self-care (01) ==
LOC: ER 18:25
DX: T78.3XXA Angioneurotic edema, initial encounter (principal); R22.0 Localized swelling, mass and lump, head; Z98.818 Other dental procedure status; X58.XXXA Exposure to other specified factors, initial encounter; I13.2 Hypertensive heart and chronic kidney disease with heart failure and with stage 5 chronic kidney disease, or end stage renal disease; N18.6 End stage renal disease; I50.9 Heart failure, unspecified
CPT/HCPCS: 99283; A9270 ×2; J3490; J8540

== ENCOUNTER 2020-03-31 13:32 | Emergency (ER) | payer MEDICARE, MEDICAID ==
--- NOTE | 2020-03-31 14:02 | ER Document Report ---
ED Medical Screen (RME) - General Chief Complaint: Abnormal Lab Results Stated Complaint: ABNORMAL LABS Time Seen by Provider: 03/31/20 13:51 Primary Care Provider: JD SAMSON PA-C [Primary Care Provider] - Follow up as needed Mode of Arrival: Wheelchair Information source: Relative Notes: 84-year-old female presented to ED via [facility]. She was sent to the ED for symptomatic hypo-magnesium. Daughter states that they took her [facility] her Procrit injection because she has iron deficiency anemia and they did lab work and found that she had a low potassium and low magnesium. They started her on potassium medicine and orange juice and she had 2 doses yesterday and 1 this morning. The daughter states that the office ca lled today and said that that she needed to come to the emergency room for IV magnesium because her magnesium level was very low. She does have a history of kidney failure heart failure high blood pressure high cholesterol arthritis and iron deficiency anemia. According to the daughter they diagnosed her with a UTI also and started her on Cipro 250 mg by mouth and she has not been able to get that yet at the pharmacy. I have greeted and performed a rapid initial assessment of this patient. A comprehensive ED assessment and evaluation of the patient, analysis of test results and completion of medical decision making process will be conducted by an additional ED providers. TRAVEL OUTSIDE OF THE [place] IN LAST 30 DAYS: No - Related Data Allergies/Adverse Reactions: clopidogrel bisulfate [From Plavix] Allergy (Verified 01/27/20 19:38) Sulfa (Sulfonamide Antibiotics) Allergy (Verified 01/27/20 19:38) Past Medical History - Social History Chew tobacco use (# tins/day): No Frequency of alcohol use: None Drug Abuse: None - Past Medical History Cardiac Medical History: Reports: Hx Congestive Heart Failure, Hx Coronary Artery Disease, Hx Hypertension Denies: Hx Atrial Fibrillation, Hx Heart Attack, Hx Hypercholesterolemia Pulmonary Medical History: Reports: Hx Pneumonia, Hx Respiratory Failure Denies: Hx Asthma, Hx COPD Neurological Medical History: Denies: Hx Seizures Endocrine Medical History: Denies: Hx Diabetes Mellitus Type 1, Hx Diabetes Mellitus Type 2, Hx Hyperthyroidism, Hx Hypothyroidism Renal/ Medical History: Reports: Hx End Stage Renal Disease. Denies: Hx Peritoneal Dialysis GI Medical History: Reports: Hx Gastroesophageal Reflux Disease. Denies: Hx Cirrhosis, Hx Crohn's Disease, Hx Hepatitis, Hx Ulcerative Colitis Musculoskeltal Medical History: Reports Hx Arthritis, Denies Hx Gout Skin Medical History: Denies Hx Eczema, Denies Hx Psoriasis Psychiatric Medical History: Denies: Hx Depression Infectious Medical History: Denies: Hx Hepatitis Past Surgical History: Reports: Hx Cardiac Surgery - Stent x1. Denies: Hx Hysterectomy Physical Exam - Vital signs Vitals: Temp Pulse Resp BP Pulse Ox 98.2 F 78 20 129/64 H 99 03/31/20 13:40 03/31/20 13:40 03/31/20 13:40 03/31/20 13:40 03/31/20 13:40 Course - Vital Signs Vital signs: Temp Pulse Resp BP Pulse Ox 98.2 F 78 20 129/64 H 99 03/31/20 13:40 03/31/20 13:40 03/31/20 13:40 03/31/20 13:40 03/31/20 13:40 Doctor's Discharge - Discharge Referrals: JD SAMSON PA-C [Primary Care Provider] - Follow up as needed
[2020-03-31 14:53] LABS: HEMATOCRIT 25.4 % (36.0-47.0); HEMOGLOBIN 8.3 g/dL (12.0-15.5); MEAN CORPUSCULAR HEMOGLOBIN 28.9 pg (27.0-33.4); MEAN CORPUSCULAR HGB CONC 32.6 g/dL (32.0-36.0); MEAN CORPUSCULAR VOLUME 89 fl (80-97); RED BLOOD COUNT 2.86 10^6/uL (3.72-5.28); RED CELL DISTRIBUTION WIDTH 18.1 % (11.5-14.0); WHITE BLOOD COUNT 3.2 10^3/uL (4.0-10.5)
[2020-03-31 15:02] LABS: ALBUMIN 3.1 g/dL (3.5-5.0); ALKALINE PHOSPHATASE 58 U/L (38-126); ANION GAP 9 (5-19); ASPARTATE AMINO TRANSFERASE 16 U/L (14-36); BILIRUBIN,DIRECT 0.5 mg/dL (0.0-0.4); BILIRUBIN,TOTAL 0.9 mg/dL (0.2-1.3); BLOOD UREA NITROGEN 49 mg/dL (7-20); CALCIUM 7.6 mg/dL (8.4-10.2); CARBON DIOXIDE 27 mmol/L (22-30); CHLORIDE 101 mmol/L (98-107); GLUCOSE 106 mg/dL (75-110); PHOSPHORUS 2.9 mg/dL (2.5-4.5); TOTAL PROTEIN 7.1 g/dL (6.3-8.2)
[2020-03-31 15:06] LABS: POTASSIUM 3.6 mmol/L (3.6-5.0)
[2020-03-31 15:14] LABS: PLATELET COUNT 78 10^3/uL (150-450)
[2020-03-31 15:21] LABS: ABSOLUTE LYMPHOCYTES# (MANUAL) 0.8 10^3/uL (0.5-4.7); ABSOLUTE MONOCYTES # (MANUAL) 0.2 10^3/uL (0.1-1.4); BASOPHILS % (MANUAL) 0 % (0-2); EOSINOPHILS % (MANUAL) 0 % (0-6); LYMPHOCYTES % (MANUAL) 24 % (13-45); MONOCYTES % (MANUAL) 6 % (3-13); SEGMENTED NEUTROPHILS % (MAN) 70 % (42-78); TOTAL CELLS COUNTED 100
[2020-03-31 15:22] LABS: ANISOCYTOSIS 2+; BURR CELLS SLIGHT; OVALOCYTES SLIGHT; TARGET CELLS SLIGHT; TOXIC VACUOLATION PRESENT
[2020-03-31 15:23] LABS: PLATELET COMMENT DECREASED
[2020-03-31] MEDS ORDERED: ONDANSETRON HCL INJ/PF 4 MG/2 ML SDV IV ONE (15:43)
--- NOTE | 2020-03-31 15:49 | ER Document Report ---
ED General - General Chief Complaint: Abnormal Lab Results Stated Complaint: ABNORMAL LABS Time Seen by Provider: 03/31/20 13:51 Primary Care Provider: JD SAMSON PA-C [Primary Care Provider] - Follow up as needed Mode of Arrival: Wheelchair TRAVEL OUTSIDE OF THE [place] IN LAST 30 DAYS: No - HPI Notes: Chief complaint: Low magnesium History of present illness: 84-year-old female who is followed primarily by Dr. Danielson and also is seen by Dr. Lazaro from nephrology with a history of stage IV kidney disease with a baseline creatinine of about 3.5. She has been going to nephrology office regularly for Epogen injections because of anemia of chronic renal disease. They monitor routine labs with the patient also. Her primary care doctor had found her potassium to be low earlier in the week and put her on some oral potassium supplementation. Today when they recheck labs at the nephrology office they found a low magnesium around 0.9. Patient has been somewhat lethargic and generally weak. They felt she should come to the emergency department for IV magnesium replacement. I spoke with her daughter by telephone who indicates that patient was also given an antibiotic yesterday for urinary tract infection. She vomited once yesterday and really has not been eating well today. She has had no fever. Patient has no complaint of pain or dysuria at this time. - Related Data Allergies/Adverse Reactions: clopidogrel bisulfate [From Plavix] Allergy (Verified 01/27/20 19:38) Sulfa (Sulfonamide Antibiotics) Allergy (Verified 01/27/20 19:38) Home Medications: potassium, zofran, mag oxide, carvedilol, atorvastatin, omeprazole, entresto, sodium bicarb Past Medical History - General Information source: Relative - Social History Smoking Status: Never Smoker Chew tobacco use (# tins/day): No Frequency of alcohol use: None Drug Abuse: None Family History: Reviewed & Not Pertinent - Past Medical History Cardiac Medical History: Reports: Hx Congestive Heart Failure, Hx Coronary Artery Disease, Hx Hypertension Denies: Hx Atrial Fibrillation, Hx Heart Attack, Hx Hypercholesterolemia Pulmonary Medical History: Reports: Hx Pneumonia, Hx Respiratory Failure Denies: Hx Asthma, Hx COPD Neurological Medical History: Denies: Hx Seizures Endocrine Medical History: Denies: Hx Diabetes Mellitus Type 1, Hx Diabetes Mellitus Type 2, Hx Hyperthyroidism, Hx Hypothyroidism Renal/ Medical History: Reports: Hx End Stage Renal Disease. Denies: Hx Peritoneal Dialysis GI Medical History: Reports: Hx Gastroesophageal Reflux Disease. Denies: Hx Cirrhosis, Hx Crohn's Disease, Hx Hepatitis, Hx Ulcerative Colitis Musculoskeletal Medical History: Reports Hx Arthritis, Denies Hx Gout Skin Medical History: Denies Hx Eczema, Denies Hx Psoriasis Psychiatric Medical History: Denies: Hx Depression Infectious Medical History: Denies: Hx Hepatitis Past Surgical History: Reports: Hx Cardiac Surgery - Stent x1. Denies: Hx Hyste rectomy - Immunizations Hx Pneumococcal Vaccination: 08/05/11 Review of Systems - Review of Systems Notes: Constitutional: Negative for fever. HENT: Negative for sore throat. Eyes: Negative for visual changes. Cardiovascular: Negative for chest pain. Respiratory: Negative for shortness of breath. Gastrointestinal: As per HPI. Genitourinary: As per HPI. Musculoskeletal: Negative for back pain. Skin: Negative for rash. Neurological: Negative for headaches, focal weakness or numbness. 10 point ROS negative except as marked above and in HPI. Physical Exam - Vital signs Vitals: Temp Pulse Resp BP Pulse Ox 98.2 F 78 20 129/64 H 99 03/31/20 13:40 03/31/20 13:40 03/31/20 13:40 03/31/20 13:40 03/31/20 13:40 - Notes Notes: GENERAL: Pleasant elderly female appearing in no acute distress. SKIN: Good turgor no rashes. HEAD: Normocephalic atraumatic. EYES: PERRLA. EOMI. Conjunctivae and sclerae clear. EARS: CANALS AND TMS CLEAR. NOSE: CLEAR. MOUTH: Moist mucosa. Good dentition. No stridor or edema. No drooling. NECK: Supple. No masses or thyromegaly. No adenopathy. Carotids 2+ without bruits. No JVD. BACK: Symmetrical without tenderness. CHEST: Respirations unlabored. Breath sounds clear and symmetrical. HEART: Regular rhythm. No murmur gallop or rub. ABDOMEN: Soft nontender without masses, organomegaly or rebound. Bowel sounds normally active. No bruits. GENITALIA: Deferred. EXTREMITIES: 1+ bilateral pretibial edema. No calf tenderness. Cap refill less than 1.5 seconds. Dorsalis pedis and posterior tibial pulses 3+ and symmetrical. NEUROLOGICAL: GCS 15. Alert and oriented x3. Fluent speech. Cranial nerves II through XII intact. Sensorimotor and cerebellar normal. Normal tone. PSYCHIATRIC: Appropriate affect. Course - Re-evaluation Re-evalutation: 03/31/20 19:41 Patient received 2 g of magnesium IV with continuous cardiac monitoring. Infusion was well-tolerated without any complications. Repeat magnesium level post infusion 1.6. Patient is at her usual baseline per family and appears stable for discharge with follow-up with her primary care physician and/or nephrology within the next 24 hours. Findings, clinical impression and plan of treatment have been discussed with patient/family. Understanding of current findings and recommendations has been acknowledged by them and there is agreement regarding disposition and follow-up. - Vital Signs Vital signs: Temp Pulse Resp BP Pulse Ox 98.2 F 78 23 H 152/86 H 96 03/31/20 13:40 03/31/20 13:40 03/31/20 19:01 03/31/20 19:01 03/31/20 19:01 - Laboratory Result Diagrams: 03/31/20 14:25 03/31/20 14:25 Laboratory results interpreted by me: 03/31/20 03/31/20 03/31/20 14:25 14:25 17:35 WBC 3.2 L RBC 2.86 L Hgb 8.3 L Hct 25.4 L RDW 18.1 H Plt Count 78 L Sodium 136.8 L BUN 49 H Creatinine 3.38 H Est GFR ( Amer) 16 L Est GFR (MDRD) Non-Af 13 L Calcium 7.6 L Magnesium 0.9 L* Direct Bilirubin 0.5 H Albumin 3.1 L Urine Protein 100 H Urine Blood SMALL H Ur Leukocyte Esterase MODERATE H Discharge - Discharge Clinical Impression: Hypomagnesemia, Chronic kidney disease, stage 4 (severe) Condition: Stable Disposition: HOME, SELF-CARE Additional Instructions: Restart all previous medications including oral magnesium. Return here as needed for new or worsening symptoms. Follow-up with primary care physician Referrals: JD SAMSON PA-C [Primary Care Provider] - Follow up as needed
[2020-03-31] MEDS: MAGNESIUM SULFATE/D5W 1 GM/100 ML RTUPB IV SCH ×2 (15:53→16:55)
[2020-03-31 18:14] LABS: APPEARANCE,URINE SLIGHTLY-CLOUDY; BILIRUBIN,URINE NEGATIVE (NEGATIVE); COLOR,URINE YELLOW; GLUCOSE, URINE NEGATIVE (NEGATIVE); KETONES,URINE NEGATIVE (NEGATIVE); LEUKOCYTE ESTERASE,URINE MODERATE (NEGATIVE); NITRITE,URINE NEGATIVE (NEGATIVE); PROTEIN,URINE 100 mg/dL (NEGATIVE); UROBILINOGEN,URINE NEGATIVE mg/dL (<2.0)
[2020-03-31 18:22] LABS: ADD MANUAL MICROSCOPIC YES; AMORPHOUS SEDIMENT,UR 1+; BACTERIA,URINE 1+ /HPF; WBC,URINE 30-50 /HPF
[2020-03-31 19:39] VITALS: BP 152/86
--- NOTE | 2020-04-01 11:19 | EKG REPORT ---
SEVERITY:- ABNORMAL ECG - UNKNOWN RHYTHM, IRREGULAR RATE [id number] LEFT BUNDLE BRANCH BLOCK : Confirmed by: Cathy Frost MD 01-Apr-2020 11:19:01
== END 2020-03-31 20:05 | disposition home or self-care (01) ==
LOC: ER 13:32
DX: E83.42 Hypomagnesemia (principal); I13.10 Hypertensive heart and chronic kidney disease without heart failure, with stage 1 through stage 4 chronic kidney disease, or unspecified chronic kidney disease; N18.4 Chronic kidney disease, stage 4 (severe); N18.5 Chronic kidney disease, stage 5; I50.9 Heart failure, unspecified; I44.7 Left bundle-branch block, unspecified; Z88.8 Allergy status to other drugs, medicaments and biological substances; Z88.2 Allergy status to sulfonamides; Z79.899 Other long term (current) drug therapy
CPT/HCPCS: 93005; 99284; 96375; 96365; 96367; 36415; 83735; 84100; 85025; 80053; 81001; 93010; J3475; J2405

== ENCOUNTER 2020-04-12 17:28 | Inpatient (IN) | payer MEDICARE, MEDICAID ==
[2020-04-12] MEDS ORDERED: NORMAL SALINE 250 ML IV ONE (18:00)
--- NOTE | 2020-04-12 18:00 | ER Document Report ---
ED Medical Screen (RME) - General Chief Complaint: CHF Exacerbation Stated Complaint: LEG SWELLING/DIFFICULTY BREATHING Time Seen by Provider: 04/12/20 18:00 Primary Care Provider: EMILIE TEJEDA MD [Primary Care Provider] - Follow up as needed Mode of Arrival: Wheelchair Information source: Relative Notes: 84-year-old female presents the ED for increasing swelling to both legs worse shortness of breath dehydration. She was seen at her primary doctors today and sent to the emergency room because she is having trouble breathing her CHF is worse her swelling is worse in both legs and she is dehydrated. She does have a history of CHF kidney failure hyponatremia hyper per kalemia high blood pressure esophageal cancer. She does have also have arthritis. She does speak when spoken to. She does not smoke drink or use any illicit drugs. I have ordered blood work EKG monitors and 250 cc of normal saline. I have greeted and performed a rapid initial assessment of this patient. A comprehensive ED assessment and evaluation of the patient, analysis of test results and completion of medical decision making process will be conducted by an additional ED providers. TRAVEL OUTSIDE OF THE [place] IN LAST 30 DAYS: No - Related Data Allergies/Adverse Reactions: clopidogrel bisulfate [From Plavix] Allergy (Verified 01/27/20 19:38) Sulfa (Sulfonamide Antibiotics) Allergy (Verified 01/27/20 19:38) Past Medical History - Past Medical History Cardiac Medical History: Reports: Hx Congestive Heart Failure, Hx Coronary Artery Disease, Hx Hypertension Denies: Hx Atrial Fibrillation, Hx Heart Attack, Hx Hypercholesterolemia Pulmonary Medical History: Reports: Hx Pneumonia, Hx Respiratory Failure Denies: Hx Asthma, Hx COPD Neurological Medical History: Denies: Hx Seizures Endocrine Medical History: Denies: Hx Diabetes Mellitus Type 1, Hx Diabetes Mellitus Type 2, Hx Hyperthyroidism, Hx Hypothyroidism Renal/ Medical History: Reports: Hx End Stage Renal Disease. Denies: Hx Peritoneal Dialysis GI Medical History: Reports: Hx Gastroesophageal Reflux Disease. Denies: Hx Cirrhosis, Hx Crohn's Disease, Hx Hepatitis, Hx Ulcerative Colitis Musculoskeltal Medical History: Reports Hx Arthritis, Denies Hx Gout Skin Medical History: Denies Hx Eczema, Denies Hx Psoriasis Psychiatric Medical History: Denies: Hx Depression Infectious Medical History: Denies: Hx Hepatitis Past Surgical History: Reports: Hx Cardiac Surgery - Stent x1. Denies: Hx Hysterectomy Physical Exam - Vital signs Vitals: Temp Pulse Resp BP Pulse Ox 97.8 F 58 L 16 127/54 H 100 04/12/20 17:36 04/12/20 17:36 04/12/20 17:36 04/12/20 17:36 04/12/20 17:36 Course - Vital Signs Vital signs: Temp Pulse Resp BP Pulse Ox 97.8 F 58 L 16 127/54 H 100 04/12/20 17:36 04/12/20 17:36 04/12/20 17:36 04/12/20 17:36 04/12/20 17:36 Doctor's Discharge - Discharge Referrals: EMILIE TEJEDA MD [Primary Care Provider] - Follow up as needed
--- NOTE | 2020-04-12 18:39 | RADIOLOGY REPORT (SQ) ---
EXAM DESCRIPTION: CHEST 2 VIEWS IMAGES COMPLETED DATE/TIME: 04/12/2020 6:29 pm REASON FOR STUDY: CHF kidney failure dehydration COMPARISON: 09/04/2019 EXAM PARAMETERS: NUMBER OF VIEWS: two views TECHNIQUE: Digital Frontal and Lateral radiographic views of the chest acquired. RADIATION DOSE: NA LIMITATIONS: none FINDINGS: LUNGS AND PLEURA: Small left pleural effusion. Central pulmonary vascular prominence. No pulmonary edema. MEDIASTINUM AND HILAR STRUCTURES: No masses or contour abnormalities. HEART AND VASCULAR STRUCTURES: Cardiomegaly. BONES: No acute findings. HARDWARE: None in the chest. OTHER: No other significant finding. IMPRESSION: Cardiomegaly with central pulmonary vascular prominence but no mary pulmonary edema. S mall left pleural effusion. TECHNICAL DOCUMENTATION: JOB ID: [id number] 2010 [employer]- All Rights Reserved Reading location - IP/workstation name: [email or web address]
[2020-04-12 20:08] LABS: HEMATOCRIT 30.4 % (36.0-47.0); MEAN CORPUSCULAR HEMOGLOBIN 28.6 pg (27.0-33.4); MEAN CORPUSCULAR HGB CONC 32.9 g/dL (32.0-36.0); MEAN CORPUSCULAR VOLUME 87 fl (80-97); RED CELL DISTRIBUTION WIDTH 19.1 % (11.5-14.0); WHITE BLOOD COUNT 3.5 10^3/uL (4.0-10.5)
[2020-04-12 20:29] LABS: PLATELET COUNT 40 10^3/uL (150-450)
[2020-04-12 20:30] LABS: BLOOD UREA NITROGEN 56 mg/dL (7-20); CALCIUM 8.9 mg/dL (8.4-10.2); CHLORIDE 92 mmol/L (98-107)
[2020-04-12 20:38] LABS: ABSOLUTE LYMPHOCYTES# (MANUAL) 0.6 10^3/uL (0.5-4.7); ABSOLUTE MONOCYTES # (MANUAL) 0.2 10^3/uL (0.1-1.4); BASOPHILS % (MANUAL) 0 % (0-2); EOSINOPHILS % (MANUAL) 0 % (0-6); LYMPHOCYTES % (MANUAL) 16 % (13-45); MONOCYTES % (MANUAL) 7 % (3-13); NUCLEATED RED BLOOD CELLS 4 /100 WBC (0); SEGMENTED NEUTROPHILS % (MAN) 77 % (42-78); TOTAL CELLS COUNTED 100
[2020-04-12 20:44] LABS: ANISOCYTOSIS 2+; BURR CELLS SLIGHT; OVALOCYTES 1+; POLYCHROMASIA SLIGHT; TARGET CELLS 1+
--- NOTE | 2020-04-12 20:44 | ER Document Report ---
ED General - General Mode of Arrival: Wheelchair TRAVEL OUTSIDE OF THE [place] IN LAST 30 DAYS: No <JAMES LEE - Last Filed: 04/13/20 06:53> <JACQUIE SALDAÑA - Last Filed: 04/13/20 11:20> - General Chief Complaint: CHF Exacerbation Stated Complaint: LEG SWELLING/DIFFICULTY BREATHING Time Seen by Provider: 04/12/20 18:00 Primary Care Provider: EMILIE DANIELSON MD [Primary Care Provider] - Follow up as needed Notes: Patient is an 84 year old female that comes to the emergency department for chief complaint of generalized weakness, not eating for the past 3 days, swelling of both lower extremities, and possible dehydration. Daughter states patient was seen by Dr. Lazaro, her block tester today, she states that they were recommended to come to the hospital after their evaluation because of patient's appearance and because they could not draw labs. Patient has a history of hypertension, CHF on 20 mg Lasix daily, chronic kidney disease, hyperlipidemia, and previous esophageal cancer. Per patient and daughter at bedside patient is able to eat but just has had no appetite. She has frequent GERD and is complaining of this, she has no other complaints on my evaluation including chest pain, shortness of breath, fever, cough, vomiting. (JAMES LEE) - Related Data Allergies/Adverse Reactions: clopidogrel bisulfate [From Plavix] Allergy (Verified 01/27/20 19:38) Sulfa (Sulfonamide Antibiotics) Allergy (Verified 01/27/20 19:38) Past Medical History - General Information source: Relative - Social History Smoking Status: Never Smoker Frequency of alcohol use: None Drug Abuse: None Lives with: Family Family History: Reviewed & Not Pertinent - Past Medical History Cardiac Medical History: Reports: Hx Congestive Heart Failure, Hx Coronary Artery Disease, Hx Hypertension Denies: Hx Atrial Fibrillation, Hx Heart Attack, Hx Hypercholesterolemia Pulmonary Medical History: Reports: Hx Pneumonia, Hx Respiratory Failure Denies: Hx Asthma, Hx COPD Neurological Medical History: Denies: Hx Seizures Endocrine Medical History: Denies: Hx Diabetes Mellitus Type 1, Hx Diabetes Mellitus Type 2, Hx Hyperthyroidism, Hx Hypothyroidism Renal/ Medical History: Reports: Hx End Stage Renal Disease. Denies: Hx Peritoneal Dialysis GI Medical History: Reports: Hx Gastroesophageal Reflux Disease. Denies: Hx Cirrhosis, Hx Crohn's Disease, Hx Hepatitis, Hx Ulcerative Colitis Musculoskeletal Medical History: Reports Hx Arthritis, Denies Hx Gout Skin Medical History: Denies Hx Eczema, Denies Hx Psoriasis Psychiatric Medical History: Denies: Hx Depression Infectious Medical History: Denies: Hx Hepatitis Past Surgical History: Reports: Hx Cardiac Surgery - Stent x1. Denies: Hx Hysterectomy - Immunizations Immunizations up to date: Yes Hx Diphtheria, Pertussis, Tetanus Vaccination: Yes Hx Pneumococcal Vaccination: 08/05/11 <JAMES LEE - Last Filed: 04/13/20 06:53> Review of Systems - Review of Systems Constitutional: See HPI EENT: No symptoms reported Cardiovascular: See HPI Respiratory: No symptoms reported Gastrointestinal: See HPI Genitourinary: No symptoms reported Female Genitourinary: No symptoms reported Musculoskeletal: No symptoms reported Skin: No symptoms reported Hematologic/Lymphatic: No symptoms reported Neurological/Psychological: No symptoms reported <JAMES LEE - Last Filed: 04/13/20 06:53> Physical Exam <JAMES LEE Filed: 04/13/20 06:53> - Vital signs Vitals: Temp Pulse Resp BP Pulse Ox 97.8 F 58 L 16 127/54 H 100 04/12/20 17:36 04/12/20 17:36 04/12/20 17:36 04/12/20 17:36 04/12/20 17:36 - Notes Notes: GENERAL: Alert, interacts well. No acute distress. HEAD: Normocephalic, atraumatic. EYES: Pupils equal, round, and reactive to light. Extraocular movements intact. ENT: Oral mucosa moist, tongue midline. Oropharynx unremarkable. Airway patent. NECK: Full range of motion. Supple. Trachea midline. No lymphadenopathy. LUNGS: Clear to auscultation bilaterally, no wheezes, rales, or rhonchi. No respiratory distress. Non-tender chest wall. HEART: Regular rate and rhythm. No murmur ABDOMEN: Generalized upper abdominal tenderness, nonspecific, no guarding. EXTREMITIES: 1+ pitting edema bilaterally of LE, moves extremities spontaneously, normal distal neurovascular exam, otherwise unremarkable. BACK: no cervical, thoracic, lumbar midline tenderness. No saddle anesthesia, normal distal neurovascular exam. Moves all extremities in full range of motion. NEUROLOGICAL: Alert and oriented x3. Normal speech. Cranial nerves II through XII grossly intact. Strength 5/5 in all extremities. PSYCH: Normal affect, normal mood. SKIN: Warm, dry, normal turgor. No rashes or lesions noted. (JAMES LEE) Course - Laboratory Result Diagrams: 04/12/20 18:38 04/13/20 04:36 <JAMES LEE - Last Filed: 04/13/20 06:53> - Laboratory Result Diagrams: 04/12/20 18:38 04/13/20 04:36 - Diagnostic Test Radiology reviewed: Reports reviewed <JACQUIE SALDAÑA - Last Filed: 04/13/20 11:20> - Re-evaluation Re-evalutation: On exam patient is actually quite well-appearing. She is alert, oriented, cooperative. She does have some upper abdominal tenderness on exam however, patient does admit to reduced eating, intermittent upper abdominal pain, and nausea when I specifically asked after initial evaluation. Remaining evaluation unremarkable except for some lower extremity edema bilaterally which is not severe. Lungs seem clear, patient does not have tachypnea or hypoxia. Vital signs unremarkable. CBC nonspecific with chronic anemia. Chemistries concerning with worsening chronic kidney disease, potassium of 6.0, however EKG does not show prolonged QT or peaked T waves. LFTs are very abnormal with AST greater than ALT, lipase is elevated at greater than 1000, bilirubin is also elevated. Patient still has gallbladder. Ultrasound was performed and shows cholelithiasis without cholecystitis or common bile duct dilatation. Nonspecific work-up at this point. In addition to this AST is higher with the LFTs. BNP is very elevated but nonspecific in renal patient, troponin is also elevated but patient has no chest pain. EKG unchanged from prior. On reevaluation patient has no complaints. I discussed patient with Dr. Stevens. Her recommendation is some additional IV fluids and MRCP in the morning to evaluate for common bile duct o bstruction. I discussed this in detail with patient and daughter, we will cycle CMP/lipase and patient will have an MRI in a few hours. CMP is significantly improved with all labs improving including potassium, LFTs, lipase, bilirubin. MRI is still pending. (JAMES LEE) 04/13/20 09:50 MRI report back, call placed for consultation with surgeon, Dr. Mejia currently involved in the case and will return call when finished. 04/13/20 10:[address] Mejia regarding patient presentation and diagnostic evaluation. He states that he will be down to evaluate patient in about an hour and advises starting 1 g of Rocephin and 900 mg of clindamycin. He recommends giving IV normal saline at 75 mL an hour and consulting with her primary doctor for admission. 04/13/20 10:[address] Danielson regarding patient's need for admission, Dr. Danielson requests that Dr. Mejia be reconsulted as he is concerned that patient may be too high risk given her multiple comorbidities to be managed at this facility and wants to be certain that she is not going to require transfer. 04/13/20 11:02 Dr. Mejia is at bedside evaluating patient. 04/13/20 11:12 Dr. Mejia evaluated patient and does not feel that she has an emergent surgical case but could have an elective cholecystectomy. He states that if patient and family are requesting the gallbladder to be removed, that this should be done at a higher level of care facility due to patient's multiple comorbidities. He does not feel that patient has acute cholecystitis. Call placed to grinding mill operator for consultation with patient's primary care provider. 04/13/20 11:18 Spoke with patient's primary doctor Dr. Danielson who does agree to admit patient to the IMCU unit at this time. Family states that patient does not want to have any procedure performed but she is agreeable with admission to the hospital to help better manage her symptoms. Dr. Danielson recommends consult be placed in the computer for patient's block tester. (JACQUIE SALDAÑA) - Vital Signs Vital signs: Temp Pulse Resp BP Pulse Ox 97.4 F 58 L 22 H 127/57 H 100 04/13/20 03:44 04/12/20 17:36 04/13/20 11:01 04/13/20 11:00 04/13/20 11:01 - Laboratory Laboratory results interpreted by me: 04/12/20 04/12/20 04/12/20 18:38 18:38 18:38 WBC 3.5 L RBC 3.50 L Hgb 10.0 L Hct 30.4 L RDW 19.1 H Plt Count 40 L Sodium 127.8 L Potassium 6.0 H* Chloride 92 L BUN 56 H Creatinine 4.73 H Est GFR ( Amer) 11 L Est GFR (MDRD) Non-Af 9 L Glucose 72 L POC Glucose Calcium Total Bilirubin 2.2 H Direct Bilirubin 1.6 H AST 828 H ALT 458 H Alkaline Phosphatase 285 H NT-Pro-B Natriuret Pep 287664 H Total Protein Albumin 3.3 L Lipase Urine Protein Urine Blood 04/12/20 04/12/20 04/13/20 18:38 22:48 03:18 WBC RBC Hgb Hct RDW Plt Count Sodium Potassium Chloride BUN Creatinine Est GFR ( Amer) Est GFR (MDRD) Non-Af Glucose POC Glucose 207 H 67 L Calcium Total Bilirubin Direct Bilirubin AST ALT Alkaline Phosphatase NT-Pro-B Natriuret Pep Total Protein Albumin Lipase 1040.5 H Urine Protein Urine Blood 04/13/20 04/13/20 04/13/20 03:35 04:15 04:36 WBC RBC Hgb Hct RDW Plt Count Sodium 128.3 L Potassium Chloride 97 L BUN 54 H Creatinine 4.43 H Est GFR ( Amer) 11 L Est GFR (MDRD) Non-Af 9 L Glucose 131 H POC Glucose 150 H Calcium 8.2 L Total Bilirubin 1.5 H Direct Bilirubin 1.1 H AST 706 H ALT 355 H Alkaline Phosphatase 212 H NT-Pro-B Natriuret Pep Total Protein 6.2 L Albumin 2.6 L Lipase 857.1 H Urine Protein 100 H Urine Blood SMALL H - EKG Interpretation by Me Additional EKG results interpreted by me: EKG shows sinus bradycardia at a rate of 56. QTc 475, flattened T waves inferiorly with slight T wave depressions laterally. No overt ST segment changes in consecutive leads. Left bundle branch block. EKG unchanged from prior. (JAMES LEE) Discharge <JAMES LEE - Last Filed: 04/13/20 06:53> - Discharge Admitting Provider: [facility] Unit Admitted: IMCU <JACQUIE SALDAÑA - Last Filed: 04/13/20 11:20> - Discharge Clinical Impression: Hyperkalemia, Elevated LFTs, Thrombocytopenia Acute on chronic renal failure Qualifiers: Acute renal failure type: unspecified Chronic kidney disease stage: unspecified stage Qualified Code(s): N17.9 - Acute kidney failure, unspecified Pancreatitis Qualifiers: Chronicity: acute Pancreatitis type: unspecified pancreatitis type Acute pancreatitis complication: unspecified Qualified Code(s): K85.90 - Acute pancreatitis without necrosis or infection, unspecified Abdominal pain Qualifiers: Abdominal location: epigastric Qualified Code(s): R10.13 - Epigastric pain Cholelithiasis Qualifiers: Cholelithiasis location: gallbladder Cholecystitis presence: without cholecystitis Biliary obstruction: without biliary obstruction Qualified Code(s): K80.20 - Calculus of gallbladder without cholecystitis without obstruction Condition: Fair Disposition: ADMITTED INPATIENT Referrals: EMILIE DANIELSON MD [Primary Care Provider] - Follow up as needed
[2020-04-12 20:45] LABS: PAPPENHEIMER BODIES PRESENT; PLATELET COMMENT DECREASED
[2020-04-12 20:56] LABS: ALBUMIN 3.3 g/dL (3.5-5.0); ALKALINE PHOSPHATASE 285 U/L (38-126); ANION GAP 10 (5-19); BILIRUBIN,DIRECT 1.6 mg/dL (0.0-0.4); BILIRUBIN,TOTAL 2.2 mg/dL (0.2-1.3); CARBON DIOXIDE 26 mmol/L (22-30); GLUCOSE 72 mg/dL (75-110); TOTAL PROTEIN 7.5 g/dL (6.3-8.2)
[2020-04-12 21:08] LABS: ASPARTATE AMINO TRANSFERASE 828 U/L (14-36)
[2020-04-12] MEDS ORDERED: DEXTROSE 50%-WATER 25 GM/50 ML DISP.SYRIN IV ONE (21:40)
[2020-04-12] MEDS ORDERED: INSULIN REG, HUMAN 100 UNIT/ML 3 ML VIAL (PYX) IV ONE (21:40)
[2020-04-12] MEDS ORDERED: CALCIUM GLUCONATE 1000 MG/10 ML INJ IV ONE (21:41)
--- NOTE | 2020-04-13 00:04 | RADIOLOGY REPORT (SQ) ---
CLINICAL INDICATION: epigastric pain, elevated LFT and lipase. . TECHNIQUE: Real time multiplanar ultrasonographic armas scale imaging was obtained of the right upper quadrant. 76 images obtained. COMPARISON: None available. CORRELATION: None. FINDINGS: The liver is enlarged at 17.2 cm. It is heterogeneously hyperechoic.. No evidence of intrahepatic or extrahepatic biliary ductal dilatation. The common bile duct measures 2 millimeters. Portal vein is patent and appropriate in the visualized portion. The gallbladder demonstrates cholelithiasis but is nondistended.. No surrounding inflammatory changes. Focal fatty sparing in the gallbladder fossa.. The midline structures are unremarkable in the visualized portion. . Right kidney is atrophic is 7.8 cm. There are multiple simple appearing cysts, the largest measuring 4.9 cm. No hydronephrosis IMPRESSION: Medical hepatic disease, presumed steatosis. Cholelithiasis without acute cholecystitis. No ductal dilatation. Right renal atrophy.
[2020-04-13] MEDS ORDERED: NORMAL SALINE 500 ML IV ONE (00:40)
[2020-04-13] MEDS ORDERED: NORMAL SALINE 1000 ML 1,000 ML IV PRN ×3 (01:32→15:08)
[2020-04-13] MEDS ORDERED: DEXTROSE 50%-WATER 25 GM/50 ML DISP.SYRIN IV ONE (03:24)
[2020-04-13 04:01] LABS: APPEARANCE,URINE CLEAR; BILIRUBIN,URINE NEGATIVE (NEGATIVE); COLOR,URINE YELLOW; GLUCOSE, URINE NEGATIVE (NEGATIVE); KETONES,URINE NEGATIVE (NEGATIVE); LEUKOCYTE ESTERASE,URINE NEGATIVE (NEGATIVE); NITRITE,URINE NEGATIVE (NEGATIVE); PROTEIN,URINE 100 mg/dL (NEGATIVE); URINE SPECIFIC GRAVITY 1.005; UROBILINOGEN,URINE NEGATIVE mg/dL (<2.0)
[2020-04-13 05:26] LABS: ALBUMIN 2.6 g/dL (3.5-5.0); ALKALINE PHOSPHATASE 212 U/L (38-126); ANION GAP 8 (5-19); ASPARTATE AMINO TRANSFERASE 706 U/L (14-36); BILIRUBIN,DIRECT 1.1 mg/dL (0.0-0.4); BILIRUBIN,TOTAL 1.5 mg/dL (0.2-1.3); BLOOD UREA NITROGEN 54 mg/dL (7-20); CALCIUM 8.2 mg/dL (8.4-10.2); CARBON DIOXIDE 23 mmol/L (22-30); CHLORIDE 97 mmol/L (98-107); GLUCOSE 131 mg/dL (75-110); TOTAL PROTEIN 6.2 g/dL (6.3-8.2)
--- NOTE | 2020-04-13 09:40 | EKG REPORT ---
SEVERITY:- ABNORMAL ECG - SINUS OR ECTOPIC ATRIAL RHYTHM LEFT BUNDLE BRANCH BLOCK : Confirmed by: Merlin Pastor MD 13-Apr-2020 09:39:19
--- NOTE | 2020-04-13 09:45 | RADIOLOGY REPORT (SQ) ---
EXAM DESCRIPTION: MRI ABDOMEN WITHOUT IMAGES COMPLETED DATE/TIME: 04/13/2020 9:06 am REASON FOR STUDY: MRCP, eval for CBD obstruction COMPARISON: Ultrasound of the abdomen from 04/12/2020. TECHNIQUE: Noncontrast MRCP. Source and MIP images reviewed. LIMITATIONS: None. FINDINGS: GALLBLADDER: There are several calculi within the lumen of the gallbladder. The gallbladd er wall is thickened measuring 4 mm. INTRAHEPATIC DUCTS: There is no dilatation of the intrahepatic ducts. EXTRAHEPATIC DUCTS: The common bile duct is normal in caliber. There is no evidence of choledocholit hiasis or dilatation of the pancreatic duct. PANCREAS: No abnormality. LIVER, SPLEEN, KIDNEYS, ADRENALS: The morphology of the liver is noncirrhotic. There is no evidence of hepatic steatosis based on the in and out of phase sequences. The spleen is normal in size. Ther e is a 12 x 7 mm nodule in the right adrenal gland that demonstrates drop of signal on the out of pha se sequence consistent with a lipid-rich adenoma. There are numerous bilateral cystic renal lesions that demonstrate increased signal on the T2 weighted sequences and measure up to 4.7 x 4 cm. There i s no hydronephrosis. VESSELS: No abnormality. LUNG BASES: Cardiomegaly and small bilateral pleural effusions. OTHER: Colonic diverticulosis. IMPRESSION: 1. Cholelithiasis and gallbladder wall thickening. There is no dilatation of the common bile duct or evidence of choledocholithiasis. 2. Cardiomegaly and small bilateral pleural effusions. 3. 12 x 7 mm right adrenal lipid rich adenoma. 4. Colonic diverticulosis. TECHNICAL DOCUMENTATION: JOB ID: [id number] 2010 [employer] All Rights Reserved Reading location - IP/workstation name: [email or web address]
[2020-04-13] MEDS ORDERED: ACETAMINOPHEN 325 MG TABLET PO ONE (09:46)
[2020-04-13] MEDS ORDERED: CEFTRIAXONE 1 GM/D5W RTU 1 GM/50 ML RTUPB IV ONE (10:07)
[2020-04-13] MEDS ORDERED: CLINDAMYCIN 900 MG/D5W RTU 900 MG/50 ML RTUPB IV ONE (10:10)
[2020-04-13] MEDS ORDERED: ACETAMINOPHEN 325 MG TABLET PO PRN (11:26)
[2020-04-13] MEDS ORDERED: ONDANSETRON HCL INJ/PF 4 MG/2 ML SDV IV PRN (11:26)
--- NOTE | 2020-04-13 11:27 | PDOC CONSULTATION ---
Consultation Consult Date: 04/13/20 Provider Consulted: REGINALD VILLARREAL Consult reason:: Gallstone pancreatitis History of Present Illness Admission Date/PCP: EMILIE TEJEDA MD History of Present Illness: BROWN RIVAS is a 84 year old female, history of esophageal cancer treated conservatively, severe congestive heart failure, severe kidney failure with elevated BUN to creatinine currently not on dialysis, dementia, bedridden, with severe thrombocytopenia above 40,000, seen emergency room with a complaint of no appetite for the past 3 days and epigastric abdominal pain. Her blood work re veals an elevated lipase of more than 1000 on admission now decreased to 756, elevated AST ALT alkaline phosphatase of bilirubin 1.5. An MRCP was done and revealed a slightly thickened gallbladder wall cholelithiasis no stones within the common bile duct; and ultrasound gallbladder reveals cholelithiasis. Past Medical History Cardiac Medical History: Reports: Congestive Heart Failure, Coronary Artery Disease, Hypertension Denies: Atrial Fibrillation, Myocardial Infarction, Hyperlipidema Pulmonary Medical History: Reports: Pneumonia, Respiratory Failure Denies: Asthma, Chronic Obstructive Pulmonary Disease (COPD) Neurological Medical History: Denies: Seizures Endocrine Medical History: Denies: Diabetes Mellitus Type 1, Diabetes Mellitus Type 2, Hyperthyroidism, Hypothyroidism Renal/ Medical History: Reports: End Stage Renal Disease GI Medical History: Reports: Gastroesophageal Reflux Disease Denies: Cirrhosis, Crohn's Disease, Hepatitis, Ulcerative Colitis Musculoskeltal Medical History: Reports: Arthritis Denies: Gout Skin Medical History: Denies: Eczema, Psoriasis Psychiatric Medical History: Denies: Depression Hematology: Reports: Anemia - Chronic secondary to CKD Past Surgical History Past Surgical History: Denies: Hysterectomy Social History Lives with: Family Smoking Status: Never Smoker Frequency of Alcohol Use: None Hx Recreational Drug Use: No Drugs: None Hx Prescription Drug Abuse: No Family History Family History: Reviewed & Not Pertinent Parental Family History Reviewed: No Children Family History Reviewed: No Sibling(s) Family History Reviewed.: No Medication/Allergy Home Medications: Atorvastatin Calcium [Lipitor 40 mg Tablet] 40 mg PO QHS 06/07/14 Ferrous Sulfate [Feosol 325 mg Tablet] 325 mg PO BID 05/31/19 Omeprazole 20 mg PO DAILY 05/31/19 Calcitriol [Rocaltrol 0.25 mcg Capsule] 0.25 mcg PO MOWEFR@1000 01/28/20 Carvedilol [Coreg 6.25 mg Tablet] 6.25 mg PO Q12 01/28/20 Magnesium Oxide 840 mg PO BID 01/28/20 Ondansetron HCl 4 mg PO Q8HP PRN 01/28/20 Tramadol HCl [Ultram 50 mg Tablet] 50 mg PO DAILYP PRN 01/28/20 Furosemide [Lasix 20 mg Tablet] 20 mg PO DAILY #0 02/02/20 Amoxicillin/Potassium Clav [Augmentin 875-125 Tablet] 1 tab PO BID #14 tab 03/11/20 Dexamethasone [Decadron 4 Mg Tablet] 4 mg PO DAILY #5 tablet 03/11/20 Hydroxyzine HCl [Atarax 10 mg Tablet] 10 mg PO BID #15 tablet 03/11/20 Allergies/Adverse Reactions: clopidogrel bisulfate [From Plavix] Allergy (Verified 01/27/20 19:38) Sulfa (Sulfonamide Antibiotics) Allergy (Verified 01/27/20 19:38) Physical Exam Vital Signs: Temp Pulse Resp BP Pulse Ox 97.4 F 58 L 22 H 127/57 H 100 04/13/20 03:44 04/12/20 17:36 04/13/20 11:01 04/13/20 11:00 04/13/20 11:01 Intake & Output 04/12/20 04/13/20 04/14/20 06:59 06:59 06:59 Intake Total 750 1050 Balance 750 1050 Weight 71.2 kg General appearance: PRESENT: no acute distress, thin, other - Sleepy but arousable with little understanding of her condition Head exam: PRESENT: atraumatic Eye exam: PRESENT: EOMI Mouth exam: PRESENT: neck supple Teeth exam: PRESENT: poor dentation Neck exam: PRESENT: full ROM Respiratory exam: PRESENT: clear to auscultation emerald Cardiovascular exam: PRESENT: RRR GI/Abdominal exam: PRESENT: soft, tenderness - epigastric and right upper quadrant Rectal exam: PRESENT: deferred Extremities exam: PRESENT: other - Decrease in all 4 extremities Results Laboratory Results: 04/12/20 18:38 04/13/20 04:36 04/12/20 04/12/20 04/12/20 18:38 18:38 18:38 WBC 3.5 L RBC 3.50 L Hgb 10.0 L Hct 30.4 L MCV 87 MCH 28.6 MCHC 32.9 RDW 19.1 H Plt Count 40 L Seg Neutrophils % Not Reportable Sodium 127.8 L Potassium 6.0 H* Chloride 92 L Carbon Dioxide 26 Anion Gap 10 BUN 56 H Creatinine 4.73 H Est GFR ( Amer) 11 L Glucose 72 L Calcium 8.9 Total Bilirubin 2.2 H AST 828 H Alkaline Phosphatase 285 H Total Protein 7.5 Albumin 3.3 L Lipase 1040.5 H Urine Color Urine Appearance Urine pH Ur Specific [place] Urine Protein Urine Glucose (UA) Urine Ketones Urine Blood Urine Nitrite Ur Leukocyte Esterase Urine WBC (Auto) Urine RBC (Auto) 04/13/20 04/13/20 03:35 04:36 WBC RBC Hgb Hct MCV MCH MCHC RDW Plt Count Seg Neutrophils % Sodium 128.3 L Potassium 5.0 D Chloride 97 L Carbon Dioxide 23 Anion Gap 8 BUN 54 H Creatinine 4.43 H Est GFR ( Amer) 11 L Glucose 131 H Calcium 8.2 L Total Bilirubin 1.5 H AST 706 H Alkaline Phosphatase 212 H Total Protein 6.2 L Albumin 2.6 L Lipase 857.1 H Urine Color YELLOW Urine Appearance CLEAR Urine pH 7.0 Ur Specific [place] 1.005 Urine Protein 100 H Urine Glucose (UA) NEGATIVE Urine Ketones NEGATIVE Urine Blood SMALL H Urine Nitrite NEGATIVE Ur Leukocyte Esterase NEGATIVE Urine WBC (Auto) 2 Urine RBC (Auto) 1 04/12/20 04/12/20 18:38 18:38 Troponin I 0.124 NT-Pro-B Natriuret Pep [id number] H Impressions: Chest X-Ray 04/12/20 17:56 IMPRESSION: Cardiomegaly with central pulmonary vascular prominence but no mary pulmonary edema. Small left pleural effusion. Abdomen Ultrasound 04/12/20 22:05 IMPRESSION: Medical hepatic disease, presumed steatosis. Cholelithiasis without acute cholecystitis. No ductal dilatation. Right renal atrophy. Abdomen MRI 04/13/20 00:40 IMPRESSION: 1. Cholelithiasis and gallbladder wall thickening. There is no dilatation of the common bile duct or evidence of choledocholithiasis. 2. Cardiomegaly and small bilateral pleural effusions. 3. 12 x 7 mm right adrenal lipid rich adenoma. 4. Colonic diverticulosis. Assessment & Plan - Diagnosis (2) Abdominal pain Qualifiers: Abdominal location: epigastric Qualified Code(s): R10.13 - Epigastric pain Is this a current diagnosis for this admission?: Yes (3) Acute on chronic renal failure Qualifiers: Acute renal failure type: unspecified Chronic kidney disease stage: unspecified stage Qualified Code(s): N17.9 - Acute kidney failure, un specified; N18.9 - Chronic kidney disease, unspecified Is this a current diagnosis for this admission?: Yes (4) Cholelithiasis Qualifiers: Cholelithiasis location: gallbladder Cholecystitis presence: without cholecystitis Biliary obstruction: without biliary obstruction Qualified Code(s): K80.20 - Calculus of gallbladder without cholecystitis without obstruction Is this a current diagnosis for this admission?: Yes - Plan Summary Plan Summary: Assessment: History of multiple significant medical problems including congestive heart failure, kidney failure, dementia, bedridden, thrombocytopenia Cholelithiasis with gastropancreatic Elevation of transaminase and alkaline phosphatase Elevation of lipase Total bilirubin 1.5 Plan: This patient represents a significant surgical challenge, therefore my opinion is that if she would not benefit from surgery done at this institution or at any other institutions as she represents a significant surgical risk. After long conversation with the patient's daughter, she has expressed her and her mother wishes not to have the mother undergo any surgery at this point and to have her treated conservatively. I will sign off. Thank you for the consultation, please call him back with further questions
[2020-04-13] MEDS: CEFEPIME 1 GM/D5W RTU 1 GM/50 ML RTUPB IV SCH (14:08)
[2020-04-13] MEDS ORDERED: FUROSEMIDE 20 MG TABLET PO PRN (15:06)
--- NOTE | 2020-04-13 15:27 | PDOC H&P ---
History of Present Illness Admission Date/PCP: 04/13/20 12:10 EMILIE TEJEDA MD Patient complains of: Generalized weakness History of Present Illness: BROWN RIVAS is a 84 year old female This is a 83-year-old female's with the chronic kidney disease stage V refused further dialysis history of the cardiomyopathy with EF is 40% currently see Dr. Garcia with a history of the cervical cancer status post surgery last endoscopy [address] Chauhan history of the hypertension hyperlipidemia history of the gallstone and multiple other comorbidity and history of the dementia came to the emergency departmentsBecause of the daughter start patient is getting more weak and dehydrated and some swelling in the lower extremities and not eating much In the ER initial evaluations patient was found some gallstone pancreatitis with lipase is elevated at 800 range patient have a history of the gallstone in the past patient have abdominal MRI did not show any CBD stone and the surgery saw the patient and patient's and the family do not want to go for any surgical intervention understand very well at this point decided to admit the patient in the hospital LFT and alkaline [place] is elevated with consistence with a gallstone and also from underlying cardiac cirrhosis Patient's denied any chest pain no short of breath Discussed with the daughter very extensively regarding the patient's current conditions with the poor prognosis with the multiple comorbidity and the patient did not want to go for any dialysis patients do not want to go for any surgical interventions lead to multiple complications and the patient and her daughter understand very well We will admit the patient in IMCU we will give her some slow hydrations IV antibiotic and consult the palliative Past Medical History Cardiac Medical History: Reports: Congestive Heart Failure, Coronary Artery Disease, Hypertension Denies: Atrial Fibrillation, Myocardial Infarction, Hyperlipidema Pulmonary Medical History: Reports: Pneumonia, Respiratory Failure Denies: Asthma, Chronic Obstructive Pulmonary Disease (COPD) Neurological Medical History: Denies: Seizures Endocrine Medical History: Denies: Diabetes Mellitus Type 1, Diabetes Mellitus Type 2, Hyperthyroidism, Hypothyroidism Renal/ Medical History: Reports: End Stage Renal Disease GI Medical History: Reports: Gastroesophageal Reflux Disease Denies: Cirrhosis, Crohn's Disease, Hepatitis, Ulcerative Colitis Musculoskeltal Medical History: Reports: Arthritis Denies: Gout Skin Medical History: Denies: Eczema, Psoriasis Psychiatric Medical History: Denies: Depression Hematology: Reports: Anemia - Chronic secondary to CKD Past Surgical History Past Surgical History: Denies: Hysterectomy Social History Information Source: Patient, Relative Lives with: Family Smoking Status: Never Smoker Frequency of Alcohol Use: None Hx Recreational Drug Use: No Drugs: None Hx Prescription Drug Abuse: No Family History Family History: Reviewed & Not Pertinent Parental Family History Reviewed: Yes Children Family History Reviewed: Yes Sibling(s) Family History Reviewed.: Yes Medication/Allergy Home Medications: Atorvastatin Calcium [Lipitor 40 mg Tablet] 40 mg PO QHS 06/07/14 Ferrous Sulfate [Feosol 325 mg Tablet] 325 mg PO BID 05/31/19 Omeprazole 20 mg PO DAILY 05/31/19 Calcitriol [Rocaltrol 0.25 mcg Capsule] 0.25 mcg PO MOWEFR@1000 01/28/20 Carvedilol [Coreg 6.25 mg Tablet] 6.25 mg PO Q12 01/28/20 Magnesium Oxide 420 mg PO BID 01/28/20 Ondansetron HCl 4 mg PO Q8HP PRN 01/28/20 Tramadol HCl [Ultram 50 mg Tablet] 50 mg PO DAILYP PRN 01/28/20 Cyanocobalamin (Vitamin B-12) [B-12] 500 mcg PO DAILY 04/13/20 Epoetin Tristan-Epbx [Retacrit] 20,000 unit SQ [id number] 04/13/20 Furosemide [Lasix 20 mg Tablet] 20 mg PO DAILYP PRN 04/13/20 Metolazone [Zaroxolyn 2.5 mg Tablet] 2.5 mg PO DAILY 04/13/20 Nitroglycerin [Nitrostat 0.4 mg (1/150 Gr) Tabs 25/Bottle] 1 tab SL Q5MP PRN 04/13/20 Potassium Chloride 20 meq PO BID 04/13/20 Sacubitril/Valsartan [Entresto 24 mg/26 mg Tablet] 1 tab PO BID 04/13/20 Sodium Bicarbonate [Sodium Bicarbonate 650 mg Tablet] 650 mg PO TID 04/13/20 Allergies/Adverse Reactions: clopidogrel bisulfate [From Plavix] Allergy (Verified 01/27/20 19:38) Sulfa (Sulfonamide Antibiotics) Allergy (Verified 01/27/20 19:38) Review of Systems Constitutional: PRESENT: anorexia, fatigue. ABSENT: chills, fever(s), headache(s), weight gain, weight loss Eyes: ABSENT: visual disturbances Ears: ABSENT: hearing changes Cardiovascular: ABSENT: chest pain, dyspnea on exertion, edema, orthropnea, palpitations Respiratory: ABSENT: cough, hemoptysis Gastrointestinal: ABSENT: abdominal pain, constipation, diarrhea, hematemesis, hematochezia, nausea, vomiting Genitourinary: ABSENT: dysuria, hematuria Musculoskeletal: ABSENT: joint swelling Integumentary: ABSENT: rash, wounds Neurological: ABSENT: abnormal gait, abnormal speech, confusion, dizziness, focal weakness, syncope Psychiatric: ABSENT: anxiety, depression, homidical ideation, suicidal ideation Endocrine: ABSENT: cold intolerance, heat intolerance, menstrual abnormalities, polydipsia, polyuria Hematologic/Lymphatic: ABSENT: easy bleeding, easy bruising, lymphadenopathy Physical Exam Vital Signs: Temp Pulse Resp BP Pulse Ox 97.4 F 58 L 14 125/59 L 99 04/13/20 03:44 04/12/20 17:36 04/13/20 14:01 04/13/20 14:00 04/13/20 14:01 Intake & Output 04/12/20 04/13/20 04/14/20 06:59 06:59 06:59 Intake Total 750 1150 Balance 750 1150 Weight 71.2 kg General appearance: PRESENT: no acute distress, well-developed, well-nourished Head exam: PRESENT: atraumatic, normocephalic Eye exam: PRESENT: conjunctiva pink, EOMI, PERRLA. ABSENT: scleral icterus Ear exam: PRESENT: normal external ear exam Mouth exam: PRESENT: moist, tongue midline Neck exam: PRESENT: full ROM. ABSENT: carotid bruit, JVD, lymphadenopathy, thyromegaly Respiratory exam: PRESENT: clear to auscultation emerald Cardiovascular exam: PRESENT: RRR. ABSENT: diastolic murmur, rubs, systolic murmur Vascular exam: PRESENT: normal capillary refill GI/Abdominal exam: PRESENT: normal bowel sounds, soft. ABSENT: distended, guarding, mass, organolmegaly, rebound, tenderness Rectal exam: PRESENT: deferred Extremities exam: PRESENT: pedal edema Neurological exam: PRESENT: alert, awake, oriented to person, oriented to place, oriented to time, oriented to situation, CN II-XII grossly intact. ABSENT: motor sensory deficit Psychiatric exam: PRESENT: appropriate affect, normal mood. ABSENT: homicidal ideation, suicidal ideation Skin exam: PRESENT: dry, intact, warm. ABSENT: cyanosis, rash Results Laboratory Results: 04/12/20 18:38 04/13/20 04:36 04/12/20 04/12/20 04/12/20 18:38 18:38 18:38 WBC 3.5 L RBC 3.50 L Hgb 10.0 L Hct 30.4 L MCV 87 MCH 28.6 MCHC 32.9 RDW 19.1 H Plt Count 40 L Seg Neutrophils % Not Reportable Sodium 127.8 L Potassium 6.0 H* Chloride 92 L Carbon Dioxide 26 Anion Gap 10 BUN 56 H Creatinine 4.73 H Est GFR ( Amer) 11 L Glucose 72 L Calcium 8.9 Total Bilirubin 2.2 H AST 828 H Alkaline Phosphatase 285 H Total Protein 7.5 Albumin 3.3 L Lipase 1040.5 H Urine Color Urine Appearance Urine pH Ur Specific [place] Urine Protein Urine Glucose (UA) Urine Ketones Urine Blood Urine Nitrite Ur Leukocyte Esterase Urine WBC (Auto) Urine RBC (Auto) 04/13/20 04/13/20 03:35 04:36 WBC RBC Hgb Hct MCV MCH MCHC RDW Plt Count Seg Neutrophils % Sodium 128.3 L Potassium 5.0 D Chloride 97 L Carbon Dioxide 23 Anion Gap 8 BUN 54 H Creatinine 4.43 H Est GFR ( Amer) 11 L Glucose 131 H Calcium 8.2 L Total Bilirubin 1.5 H AST 706 H Alkaline Phosphatase 212 H Total Protein 6.2 L Albumin 2.6 L Lipase 857.1 H Urine Color YELLOW Urine Appearance CLEAR Urine pH 7.0 Ur Specific [place] 1.005 Urine Protein 100 H Urine Glucose (UA) NEGATIVE Urine Ketones NEGATIVE Urine Blood SMALL H Urine Nitrite NEGATIVE Ur Leukocyte Esterase NEGATIVE Urine WBC (Auto) 2 Urine RBC (Auto) 1 04/12/20 04/12/20 18:38 18:38 Troponin I 0.124 NT-Pro-B Natriuret Pep [id number] H Impressions: Chest X-Ray 04/12/20 17:56 IMPRESSION: Cardiomegaly with central pulmonary vascular prominence but no f rank pulmonary edema. Small left pleural effusion. Abdomen Ultrasound 04/12/20 22:05 IMPRESSION: Medical hepatic disease, presumed steatosis. Cholelithiasis without acute cholecystitis. No ductal dilatation. Right renal atrophy. Abdomen MRI 04/13/20 00:40 IMPRESSION: 1. Cholelithiasis and gallbladder wall thickening. There is no di latation of the common bile duct or evidence of choledocholithiasis. 2. Cardiomegaly and small bilateral pleural effusions. 3. 12 x 7 mm right adrenal lipid rich adenoma. 4. Colonic diverticulosis. Assessment & Plan - Diagnosis (1) Abdominal pain Qualifiers: Abdominal location: epigastric Qualified Code(s): R10.13 - Epigastric pain Is this a current diagnosis for this admission?: Yes Plan: Just conservative management as patients do not want to go for surgical options (2) Acute gallstone pancreatitis Is this a current diagnosis for this admission?: Yes Plan: Continues IV antibiotics IV fluid keep n.p.o. (3) Acute on chronic renal failure Qualifiers: Acute renal failure type: unspecified Chronic kidney disease stage: unspecified stage Qualified Code(s): N17.9 - Acute kidney failure, unspecified; N18.9 - Chronic kidney disease, unspecified Is this a current diagnosis for this admission?: Yes Plan: Is already refused further dialysis as per discussed with the daughter Dr. Lazaro already discussed several times about the renal replacement therapy and not going for that lead to multiple complications patient and the daughter understand very well (4) Elevated LFTs Is this a current diagnosis for this admission?: Yes Plan: Multiple etiology most likely due to the gallstone cholecystitis with some underlying cardiac cirrhosis (5) Congestive heart failure Qualifiers: Heart failure type: combined systolic and diastolic Heart failure chronicity: chronic Qualified Code(s): I50.42 - Chronic combined systolic (congestive) and diastolic (congestive) heart failure Is this a current diagnosis for this admission?: Yes Plan: We consulted Dr. Garcia for further evaluations (6) Coronary artery disease Qualifiers: Coronary Disease-Associated Artery/Lesion type: [place] artery [place] vs. transplanted heart: [place] heart Associated angina: without angina Qualified Code(s): I25.10 - Atherosclerotic heart disease of [place] coronary artery withou t angina pectoris Is this a current diagnosis for this admission?: Yes (7) Hypertension Qualifiers: Hypertension type: essential hypertension Qualified Code(s): I10 - Essential (primary) hypertension Is this a current diagnosis for this admission?: Yes (8) Hyponatremia Is this a current diagnosis for this admission?: Yes Plan: Chronic hyponatremia (9) Weakness Is this a current diagnosis for this admission?: Yes (10) History of esophageal cancer Is this a current diagnosis for this admission?: Yes Plan: Patient is currently see Dr. Chauhan and (11) Thrombocytopenia Is this a current diagnosis for this admission?: Yes Plan: We will consult the - Time Time Spent: 50 to 70 Minutes Medications reviewed and adjusted accordingly: Yes Anticipated Discharge Disposition: Home with Home Health Anticipated Discharge Timeframe: within 24 hours - Inpatient Certification Based on my medical assessment, after consideration of the patient's comorbidities, presenting symptoms, or acuity I expect that the services needed warrant INPATIENT care.: Yes I certify that my determination is in accordance with my understanding of Medicare's requirements for reasonable and necessary INPATIENT services [42 CFR 412.3e].: Yes Medical Necessity: Significant Comorbidiites Make Outpatient Treatment Too Risky, Need Close Monitoring Due to Risk of Patient Decompensation, Need For IV Fluids, Need for Pain Control, Need for IV Antibiotics Post Hospital Care: D/C Shaft Mechanic Documentation - Plan Summary Plan Summary: Admit the patient in IMCU Is refused for surgical interventions refused for the dialysis Discussed with the daughter about the CODE STATUS patient's at this point the daughter will discuss with the patient and decide about that but discussed with the daughter about not going for further surgical interventionsDue to multiple complications list to be a septic shock and not going for the dialysis lead other complications to understand very well Daughter is looking for some palliative care done to be hospice in the future Consult the media planner / buyer about the palliative care
[2020-04-13] MEDS: TRAMADOL HCL 50 MG TABLET PO PRN (17:31)
[2020-04-13] MEDS ORDERED: MAGNESIUM OXIDE 420 MG PO SCH (18:00)
[2020-04-13] MEDS ORDERED: POTASSIUM CHLORIDE 10 MEQ TABLET.ER PO SCH (18:00)
--- NOTE | 2020-04-13 20:20 | PDOC CONSULTATION ---
Consultation Consult Date: 04/13/20 Attending physician:: EMILIE TEJEDA Provider Consulted: CATIE HAMMOND Consult reason:: Positive troponin I History of Present Illness Admission Date/PCP: 04/13/20 12:10 EMILIE TEJEDA MD History of Present Illness: BROWN RIVAS is well known to me from previous interactions. Patient has known history of advanced renal failure not willing to go on dialysis. Patient also has history of cardiomyopathy, congestive heart failure, oesophageal cancer. Patient was admitted to the emergency department with severe abdominal pain. She was noted to have pancreatitis. Possibly gallstone induced. However patient was also noted to have positive troponin I in the low suggestive range. EKG was reviewed. It shows no acuteST-T wave changes. patient on repeated questioning denies any chest pain. Patient did not want me to examine her stomach because of significant discomfort. Patient denied any recent chest pain, palpitations, syncope, near syncope. She does have chronic shortness of breath. Her activity level is pretty low. Past Medical History Cardiac Medical History: Reports: Congestive Heart Failure, Coronary Artery Disease, Hypertension Denies: Atrial Fibrillation, Myocardial Infarction, Hyperlipidema Pulmonary Medical History: Reports: Pneumonia, Respiratory Failure Denies: Asthma, Chronic Obstructive Pulmonary Disease (COPD) Neurological Medical History: Denies: Seizures Endocrine Medical History: Denies: Diabetes Mellitus Type 1, Diabetes Mellitus Type 2, Hyperthyroidism, Hypothyroidism Renal/ Medical History: Reports: End Stage Renal Disease GI Medical History: Reports: Gastroesophageal Reflux Disease Denies: Cirrhosis, Crohn's Disease, Hepatitis, Ulcerative Colitis Musculoskeltal Medical History: Reports: Arthritis Denies: Gout Skin Medical History: Denies: Eczema, Psoriasis Psychiatric Medical History: Denies: Depression Hematology: Reports: Anemia - Chronic secondary to CKD Past Surgical History Past Surgical History: Denies: Hysterectomy Social History Lives with: Family Smoking Status: Never Smoker Frequency of Alcohol Use: None Hx Recreational Drug Use: No Drugs: None Hx Prescription Drug Abuse: No Family History Family History: Reviewed & Not Pertinent Medication/Allergy Home Medications: Atorvastatin Calcium [Lipitor 40 mg Tablet] 40 mg PO QHS 06/07/14 Ferrous Sulfate [Feosol 325 mg Tablet] 325 mg PO BID 05/31/19 Omeprazole 20 mg PO DAILY 05/31/19 Calcitriol [Rocaltrol 0.25 mcg Capsule] 0.25 mcg PO MOWEFR@1000 01/28/20 Carvedilol [Coreg 6.25 mg Tablet] 6.25 mg PO Q12 01/28/20 Magnesium Oxide 420 mg PO BID 01/28/20 Ondansetron HCl 4 mg PO Q8HP PRN 01/28/20 Tramadol HCl [Ultram 50 mg Tablet] 50 mg PO DAILYP PRN 01/28/20 Cyanocobalamin (Vitamin B-12) [B-12] 500 mcg PO DAILY 04/13/20 Epoetin Tristan-Epbx [Retacrit] 20,000 unit SQ [id number] 04/13/20 Furosemide [Lasix 20 mg Tablet] 20 mg PO DAILYP PRN 04/13/20 Metolazone [Zaroxolyn 2.5 mg Tablet] 2.5 mg PO DAILY 04/13/20 Nitroglycerin [Nitrostat 0.4 mg (1/150 Gr) Tabs 25/Bottle] 1 tab SL Q5MP PRN 04/13/20 Potassium Chloride 20 meq PO BID 04/13/20 Sacubitril/Valsartan [Entresto 24 mg/26 mg Tablet] 1 tab PO BID 04/13/20 Sodium Bicarbonate [Sodium Bicarbonate 650 mg Tablet] 650 mg PO TID 04/13/20 Allergies/Adverse Reactions: clopidogrel bisulfate [From Plavix] Allergy (Verified 01/27/20 19:38) Sulfa (Sulfonamide Antibiotics) Allergy (Verified 01/27/20 19:38) Review of Systems Review of Systems: Constitutional: (+)chills, (-)fever, (+)Decreased appetite Eyes: (-)change in vision, (-)diplopia, (-)eye pain Ears: (-)ear pain/ear ache, (-)ear drainage Nose: (-)nasal congestion, (-)epistaxis Mouth/Throat/Voice: (-)mouth sores, (+)dysphagia/Difficulty swallowing, (+)odynophagia/Painful swallowing Neck: (-)neck stiffness, (-)neck lumps, (-)neck swelling Respiratory: (-)cough productive of sputum, (-)hemoptysis, (-)wheezing Cardiovascular: (-)chest pain, (+)dyspnea at rest, (+)dyspnea with activity, (+)paroxysmal nocturnal dyspnea Gastrointestinal: (+)abdominal pain, (+)vomiting, (-)vomiting blood Urinary: (-)dysuria, (-)hematuria Dermatologic/Integumentary: (-)hives, (-)rash, (-)skin sores Musculoskeletal: (+)decreased muscle weakness, (-)decreased muscle strength, (- )limp paralysis Neurological: (-)lack of coordination, (-)focal weakness, (-)difficulty speaking Psychiatric: (-)suicidal ideation, (-)History of psychiatric problems Hematologic/Lymphatic: (-)easy bruising, (-)difficulty stopping blood flow, (- )lymph node enlargement Physical Exam Vital Signs: Temp Pulse Resp BP Pulse Ox 97.4 F 58 L 12 130/61 H 100 04/13/20 03:44 04/12/20 17:36 04/13/20 17:01 04/13/20 17:00 04/13/20 17:01 Intake & Output 04/12/20 04/13/20 04/14/20 06:59 06:59 06:59 Intake Total 750 1150 Balance 750 1150 Weight 71.2 kg Exam: GEN: NAD, patient alert oriented x3. Appearance and grooming WNL HEENT : Eyes: ARRON, Ears: No significant abnormalities, Nose: No significant abnormalities. normocephalic atraumatic. Flat midface (-), Receding chin (-) ORAL : Mallampati class IV, narrow arched palate (-) Tonsils: Not enlarged. NECK: no thyromegaly, no masses, trachea is central, JVD is not elevated, carotids 2+ with bruit (-) RESP: lungs clear, no rales, wheezes or rhonchi, nonlabored, accessory muscles of respiration use (-). CV: NL S1 and S2. No significant murmurs noted, no gallop, no extra sounds, no clicks, no rub noted. GI: tender to palpation with some guarding being noted. Bowel sounds hypoactive. EXT: no clubbing, (-) cyanosis, edema (-), perpheral pulses diminished (no) MUSC/SKEL: no acute joint swelling noted. Muscle strength is generally intact. NEURO: no significant focal neurological deficits are note, sensation grossly intact, AO x 3 PSYCH: NL mood and affect. judgment and insight noted to be intact. SKIN: (-) rash, (-)Signs of pruritus, (-) other significant abnormality Results Laboratory Results: 04/12/20 18:38 04/13/20 04:36 04/12/20 04/12/20 04/12/20 18:38 18:38 18:38 WBC 3.5 L RBC 3.50 L Hgb 10.0 L Hct 30.4 L MCV 87 MCH 28.6 MCHC 32.9 RDW 19.1 H Plt Count 40 L Seg Neutrophils % Not Reportable Sodium 127.8 L Potassium 6.0 H* Chloride 92 L Carbon Dioxide 26 Anion Gap 10 BUN 56 H Creatinine 4.73 H Est GFR ( Amer) 11 L Glucose 72 L Calcium 8.9 Total Bilirubin 2.2 H AST 828 H Alkaline Phosphatase 285 H Total Protein 7.5 Albumin 3.3 L Lipase 1040.5 H Urine Color Urine Appearance Urine pH Ur Specific Century Urine Protein Urine Glucose (UA) Urine Ketones Urine Blood Urine Nitrite Ur Leukocyte Esterase Urine WBC (Auto) Urine RBC (Auto) 04/13/20 04/13/20 03:35 04:36 WBC RBC Hgb Hct MCV MCH MCHC RDW Plt Count Seg Neutrophils % Sodium 128.3 L Potassium 5.0 D Chloride 97 L Carbon Dioxide 23 Anion Gap 8 BUN 54 H Creatinine 4.43 H Est GFR ( Amer) 11 L Glucose 131 H Calcium 8.2 L Total Bilirubin 1.5 H AST 706 H Alkaline Phosphatase 212 H Total Protein 6.2 L Albumin 2.6 L Lipase 857.1 H Urine Color YELLOW Urine Appearance CLEAR Urine pH 7.0 Ur Specific Century 1.005 Urine Protein 100 H Urine Glucose (UA) NEGATIVE Urine Ketones NEGATIVE Urine Blood SMALL H Urine Nitrite NEGATIVE Ur Leukocyte Esterase NEGATIVE Urine WBC (Auto) 2 Urine RBC (Auto) 1 04/12/20 04/12/20 18:38 18:38 Troponin I 0.124 NT-Pro-B Natriuret Pep [id number] H EKG Comments: Sinus Rhythm, QS complex III, aVF suggestive of prior inf ID , Non pog R wave ant chest lead, cabbot r/o prior ant ID Impressions: Chest X-Ray 04/12/20 17:56 IMPRESSION: Cardiomegaly with central pulmonary vascular prominence but no mary pulmonary edema. Small left pleural effusion. Abdomen Ultrasound 04/12/20 22:05 IMPRESSION: Medical hepatic disease, presumed steatosis. Cholelithiasis without acute cholecystitis. No ductal dilatation. Right renal atrophy. Abdomen MRI 04/13/20 00:40 IMPRESSION: 1. Cholelithiasis and gallbladder wall thickening. There is no dilatation of the common bile duct or evidence of choledocholithiasis. 2. Cardiomegaly and small bilateral pleural effusions. 3. 12 x 7 mm right adrenal lipid rich adenoma. 4. Colonic diverticulosis. Assessment & Plan - Diagnosis (1) Acute gallstone pancreatitis Is this a current diagnosis for this admission?: Yes (2) History of esophageal cancer Is this a current diagnosis for this admission?: Yes (3) Pancreatitis Qualifiers: Chronicity: acute Pancreatitis type: unspecified pancreatitis type Acute pancreatitis complication: unspecified Qualified Code(s): K85.90 - Acute pancreatitis without necrosis or infection, unspecified (4) Thrombocytopenia Is this a current diagnosis for this admission?: Yes (5) Congestive heart failure Qualifiers: Heart failure type: combined systolic and diastolic Heart failure chronicity: chronic Qualified Code(s): I50.42 - Chronic combined systolic (congestive) and diastolic (congestive) heart failure Is this a current diagnosis for this admission?: Yes (6) Coronary artery disease Qualifiers: Coronary Disease-Associated Artery/Lesion type: [place] artery [place] vs. transplanted heart: [place] heart Associated angina: without angina Qualified Code(s): I25.10 - Atherosclerotic heart disease of [place] coronary artery without angina pectoris Is this a current diagnosis for this admission?: Yes (7) Hypertension Qualifiers: Hypertension type: essential hypertension Qualified Code(s): I10 - [place] l (primary) hypertension Is this a current diagnosis for this admission?: Yes - Notes Notes: IMPRESSION: POSITIVE TROPONIN I: this is in the low suggestive range. There are no EKG changes suggestive of acute ischemia. Patient also not complaining of chest pain. Feel that troponin I diseases related to severe acute pancreatitis and a general inflammatory response. At this point recommend just observation. May continue better eleni therapy. Patient anyway does not want any invasive interventions. ACUTE PANCREATITIS: agree with her current conservative management plans. patient has declined surgery. ADVANCED RENAL FAILURE: continue with current conservative management. HISTORY OF ESOPHAGEAL CANCER: patient does have some swallowing difficulty. Continue put on pump inhibitor. Management plans were discussed with patient's daughter. It seems patient has significant severe comorbidities. Management options are somewhat limited. At this point will continue with conservative management plans. Have ordered a 2D echo to see there has been any wall motion abnormalities. THROMBOCYTOPENIA: Patient has very low platelet count at 40,000. Related to possible sepsis, currently cannot give antiplatelet therapy. Please also discussed with Dr. Tejeda. - Time Time Spent: 30 to 50 Minutes
[2020-04-13] MEDS: MAGNESIUM OXIDE 400 MG TABLET PO SCH (21:15)
[2020-04-13] MEDS: SODIUM BICARBONATE 650 MG TABLET PO SCH (21:15)
[2020-04-13] MEDS: FERROUS SULFATE 325 MG TABLET PO SCH (21:15)
[2020-04-13] MEDS: SACUBITRIL/VALSARTAN 24 MG/26 MG TABLET PO SCH (21:23)
[2020-04-13] MEDS: PANTOPRAZOLE SODIUM 40 MG VIAL IV SCH (22:32)
[2020-04-13] MEDS: CARVEDILOL 6.25 MG TABLET PO SCH (22:33)
--- NOTE | 2020-04-13 22:36 | XCELERA REPORT ---
[address] [address] Transthoracic Echocardiogram Report Name: BROWN RIVAS Age: 84 yrs Gender: Female : 1935 Patient Status: Inpatient Patient Location: [place] [address]^A Study Date: 04/13/2020 02:18 PM Height: 63 in Weight: 156 lb BSA: 1.7 m2 Procedure: A complete two-dimensional transthoracic echocardiogram was performed (2D, M-mode, spectral and color flow Doppler). The study was technically adequate with some images being suboptimal in quality. Reason For Study: Abnormal troponin I Ordering Physician: FLORIDA HAMMOND Performed By: Shona Arellano Interpretation Summary The Ejection Fraction estimate is 20-25% Left ventricular systolic function is severely reduced. Doppler measurements suggest pseudonormalized left ventricular relaxation, which is associated with grade II/IV or mild to moderate diastolic dysfunction There is severe global hypokinesis of the left ventricle. There is mild concentric left ventricular hypertrophy. The left ventricle is mildly dilated. The right atrium is mildly dilated. The left atrium is moderately dilated. There is a moderate to severe amount of mitral regurgitation There is no mitral valve stenosis. There is a moderate to severe amount of aortic regurgitation There is no aortic valve stenosis There is a moderate to severe amount of tricuspid regurgitation There is servere pulmonary hypertension by echo Best estimated RVSP is approximately >60 mmhg mm/Hg. The inferior vena cava appeared normal and decreased < 50% with respiration (RAP 10-15 mmHg) Small pericardial effusion. Moderate size left pleural effusion. MMode/2D Measurements & Calculations RVDd: 3.5 cm LVIDd: 5.7 cm FS: 16.3 % EPSS: 1.9 cm IVSd: 0.90 cm LVIDs: 4.8 cm EDV(Teich): 159.7 ml LVPWd: 1.0 cm ESV(Teich): 105.9 ml EF(Teich): 33.7 % Ao root diam: 2.9 cm LVLd ap4: 9.7 cm SV(MOD-sp4): 55.0 ml Ao root area: 6.8 cm2 EDV(MOD-sp4): 163.0 ml LVLs ap4: 8.7 cm LA dimension: 4.6 cm ESV(MOD-sp4): 108.0 ml EF(MOD-sp4): 33.7 % Doppler Measurements & Calculations MV E max marie: MV P1/2t max marie: Ao V2 max: AI max marie: 109.1 cm/sec 109.1 cm/sec 158.5 cm/sec 461.0 cm/sec MV A max marie: MV P1/2t: 51.2 msec Ao max PG: AI max P.9 cm/sec 10.1 mmHg 85.0 mmHg MVA(P1/2t): 4.3 cm2 MV E/A: 2.4 MV dec slope: AI dec slope: 623.7 cm/sec2 301.4 cm/sec2 MV dec time: 0.18 sec AI P1/2t: 448.0 msec LV V1 max PG: PA V2 max: PI end-d marie: TR max marie: 1.5 mmHg 47.9 cm/sec 97.7 cm/sec 347.5 cm/sec LV V1 max: PA max P.92 mmHg TR max P.7 cm/sec 48.3 mmHg LV dP/dt: 1010 mmHg/s AV P1/2t-pr_phl: MV P1/2t-pr_phl: 448.0 msec 51.2 msec Left Ventricle The left ventricle is mildly dilated. There is mild concentric left ventricular hypertrophy. Left ventricular systolic function is severely reduced. The Ejection Fraction estimate is 20-25%. Doppler measurements suggest pseudonormalized left ventricular relaxation, which is associated with grade II/IV or mild to moderate diastolic dysfunction. There is severe global hypokinesis of the left ventricle. Right Ventricle The right ventricle is mildly dilated. There is normal right ventricular wall thickness. The right ventricular systolic function is mildly reduced. Atria The right atrium is mildly dilated. The left atrium is moderately dilated. Interarterial septum not well visualized and not well dopplered. Cannot comment on ASD/PFO presence. Mitral Valve The mitral valve leaflets are sclerotic and show some degree of functional abnormality. There is no mitral valve stenosis. There is a moderate to severe amount of mitral regurgitation. Aortic Valve The aortic valve is sclerotic and shows some degree of functional abnormality. There is no aortic valve stenosis. There is a moderate to severe amount of aortic regurgitation. Tricuspid Valve The tricuspid valve is not well visualized, but is grossly normal. There is no tricuspid stenosis. There is a moderate to severe amount of tricuspid regurgitation. There is servere pulmonary hypertension by echo. Best estimated RVSP is approximately >60 mmhg mm/Hg. Pulmonic Valve The pulmonic valve is not well visualized. Great Vessels The aortic root is not well visualized but is probably normal size. The inferior vena cava appeared normal and decreased < 50% with respiration (RAP 10-15 mmHg). Effusions Small pericardial effusion. Moderate size left pleural effusion. : FLORIDA HAMMOND Shyamal
[2020-04-14 06:32] LABS: HEMATOCRIT 27.9 % (36.0-47.0); HEMOGLOBIN 9.2 g/dL (12.0-15.5); MEAN CORPUSCULAR HEMOGLOBIN 28.6 pg (27.0-33.4); MEAN CORPUSCULAR HGB CONC 33.1 g/dL (32.0-36.0); MEAN CORPUSCULAR VOLUME 87 fl (80-97); RED BLOOD COUNT 3.23 10^6/uL (3.72-5.28); RED CELL DISTRIBUTION WIDTH 19.9 % (11.5-14.0); WHITE BLOOD COUNT 4.5 10^3/uL (4.0-10.5)
[2020-04-14 06:54] LABS: ALBUMIN 2.6 g/dL (3.5-5.0); ALKALINE PHOSPHATASE 221 U/L (38-126); ANION GAP 12 (5-19); BILIRUBIN,DIRECT 1.4 mg/dL (0.0-0.4); BILIRUBIN,TOTAL 1.8 mg/dL (0.2-1.3); BLOOD UREA NITROGEN 55 mg/dL (7-20); CALCIUM 8.3 mg/dL (8.4-10.2); CARBON DIOXIDE 21 mmol/L (22-30); CHLORIDE 97 mmol/L (98-107); GLUCOSE 72 mg/dL (75-110); POTASSIUM 5.6 mmol/L (3.6-5.0); TOTAL PROTEIN 6.3 g/dL (6.3-8.2)
[2020-04-14 07:02] LABS: ASPARTATE AMINO TRANSFERASE 731 U/L (14-36)
[2020-04-14 07:21] LABS: ABSOLUTE LYMPHOCYTES# (MANUAL) 0.5 10^3/uL (0.5-4.7); ABSOLUTE MONOCYTES # (MANUAL) 0.4 10^3/uL (0.1-1.4); BASOPHILS % (MANUAL) 0 % (0-2); EOSINOPHILS % (MANUAL) 2 % (0-6); LYMPHOCYTES % (MANUAL) 10 % (13-45); METAMYELOCYTES % (MANUAL) 2 % (0-1); MONOCYTES % (MANUAL) 8 % (3-13); NUCLEATED RED BLOOD CELLS 4 /100 WBC (0); SEGMENTED NEUTROPHILS % (MAN) 76 % (42-78); TOTAL CELLS COUNTED 100
[2020-04-14 07:24] LABS: PAPPENHEIMER BODIES PRESENT
[2020-04-14 07:25] LABS: PLATELET COMMENT DECREASED
[2020-04-14 07:30] LABS: ANISOCYTOSIS 2+; BURR CELLS 1+; OVALOCYTES 1+; POIKILOCYTOSIS 2+; POLYCHROMASIA SLIGHT; SCHISTOCYTES SLIGHT; TARGET CELLS 1+
[2020-04-14] MEDS: FERROUS SULFATE 325 MG TABLET PO SCH (09:54)
[2020-04-14] MEDS: MAGNESIUM OXIDE 400 MG TABLET PO SCH ×2 (09:54→17:45)
[2020-04-14] MEDS: CARVEDILOL 6.25 MG TABLET PO SCH ×2 (09:54→22:06)
[2020-04-14] MEDS: SODIUM BICARBONATE 650 MG TABLET PO SCH ×3 (09:55→17:45)
[2020-04-14] MEDS: PANTOPRAZOLE SODIUM 40 MG VIAL IV SCH ×2 (09:55→22:06)
[2020-04-14] MEDS: CYANOCOBALAMIN (VITAMIN B-12) 1,000 MCG TABLET PO SCH (09:55)
[2020-04-14] MEDS: FUROSEMIDE INJ/PF 20 MG/2 ML SDV IV SCH (09:55)
[2020-04-14] MEDS: SACUBITRIL/VALSARTAN 24 MG/26 MG TABLET PO SCH (09:56)
--- NOTE | 2020-04-14 09:59 | PDOC PROGRESS REPORT ---
Subjective Progress Note for:: 04/14/20 Subjective:: Patient is currently doing fair still having some abdominal discomfort No nausea no vomiting No chest pain Echocardiogram suggested 20 to 25% EF Patient LFTs still elevated Reason For Visit: GALL STONE PANCREATITIS Physical Exam Vital Signs: Temp Pulse Resp BP Pulse Ox 97.3 F 54 L 17 135/52 H 100 04/14/20 08:12 04/14/20 07:44 04/14/20 07:44 04/14/20 07:44 04/14/20 07:44 Intake & Output 04/13/20 04/14/20 04/15/20 06:59 06:59 06:59 Intake Total 750 1310 Output Total 0 Balance 750 1310 Weight 71.2 kg 70.7 kg General appearance: PRESENT: no acute distress, well-developed, well-nourished Head exam: PRESENT: atraumatic, normocephalic Eye exam: PRESENT: conjunctiva pink, EOMI, PERRLA. ABSENT: scleral icterus Ear exam: PRESENT: normal external ear exam Mouth exam: PRESENT: moist, tongue midline Neck exam: PRESENT: full ROM. ABSENT: carotid bruit, JVD, lymphadenopathy, t hyromegaly Respiratory exam: PRESENT: clear to auscultation emerald Cardiovascular exam: PRESENT: RRR. ABSENT: diastolic murmur, rubs, systolic murmur Pulses: PRESENT: normal dorsalis pedis pul, +2 pedal pulses bilateral Vascular exam: PRESENT: normal capillary refill GI/Abdominal exam: PRESENT: normal bowel sounds, soft, tenderness. ABSENT: distended, guarding, mass, organolmegaly, rebound Rectal exam: PRESENT: deferred Neurological exam: PRESENT: alert, awake, oriented to person. ABSENT: motor sensory deficit Psychiatric exam: PRESENT: appropriate affect, normal mood. ABSENT: homicidal ideation, suicidal ideation Skin exam: PRESENT: dry, intact, warm. ABSENT: cyanosis, rash Results Laboratory Results: 04/14/20 05:58 04/14/20 05:58 04/14/20 04/14/20 05:58 05:58 WBC 4.5 RBC 3.23 L Hgb 9.2 L Hct 27.9 L MCV 87 MCH 28.6 MCHC 33.1 RDW 19.9 H Plt Count 25 L* Seg Neutrophils % Not Reportable Sodium 129.6 L Potassium 5.6 H Chloride 97 L Carbon Dioxide 21 L Anion Gap 12 BUN 55 H Creatinine 4.57 H Est GFR ( Amer) 11 L Glucose 72 L Calcium 8.3 L Magnesium 2.0 Total Bilirubin 1.8 H AST 731 H Alkaline Phosphatase 221 H Total Protein 6.3 Albumin 2.6 L Lipase 4242.6 H 04/12/20 04/12/20 04/14/20 18:38 18:38 05:58 Troponin I 0.124 NT-Pro-B Natriuret Pep [id number] H [id number] H Impressions: Chest X-Ray 04/12/20 17:56 IMPRESSION: Cardiomegaly with central pulmonary vascular prominence but no mary pulmonary edema. Small left pleural effusion. Abdomen Ultrasound 04/12/20 22:05 IMPRESSION: Medical hepatic disease, presumed steatosis. Cholelithiasis without acute cholecystitis. No ductal dilatation. Right renal atrophy. Abdomen MRI 04/13/20 00:40 IMPRESSION: 1. Cholelithiasis and gallbladder wall thickening. There is no dilatation of the common bile duct or evidence of choledocholithiasis. 2. Cardiomegaly and small bilateral pleural effusions. 3. 12 x 7 mm right adrenal lipid rich adenoma. 4. Colonic diverticulosis. Assessment & Plan - Diagnosis (1) Abdominal pain Qualifiers: Abdominal location: epigastric Qualified Code(s): R10.13 - Epigastric pain Is this a current diagnosis for this admission?: Yes Plan: Most likely gallstone pancreatitis with some ongoing cardiomyopathy with the cirrhosisWith a history of the esophageal cancers multiple etiologies (2) Acute gallstone pancreatitis Is this a current diagnosis for this admission?: Yes Plan: Keep n.p.o. slowly increase the liquid diet patient is not a candidate for surgery because of the multiple comorbidity and patients and family do not want to do for surgical options (3) Acute on chronic renal failure Qualifiers: Acute renal failure type: unspecified Chronic kidney disease stage: u nspecified stage Qualified Code(s): N17.9 - Acute kidney failure, unspecified; N18.9 - Chronic kidney disease, unspecified Is this a current diagnosis for this admission?: Yes Plan: Patient is refused for dialysis currently follow with the Dr. Lazaro discontinues the potassiums (4) Elevated LFTs Is this a current diagnosis for this admission?: Yes Plan: With the multiple etiology including the current gallstones with the cardiac cirrhosis (5) Congestive heart failure Qualifiers: Heart failure type: combined systolic and diastolic Heart failure chronicity: chronic Qualified Code(s): I50.42 - Chronic combined systolic (congestive) and diastolic (congestive) heart failure Is this a current diagnosis for this admission?: Yes Plan: Reduced EF will start the patient on IV Lasix (6) Coronary artery disease Qualifiers: Coronary Disease-Associated Artery/Lesion type: [place] artery [place] vs. transplanted heart: [place] heart Associated angina: without angina Qualified Code(s): I25.10 - Atherosclerotic heart disease of [place] coronary artery without angina pectoris Is this a current diagnosis for this admission?: Yes Plan: Follow-up with the cardiology (7) Hypertension Qualifiers: Hypertension type: essential hypertension Qualified Code(s): I10 - Essential (primary) hypertension Is this a current diagnosis for this admission?: Yes (8) Hyponatremia Is this a current diagnosis for this admission?: Yes (9) Weakness Is this a current diagnosis for this admission?: Yes (10) History of esophageal cancer Is this a current diagnosis for this admission?: Yes (11) Thrombocytopenia Is this a current diagnosis for this admission?: Yes Plan: We consult the patient's oncology and hematology Dr. yang - Time Time Spent with patient: 25-34 minutes Level of Care: IMCU Medications reviewed and adjusted accordingly: Yes Anticipated discharge: Other Anticipated DC Timeframe: Other - Plan Summary Plan Summary: Discussed with the patient's daughter again regarding the patient's current conditions with the multiple comorbidity with the poor prognosis and discussed about the palliative care will consult the raw material planner again discussed with the patient's daughter about the CODE STATUS patient's daughter is not sure
--- NOTE | 2020-04-14 11:35 | PDOC CONSULTATION ---
Consultation Consult Date: 04/14/20 Provider Consulted: Stacy SAGE Consult reason:: ILYA on CKD 5. History of Present Illness Admission Date/PCP: 04/13/20 12:10 EMILIE DANIELSON MD History of Present Illness: BROWN RIVAS is a 84 year old female with multiple comorbidities including history of CKD stage V who has refused any form of renal replacements, hypertension, severe congestive heart failure with severely reduced LV function of around 20-25%, history of esophageal cancer was admitted with severe upper abdominal pains. She has now been diagnosed to have gallstone pancreatitis with severely abnormal LFTs along with acute on chronic CKD 5. Besides that her platelets are very low in the 40s. Surgeons have been consulted who very clearly stated that she is extremely high risk for any surgical interventions given her comorbidities and frailty of herself. Apparently discussions have been done by Dr. Danielson with her daughter and they have opted for conservative measures/hospice and comfort care. Today when I see her patient is resting comfortably but when I waking up she say s she has got right upper abdominal discomfort. She denies any history of fever or chills. She is quite weak and has no appetite and rather anorexic. Discussions were done with the treating nurse. Labs and medications were reviewed. Past Medical History Cardiac Medical History: Reports: CHF-Systolic, Coronary Artery Disease, Hypertension-primary Denies: Atrial Fibrillation, Hyperlipidemia, Myocardial Infarction Pulmonary Medical History: Reports: Pneumonia, Respiratory Failure Denies: Asthma, Chronic Obstructive Pulmonary Disease (COPD) Neurological Medical History: Denies: Seizures Endocrine Medical History: Denies: Diabetes Mellitus Type 1, Diabetes Mellitus Type 2, Hyperthyroidism, Hypothyroidism Renal/ Medical History: Reports: Chronic Kidney Disease Stage V GI Medical History: Reports: Gastroesophageal Reflux Disease Denies: Cirrhosis, Crohn's Disease, Hepatitis, Ulcerative Colitis Musculoskeltal Medical History: Reports: Arthritis Denies: Gout Skin Medical History: Denies: Eczema, Psoriasis Psychiatric Medical History: Denies: Depression Past Surgical History Past Surgical History: Denies: Hysterectomy Social History Lives with: Family Smoking Status: Never Smoker Frequency of Alcohol Use: None Hx Recreational Drug Use: No Drugs: None Hx Prescription Drug Abuse: No Family History Parental Family History Reviewed: Yes - Negative for ESRD Children Family History Reviewed: No Sibling(s) Family History Reviewed.: No Medication/Allergy Home Medications: Atorvastatin Calcium [Lipitor 40 mg Tablet] 40 mg PO QHS 06/07/14 Ferrous Sulfate [Feosol 325 mg Tablet] 325 mg PO BID 05/31/19 Omeprazole 20 mg PO DAILY 05/31/19 Calcitriol [Rocaltrol 0.25 mcg Capsule] 0.25 mcg PO MOWEFR@1000 01/28/20 Carvedilol [Coreg 6.25 mg Tablet] 6.25 mg PO Q12 01/28/20 Magnesium Oxide 420 mg PO BID 01/28/20 Ondansetron HCl 4 mg PO Q8HP PRN 01/28/20 Tramadol HCl [Ultram 50 mg Tablet] 50 mg PO DAILYP PRN 01/28/20 Cyanocobalamin (Vitamin B-12) [B-12] 500 mcg PO DAILY 04/13/20 Epoetin Tristan-Epbx [Retacrit] 20,000 unit SQ [id number] 04/13/20 Furosemide [Lasix 20 mg Tablet] 20 mg PO DAILYP PRN 04/13/20 Metolazone [Zaroxolyn 2.5 mg Tablet] 2.5 mg PO DAILY 04/13/20 Nitroglycerin [Nitrostat 0.4 mg (1/150 Gr) Tabs 25/Bottle] 1 tab SL Q5MP PRN 04/13/20 Potassium Chloride 20 meq PO BID 04/13/20 Sacubitril/Valsartan [Entresto 24 mg/26 mg Tablet] 1 tab PO BID 04/13/20 Sodium Bicarbonate [Sodium Bicarbonate 650 mg Tablet] 650 mg PO TID 04/13/20 Allergies/Adverse Reactions: clopidogrel bisulfate [From Plavix] Allergy (Verified 01/27/20 19:38) Sulfa (Sulfonamide Antibiotics) Allergy (Verified 01/27/20 19:38) Review of Systems Constitutional: PRESENT: anorexia, fatigue, weakness, weight loss. ABSENT: chills, fever(s), headache(s) Nose, Mouth, and Throat: ABSENT: mouth pain, sore throat Cardiovascular: PRESENT: dyspnea on exertion, edema. ABSENT: chest pain, orthropnea Respiratory: PRESENT: dyspnea. ABSENT: cough, hemoptysis Gastrointestinal: PRESENT: abdominal pain, nausea. ABSENT: bloating, coffee ground emesis, diarrhea, dysphagia, heartburn, hematemesis, hematochezia Genitourinary: ABSENT: dysuria, hematuria Musculoskeletal: ABSENT: deformity, joint swelling Integumentary: ABSENT: lesions, pruritus, rash Neurological: ABSENT: abnormal movements, abnormal speech, confusion, focal weakness Hematologic/Lymphatic: ABSENT: easy bruising, lymphadenopathy Physical Exam Vital Signs: Temp Pulse Resp BP Pulse Ox 97.3 F 54 L 17 135/52 H 100 04/14/20 08:12 04/14/20 07:44 04/14/20 07:44 04/14/20 07:44 04/14/20 07:44 Intake & Output 04/13/20 04/14/20 04/15/20 06:59 06:59 06:59 Intake Total 750 1310 0 Output Total 0 Balance 750 1310 0 Weight 71.2 kg 70.7 kg General appearance: PRESENT: no acute distress, disheveled Exam: Looks very weak and frail. Eye exam: PRESENT: EOMI, PERRLA Ear exam: PRESENT: normal external ear exam Mouth exam: PRESENT: neck supple. ABSENT: moist Neck exam: ABSENT: lymphadenopathy, meningismus, tenderness, thyromegaly, tracheal deviation Respiratory exam: PRESENT: clear to auscultation emerald, decreased breath sounds. ABSENT: crackles Cardiovascular exam: PRESENT: +S1, +S2 GI/Abdominal exam: PRESENT: distended, Weller's sign, normal bowel sounds, soft, tenderness - In the right upper quadrant.. ABSENT: guarding, organomegaly Extremities exam: PRESENT: pedal edema Neurological exam: PRESENT: awake, oriented to person Psychiatric exam: PRESENT: appropriate affect Skin exam: ABSENT: erythema, mottled, rash Results Laboratory Results: 04/14/20 05:58 04/14/20 05:58 04/14/20 04/14/20 05:58 05:58 WBC 4.5 RBC 3.23 L Hgb 9.2 L Hct 27.9 L MCV 87 MCH 28.6 MCHC 33.1 RDW 19.9 H Plt Count 25 L* Seg Neutrophils % Not Reportable Sodium 129.6 L Potassium 5.6 H Chloride 97 L Carbon Dioxide 21 L Anion Gap 12 BUN 55 H Creatinine 4.57 H Est GFR ( Amer) 11 L Glucose 72 L Calcium 8.3 L Magnesium 2.0 Total Bilirubin 1.8 H AST 731 H Alkaline Phosphatase 221 H Total Protein 6.3 Albumin 2.6 L Lipase 4242.6 H 0904/12/20 04/14/20 18:38 18:38 05:58 Troponin I 0.124 NT-Pro-B Natriuret Pep [id number] H [id number] H Impressions: Chest X-Ray 04/12/20 17:56 IMPRESSION: Cardiomegaly with central pulmonary vascular prominence but no mary pulmonary edema. Small left pleural effusion. Abdomen Ultrasound 04/12/20 22:05 IMPRESSION: Medical hepatic disease, presumed steatosis. Cholelithiasis without acute cholecystitis. No ductal dilatation. Right renal atrophy. Abdomen MRI 04/13/20 00:40 IMPRESSION: 1. Cholelithiasis and gallbladder wall thickening. There is no dilatation of the common bile duct or evidence of choledocholithiasis. 2. Cardiomegaly and small bilateral pleural effusions. 3. 12 x 7 mm right adrenal lipid rich adenoma. 4. Colonic diverticulosis. Assessment & Plan - Diagnosis (1) Acute gallstone pancreatitis Is this a current diagnosis for this admission?: Yes Plan: She has got acute gallstone pancreatitis. However she is an extremely high risk surgically and the surgeons have opined for conservative measures and the family has agreed to that option. Patient on antibiotics. (2) Acute on chronic renal failure Qualifiers: Acute renal failure type: unspecified Chronic kidney disease stage: unspecified stage Qualified Code(s): N17.9 - Acute kidney failure, unspecified; N18.9 - Chronic kidney disease, unspecified Is this a current diagnosis for this admission?: Yes Plan: Acute worsening of CKD stage V in the current setting of gallstone pancreatitis/sepsis/acute on chronic congestive heart failure with an EF of a round 20/25% along with severe mitral and aortic regurgitation and severe pulmonary hypertension. She has multiple reasons for worsening of CKD stage V. She has opted not to go for any renal replacements which I completely agree. I would opt for conservative management which includes IV antibiotics and fluids and see how she responds. I also discontinued Entresto which is also causing hyperkalemia. At this point since there is not much for me to do I am going to sign out and please call on a as needed basis. (3) History of esophageal cancer Is this a current diagnosis for this admission?: Yes Plan: Status quo. She is however not eating much anyway. (4) Hyperkalemia Plan: I will stop the Entresto and see how she responds to gentle/conservative measures including IV fluids. (5) Thrombocytopenia Is this a current diagnosis for this admission?: Yes Plan: Critical initially 40 and now 25. Being managed by Dr. Danielson. (6) Acute on chronic combined systolic and diastolic congestive heart failure Plan: Reviewed echocardiogram. She has got severe LV and right ventricular failure with multiple valvular disease as well. Guarded prognosis. (7) Hypertension Qualifiers: Hypertension type: essential hypertension Qualified Code(s): I10 - Essential (primary) hypertension Is this a current diagnosis for this admission?: Yes Plan: Controlled.
[2020-04-14] MEDS: TRAMADOL HCL 50 MG TABLET PO PRN (12:50)
[2020-04-14] MEDS ORDERED: DEXTROSE 50%-WATER 25 GM/50 ML DISP.SYRIN IV ONE (13:08)
[2020-04-14] MEDS ORDERED: GLUCAGON,HUMAN RECOMB 1 MG INJ IM PRN (14:00)
[2020-04-14] MEDS ORDERED: DEXTROSE 40% GEL 15 GM TUBE PO PRN (14:00)
[2020-04-14] MEDS ORDERED: DEXTROSE 40% GEL 15 GM TUBE X 2 PO PRN (14:00)
[2020-04-14] MEDS ORDERED: DEXTROSE 50%-WATER SYRINGE 25 GM/50 ML DOSE IV PRN (14:00)
[2020-04-14] MEDS ORDERED: DEXTROSE 50%-WATER SYRINGE 12.5 GM/25 ML DOSE IV PRN (14:00)
[2020-04-14] MEDS: CEFEPIME 1 GM/D5W RTU 1 GM/50 ML RTUPB IV SCH (14:18)
--- NOTE | 2020-04-14 16:32 | PDOC CONSULTATION ---
Consultation Consult Date: 04/14/20 Provider Consulted: PATTI SYED Consult reason:: Hematology/Oncology consultation was requested for patient with history of cancer, acute pancreatitis and acute thrombocytopenia. History of Present Illness Admission Date/PCP: 04/13/20 12:10 EMILIE TEJEDA MD History of Present Illness: BROWN RIVAS is a 84 year old female with a remote history of cancer but not receiving any therapy for quite some time. She has been in and out of the hospital several times over the past year for various electrolyte abnormalities and dehydration. It was recommended that she start hemodialysis but she refused. Over the past week, she developed increasing abdominal pain, vomiting and stopped eating for 3 days prior to admission. She was brought to the hospital and found to have dehydration, acute pancreatitis and electrolyte abnormalities. Since admission her PLT count has also decreased drastically. Currently with no evidence of bleeding. She is comfortable and denies pain after tramadol. Daughter and granddaughter are at bedside. Past Medical History Cardiac Medical History: Reports: Congestive Heart Failure, Coronary Artery Disease, Hypertension Denies: Atrial Fibrillation, Myocardial Infarction, Hyperlipidema Pulmonary Medical History: Reports: Pneumonia, Respiratory Failure Denies: Asthma, Chronic Obstructive Pulmonary Disease (COPD) Neurological Medical History: Denies: Seizures Endocrine Medical History: Denies: Diabetes Mellitus Type 1, Diabetes Mellitus Type 2, Hyperthyroidism, Hypothyroidism Renal/ Medical History: Reports: End Stage Renal Disease GI Medical History: Reports: Gastroesophageal Reflux Disease Denies: Cirrhosis, Crohn's Disease, Hepatitis, Ulcerative Colitis Musculoskeltal Medical History: Reports: Arthritis Denies: Gout Skin Medical History: Denies: Eczema, Psoriasis Psychiatric Medical History: Denies: Depression Hematology: Reports: Anemia - Chronic secondary to CKD Past Surgical History Past Surgical History: Denies: Hysterectomy Social History Lives with: Family Smoking Status: Never Smoker Frequency of Alcohol Use: None Hx Recreational Drug Use: No Drugs: None Hx Prescription Drug Abuse: No Past Social History Note: Lives with daughter and granddaughter Family History Family History: Reviewed & Not Pertinent Parental Family History Reviewed: No Children Family History Reviewed: Yes Sibling(s) Family History Reviewed.: No Medication/Allergy Home Medications: Atorvastatin Calcium [Lipitor 40 mg Tablet] 40 mg PO QHS 06/07/14 Ferrous Sulfate [Feosol 325 mg Tablet] 325 mg PO BID 05/31/19 Omeprazole 20 mg PO DAILY 05/31/19 Calcitriol [Rocaltrol 0.25 mcg Capsule] 0.25 mcg PO MOWEFR@1000 01/28/20 Carvedilol [Coreg 6.25 mg Tablet] 6.25 mg PO Q12 01/28/20 Magnesium Oxide 420 mg PO BID 01/28/20 Ondansetron HCl 4 mg PO Q8HP PRN 01/28/20 Tramadol HCl [Ultram 50 mg Tablet] 50 mg PO DAILYP PRN 01/28/20 Cyanocobalamin (Vitamin B-12) [B-12] 500 mcg PO DAILY 04/13/20 Epoetin Tristan-Epbx [Retacrit] 20,000 unit SQ [id number] 04/13/20 Furosemide [Lasix 20 mg Tablet] 20 mg PO DAILYP PRN 04/13/20 Metolazone [Zaroxolyn 2.5 mg Tablet] 2.5 mg PO DAILY 04/13/20 Nitroglycerin [Nitrostat 0.4 mg (1/150 Gr) Tabs 25/Bottle] 1 tab SL Q5MP PRN 04/13/20 Potassium Chloride 20 meq PO BID 04/13/20 Sacubitril/Valsartan [Entresto 24 mg/26 mg Tablet] 1 tab PO BID 04/13/20 Sodium Bicarbonate [Sodium Bicarbonate 650 mg Tablet] 650 mg PO TID 04/13/20 Allergies/Adverse Reactions: clopidogrel bisulfate [From Plavix] Allergy (Verified 01/27/20 19:38) Sulfa (Sulfonamide Antibiotics) Allergy (Verified 01/27/20 19:38) Review of Systems Review of Systems: As per Daughter. Constitutional: ABSENT: headache(s) Eyes: ABSENT: visual disturbances Ears: ABSENT: hearing changes Nose, Mouth, and Throat: ABSENT: sore throat Cardiovascular: ABSENT: chest pain Respiratory: ABSENT: dyspnea Gastrointestinal: PRESENT: abdominal pain, nausea, vomiting. ABSENT: constipation Genitourinary: PRESENT: other - frequency Integumentary: ABSENT: rash Neurological: PRESENT: weakness Hematologic/Lymphatic: ABSENT: easy bleeding Physical Exam Vital Signs: Temp Pulse Resp BP Pulse Ox 97.3 F 55 L 18 141/55 H 100 04/14/20 08:12 04/14/20 14:00 04/14/20 10:57 04/14/20 10:57 04/14/20 10:57 Intake & Output 04/13/20 04/14/20 04/15/20 06:59 06:59 06:59 Intake Total 750 1310 0 Output Total 0 Balance 750 1310 0 Weight 71.2 kg 70.7 kg General appearance: PRESENT: no acute distress, well-developed, well-nourished Exam: 84 year old female. Head exam: PRESENT: atraumatic, normocephalic Eye exam: PRESENT: EOMI Mouth exam: PRESENT: tongue midline Neck exam: ABSENT: lymphadenopathy, tenderness Respiratory exam: PRESENT: clear to auscultation emerald, unlabored Cardiovascular exam: PRESENT: RRR, systolic murmur GI/Abdominal exam: PRESENT: soft. ABSENT: tenderness Extremities exam: PRESENT: +1 edema Musculoskeletal exam: PRESENT: normal inspection Neurological exam: PRESENT: altered, awake, other - She nods head Y-N but does not vocalize. Skin exam: PRESENT: normal color Results Laboratory Results: 04/14/20 05:58 04/14/20 05:58 04/14/20 04/14/20 05:58 05:58 WBC 4.5 RBC 3.23 L Hgb 9.2 L Hct 27.9 L MCV 87 MCH 28.6 MCHC 33.1 RDW 19.9 H Plt Count 25 L* Seg Neutrophils % Not Reportable Sodium 129.6 L Potassium 5.6 H Chloride 97 L Carbon Dioxide 21 L Anion Gap 12 BUN 55 H Creatinine 4.57 H Est GFR ( Amer) 11 L Glucose 72 L Calcium 8.3 L Magnesium 2.0 Total Bilirubin 1.8 H AST 731 H Alkaline Phosphatase 221 H Total Protein 6.3 Albumin 2.6 L Lipase 4242.6 H 04/12/20 04/12/20 04/14/20 18:38 18:38 05:58 Troponin I 0.124 NT-Pro-B Natriuret Pep 000031 H [id number] H Impressions: Chest X-Ray 04/12/20 17:56 IMPRESSION: Cardiomegaly with central pulmonary vascular prominence but no mary pulmonary edema. Small left pleural effusion. Abdomen Ultrasound 04/12/20 22:05 IMPRESSION: Medical hepatic disease, presumed steatosis. Cholelithiasis without acute cholecystitis. No ductal dilatation. Right renal atrophy. Abdomen MRI 04/13/20 00:40 IMPRESSION: 1. Cholelithiasis and gallbladder wall thickening. There is no dilatation of the common bile duct or evidence of choledocholithiasis. 2. Cardiomegaly and small bilateral pleural effusions. 3. 12 x 7 mm right adrenal lipid rich adenoma. 4. Colonic diverticulosis. Status: Image reviewed by me Assessment & Plan - Diagnosis (1) Acute on chronic renal failure Qualifiers: Acute renal failure type: unspecified Chronic kidney disease stage: unspecified stage Qualified Code(s): N17.9 - Acute kidney failure, unspecified; N18.9 - Chronic kidney disease, unspecified Is this a current diagnosis for this admission?: Yes Plan: Followed by Dr. Lazaro. Patient and fmaily have requested no aggressive intervention or dialysis. (2) History of esophageal cancer Is this a current diagnosis for this admission?: Yes Plan: Currently no evidence of active cancer. (3) Pancreatitis Qualifiers: Chronicity: acute Pancreatitis type: unspecified pancreatitis type Acute pancreatitis complication: unspecified Qualified Code(s): K85.90 - Acute pancreatitis without necrosis or infection, unspecified Is this a current diagnosis for this admission?: Yes Plan: Her Lipase is increasing, but her symptoms have improved since admission. She is NPO. (4) Thrombocytopenia Is this a current diagnosis for this admission?: Yes Plan: Most likely reactive due to acute pancreatitis. Would hold all blood thinners. May consider transfusion if evidence of bleeding, but hopefully, patient will continue palliative treatments only. - Plan Summary Plan Summary: I spoke with daughter and grand-daughter at length. I have tried to explain the difference between HHN and Hospice services at home. She is currently receiving palliative care only here in the hospital. I believe Daughter would benefit from a Hospice Educational visit and admission to Hospice, if family agrees. I will be happy to set this up at any time. I have explained that this can be arranged prior to discharge so that all services are in place on discharge. Family will discuss these options. I am happy to help please call with any concerns or questions.
[2020-04-14] MEDS: DEXTROSE 5%-NORMAL SALINE 1,000 ML IV PRN (19:52)
[2020-04-15] MEDS ORDERED: DEXTROSE 5%-NORMAL SALINE 1,000 ML IV PRN (03:20)
[2020-04-15 07:11] LABS: HEMOGLOBIN 9.4 g/dL (12.0-15.5); MEAN CORPUSCULAR HEMOGLOBIN 28.2 pg (27.0-33.4); MEAN CORPUSCULAR HGB CONC 32.6 g/dL (32.0-36.0); MEAN CORPUSCULAR VOLUME 86 fl (80-97); RED BLOOD COUNT 3.35 10^6/uL (3.72-5.28); RED CELL DISTRIBUTION WIDTH 19.5 % (11.5-14.0); WHITE BLOOD COUNT 5.9 10^3/uL (4.0-10.5)
--- NOTE | 2020-04-15 08:18 | PDOC PROGRESS REPORT ---
Subjective Progress Note for:: 04/15/20 Subjective:: Patient's granddaughter at bedside and daughter was present by telephone. Dr. Danielson at bedside as well. Patient states that she is no having any pain. She is not hungry and does not wish to eat. Granddaughter states that she only got up one time in the middle of the night, but no significant changes. Reason For Visit: GALL STONE PANCREATITIS Physical Exam Vital Signs: Temp Pulse Resp BP Pulse Ox 97.4 F 54 L 16 132/57 H 100 04/15/20 04:37 04/15/20 04:37 04/15/20 04:37 04/15/20 04:37 04/15/20 04:37 Intake & Output 04/14/20 04/15/20 04/16/20 06:59 06:59 06:59 Intake Total 1310 10 Output Total 0 25 Balance 1310 -15 Weight 70.7 kg 72.1 kg General appearance: PRESENT: well-developed, well-nourished Head exam: PRESENT: normocephalic Eye exam: PRESENT: EOMI Respiratory exam: PRESENT: unlabored Neurological exam: PRESENT: awake, other - Very heard of hearing. Not visualized ambulating. Skin exam: PRESENT: normal color Results Laboratory Results: 04/14/20 05:58 04/15/20 06:18 Magnesium 2.1 Lipase 7059.5 H 04/12/20 04/12/20 04/14/20 18:38 18:38 05:58 Troponin I 0.124 NT-Pro-B Natriuret Pep [id number] H [id number] H 04/15/20 06:18 Troponin I NT-Pro-B Natriuret Pep [id number] H Impressions: Chest X-Ray 04/12/20 17:56 IMPRESSION: Cardiomegaly with central pulmonary vascular prominence but no mary pulmonary edema. Small left pleural effusion. Abdomen Ultrasound 04/12/20 22:05 IMPRESSION: Medical hepatic disease, presumed steatosis. Cholelithiasis without acute cholecystitis. No ductal dilatation. Right renal atrophy. Abdomen MRI 04/13/20 00:40 IMPRESSION: 1. Cholelithiasis and gallbladder wall thickening. There is no dilatation of the common bile duct or evidence of choledocholithiasis. 2. Cardiomegaly and small bilateral pleural effusions. 3. 12 x 7 mm right adrenal lipid rich adenoma. 4. Colonic diverticulosis. Assessment & Plan - Diagnosis (1) Acute on chronic renal failure Qualifiers: Acute renal failure type: unspecified Chronic kidney disease stage: unspecified stage Qualified Code(s): N17.9 - Acute kidney failure, unspecified; N18.9 - Chronic kidney disease, unspecified Is this a current diagnosis for this admission?: Yes (2) History of esophageal cancer Is this a current diagnosis for this admission?: Yes (3) Pancreatitis Qualifiers: Chronicity: acute Pancreatitis type: unspecified pancreatitis type Acute pancreatitis complication: unspecified Qualified Code(s): K85.90 - Acute pancreatitis without necrosis or infection, unspecified Is this a current diagnosis for this admission?: Yes Plan: Again discussed home with Hospice. Daughter is concerned about them being able to care for her at home, and states that she would like to consider an inpatient facility. I explained that COVID restriction will mean that she will not have any visitors, but this is always an option, even if she initially goes home with Hospice. She would like to discuss further with the social work manager. (4) Thrombocytopenia Is this a current diagnosis for this admission?: Yes Plan: Await today's CBC, but no evidence of active bleeding. Continue palliative care only. - Time Time Spent with patient: 15-24 minutes
[2020-04-15 08:27] LABS: PLATELET COUNT 28 10^3/uL (150-450)
[2020-04-15 08:31] LABS: ABSOLUTE LYMPHOCYTES# (MANUAL) 0.5 10^3/uL (0.5-4.7); ABSOLUTE MONOCYTES # (MANUAL) 0.4 10^3/uL (0.1-1.4); BASOPHILS % (MANUAL) 0 % (0-2); EOSINOPHILS % (MANUAL) 0 % (0-6); LYMPHOCYTES % (MANUAL) 8 % (13-45); MONOCYTES % (MANUAL) 6 % (3-13); NUCLEATED RED BLOOD CELLS 4 /100 WBC (0); SEGMENTED NEUTROPHILS % (MAN) 86 % (42-78); TOTAL CELLS COUNTED 100
[2020-04-15 08:32] LABS: ANISOCYTOSIS 2+; BURR CELLS 2+; HYPOCHROMASIA SLIGHT; PLATELET COMMENT DECREASED; PLATELET GIANT PRESENT; PLATELET LARGE PRESENT; POIKILOCYTOSIS 2+; SCHISTOCYTES SLIGHT
--- NOTE | 2020-04-15 08:32 | PDOC PROGRESS REPORT ---
Subjective Progress Note for:: 04/15/20 Subjective:: Patient is currently doing same As per discussed with the patient's daughter myself and oncology suggest that patient should be a comfort and hospice care and the daughter will decide today about inpatient versus outpatient With the multiple comorbidity including the history of esophageal cancer history of the cardiomyopathy end-stage renal disease patient's life expectancy is less than 6-month Patient is currently a DNR/DNI Reason For Visit: GALL STONE PANCREATITIS Physical Exam Vital Signs: Temp Pulse Resp BP Pulse Ox 97.4 F 54 L 16 132/57 H 100 04/15/20 04:37 04/15/20 04:37 04/15/20 04:37 04/15/20 04:37 04/15/20 04:37 Intake & Output 04/14/20 04/15/20 04/16/20 06:59 06:59 06:59 Intake Total 1310 10 Output Total 0 25 Balance 1310 -15 Weight 70.7 kg 72.1 kg General appearance: PRESENT: no acute distress Head exam: PRESENT: atraumatic, normocephalic Eye exam: PRESENT: conjunctiva pink, EOMI, PERRLA. ABSENT: scleral icterus Ear exam: PRESENT: normal external ear exam Mouth exam: PRESENT: moist, tongue midline Neck exam: PRESENT: full ROM. ABSENT: carotid bruit, JVD, lymphadenopathy, thyromegaly Cardiovascular exam: PRESENT: RRR. ABSENT: diastolic murmur, rubs, systolic murmur Vascular exam: PRESENT: normal capillary refill GI/Abdominal exam: PRESENT: normal bowel sounds, soft. ABSENT: distended, guarding, mass, organolmegaly, rebound, tenderness Rectal exam: PRESENT: deferred Neurological exam: PRESENT: alert, awake. ABSENT: motor sensory deficit Psychiatric exam: PRESENT: appropriate affect, normal mood. ABSENT: homicidal ideation, suicidal ideation Skin exam: PRESENT: dry, intact, warm. ABSENT: cyanosis, rash Results Laboratory Results: 04/15/20 06:18 04/14/20 05:58 04/15/20 04/15/20 06:18 06:18 WBC 5.9 RBC 3.35 L Hgb 9.4 L Hct 29.0 L MCV 86 MCH 28.2 MCHC 32.6 RDW 19.5 H Plt Count 28 L* Seg Neutrophils % Not Reportable Magnesium 2.1 Lipase 7059.5 H 04/13/20 03:35 Clean Catch Midstream Urine Culture - Final Mrsa (Meth Resis Staph Aureus) 04/12/20 04/12/20 04/14/20 18:38 18:38 05:58 Troponin I 0.124 NT-Pro-B Natriuret Pep [id number] H [id number] H 04/15/20 06:18 Troponin I NT-Pro-B Natriuret Pep [id number] H Impressions: Chest X-Ray 04/12/20 17:56 IMPRESSION: Cardiomegaly with central pulmonary vascular prominence but no mary pulmonary edema. Small left pleural effusion. Abdomen Ultrasound 04/12/20 22:05 IMPRESSION: Medical hepatic disease, presumed steatosis. Cholelithiasis without acute cholecystitis. No ductal dilatation. Right renal atrophy. Abdomen MRI 04/13/20 00:40 IMPRESSION: 1. Cholelithiasis and gallbladder wall thickening. There is no dilatation of the common bile duct or evidence of choledocholithiasis. 2. Cardiomegaly and small bilateral pleural effusions. 3. 12 x 7 mm right adrenal lipid rich adenoma. 4. Colonic diverticulosis. Assessment & Plan - Diagnosis (1) Abdominal pain Qualifiers: Abdominal location: epigastric Qualified Code(s): R10.13 - Epigastric pain Is this a current diagnosis for this admission?: Yes (2) Acute gallstone pancreatitis Is this a current diagnosis for this admission?: Yes (3) Acute on chronic renal failure Qualifiers: Acute renal failure type: unspecified Chronic kidney disease stage: unspecified stage Qualified Code(s): N17.9 - Acute kidney failure, unspecified; N18.9 - Chronic kidney disease, unspecified Is this a current diagnosis for this admission?: Yes (4) Elevated LFTs Is this a current diagnosis for this admission?: Yes (5) Congestive heart failure Qualifiers: Heart failure type: combined systolic and diastolic Heart failure chronicity: chronic Qualified Code(s): I50.42 - Chronic combined systolic (congestive) and diastolic (congestive) heart failure Is this a current diagnosis for this admission?: Yes (6) Coronary artery disease Qualifiers: Coronary Disease-Associated Artery/Lesion type: [place] artery [place] vs. transplanted heart: [place] heart Associated angina: without angina Qualified Code(s): I25.10 - Atherosclerotic heart disease of [place] coronary artery without angina pectoris Is this a current diagnosis for this admission?: Yes (7) Hypertension Qualifiers: Hypertension type: essential hypertension Qualified Code(s): I10 - Essential (primary) hypertension Is this a current diagnosis for this admission?: Yes (8) Hyponatremia Is this a current diagnosis for this admission?: Yes (9) Weakness Is this a current diagnosis for this admission?: Yes (10) History of esophageal cancer Is this a current diagnosis for this admission?: Yes (11) Thrombocytopenia Is this a current diagnosis for this admission?: Yes - Time Time Spent with patient: 25-34 minutes Level of Care: IMCU Medications reviewed and adjusted accordingly: Yes Anticipated discharge: Hospice Anticipated DC Timeframe: Other - Plan Summary Plan Summary: With the multiple comorbidity patients at this point with the history of the es ophageal cancer history of the dementia history of cardiomyopathy and history of the end-stage renal disease patient's life expectancy is less than 6-month patient is very appropriate for the hospice and comfort care
[2020-04-15] MEDS: FUROSEMIDE INJ/PF 20 MG/2 ML SDV IV SCH (09:43)
[2020-04-15] MEDS: PANTOPRAZOLE SODIUM 40 MG VIAL IV SCH ×2 (09:43→22:04)
--- NOTE | 2020-04-15 12:21 | PDOC PROGRESS REPORT ---
Subjective Progress Note for:: 04/14/20 Subjective:: Patient was seen yesterday in the evening. This was at around 6 PM. However a note was not entered. Patient was noted to be sitting at the side of the bed. She continued to complain of some abdominal pain but denied any chest pain. She was noted to be mildly short of breath. However she claimed to be reasonably comfortable. Reason For Visit: GALL STONE PANCREATITIS Physical Exam Vital Signs: Temp Pulse Resp BP Pulse Ox 97.4 F 55 L 16 132/57 H 100 04/15/20 10:00 04/15/20 07:00 04/15/20 04:37 04/15/20 04:37 04/15/20 04:37 Intake & Output 04/14/20 04/15/20 04/16/20 06:59 06:59 06:59 Intake Total 1310 10 10 Output Total 0 25 Balance 1310 -15 10 Weight 70.7 kg 72.1 kg Exam: GENERAL: well-nourished and in no acute distress. Alert and oriented x3 HEAD: Atraumatic, normocephalic. EYES: ARRON, sclera anicteric, conjunctiva are normal. ENT: Moist mucous membranes. No oral ulcerations or bleeding gums noted. No obvious ear, nose or throat abnormalities noted. NECK: supple without lymphadenopathy. Trachea is central. No cervical or axillary lymphadenopathy noted. Carotids are 2+, JVD borderline elevated LUNGS: Breath sounds clear bilaterally. No wheezes rales or rhonchi noted. No significant dullness noted on percussion. CHEST: Palpation of the chest wall shows no significant chest wall tenderness. 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 ABDOMEN: Soft, no significant tenderness appreciated, normoactive bowel sounds. No guarding, no rebound. No rigidity noted . No masses appreciated. EXTREMITIES: Pedal pulses are 1-2+, no calf tenderness noted. No clubbing or cyanosis. 1+ pedal edema noted NEUROLOGICAL: Focused neurological exam showed no significant neurologic deficit. Normal speech, no focal weakness appreciated. PSYCH: Normal mood, normal affect. Judgment and insight within normal limits. SKIN: No significant ecchymosis, skin is noted to be warm. MUSCULOSKELETAL EXAM: No significant acute joint swelling noted. Results Laboratory Results: 04/15/20 06:18 04/14/20 05:58 04/15/20 04/15/20 06:18 06:18 WBC 5.9 RBC 3.35 L Hgb 9.4 L Hct 29.0 L MCV 86 MCH 28.2 MCHC 32.6 RDW 19.5 H Plt Count 28 L* Seg Neutrophils % Not Reportable Magnesium 2.1 Lipase 7059.5 H 04/13/20 03:35 Clean Catch Midstream Urine Culture - Final Mrsa (Meth Resis Staph Aureus) 04/12/20 04/12/20 04/14/20 18:38 18:38 05:58 Troponin I 0.124 NT-Pro-B Natriuret Pep [id number] H [id number] H 04/15/20 06:18 Troponin I NT-Pro-B Natriuret Pep [id number] H EKG Comments: Telemetry strips were reviewed. Predominantly sinus rhythm with short run of wide-complex tachycardia noted. No symptoms noted at that time. 2D echocardiogram showed severely depressed LVEF with moderate to severe mitral regurgitation and moderate to severe tricuspid regurgitation with severe pulmonary hypertension. Compared to previous echocardiogram there has been deterioration. Other lab data showed significant thrombocytopenia but no ongoing obvious bleed. Impressions: Chest X-Ray 04/12/20 17:56 IMPRESSION: Cardiomegaly with central pulmonary vascular prominence but no mary pulmonary edema. Small left pleural effusion. Abdomen Ultrasound 04/12/20 22:05 IMPRESSION: Medical hepatic disease, presumed steatosis. Cholelithiasis without acute cholecystitis. No ductal dilatation. Right renal atrophy. Abdomen MRI 04/13/20 00:40 IMPRESSION: 1. Cholelithiasis and gallbladder wall thickening. There is no dilatation of the common bile duct or evidence of choledocholithiasis. 2. Cardiomegaly and small bilateral pleural effusions. 3. 12 x 7 mm right adrenal lipid rich adenoma. 4. Colonic diverticulosis. Assessment & Plan - Diagnosis (1) Acute gallstone pancreatitis Is this a current diagnosis for this admission?: Yes (2) History of esophageal cancer Is this a current diagnosis for this admission?: Yes (3) Pancreatitis Qualifiers: Chronicity: acute Pancreatitis type: unspecified pancreatitis type Acute pancreatitis complication: unspecified Qualified Code(s): K85.90 - Acute pancreatitis without necrosis or infection, unspecified Is this a current diagnosis for this admission?: Yes (4) Thrombocytopenia Is this a current diagnosis for this admission?: Yes (5) Congestive heart failure Qualifiers: Heart failure type: combined systolic and diastolic Heart failure chronicity: chronic Qualified Code(s): I50.42 - Chronic combined systolic (congestive) and diastolic (congestive) heart failure Is this a current diagnosis for this admission?: Yes (6) Coronary artery disease Qualifiers: Coronary Disease-Associated Artery/Lesion type: [place] artery [place] vs. transplanted heart: [place] heart Associated angina: without angina Qualified Code(s): I25.10 - Atherosclerotic heart disease of [place] coronary artery without angina pectoris Is this a current diagnosis for this admission?: Yes (7) Hypertension Qualifiers: Hypertension type: essential hypertension Qualified Code(s): I10 - Essential (primary) hypertension Is this a current diagnosis for this admission?: Yes - Notes Notes: Patient reasonably comfortable but is noted to be mildly tachypneic. Shows worsening of underlying LVEF and also valvular regurgitation as well as pulmonary hypertension. In addition patient has multiple other significant comorbid diagnosis. Prognosis is grave. Told by the nurse that oncologist been talking to the patient about CODE STATUS. Agree with current management plans by the hospitalist did not feel patient would be a candidate for any invasive eval Telemetry strips were reviewed. Predominantly sinus rhythm with short run of wide-complex tachycardia noted. No symptoms noted at that time. 2D echocardiogram showed severely depressed LVEF with moderate to severe mitral regurgitation and moderate to severe tricuspid regurgitation with severe pulmonary hypertension. Compared to previous echocardiogram there has been deterioration. Other lab data showed significant thrombocytopenia but no ongoing obvious bleed. - Time Time with patient: 15-25 minutes Medications reviewed and adjusted accordingly: Yes
[2020-04-15] MEDS: CARVEDILOL 6.25 MG TABLET PO SCH ×2 (12:51→22:05)
[2020-04-15] MEDS: CALCITRIOL 0.25 MCG CAPSULE PO SCH (12:51)
[2020-04-15] MEDS: MAGNESIUM OXIDE 400 MG TABLET PO SCH ×2 (12:51→18:00)
[2020-04-15] MEDS: SODIUM BICARBONATE 650 MG TABLET PO SCH ×3 (12:51→18:00)
[2020-04-15] MEDS: CYANOCOBALAMIN (VITAMIN B-12) 1,000 MCG TABLET PO SCH (12:52)
[2020-04-15] MEDS: DEXTROSE 5%-NORMAL SALINE 1,000 ML IV PRN (12:55)
[2020-04-15] MEDS: CEFEPIME 1 GM/D5W RTU 1 GM/50 ML RTUPB IV SCH (13:03)
[2020-04-16] MEDS: DEXTROSE 5%-NORMAL SALINE 1,000 ML IV PRN (07:49)
[2020-04-16] MEDS: TRAMADOL HCL 50 MG TABLET PO PRN (10:04)
[2020-04-16] MEDS: FUROSEMIDE INJ/PF 20 MG/2 ML SDV IV SCH (10:05)
[2020-04-16] MEDS: MAGNESIUM OXIDE 400 MG TABLET PO SCH ×2 (10:06→18:22)
[2020-04-16] MEDS: PANTOPRAZOLE SODIUM 40 MG VIAL IV SCH ×2 (10:06→21:56)
[2020-04-16] MEDS: SODIUM BICARBONATE 650 MG TABLET PO SCH ×3 (10:06→18:22)
[2020-04-16] MEDS: CYANOCOBALAMIN (VITAMIN B-12) 1,000 MCG TABLET PO SCH (10:06)
[2020-04-16] MEDS: CARVEDILOL 6.25 MG TABLET PO SCH ×2 (10:06→21:55)
[2020-04-16 13:32] LABS: APPEARANCE,URINE SLIGHTLY-CLOUDY; BILIRUBIN,URINE NEGATIVE (NEGATIVE); COLOR,URINE YELLOW; GLUCOSE, URINE NEGATIVE (NEGATIVE); KETONES,URINE NEGATIVE (NEGATIVE); LEUKOCYTE ESTERASE,URINE TRACE (NEGATIVE); NITRITE,URINE NEGATIVE (NEGATIVE); PROTEIN,URINE 100 mg/dL (NEGATIVE); URINE SPECIFIC GRAVITY 1.011; UROBILINOGEN,URINE NEGATIVE mg/dL (<2.0)
[2020-04-16] MEDS: CEFEPIME 1 GM/D5W RTU 1 GM/50 ML RTUPB IV SCH (13:39)
--- NOTE | 2020-04-16 15:38 | PDOC PROGRESS REPORT ---
Subjective Progress Note for:: 04/16/20 Subjective:: Patient seen by the bedside she has multiple comorbid condition, according to Dr. Danielson hospice is an option is considered for this patient family weighing the options at the moment there is no new complaints Reason For Visit: GALL STONE PANCREATITIS Physical Exam Vital Signs: Temp Pulse Resp BP Pulse Ox 97.4 F 55 L 16 122/59 L 100 04/16/20 11:34 04/16/20 11:34 04/16/20 11:34 04/16/20 11:34 04/16/20 11:34 Intake & Output 04/15/20 04/16/20 04/17/20 06:59 06:59 06:59 Intake Total 10 2170 110 Output Total 25 25 Balance -15 2145 110 Weight 72.1 kg 66.2 kg Results Laboratory Results: 04/15/20 06:18 04/14/20 05:58 04/16/20 11:30 Urine Color YELLOW Urine Appearance SLIGHTLY-CLOUDY Urine pH 5.0 Ur Specific [place] 1.011 Urine Protein 100 H Urine Glucose (UA) NEGATIVE Urine Ketones NEGATIVE Urine Blood SMALL H Urine Nitrite NEGATIVE Ur Leukocyte Esterase TRACE H Urine WBC (Auto) 5 Urine RBC (Auto) 2 04/12/20 04/12/20 04/14/20 18:38 18:38 05:58 Troponin I 0.124 NT-Pro-B Natriuret Pep [id number] H [id number] H 04/15/20 06:18 Troponin I NT-Pro-B Natriuret Pep [id number] H Impressions: Chest X-Ray 04/12/20 17:56 IMPRESSION: Cardiomegaly with central pulmonary vascular prominence but no mary pulmonary edema. Small left pleural effusion. Abdomen Ultrasound 04/12/20 22:05 IMPRESSION: Medical hepatic disease, presumed steatosis. Cholelithiasis without acute cholecystitis. No ductal dilatation. Right renal atrophy. Abdomen MRI 04/13/20 00:40 IMPRESSION: 1. Cholelithiasis and gallbladder wall thickening. There is no dilatation of the common bile duct or evidence of choledocholithiasis. 2. Cardiomegaly and small bilateral pleural effusions. 3. 12 x 7 mm right adrenal lipid rich adenoma. 4. Colonic diverticulosis. Assessment & Plan - Diagnosis (1) Acute pancreatitis without necrosis or infection, unspecified Qualifiers: Pancreatitis type: unspecified pancreatitis type Qualified Code(s): K85.90 - Acute pancreatitis without necrosis or infection, unspecified Is this a current diagnosis for this admission?: Yes (2) Gall stone pancreatitis Is this a current diagnosis for this admission?: Yes (3) Acute kidney injury Is this a current diagnosis for this admission?: Yes (4) Thrombocytopenia Is this a current diagnosis for this admission?: Yes - Time Time Spent with patient: 25-34 minutes Level of Care: IMCU Medications reviewed and adjusted accordingly: Yes Anticipated discharge: Home Anticipated DC Timeframe: within 72 hours - Plan Summary Plan Summary: Continue present treatment
--- NOTE | 2020-04-16 23:32 | PDOC PROGRESS REPORT ---
Subjective Progress Note for:: 04/15/20 Subjective:: Patient was seen yesterday in the evening on 04/15/2020. However a note was not entered. Patient was noted to be sitting at the side of the bed. She was noted to be mildly short of breath. However she claimed to be reasonably comfortable. Patient CODE STATUS has been switched to DO NOT RESUSCITATE. Family is considering hospice care. Reason For Visit: GALL STONE PANCREATITIS Physical Exam Vital Signs: Temp Pulse Resp BP Pulse Ox 97.3 F 54 L 16 115/50 L 98 04/16/20 19:37 04/16/20 19:37 04/16/20 19:37 04/16/20 19:37 04/16/20 19:37 Intake & Output 04/15/20 04/16/20 04/17/20 06:59 06:59 06:59 Intake Total 10 2170 120 Output Total 25 25 Balance -15 2145 120 Weight 72.1 kg 66.2 kg Exam: GENERAL: well-nourished and in no acute distress. Alert and oriented x3 HEAD: Atraumatic, normocephalic. EYES: ARRON, sclera anicteric, conjunctiva are normal. ENT: Moist mucous membranes. No oral ulcerations or bleeding gums noted. No obvious ear, nose or throat abnormalities noted. NECK: supple without lymphadenopathy. Trachea is central. No cervical or axillary lymphadenopathy noted. Carotids are 2+, JVD WNL LUNGS: Breath sounds clear bilaterally. No wheezes rales or rhonchi noted. No significant dullness noted on percussion. CHEST: Palpation of the chest wall shows no significant chest wall tenderness. 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 ABDOMEN: Soft, mild diffuse tenderness appreciated, hypoactive bowel sounds. No guarding, no rebound. No rigidity noted . No masses appreciated. EXTREMITIES: Pedal pulses are 1-2+, no calf tenderness noted. No clubbing or cyanosis. 2+ pedal edema noted NEUROLOGICAL: Focused neurological exam showed no significant neurologic deficit. Normal speech, no focal weakness appreciated. PSYCH: Normal mood, normal affect. Judgment and insight within normal limits. SKIN: No significant ecchymosis, skin is noted to be warm. MUSCULOSKELETAL EXAM: No significant acute joint swelling noted. Results Laboratory Results: 04/15/20 06:18 04/14/20 05:58 04/16/20 11:30 Urine Color YELLOW Urine Appearance SLIGHTLY-CLOUDY Urine pH 5.0 Ur Specific [place] 1.011 Urine Protein 100 H Urine Glucose (UA) NEGATIVE Urine Ketones NEGATIVE Urine Blood SMALL H Urine Nitrite NEGATIVE Ur Leukocyte Esterase TRACE H Urine WBC (Auto) 5 Urine RBC (Auto) 2 04/12/20 04/12/20 04/14/20 18:38 18:38 05:58 Troponin I 0.124 NT-Pro-B Natriuret Pep [id number] H [id number] H 04/15/20 06:18 Troponin I NT-Pro-B Natriuret Pep [id number] H Impressions: Chest X-Ray 04/12/20 17:56 IMPRESSION: Cardiomegaly with central pulmonary vascular prominence but no mary pulmonary edema. Small left pleural effusion. Abdomen Ultrasound 04/12/20 22:05 IMPRESSION: Medical hepatic disease, presumed steatosis. Cholelithiasis without acute cholecystitis. No ductal dilatation. Right renal atrophy. Abdomen MRI 04/13/20 00:40 IMPRESSION: 1. Cholelithiasis and gallbladder wall thickening. There is no dilatation of the common bile duct or evidence of choledocholithiasis. 2. Cardiomegaly and small bilateral pleural effusions. 3. 12 x 7 mm right adrenal lipid rich adenoma. 4. Colonic diverticulosis. Assessment & Plan - Diagnosis (1) Acute gallstone pancreatitis Is this a current diagnosis for this admission?: Yes (2) History of esophageal cancer Is this a current diagnosis for this admission?: Yes (3) Pancreatitis Qualifiers: Chronicity: acute Pancreatitis type: unspecified pancreatitis type Acute pancreatitis complication: unspecified Qualified Code(s): K85.90 - Acute pancreatitis without necrosis or infection, unspecified Is this a current diagnosis for this admission?: Yes (4) Thrombocytopenia Is this a current diagnosis for this admission?: Yes (5) Congestive heart failure Qualifiers: Heart failure type: combined systolic and diastolic Heart failure chronicity: chronic Qualified Code(s): I50.42 - Chronic combined systolic (congestive) and diastolic (congestive) heart failure Is this a current diagnosis for this admission?: Yes (6) Coronary artery disease Qualifiers: Coronary Disease-Associated Artery/Lesion type: [place] artery [place] vs. transplanted heart: [place] heart Associated angina: without angina Qualified Code(s): I25.10 - Atherosclerotic heart disease of [place] coronary artery with out angina pectoris Is this a current diagnosis for this admission?: Yes (7) Hypertension Qualifiers: Hypertension type: essential hypertension Qualified Code(s): I10 - Essential (primary) hypertension Is this a current diagnosis for this admission?: Yes - Notes Notes: Patient is generally stable but due to significant comorbid conditions and other serious condition overall prognosis is grave. Patient not a candidate for any invasive work-up. Continue current management plans. Will sign off. Please reconsult if needed.
[2020-04-17] MEDS: DEXTROSE 5%-NORMAL SALINE 1,000 ML IV PRN (00:21)
[2020-04-17] MEDS: PANTOPRAZOLE SODIUM 40 MG VIAL IV SCH ×2 (10:29→21:37)
[2020-04-17] MEDS: FUROSEMIDE INJ/PF 20 MG/2 ML SDV IV SCH (10:29)
[2020-04-17] MEDS: CARVEDILOL 6.25 MG TABLET PO SCH ×2 (10:30→21:37)
[2020-04-17] MEDS: CYANOCOBALAMIN (VITAMIN B-12) 1,000 MCG TABLET PO SCH (10:30)
[2020-04-17] MEDS: SODIUM BICARBONATE 650 MG TABLET PO SCH ×3 (10:30→17:20)
[2020-04-17] MEDS: MAGNESIUM OXIDE 400 MG TABLET PO SCH ×2 (10:30→17:20)
--- NOTE | 2020-04-17 12:27 | PDOC PROGRESS REPORT ---
Subjective Progress Note for:: 04/17/20 Subjective:: Patient seen by the bedside she has multiple comorbid condition, according to Dr. Danielson hospice is an option is considered for this patient family weighing the options at the moment there is no new complaints Reason For Visit: GALL STONE PANCREATITIS Physical Exam Vital Signs: Temp Pulse Resp BP Pulse Ox 97.4 F 63 16 117/61 100 04/17/20 09:06 04/17/20 07:54 04/17/20 07:54 04/17/20 07:54 04/17/20 07:54 Intake & Output 04/16/20 04/17/20 04/18/20 06:59 06:59 06:59 Intake Total 2170 1112 10 Output Total 25 100 Balance 2145 1012 10 Weight 66.2 kg 73.4 kg General appearance: PRESENT: no acute distress Eye exam: PRESENT: PERRLA Respiratory exam: PRESENT: clear to auscultation emerald Cardiovascular exam: PRESENT: +S1, +S2 Results Laboratory Results: 04/15/20 06:18 04/14/20 05:58 04/16/20 11:30 Urine Color YELLOW Urine Appearance SLIGHTLY-CLOUDY Urine pH 5.0 Ur Specific [place] 1.011 Urine Protein 100 H Urine Glucose (UA) NEGATIVE Urine Ketones NEGATIVE Urine Blood SMALL H Urine Nitrite NEGATIVE Ur Leukocyte Esterase TRACE H Urine WBC (Auto) 5 Urine RBC (Auto) 2 04/12/20 04/12/20 04/14/20 18:38 18:38 05:58 Troponin I 0.124 NT-Pro-B Natriuret Pep [id number] H [id number] H 04/15/20 06:18 Troponin I NT-Pro-B Natriuret Pep [id number] H Impressions: Chest X-Ray 04/12/20 17:56 IMPRESSION: Cardiomegaly with central pulmonary vascular prominence but no mary pulmonary edema. Small left pleural effusion. Abdomen Ultrasound 04/12/20 22:05 IMPRESSION: Medical hepatic disease, presumed steatosis. Cholelithiasis without acute cholecystitis. No ductal dilatation. Right renal atrophy. Abdomen MRI 04/13/20 00:40 IMPRESSION: 1. Cholelithiasis and gallbladder wall thickening. There is no dilatation of the common bile duct or evidence of choledocholithiasis. 2. Cardiomegaly and small bilateral pleural effusions. 3. 12 x 7 mm right adrenal lipid rich adenoma. 4. Colonic diverticulosis. Assessment & Plan - Diagnosis (1) Acute pancreatitis without necrosis or infection, unspecified Qualifiers: Pancreatitis type: unspecified pancreatitis type Qualified Code(s): K85.90 - Acute pancreatitis without necrosis or infection, unspecified Is this a current diagnosis for this admission?: Yes (2) Gall stone pancreatitis Is this a current diagnosis for this admission?: Yes (3) Acute kidney injury Is this a current diagnosis for this admission?: Yes (4) Thrombocytopenia Is this a current diagnosis for this admission?: Yes - Time Time Spent with patient: 15-24 minutes Level of Care: IMCU Anticipated discharge: Home Anticipated DC Timeframe: within 36 hours
[2020-04-17] MEDS: CEFEPIME 1 GM/D5W RTU 1 GM/50 ML RTUPB IV SCH (14:07)
[2020-04-17] MEDS: TRAMADOL HCL 50 MG TABLET PO PRN (23:40)
[2020-04-18] MEDS: DEXTROSE 5%-NORMAL SALINE 1,000 ML IV PRN ×2 (02:45→21:10)
[2020-04-18 07:57] LABS: PLATELET COUNT 25 10^3/uL (150-450)
--- NOTE | 2020-04-18 08:52 | PDOC PROGRESS REPORT ---
Subjective Progress Note for:: 04/18/20 Subjective:: Patient is resting peacefully. She did not arouse to my voice. I sat and spoke with her granddaughter at length as well as the patient's daughter by telephone today. They still have many questions and concerns. Reason For Visit: GALL STONE PANCREATITIS Physical Exam Vital Signs: Temp Pulse Resp BP Pulse Ox 97.3 F 58 L 16 105/45 L 100 04/18/20 03:53 04/18/20 03:53 04/18/20 03:53 04/18/20 03:53 04/18/20 03:53 Intake & Output 04/17/20 04/18/20 04/19/20 06:59 06:59 06:59 Intake Total 1112 1310 Output Total 100 425 Balance 1012 885 Weight 73.4 kg 75.5 kg General appearance: PRESENT: no acute distress, hard of hearing Head exam: PRESENT: normocephalic Respiratory exam: PRESENT: unlabored Skin exam: PRESENT: normal color Results Laboratory Results: 04/15/20 06:18 04/14/20 05:58 04/14/20 05:58 Plt Count 25 L* 04/12/20 04/12/20 04/14/20 18:38 18:38 05:58 Troponin I 0.124 NT-Pro-B Natriuret Pep [id number] H [id number] H 04/15/20 06:18 Troponin I NT-Pro-B Natriuret Pep [id number] H Impressions: Chest X-Ray 04/12/20 17:56 IMPRESSION: Cardiomegaly with central pulmonary vascular prominence but no mary pulmonary edema. Small left pleural effusion. Abdomen Ultrasound 04/12/20 22:05 IMPRESSION: Medical hepatic disease, presumed steatosis. Cholelithiasis without acute cholecystitis. No ductal dilatation. Right renal atrophy. Abdomen MRI 04/13/20 00:40 IMPRESSION: 1. Cholelithiasis and gallbladder wall thickening. There is no dilatation of the common bile duct or evidence of choledocholithiasis. 2. Cardiomegaly and small bilateral pleural effusions. 3. 12 x 7 mm right adrenal lipid rich adenoma. 4. Colonic diverticulosis. Assessment & Plan - Diagnosis (1) Acute on chronic renal failure Qualifiers: Acute renal failure type: unspecified Chronic kidney disease stage: unspecified stage Qualified Code(s): N17.9 - Acute kidney failure, unspecified; N18.9 - Chronic kidney disease, unspecified Is this a current diagnosis for this admission?: Yes (2) History of esophageal cancer Is this a current diagnosis for this admission?: Yes Plan: Family was just told last week that patient had MRSA. They are now very concerned that they have caught this, or at least been exposed. They are not sure what type of protective measures to take at home. Daughter states that she spoke with a family friend who works for [facility] and she now understands that Hospice will provide continued medications and treatment of infections if needed. They will also provide all necessary equipment at home and help the family arrange for another caregiver if needed to help at home. I again offered to arrange for a Hospice educational visit. She now agrees. All of her questions were answered. Dr. Danielson states patient may be discharged home with hospice today or tomorrow. Whenever the family is ready. I have tried to reach hospital senior program planner and will arrange for admission to [facility] after the education visit if family agrees. (3) Pancreatitis Qualifiers: Chronicity: acute Pancreatitis type: unspecified pancreatitis type Acute pancreatitis complication: unspecified Qualified Code(s): K85.90 - Acute pancreatitis without necrosis or infection, unspecified Is this a current diagnosis for this admission?: Yes (4) Thrombocytopenia Is this a current diagnosis for this admission?: Yes - Time Time Spent with patient: 15-24 minutes
[2020-04-18] MEDS: MAGNESIUM OXIDE 400 MG TABLET PO SCH ×2 (11:55→18:34)
[2020-04-18] MEDS: CYANOCOBALAMIN (VITAMIN B-12) 1,000 MCG TABLET PO SCH (11:55)
[2020-04-18] MEDS: CALCITRIOL 0.25 MCG CAPSULE PO SCH (11:58)
[2020-04-18] MEDS: CARVEDILOL 6.25 MG TABLET PO SCH ×2 (11:58→21:09)
[2020-04-18] MEDS: SODIUM BICARBONATE 650 MG TABLET PO SCH ×3 (11:58→18:34)
[2020-04-18] MEDS: PANTOPRAZOLE SODIUM 40 MG VIAL IV SCH ×2 (11:59→21:08)
[2020-04-18] MEDS: FUROSEMIDE INJ/PF 20 MG/2 ML SDV IV SCH (12:02)
--- NOTE | 2020-04-18 12:14 | PDOC PROGRESS REPORT ---
Subjective Progress Note for:: 04/18/20 Subjective:: Patient is currently doing same the family is waiting for the medical decisions palliative care versus hospice care very extensive discussions with the patient's family myself and oncology today regarding the hospice care understand very well discussed with the nursing staff for taking care of the patient's today and a office workforce planner possible frustrated for the hospice care versus palliative care pretty much nothing much difference well patient with end-stage disease Reason For Visit: GALL STONE PANCREATITIS Physical Exam Vital Signs: Temp Pulse Resp BP Pulse Ox 97.3 F 57 L 15 120/50 L 100 04/18/20 08:29 04/18/20 08:29 04/18/20 08:29 04/18/20 08:29 04/18/20 03:53 Intake & Output 04/17/20 04/18/20 04/19/20 06:59 06:59 06:59 Intake Total 1112 1310 40 Output Total 100 425 Balance 1012 885 40 Weight 73.4 kg 75.5 kg General appearance: PRESENT: no acute distress Eye exam: PRESENT: PERRLA Mouth exam: PRESENT: neck supple Respiratory exam: PRESENT: clear to auscultation emerald Cardiovascular exam: PRESENT: +S1, +S2 GI/Abdominal exam: PRESENT: normal bowel sounds Neurological exam: PRESENT: altered Results Laboratory Results: 04/15/20 06:18 04/14/20 05:58 04/14/20 05:58 Plt Count 25 L* 04/12/20 04/12/20 04/14/20 18:38 18:38 05:58 Troponin I 0.124 NT-Pro-B Natriuret Pep [id number] H [id number] H 04/15/20 06:18 Troponin I NT-Pro-B Natriuret Pep [id number] H Impressions: Chest X-Ray 04/12/20 17:56 IMPRESSION: Cardiomegaly with central pulmonary vascular prominence but no mary pulmonary edema. Small left pleural effusion. Abdomen Ultrasound 04/12/20 22:05 IMPRESSION: Medical hepatic disease, presumed steatosis. Cholelithiasis without acute cholecystitis. No ductal dilatation. Right renal atrophy. Abdomen MRI 04/13/20 00:40 IMPRESSION: 1. Cholelithiasis and gallbladder wall thickening. There is no dilatation of the common bile duct or evidence of choledocholithiasis. 2. Cardiomegaly and small bilateral pleural effusions. 3. 12 x 7 mm right adrenal lipid rich adenoma. 4. Colonic diverticulosis. Assessment & Plan - Diagnosis (1) Abdominal pain Qualifiers: Abdominal location: epigastric Qualified Code(s): R10.13 - Epigastric pain Is this a current diagnosis for this admission?: Yes (2) Acute gallstone pancreatitis Is this a current diagnosis for this admission?: Yes (3) Acute on chronic renal failure Qualifiers: Acute renal failure type: unspecified Chronic kidney disease stage: unspecified stage Qualified Code(s): N17.9 - Acute kidney failure, unspecified; N18.9 - Chronic kidney disease, unspecified Is this a current diagnosis for this admission?: Yes (4) Elevated LFTs Is this a current diagnosis for this admission?: Yes (5) Congestive heart failure Qualifiers: Heart failure type: combined systolic and diastolic Heart failure chronicity: chronic Qualified Code(s): I50.42 - Chronic combined systolic (congestive) and diastolic (congestive) heart failure Is this a current diagnosis for this admission?: Yes (6) Coronary artery disease Qualifiers: Coronary Disease-Associated Artery/Lesion type: [place] artery [place] vs. transplanted heart: [place] heart Associated angina: without angina Qualified Code(s): I25.10 - Atherosclerotic heart disease of [place] coronary artery without angina pectoris Is this a current diagnosis for this admission?: Yes (7) Hypertension Qualifiers: Hypertension type: essential hypertension Qualified Code(s): I10 - Essential (primary) hypertension Is this a current diagnosis for this admission?: Yes (8) Hyponatremia Is this a current diagnosis for this admission?: Yes (9) Weakness Is this a current diagnosis for this admission?: Yes (10) History of esophageal cancer Is this a current diagnosis for this admission?: Yes (11) Thrombocytopenia Is this a current diagnosis for this admission?: Yes - Time Time Spent with patient: 15-24 minutes Level of Care: IMCU Medications reviewed and adjusted accordingly: Yes Anticipated discharge: Hospice Anticipated DC Timeframe: when bed available - Plan Summary Plan Summary: Discussed with the patient's family very extensively regarding the hospice versus palliative care will at this point continues to office workforce planner to follow to make all arrangement before the patient is to go
[2020-04-18 13:08] LABS: PATH REVIEW PATHOLOGIST REVIEWED
[2020-04-18] MEDS: CEFEPIME 1 GM/D5W RTU 1 GM/50 ML RTUPB IV SCH (14:46)
[2020-04-18] MEDS: TRAMADOL HCL 50 MG TABLET PO PRN (21:10)
--- NOTE | 2020-04-19 08:57 | PDOC PROGRESS REPORT ---
Subjective Progress Note for:: 04/19/20 Subjective:: Patient is currently doing same very comfortable discussed with the patient's daughter currently working in the hospice placement with the continued home health and hospice Reason For Visit: GALL STONE PANCREATITIS Physical Exam Vital Signs: Temp Pulse Resp BP Pulse Ox 97.4 F 62 18 135/58 H 100 04/18/20 20:27 04/19/20 02:00 04/18/20 20:27 04/18/20 20:27 04/18/20 20:27 Intake & Output 04/18/20 04/19/20 04/20/20 06:59 06:59 06:59 Intake Total 1310 1320 Output Total 425 Balance 885 1320 Weight 75.5 kg 74 kg General appearance: PRESENT: no acute distress Head exam: PRESENT: atraumatic, normocephalic Eye exam: PRESENT: conjunctiva pink, EOMI, PERRLA. ABSENT: scleral icterus Ear exam: PRESENT: normal external ear exam Mouth exam: PRESENT: moist, tongue midline Neck exam: PRESENT: full ROM. ABSENT: carotid bruit, JVD, lymphadenopathy, thyromegaly Cardiovascular exam: PRESENT: RRR. ABSENT: diastolic murmur, rubs, systolic murmur Vascular exam: PRESENT: normal capillary refill GI/Abdominal exam: PRESENT: normal bowel sounds, soft. ABSENT: distended, guarding, mass, organolmegaly, rebound, tenderness Rectal exam: PRESENT: deferred Neurological exam: PRESENT: alert, awake, oriented to person. ABSENT: motor sensory deficit Psychiatric exam: PRESENT: appropriate affect, normal mood. ABSENT: homicidal ideation, suicidal ideation Skin exam: PRESENT: dry, intact, warm. ABSENT: cyanosis, rash Results Laboratory Results: 04/15/20 06:18 04/14/20 05:58 04/13/20 15:05 Blood Blood Culture - Final NO GROWTH IN 5 DAYS 04/16/20 11:30 Clean Catch Midstream Urine Culture - Final Mrsa (Meth Resis Staph Aureus) 04/13/20 13:15 Blood Blood Culture - Final NO GROWTH IN 5 DAYS 04/12/20 04/12/20 04/14/20 18:38 18:38 05:58 Troponin I 0.124 NT-Pro-B Natriuret Pep [id number] H [id number] H 04/15/20 06:18 Troponin I NT-Pro-B Natriuret Pep [id number] H Impressions: Chest X-Ray 04/12/20 17:56 IMPRESSION: Cardiomegaly with central pulmonary vascular prominence but no mary pulmonary edema. Small left pleural effusion. Abdomen Ultrasound 04/12/20 22:05 IMPRESSION: Medical hepatic disease, presumed steatosis. Cholelithiasis without acute cholecystitis. No ductal dilatation. Right renal atrophy. Abdomen MRI 04/13/20 00:40 IMPRESSION: 1. Cholelithiasis and gallbladder wall thickening. There is no dilatation of the common bile duct or evidence of choledocholithiasis. 2. Cardiomegaly and small bilateral pleural effusions. 3. 12 x 7 mm right adrenal lipid rich adenoma. 4. Colonic diverticulosis. Assessment & Plan - Diagnosis (1) Abdominal pain Qualifiers: Abdominal location: epigastric Qualified Code(s): R10.13 - Epigastric pain Is this a current diagnosis for this admission?: Yes (2) Acute gallstone pancreatitis Is this a current diagnosis for this admission?: Yes (3) Acute on chronic renal failure Qualifiers: Acute renal failure type: unspecified Chronic kidney disease stage: unspecified stage Qualified Code(s): N17.9 - Acute kidney failure, u nspecified; N18.9 - Chronic kidney disease, unspecified Is this a current diagnosis for this admission?: Yes (4) Elevated LFTs Is this a current diagnosis for this admission?: Yes (5) Congestive heart failure Qualifiers: Heart failure type: combined systolic and diastolic Heart failure chronicity: chronic Qualified Code(s): I50.42 - Chronic combined systolic (congestive) and diastolic (congestive) heart failure Is this a current diagnosis for this admission?: Yes (6) Coronary artery disease Qualifiers: Coronary Disease-Associated Artery/Lesion type: [place] artery [place] vs. transplanted heart: [place] heart Associated angina: without angina Qualified Code(s): I25.10 - Atherosclerotic heart disease of [place] coronary artery without angina pectoris Is this a current diagnosis for this admission?: Yes (7) Hypertension Qualifiers: Hypertension type: essential hypertension Qualified Code(s): I10 - Essential (primary) hypertension Is this a current diagnosis for this admission?: Yes (8) Hyponatremia Is this a current diagnosis for this admission?: Yes (9) Weakness Is this a current diagnosis for this admission?: Yes (10) History of esophageal cancer Is this a current diagnosis for this admission?: Yes (11) Thrombocytopenia Is this a current diagnosis for this admission?: Yes - Time Time Spent with patient: 15-24 minutes Level of Care: TELE Medications reviewed and adjusted accordingly: Yes Anticipated discharge: Other Anticipated DC Timeframe: Other - Plan Summary Plan Summary: Discussed with the daughter again's currently DNR/DNI currently working in a hospice at [facility]
[2020-04-19] MEDS: CYANOCOBALAMIN (VITAMIN B-12) 1,000 MCG TABLET PO SCH (09:42)
[2020-04-19] MEDS: FUROSEMIDE INJ/PF 20 MG/2 ML SDV IV SCH (09:42)
[2020-04-19] MEDS: PANTOPRAZOLE SODIUM 40 MG VIAL IV SCH ×2 (09:42→22:41)
[2020-04-19] MEDS: MAGNESIUM OXIDE 400 MG TABLET PO SCH ×2 (09:44→18:01)
[2020-04-19] MEDS: SODIUM BICARBONATE 650 MG TABLET PO SCH ×3 (09:44→18:01)
[2020-04-19] MEDS: CARVEDILOL 6.25 MG TABLET PO SCH ×2 (09:44→22:42)
[2020-04-19] MEDS: CEFEPIME 1 GM/D5W RTU 1 GM/50 ML RTUPB IV SCH (13:46)
[2020-04-19] MEDS: DEXTROSE 5%-NORMAL SALINE 1,000 ML IV PRN (17:39)
--- NOTE | 2020-04-20 11:18 | PDOC PROGRESS REPORT ---
Subjective Progress Note for:: 04/20/20 Subjective:: Patient is currently doing same very comfortable discussed with the patient's daughter currently working in the hospice placement with the continued home health and hospice Reason For Visit: GALL STONE PANCREATITIS Physical Exam Vital Signs: Temp Pulse Resp BP Pulse Ox 97.6 F 67 18 147/77 H 100 04/20/20 07:35 04/20/20 07:35 04/20/20 07:35 04/20/20 07:35 04/20/20 07:35 Intake & Output 04/19/20 04/20/20 04/21/20 06:59 06:59 06:59 Intake Total 1370 1670 Output Total 300 Balance 1370 1370 Weight 74 kg 77.9 kg Results Laboratory Results: 04/15/20 06:18 04/14/20 05:58 04/12/20 04/12/20 04/14/20 18:38 18:38 05:58 Troponin I 0.124 NT-Pro-B Natriuret Pep [id number] H [id number] H 04/15/20 06:18 Troponin I NT-Pro-B Natriuret Pep [id number] H Impressions: Chest X-Ray 04/12/20 17:56 IMPRESSION: Cardiomegaly with central pulmonary vascular prominence but no mary pulmonary edema. Small left pleural effusion. Abdomen Ultrasound 04/12/20 22:05 IMPRESSION: Medical hepatic disease, presumed steatosis. Cholelithiasis without acute cholecystitis. No ductal dilatation. Right renal atrophy. Abdomen MRI 04/13/20 00:40 IMPRESSION: 1. Cholelithiasis and gallbladder wall thickening. There is no dilatation of the common bile duct or evidence of choledocholithiasis. 2. Cardiomegaly and small bilateral pleural effusions. 3. 12 x 7 mm right adrenal lipid rich adenoma. 4. Colonic diverticulosis. Assessment & Plan - Diagnosis (1) Abdominal pain Qualifiers: Abdominal location: epigastric Qualified Code(s): R10.13 - Epigastric pain Is this a current diagnosis for this admission?: Yes (2) Acute gallstone pancreatitis Is this a current diagnosis for this admission?: Yes (3) Acute on chronic renal failure Qualifiers: Acute renal failure type: unspecified Chronic kidney disease stage: unspecified stage Qualified Code(s): N17.9 - Acute kidney failure, unspecified; N18.9 - Chronic kidney disease, unspecified Is this a current diagnosis for this admission?: Yes (4) Elevated LFTs Is this a current diagnosis for this admission?: Yes (5) Congestive heart failure Qualifiers: Heart failure type: combined systolic and diastolic Heart failure chronicity: chronic Qualified Code(s): I50.42 - Chronic combined systolic (congestive) and diastolic (congestive) heart failure Is this a current diagnosis for this admission?: Yes (6) Coronary artery disease Qualifiers: Coronary Disease-Associated Artery/Lesion type: [place] artery [place] vs. transplanted heart: [place] heart Associated angina: without angina Qualified Code(s): I25.10 - Atherosclerotic heart disease of [place] coronary artery without angina pectoris Is this a current diagnosis for this admission?: Yes (7) Hypertension Qualifiers: Hypertension type: essential hypertension Qualified Code(s): I10 - Essen tial (primary) hypertension Is this a current diagnosis for this admission?: Yes (8) Hyponatremia Is this a current diagnosis for this admission?: Yes (9) Weakness Is this a current diagnosis for this admission?: Yes (10) History of esophageal cancer Is this a current diagnosis for this admission?: Yes (11) Thrombocytopenia Is this a current diagnosis for this admission?: Yes - Time Time Spent with patient: 15-24 minutes Level of Care: IMCU Medications reviewed and adjusted accordingly: Yes Anticipated discharge: Other Anticipated DC Timeframe: Other - Plan Summary Plan Summary: Continues the current medications
[2020-04-20] MEDS: CARVEDILOL 6.25 MG TABLET PO SCH ×2 (12:04→22:01)
[2020-04-20] MEDS: FUROSEMIDE INJ/PF 20 MG/2 ML SDV IV SCH (12:04)
[2020-04-20] MEDS: MAGNESIUM OXIDE 400 MG TABLET PO SCH ×2 (12:05→17:51)
[2020-04-20] MEDS: SODIUM BICARBONATE 650 MG TABLET PO SCH ×3 (12:05→21:57)
[2020-04-20] MEDS: CYANOCOBALAMIN (VITAMIN B-12) 1,000 MCG TABLET PO SCH (12:05)
[2020-04-20] MEDS: PANTOPRAZOLE SODIUM 40 MG VIAL IV SCH (12:06)
[2020-04-20] MEDS: CALCITRIOL 0.25 MCG CAPSULE PO SCH (12:06)
[2020-04-21 11:16] VITALS: BP 159/74
--- NOTE | 2020-04-21 11:32 | Death Summary ---
Summary Date : 04/21/20 Autopsy: No Resuscitation Status: Do Not Resuscitate - Final Diagnosis (1) Abdominal pain Is this a current diagnosis for this admission?: Yes (2) Acute gallstone pancreatitis Is this a current diagnosis for this admission?: Yes (3) Acute on chronic renal failure Is this a current diagnosis for this admission?: Yes (4) Elevated LFTs Is this a current diagnosis for this admission?: Yes (5) Congestive heart failure Is this a current diagnosis for this admission?: Yes (6) Coronary artery disease Is this a current diagnosis for this admission?: Yes (7) Hypertension Is this a current diagnosis for this admission?: Yes (8) Hyponatremia Is this a current diagnosis for this admission?: Yes (9) Weakness Is this a current diagnosis for this admission?: Yes (10) History of esophageal cancer Is this a current diagnosis for this admission?: Yes (11) Thrombocytopenia Is this a current diagnosis for this admission?: Yes Hospital Course:: This is a 84-year-old female with multiple medical problems with end-stage renal disease congestive heart failure gallstone pancreatitis and patient's family and patients do not want to go for any further advanced treatments basically very extensive discussion myself and oncology and other lending consultant pretty much patient is DNR/DNI and patient's try to arrange the hospice for the last several days and family's try to make and choose what hospice can go and finally make arrangement to hospice to go home today but patient's past summer and 0 today pretty much patients at this point nothing much can be offer due to the advanced disease and patients and family do not want to go for any further treatments
== END 2020-04-21 09:25 | DRG 439 ==
LOC: ER 17:28 → EH 04-13 12:10 → 3S 04-13 18:13
PROVIDERS: ADMIT Family Medicine; ATTEND Family Medicine
DX: K85.10 Biliary acute pancreatitis without necrosis or infection (principal); I13.0 Hypertensive heart and chronic kidney disease with heart failure and stage 1 through stage 4 chronic kidney disease, or unspecified chronic kidney disease; N17.9 Acute kidney failure, unspecified; N18.5 Chronic kidney disease, stage 5; E87.1 Hypo-osmolality and hyponatremia; I50.42 Chronic combined systolic (congestive) and diastolic (congestive) heart failure; E78.5 Hyperlipidemia, unspecified; D63.1 Anemia in chronic kidney disease; Z88.2 Allergy status to sulfonamides; I25.10 Atherosclerotic heart disease of native coronary artery without angina pectoris; K80.80 Other cholelithiasis without obstruction; F03.90 Unspecified dementia, unspecified severity, without behavioral disturbance, psychotic disturbance, mood disturbance, and anxiety; E86.0 Dehydration; M19.90 Unspecified osteoarthritis, unspecified site; K21.9 Gastro-esophageal reflux disease without esophagitis; Z79.01 Long term (current) use of anticoagulants; D69.59 Other secondary thrombocytopenia; Z51.5 Encounter for palliative care; Z66 Do not resuscitate; Z85.01 Personal history of malignant neoplasm of esophagus
CPT/HCPCS: 36415; 71046; 74181; 76705; 80053; 81001; 82962; 83690; 83735; 83880; 84484; 85025; 87040; 87086; 87088; 87186; 93005; 93010; 93306; 96361; 96365; 96375; 96376; 99285; C9113; J0610; J0692; J0696; J1815; J1940; J2405; J3490; J7030; J7040; J7042; J7050